=== PATIENT | male | born 1985 | race Caucasian/White ===

== ENCOUNTER 2017-06-28 20:14 | Emergency (ER) | payer MEDICARE, MEDICAID, SELFPAY ==
[2017-06-28 21:35] LABS: UTC Strep Screen (Rapid) Negative (Negative)
[2017-06-28 21:36] VITALS: BP 137/88; PULSE 107; RESP 20; TEMP 36.8; O2SAT 98; BMI 39.9
--- NOTE | 2017-06-28 21:40 | HMH.EDUTC ---
[facility] [place] Disposition Clinical Impression: Viral upper respiratory illness Disposition: Home, Self-Care Condition on Discharge: Good Instructions: DI for Viral Upper Respiratory Infection -- Adult, DI for Viral Pharyngitis Additional Instructions: * No sign of bacterial infection. Likely viral. Virus can take 7-14 days to run their course * Monitor Temp. Tylenol every 4 hours as needed no more then 5 times a day or 4000mg in 24 hours and/or ibuprofen every 6 hours as needed no more then 3200mg in 24 hours (as long as your primary care doctor has told you that it is ok to take both) for fever/aches/pain. ER if fever no less than 101 despite tylenol and ibuprofen * Encourage fluids, water, gatorade, powerade, pedialyte if infant/toddler/child * warm salt water gargles * warm fluids * sore throat lozenges * sleep elevated * humidifier/vaporizer * flonase 2 sprays each nostril daily but may take 2-3 days to notice improvement with it. * Bromfed may cause drowsiness. Know how it effects you (or your child) before driving, caring for small children, or sending your child to school. No other antihistamines/allergy medications while taking bromfed. * * Your throat swab was sent for culture. Those results are typically sent to your primary care. Be sure to follow up in 2-3 days if no improvement so they can review those results and treat if necessary. If you don't have primary care, I recommend you get one but in the mean time, you will have to return to a walk in clinic. Prescriptions: Brompheniramine/Pseudoephed/Dm [Bromfed DM Cough Syrup 5mL] 10 ml PO QID PRN #240 ml PRN Reason: Cough Referrals: Ruperto Buitrago MD [Primary Care Provider] - (IMMEDIATELY for new or worsening symptoms OR no noticeable improvement over the next 48-72 hours. 911 for difficulty breathing or swallowing.) Time of Disposition: 21:47 Medical Decision Making Vital Signs: 06/28/17 21:36 Temperature 98.2 F Temperature Source Temporal Artery Scan Pulse Rate [Radial] 107 H Respiratory Rate 20 Blood Pressure [Right Arm] 137/88 Blood Pressure Mean [Right Arm] 104 Blood Pressure Source [Right Arm] Automatic Cuff Blood Pressure Position [Right Arm] Sitting 02 Sat by Pulse Oximetry 98 Oxygen Delivery Method Room Air - Lab Data Lab results reviewed: Yes: I reviewed the patient's lab results. Lab Results 06/28/17 21:35: Strep Scn Rapid Clinic Negative - Mo Inquiry Pt receiving controlled substance: No [facility] [place] HPI - General Stated complaint: sore throat Time Seen by Provider: 06/28/17 21:20 Mode of Arrival: Ambulatory Source of Information: Patient Description of Symptoms (Recalled from Triage Doc. by RN): PT STATES SORE THROAT AND SINUS DRAINAGE HEENT Symptoms (Recalled from RN notes): No Resp Symptoms (Recalled from RN notes): No Skin Symptoms (Recalled from RN notes): No MS Symptoms (Recalled from RN notes): No Functional Status (Recalled from RN notes): NA - History of Present Illness Provider Complaint: c/o sore throat since day before yesterday. No better w/ chloraseptic throat spray, cough drops, mucinex. Does report a nonprod cough w/ PND and rhinorrhea as well. No known sick contacts. Hasn't taken or tried anything else. The worst in the evenings, night and morning. - Related Data Previous Rx's Medication Instructions Recorded Brompheniramine/Pseudoephed/Dm 10 ml PO QID PRN #240 ml 06/28/17 [Bromfed DM Cough Syrup 5mL] Allergies Allergy/AdvReac Type Severity Reaction Status Date / Time Penicillins [PENICILLINS] Allergy Unknown Verified 06/28/17 20:39 - Worker's Comp Is this a Worker's Comp case?: No [facility] History I have reviewed the patient's past medical history: Yes Medical History: Reports:: Hypertension Denies:: Diabetes Mellitus Type 2 Laterality Cases: Bilateral: Tonsillectomy Comment: unknown lung surgery on right, oral surgeries - *Social History Smoking Status: Never smoker Alcohol Intake:
--- NOTE | 2017-06-28 21:43 | ED_ITS ---
[facility] Disposition Clinical Impression: Viral upper respiratory illness Disposition: Home, Self-Care Condition on Discharge: Good Instructions: DI for Viral Upper Respiratory Infection -- Adult, DI for Viral Pharyngitis Additional Instructions: * No sign of bacterial infection. Likely viral. Virus can take 7-14 days to run their course * Monitor Temp. Tylenol every 4 hours as needed no more then 5 times a day or 4000mg in 24 hours and/or ibuprofen every 6 hours as needed no more then 3200mg in 24 hours (as long as your primary care doctor has told you that it is ok to take both) for fever/aches/pain. ER if fever no less than 101 despite tylenol and ibuprofen * Encourage fluids, water, gatorade, powerade, pedialyte if infant/toddler/ child * warm salt water gargles * warm fluids * sore throat lozenges * sleep elevated * humidifier/vaporizer * flonase 2 sprays each nostril daily but may take 2-3 days to notice improvement with it. * Bromfed may cause drowsiness. Know how it effects you (or your child) before driving, caring for small children, or sending your child to school. No other antihistamines/allergy medications while taking bromfed. * * Your throat swab was sent for culture. Those results are typically sent to your primary care. Be sure to follow up in 2-3 days if no improvement so they can review those results and treat if necessary. If you don't have primary care , I recommend you get one but in the mean time, you will have to return to a walk in clinic. Prescriptions: Brompheniramine/Pseudoephed/Dm [Bromfed DM Cough Syrup 5mL] 10 ml PO QID PRN # 240 ml PRN Reason: Cough Referrals: Ruperto Buitrago MD [Primary Care Provider] - (IMMEDIATELY for new or worsening symptoms OR no noticeable improvement over the next 48-72 hours. 911 for difficulty breathing or swallowing.) Time of Disposition: 21:47 Medical Decision Making Vital Signs: 06/28/17 21:36 Temperature 98.2 F Temperature Source Temporal Artery Scan Pulse Rate [Radial] 107 H Respiratory Rate 20 Blood Pressure [Right Arm] 137/88 Blood Pressure Mean [Right Arm] 104 Blood Pressure Source [Right Arm] Automatic Cuff Blood Pressure Position [Right Arm] Sitting 02 Sat by Pulse Oximetry 98 Oxygen Delivery Method Room Air - Lab Data Lab results reviewed: Yes: I reviewed the patient's lab results. Lab Results 06/28/17 21:35: Strep Scn Rapid Clinic Negative - Mo Inquiry Pt receiving controlled substance: No [facility] [place] HPI - General Stated complaint: sore throat Time Seen by Provider: 06/28/17 21:20 Mode of Arrival: Ambulatory Source of Information: Patient Description of Symptoms (Recalled from Triage Doc. by RN): PT STATES SORE THROAT AND SINUS DRAINAGE HEENT Symptoms (Recalled from RN notes): No Resp Symptoms (Recalled from RN notes): No Skin Symptoms (Recalled from RN notes): No MS Symptoms (Recalled from RN notes): No Functional Status (Recalled from RN notes): NA - History of Present Illness Provider Complaint: c/o sore throat since day before yesterday. No better w/ chloraseptic throat spray, cough drops, mucinex. Does report a nonprod cough w/ PND and rhinorrhea as well. No known sick contacts. Hasn't taken or tried anything else. The worst in the evenings, night and morning. - Related Data Previous Rx's Medication Instructions Recorded Brompheniramine/Pseudoephed/Dm 10 ml PO QID PRN #240 ml 06/28/17 [Bromfed DM Cough Syrup 5mL
== END 2017-06-28 22:18 | disposition home or self-care (01) ==
PROVIDERS: Emergency Provider Nurse Practitioner Family; Family Provider Internal Medicine Adolescent Medicine; PCP Internal Medicine Adolescent Medicine
DX: J06.9 Acute upper respiratory infection, unspecified (principal); I10 Essential (primary) hypertension
CPT/HCPCS: 87880; 99201

== ENCOUNTER 2017-07-17 15:13 | Emergency (ER) | payer MEDICARE, MEDICAID, SELFPAY ==
[2017-07-17 16:04] VITALS: BP 144/98; PULSE 99; RESP 20; TEMP 37; O2SAT 98; BMI 39.9
--- NOTE | 2017-07-17 16:09 | HMH.EDUTC ---
[facility] [place] Disposition Clinical Impression: URI (upper respiratory infection) Qualifiers: URI type: unspecified URI Qualified Code(s): J06.9 - Acute upper respiratory infection, unspecified Disposition: Home, Self-Care Condition on Discharge: Good Instructions: Cough, Sore Throat, DI for Nasal Congestion Additional Instructions: * Monitor Temp. Tylenol and/or Ibuprofen as needed. ER if fever is no less than 101 despite alternating Tylenol and Ibuprofen * Encourage fluids, water, Gatorade, powerade, pedialyte if /toddler/or child * Warm salt water gargles for throat irritation *Warm fluids *Sore throat lozenges *Sleep elevated *humidifier or vaporizer Lots of rest Increase fluids, water, Gatorade, powerade *Your throat swab was sent to lab for culture. Those results area typically sent to your primary care physician. Be sure to follow up in 2-3 days if no improvement so they can review those results and treat if necessary If you dont have primary care I recommend you get one, but in the mean time you will have to return to a walk in clinic Follow up IMMEDIATELY for new or worsening of symptoms OR no noticeable improvement over the next 48-72 hours. 911 immediately for any life threatening symptoms such as chest pain or difficulty breathing Prescriptions: Azithromycin [Z-David 250mg Tab] 250 mg PO UD DOSE PK #6 tab Benzonatate [Tessalon Perle 100mg Cap] 100 mg PO TID #20 cap predniSONE [Prednisone 20mg Tab] 20 mg PO BID #10 tab Referrals: Ruperto Buitrago MD [Primary Care Provider] - Time of Disposition: 16:27 Medical Decision Making - Medical Records Medical records reviewed: Yes: I reviewed the patient's medical records. Vital Signs: 07/17/17 16:04 Temperature 98.6 F Temperature Source Temporal Artery Scan Pulse Rate [Right] 99 H Respiratory Rate 20 Blood Pressure [Right Arm] 144/98 Blood Pressure Mean [Right Arm] 113 Blood Pressure Source [Right Arm] Automatic Cuff Blood Pressure Position [Right Arm] Sitting 02 Sat by Pulse Oximetry 98 Oxygen Delivery Method Room Air - Mo Inquiry Pt receiving controlled substance: No Mo was queried for this patient: No [facility] [place] HPI - General Stated complaint: sore throat Mode of Arrival: Ambulatory Source of Information: Patient Limitations: No Limitations Description of Symptoms (Recalled from Triage Doc. by RN): SORE THROAT X2 MONTHS HEENT Symptoms (Recalled from RN notes): Yes Resp Symptoms (Recalled from RN notes): No Skin Symptoms (Recalled from RN notes): No MS Symptoms (Recalled from RN notes): No Functional Status (Recalled from RN notes): N - History of Present Illness Provider Complaint: Patient state that he has been seen 3 times in the last couple of months for sore throat State that he thinks it may be coming from sinus drainage State that his throat feels raw and irritated and hurts when he swallows - Related Data Previous Rx's Medication Instructions Recorded Brompheniramine/Pseudoephed/Dm 10 ml PO QID PRN #240 ml 06/28/17 [Bromfed DM Cough Syrup 5mL] Azithromycin [Z-David 250mg Tab] 250 mg PO UD DOSE PK #6 tab 07/17/17 Benzonatate [Tessalon Perle 100mg 100 mg PO TID #20 cap 07/17/17 Cap] predniSONE [Prednisone 20mg 20 mg PO BID #10 tab 07/17/17 Tab] Allergies Allergy/AdvReac Type Severity Reaction Status Date / Time Penicillins [PENICILLINS] Allergy Unknown Verified 06/28/17 20:39 - Worker's Comp Is this a Worker's Comp case?: No [facility] History I have reviewed the patient's past medical history: Yes Medical History: Reports:: Hypertension Denies:: Diabetes Mellitus Type 2 Laterality Cases: Bilateral: Tonsillectomy - *Social History Smoking Status: Never smoker Alcohol Intake: never - Psychiatric History Expresses thoughts of harming self/others: None Suicide Plan Description: No Plan ROS Obtained: Yes All systems reviewed & no additional complaints - Constitutional Constitutional: Reports chills,
--- NOTE | 2017-07-17 16:15 | ED_ITS ---
[facility] [place] Impression: URI (upper respiratory infection) Qualifiers: URI type: unspecified URI Qualified Code(s): J06.9 - Acute upper respiratory infection, unspecified Disposition: Home, Self-Care Condition on Discharge: Good Instructions: Cough, Sore Throat, DI for Nasal Congestion Additional Instructions: * Monitor Temp. Tylenol and/or Ibuprofen as needed. ER if fever is no less than 101 despite alternating Tylenol and Ibuprofen * Encourage fluids, water, Gatorade, powerade, pedialyte if infant/toddler/or child * Warm salt water gargles for throat irritation *Warm fluids *Sore throat lozenges *Sleep elevated *humidifier or vaporizer Lots of rest Increase fluids, water, Gatorade, powerade *Your throat swab was sent to lab for culture. Those results area typically sent to your primary care physician. Be sure to follow up in 2-3 days if no improvement so they can review those results and treat if necessary If you don? t have primary care I recommend you get one, but in the mean time you will have to return to a walk in clinic Follow up IMMEDIATELY for new or worsening of symptoms OR no noticeable improvement over the next 48-72 hours. 911 immediately for any life threatening symptoms such as chest pain or difficulty breathing Prescriptions: Azithromycin [Z-David 250mg Tab] 250 mg PO UD DOSE PK #6 tab Benzonatate [Tessalon Perle 100mg Cap] 100 mg PO TID #20 cap predniSONE [Prednisone 20mg Tab] 20 mg PO BID #10 tab Referrals: Ruperto Buitrago MD [Primary Care Provider] - Time of Disposition: 16:27 Medical Decision Making - Medical Records Medical records reviewed: Yes: I reviewed the patient's medical records. Vital Signs: 07/17/17 16:04 Temperature 98.6 F Temperature Source Temporal Artery Scan Pulse Rate [Right] 99 H Respiratory Rate 20 Blood Pressure [Right Arm] 144/98 Blood Pressure Mean [Right Arm] 113 Blood Pressure Source [Right Arm] Automatic Cuff Blood Pressure Position [Right Arm] Sitting 02 Sat by Pulse Oximetry 98 Oxygen Delivery Method Room Air - Mo Inquiry Pt receiving controlled substance: No Mo was queried for this patient: No [facility] [place] - General Stated complaint: sore throat Mode of Arrival: Ambulatory Source of Information: Patient Limitations: No Limitations Description of Symptoms (Recalled from Triage Doc. by RN): SORE THROAT X2 MONTHS HEENT Symptoms (Recalled from RN notes): Yes Resp Symptoms (Recalled from RN notes): No Skin Symptoms (Recalled from RN notes): No MS Symptoms (Recalled from RN notes): No Functional Status (Recalled from RN notes): N - History of Present Illness Provider Complaint: Patient state that he has been seen 3 times in the last couple of months for sore throat State that he thinks it may be coming from sinus drainage State that his throat feels raw and irritated and hurts when he swallows - Related Data Previous Rx's Medication Instructions Recorded Brompheniramine/Pseudoephed/Dm 10 ml PO QID PRN #240 ml 06/28/17 [Bromfed DM Cough Syrup 5mL] Azithromycin [Z-David 250mg Tab] 250 mg PO UD DOSE PK #6 tab 07/17/17 Benzonatate [Tessalon Perle 100mg 100 mg PO TID #20 cap 07/17/17 Cap] predniSONE [Prednisone 20mg 20 mg PO BID #10 tab 07/17/17 Tab] Allergies Allergy/AdvReac Type Severity Reaction Status Date / Time Penicillins [PENICILLINS] Allergy
[2017-07-17 16:28] VITALS: BP 140/90; PULSE 90; RESP 20; TEMP 36.6
[2017-07-17 16:28] LABS: UTC Strep Screen (Rapid) Negative (Negative)
== END 2017-07-17 16:30 | disposition home or self-care (01) ==
PROVIDERS: Emergency Provider Nurse Practitioner; Family Provider Internal Medicine Adolescent Medicine; PCP Internal Medicine Adolescent Medicine
DX: J06.9 Acute upper respiratory infection, unspecified (principal)
CPT/HCPCS: 87880; 99201

== ENCOUNTER 2017-07-24 11:29 | Emergency (ER) | payer MEDICARE, MEDICAID, SELFPAY ==
[2017-07-24 11:57] VITALS: BP 160/104; PULSE 80; RESP 18; TEMP 36.9; O2SAT 96; BMI 39.9
--- NOTE | 2017-07-24 12:04 | XR_ITS ---
EXAM: XR lumbar spine min 4V HISTORY: Post traumatic pain ITS.REASON: fall ORDERING PHYSICIAN: Maximino Dang MD PATIENT AGE: 31 years COMPARISON: None FINDINGS: Normal alignment. No fracture or dislocation. No lytic or blastic change. No significant degenerative change. The disc spaces are preserved. IMPRESSION: Negative lumbar spine
--- NOTE | 2017-07-24 12:04 | CT_ITS ---
CT cervical spine wo con INDICATION: Neck pain following injury ITS.REASON: fall ORDERING PHYSICIAN: Maximino Dang MD PATIENT AGE: 31 years COMPARISON: None TECHNIQUE: Axial images are obtained without contrast. Sagittal and coronal reformatted images are reviewed as well. FINDINGS: There is normal alignment with slight reversal the cervical lordosis which may be due to patient positioning or muscle spasm. No fracture or dislocation evident. The disc spaces are well-preserved. No prevertebral soft tissue swelling. Lung apices show multiple small collapse. IMPRESSION: 1. No acute fracture. 2. Slight reversal cervical lordosis which may be due to patient positioning or muscle spasm. 3. Biapical blebs
--- NOTE | 2017-07-24 12:04 | XR_ITS ---
XR shoulder LT min 2V HISTORY: Shoulder pain following injury ITS.REASON: fall ORDERING PHYSICIAN: Maximino Dang MD PATIENT AGE: 31 years COMPARISON: None FINDINGS: No fracture or dislocation. No lytic or blastic change. There is normal mineralization. The joint spaces are well-preserved. No significant degenerative/arthritic changes. No erosive changes evident. IMPRESSION: Negative, no acute finding
--- NOTE | 2017-07-24 14:32 | HMH.EDFALL ---
ED Disposition Clinical Impression: Shoulder contusion, Lumbar contusion Disposition: Home, Self-Care Condition on Discharge: Good Instructions: DI for Low Back Pain Additional Instructions: 1- rest. 2- ice. 3- icy hot. 4- robaxin and motrin. 5- follow up with pcp on final x ray reports. 6- retrun if needed. Prescriptions: Ibuprofen [Motrin 600mg Tablet] 600 mg PO Q8HP PRN #21 tab PRN Reason: Muscle Pain Methocarbamol [Robaxin 500mg Tab] 500 mg PO Q8 PRN #21 tab PRN Reason: Cramping Referrals: Ruperto Buitrago MD [Primary Care Provider] - - Critical Care Critical Care Time: No Attestation: On 07/24/17, the high probability of a clinically significant, sudden or life threatening deterioration of the following system(s) required my full and direct attention, intervention and personal management. The time I documented below is in addition to time spent performing reported procedures but includes the following listed in this critical care notation. Medical Decision Making - Medical Records Medical records reviewed: Yes: I reviewed the patient's medical records. Vital Signs: 07/24/17 11:57 Temperature 98.5 F Temperature Source Oral Pulse Rate [Right Radial] 80 Respiratory Rate 18 Blood Pressure [Right Arm] 160/104 Blood Pressure Mean [Right Arm] 122 Blood Pressure Source [Right Arm] Automatic Cuff Blood Pressure Position [Right Arm] Sitting 02 Sat by Pulse Oximetry 96 Oxygen Delivery Method Room Air - Radiology Data #1 Image(s): L-Spine, Shoulder Image Reviewed: Yes I have reviewed radiologist's interpretation Preliminary Findings: Normal/NAD - CT Data CT Scan: C-Spine Time Received: 14:35 - Mo Inquiry Pt receiving controlled substance: No Fall HPI - General Chief Complaint: Back Pain/Injury Stated Complaint: AO [id number] left shoulder/back Mode of Arrival: Ambulatory Limitations: No Limitations Description of Symptoms (Recalled from ER Triage Doc. by RN): reports fall down steps last night, c/o L shoulder pain, L sided neck pain and lower back pain. Denies loc - History of Present Illness HPI Narrative: 31 years old white male who claims that he has slipped and landed on his left shoulder and lower back yesterday. Denies head injury he denies having neck pain rib pain chest or abdominal pain. He denies loss of conscious. complaint: fall Onset (ago): day(s) (Yesterday.) Fall from: standing Fall witnessed: yes, by family Place fall occurred: home Loss of consciousness: none Prolonged down time: no Symptoms prior to fall: none Severity: mild Quality: dull Associated symptoms (after fall): denies - Related Data Previous Rx's Medication Instructions Recorded Ibuprofen [Motrin 600mg 600 mg PO Q8HP PRN #21 tab 07/24/17 Tablet] Methocarbamol [Robaxin 500mg Tab] 500 mg PO Q8 PRN #21 tab 07/24/17 Allergies Allergy/AdvReac Type Severity Reaction Status Date / Time Penicillins [PENICILLINS] Allergy Unknown Verified 07/24/17 12:04 [facility] History I have reviewed the patient's past medical history: Yes Medical History: Reports:: Hypertension Denies:: Diabetes Mellitus Type 1, Diabetes Mellitus Type 2 Laterality Cases: Bilateral: Tonsillectomy - *Social History Smoking Status: Former smoker Alcohol Intake: never - Psychiatric History Expresses thoughts of harming self/others: None Suicide Plan Description: No Plan ROS Obtained: Yes All systems reviewed & no additional complaints Physical Exam - General General appearance: alert, in no apparent distress - Head Head exam: atraumatic, normocephalic, normal inspection - Eye Eye exam: Present: normal appearance, PERRL, EOMI - ENT ENT exam: Present: normal exam, normal oropharynx, mucous membranes moist, TM's normal bilaterally, normal external ear exam - Neck Neck exam: Present: normal inspection, full ROM, trachea midline. Absent: tenderness (No midline tenderness
--- NOTE | 2017-07-24 14:35 | ED_ITS ---
ED Disposition Clinical Impression: Shoulder contusion, Lumbar contusion Disposition: Home, Self-Care Condition on Discharge: Good Instructions: DI for Low Back Pain Additional Instructions: 1- rest. 2- ice. 3- icy hot. 4- robaxin and motrin. 5- follow up with pcp on final x ray reports. 6- retrun if needed. Prescriptions: Ibuprofen [Motrin 600mg Tablet] 600 mg PO Q8HP PRN #21 tab PRN Reason: Muscle Pain Methocarbamol [Robaxin 500mg Tab] 500 mg PO Q8 PRN #21 tab PRN Reason: Cramping Referrals: Ruperto Buitrago MD [Primary Care Provider] - - Critical Care Critical Care Time: No Attestation: On 07/24/17, the high probability of a clinically significant, sudden or life threatening deterioration of the following system(s) required my full and direct attention, intervention and personal management. The time I documented below is in addition to time spent performing reported procedures but includes the following listed in this critical care notation. Medical Decision Making - Medical Records Medical records reviewed: Yes: I reviewed the patient's medical records. Vital Signs: 07/24/17 11:57 Temperature 98.5 F Temperature Source Oral Pulse Rate [Right Radial] 80 Respiratory Rate 18 Blood Pressure [Right Arm] 160/104 Blood Pressure Mean [Right Arm] 122 Blood Pressure Source [Right Arm] Automatic Cuff Blood Pressure Position [Right Arm] Sitting 02 Sat by Pulse Oximetry 96 Oxygen Delivery Method Room Air - Radiology Data #1 Image(s): L-Spine, Shoulder Image Reviewed: Yes I have reviewed radiologist's interpretation Preliminary Findings: Normal/NAD - CT Data CT Scan: C-Spine Time Received: 14:35 - Mo Inquiry Pt receiving controlled substance: No Fall HPI - General Chief Complaint: Back Pain/Injury Stated Complaint: AO [id number] left shoulder/back Mode of Arrival: Ambulatory Limitations: No Limitations Description of Symptoms (Recalled from ER Triage Doc. by RN): reports fall down steps last night, c/o L shoulder pain, L sided neck pain and lower back pain. Denies loc - History of Present Illness HPI Narrative: 31 years old white male who claims that he has slipped and landed on his left shoulder and lower back yesterday. Denies head injury he denies having neck pain rib pain chest or abdominal pain. He denies loss of conscious. complaint: fall Onset (ago): day(s) (Yesterday.) Fall from: standing Fall witnessed: yes, by family Place fall occurred: home Loss of consciousness: none Prolonged down time: no Symptoms prior to fall: none Severity: mild Quality: dull Associated symptoms (after fall): denies - Related Data Previous Rx's Medication Instructions Recorded Ibuprofen [Motrin 600mg 600 mg PO Q8HP PRN #21 tab 07/24/17 Tablet] Methocarbamol [Robaxin 500mg Tab] 500 mg PO Q8 PRN #21 tab 07/24/17 Allergies Allergy/AdvReac Type Severity Reaction Status Date / Time Penicillins [PENICILLINS] Allergy Unknown Verified 07/24/17 12:04 [facility] History I have reviewed the patient's past medical history: Yes Medical History: Reports:: Hypertension Denies:: Diabetes Mellitus Type 1, Diabetes Mellitus Type 2 Laterality Cases: Bilateral: Tonsillectomy - *Social History Smoking Status: F
[2017-07-24 14:45] VITALS: BP 146/96; PULSE 86; RESP 20; TEMP 36.8; O2SAT 98
== END 2017-07-24 14:45 | disposition home or self-care (01) ==
PROVIDERS: Emergency Provider Emergency Medicine; Family Provider Internal Medicine Adolescent Medicine; PCP Internal Medicine Adolescent Medicine
DX: S40.012A Contusion of left shoulder, initial encounter (principal); S30.0XXA Contusion of lower back and pelvis, initial encounter; W10.9XXA Fall (on) (from) unspecified stairs and steps, initial encounter; Y92.009 Unspecified place in unspecified non-institutional (private) residence as the place of occurrence of the external cause
CPT/HCPCS: 72110; 72125; 73030; 99282

== ENCOUNTER 2018-10-13 09:49 | Emergency (ER) | payer MEDICARE, MEDICAID, SELFPAY ==
[2018-10-13 10:09] VITALS: BP 149/90; PULSE 68; RESP 22; TEMP 36.8; O2SAT 99; BMI 51.5
[2018-10-13 10:11] LABS: UTC Strep Screen (Rapid) Negative (Negative)
--- NOTE | 2018-10-13 10:42 | HMH.EDUTC ---
[facility] [place] Dis[place] Clinical Impression: Cough, Viral pharyngitis Disposition: Home, Self-Care Condition on Discharge: Good Instructions: Cough, Sore Throat, Viral Pharyngitis Additional Instructions: *Monitor Temp, Over the counter Motrin or Tylenol as directed/as needed Tylenol every 4 hours and Motrin every 6 hours (as long as your family doctor has told you that you can take it) for fever or pain. and straight to ER if unable to lower temp less than 101.0 after medication given *Warm salt water gargles may help to soothe the throat *Throat Lozenges *Warm fluids *Sleep elevated *Humidifier/Vaporizer *Flonase 2 sprays in each nostril daily but be aware that it may take 2-3 days before you notice improvement Your throat swab was sent for culture. Those results are typically sent to your primary care. Be sure to follow up in 2-3 days with your family doctor/primary care physician if no improvement so they can review those result and treat if necessary. If you don?t have a primary care doctor, I recommend you get one but in the mean time, you will have to return to a walk in clinic Follow up IMMEDIATELY for new or worsening symptoms or no Noticeable improvement over the next 48-72 hours. 911 for difficulty breathing or swallowing Prescriptions: Fluticasone Propionate [Flonase 50mcg nasal spray 16gm] 2 spr NS DAILY #1 bottle Benzonatate [Tessalon Perle 100mg Cap] 100 mg PO TID PRN #30 cap PRN Reason: Cough Referrals: Ruperto Buitrago MD [Primary Care Provider] - Medical Decision Making - Mo Inquiry Pt receiving controlled substance: No Mo was queried for this patient: No Vital Signs: 10/13/18 10:09 Temperature 98.2 F Temperature Source Oral Pulse Rate [Right Brachial] 68 Respiratory Rate 22 Blood Pressure [Right Arm] 149/90 H Blood Pressure Mean [Right Arm] 109 Blood Pressure Source [Right Arm] Automatic Cuff Blood Pressure Position [Right Arm] Sitting 02 Sat by Pulse Oximetry 99 Oxygen Delivery Method Room Air - Lab Data Lab results reviewed: Yes: I reviewed the patient's lab results. Lab Results 10/13/18 10:07: Strep Scn Rapid Clinic Negative Orders (Tests/Meds): ORDERS Category Date Time Status Strep Screen Confirmation Stat Micro 10/13/18 10:07 Received [facility] [place] HPI - General Stated complaint: Cough Time Seen by Provider: 10/13/18 10:43 Mode of Arrival: Family Vehicle Source of Information: Patient Limitations: No Limitations Description of Symptoms (Recalled from Triage Doc. by RN): C/O COUGH AND SORE THROAT X 2 WEEKS HEENT Symptoms (Recalled from RN notes): Yes Resp Symptoms (Recalled from RN notes): Yes Skin Symptoms (Recalled from RN notes): No MS Symptoms (Recalled from RN notes): No Functional Status (Recalled from RN notes): N/A - History of Present Illness Provider Complaint: Patient state that he has had cough and sore throat for about 2 weeks State that he has tried several over the counter Medications but nothing has helped States that he was seen about a year ago here in [facility] for same thing and was given some cough medication and it helped - Related Data Previous Rx's Medication Instructions Recorded Benzonatate [Tessalon Perle 100mg 100 mg PO TID PRN #30 cap 10/13/18 Cap] Fluticasone Propionate [Flonase 2 spr NS DAILY #1 bottle 10/13/18 50mcg nasal spray 16gm] Allergies Allergy/AdvReac Type Severity Reaction Status Date / Time Penicillins [PENICILLINS] Allergy Unknown Verified 01/16/18 21:29 - Worker's Comp Is this a Worker's Comp case?: No [facility] History - Hepatitis A Screen Drug use history?: No High risk sexual behaviors?: No History of sexually transmitted infection?: No Currently employed?: No Childcare worker?: No Do you have indoor plumbing?: Yes Do you have electricity?: Yes Attestation statement:: This patient has been screened for Hepatitis A risk factors. I have reviewed the patient's past medical history: Yes Medical
--- NOTE | 2018-10-13 10:46 | ED_ITS ---
[facility] [place] Disposition Clinical Impression: Cough, Viral pharyngitis Disposition: Home, Self-Care Condition on Discharge: Good Instructions: Cough, Sore Throat, Viral Pharyngitis Additional Instructions: *Monitor Temp, Over the counter Motrin or Tylenol as directed/as needed Tylenol every 4 hours and Motrin every 6 hours (as long as your family doctor has told you that you can take it) for fever or pain. and straight to ER if unable to lower temp less than 101.0 after medication given *Warm salt water gargles may help to soothe the throat *Throat Lozenges *Warm fluids *Sleep elevated *Humidifier/Vaporizer *Flonase 2 sprays in each nostril daily but be aware that it may take 2-3 days before you notice improvement Your throat swab was sent for culture. Those results are typically sent to your primary care. Be sure to follow up in 2-3 days with your family doctor/primary care physician if no improvement so they can review those result and treat if necessary. If you don?t have a primary care doctor, I recommend you get one but in the mean time, you will have to return to a walk in clinic Follow up IMMEDIATELY for new or worsening symptoms or no Noticeable improvement over the next 48-72 hours. 911 for difficulty breathing or swallowing Prescriptions: Fluticasone Propionate [Flonase 50mcg nasal spray 16gm] 2 spr NS DAILY #1 bottle Benzonatate [Tessalon Perle 100mg Cap] 100 mg PO TID PRN #30 cap PRN Reason: Cough Referrals: Ruperto Buitrago MD [Primary Care Provider] - Medical Decision Making - Mo Inquiry Pt receiving controlled substance: No Mo was queried for this patient: No Vital Signs: 10/13/18 10:09 Temperature 98.2 F Temperature Source Oral Pulse Rate [Right Brachial] 68 Respiratory Rate 22 Blood Pressure [Right Arm] 149/90 H Blood Pressure Mean [Right Arm] 109 Blood Pressure Source [Right Arm] Automatic Cuff Blood Pressure Position [Right Arm] Sitting 02 Sat by Pulse Oximetry 99 Oxygen Delivery Method Room Air - Lab Data Lab results reviewed: Yes: I reviewed the patient's lab results. Lab Results 10/13/18 10:07: Strep Scn Rapid Clinic Negative Orders (Tests/Meds): ORDERS Category Date Time Status Strep Screen Confirmation Stat Micro 10/13/18 10:07 Received [facility] [place] HPI - General Stated complaint: Cough Time Seen by Provider: 10/13/18 10:43 Mode of Arrival: Family Vehicle Source of Information: Patient Limitations: No Limitations Description of Symptoms (Recalled from Triage Doc. by RN): C/O COUGH AND SORE THROAT X 2 WEEKS HEENT Symptoms (Recalled from RN notes): Yes Resp Symptoms (Recalled from RN notes): Yes Skin Symptoms (Recalled from RN notes): No MS Symptoms (Recalled from RN notes): No Functional Status (Recalled from RN notes): N/A - History of Present Illness Provider Complaint: Patient state that he has had cough and sore throat for about 2 weeks State that he has tried several over the counter Medications but nothing has helped States that he was seen about a year ago here in [facility] for same thing and was given some cough medication and it helped - Related Data Previous Rx's Medication Instructions Recorded Benzonatate [Tessalon Perle 100mg 100 mg PO TID PRN #30 cap 10/13/18 Cap] Fluticasone Pro
[2018-10-13 10:55] VITALS: BP 149/90; PULSE 68; RESP 22; TEMP 36.8; O2SAT 99
== END 2018-10-13 10:56 | disposition home or self-care (01) ==
PROVIDERS: Emergency Provider Nurse Practitioner; PCP Internal Medicine Adolescent Medicine
DX: R05 Cough (principal); J02.9 Acute pharyngitis, unspecified; B34.9 Viral infection, unspecified
CPT/HCPCS: 87880; 99201

== ENCOUNTER 2020-02-03 20:09 | Emergency (ER) | payer MEDICARE, MEDICAID, SELFPAY ==
[2020-02-03 20:23] VITALS: BP 129/94; PULSE 125; RESP 20; TEMP 36.8; O2SAT 95; BMI 44.3
[2020-02-03 20:27] LABS: Apearance,Urine Clear (Clear); Color,Urine Yellow (Yellow)
[2020-02-03 20:28] LABS: Glucose,Urine (UA) Negative (Negative); Ketones,Urine Negative (Negative); PH,Urine 5.5 (5.0-8.5); Protein,Urine 1+ (Negative); Specific Gravity, Urine >= 1.030 (1.005-1.030)
--- NOTE | 2020-02-03 20:28 | HMH.EDUTC ---
[facility] [place] Disposition Clinical Impression: Low back pain Qualifiers: Chronicity: acute Back pain laterality: bilateral Sciatica presence: with sciatica Sciatica laterality: bilateral sciatica Qualified Code(s): M54.42 - Lumbago with sciatica, left side Sciatica Qualifiers: Laterality: bilateral Qualified Code(s): M54.31 - Sciatica, right side Disposition: Home, Self-Care Condition on Discharge: Good Instructions: DI for Back Pain With Sciatica Additional Instructions: Go home and rest. It would be best if you rested tomorrow too. No heavy lifting. No twisting. Take the oral medications as directed. The muscle relaxer (robaxin) will make you drowsy, so don't drive or operate heavy machinery after taking it. Follow up with your regular doctor. GO TO THE ER FOR ANY WORSENING SYMPTOMS OR CONCERN, ESPECIALLY BOWEL OR BLADDER ISSUES, SADDLE AREA NUMBNESS, FEVER, ETC Prescriptions: Ibuprofen [Ibuprofen 600mg Tablet] 600 mg PO Q6HP PRN #30 tab PRN Reason: Mild Pain Transmission Status: Sent to [facility] Methocarbamol [Robaxin 500mg Tab] 500 mg PO BIDP PRN #30 tab PRN Reason: Muscle Spasm Transmission Status: Sent to [facility] Referrals: Ruperto Buitrago MD [Primary Care Provider] - Forms: Work/School Release Time of Disposition: 20:49 Medical Decision Making - Medical Records Medical records reviewed: No: I reviewed the patient's medical records. - Mo Inquiry Pt receiving controlled substance: No Vital Signs: 02/03/20 20:23 02/03/20 20:43 Temperature 98.2 F 98.2 F Temperature Source Oral Pulse Rate 125 H Pulse Rate [Right Brachial] 125 H Respiratory Rate 20 20 Blood Pressure 129/94 H Blood Pressure [Right Arm] 129/94 H Blood Pressure Mean [Right Arm] 105 Blood Pressure Source [Right Arm] Automatic Cuff Blood Pressure Position [Right Arm] Sitting 02 Sat by Pulse Oximetry 95 Oxygen Delivery Method Room Air - Lab Data Lab results reviewed: Yes: I reviewed the patient's lab results. Lab Results 02/03/20 20:26: Urine Color Yellow, Urine Appearance Clear, Urine pH 5.5, Ur Specific [place] >= 1.030, Urine Protein 1+, Urine Glucose (UA) Negative, Urine Ketones Negative, Urine Blood Negative, Urine Nitrate Negative, Urine Bilirubin 1+ A, Urine Urobilinogen 0.2, Ur Leukocyte Esterase Negative Orders (Tests/Meds): ED MEDICATIONS Discontinued Medications Generic Name Dose Route Start Last Admin Trade Name Denise PRN Reason Stop Dose Admin Ketorolac Tromethamine 60 mg 02/03/20 20:32 02/03/20 20:40 Toradol 60mg/2ml Vial IM 02/03/20 20:33 60 mg ONCE ONE Administration Methylprednisolone Sodium Succinate 125 mg 02/03/20 20:32 02/03/20 20:40 Solu-Medrol 125mg/2ml Vial IM 02/03/20 20:33 125 mg ONCE ONE Administration [facility] [place] HPI - General Stated complaint: pain in lowers back sids,back. Time Seen by Provider: 02/03/20 20:28 Mode of Arrival: Ambulatory Source of Information: Patient Limitations: No Limitations Description of Symptoms (Recalled from Triage Doc. 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 This evening he began having low back pain that radiates down both legs. He denies any numbness or tingling of his lower extremities. He denies any recent fall or injury. He denies any bowel or bladder issues. - Related Data Home Medications Medication Instructions Recorded Confirmed Albuterol Sulfate [Albuterol 8.5 gm IH Q6HP PRN 02/03/20 02/03/20 Sulfate Hfa] L
[2020-02-03 20:29] LABS: Bilirubin,Urine 1+ (Negative); Blood, Urine Negative (Negative); Urobilinogen,Urine 0.2 EU/dl (0.2)
[2020-02-03 20:30] LABS: UTC Leukocyte Esterase,Urine Negative (Negative); UTC Nitrate,Urine Negative (Negative)
[2020-02-03 20:43] VITALS: BP 129/94; PULSE 125; RESP 20; TEMP 36.8; O2SAT 95
== END 2020-02-03 20:55 | disposition home or self-care (01) ==
PROVIDERS: Emergency Provider Nurse Practitioner Family; PCP Internal Medicine Adolescent Medicine
DX: M54.42 Lumbago with sciatica, left side (principal); M54.31 Sciatica, right side; Z88.0 Allergy status to penicillin; F17.210 Nicotine dependence, cigarettes, uncomplicated
CPT/HCPCS: 81003; 96372; 99201; 99202

== ENCOUNTER 2020-03-23 23:59 | Emergency (ER) | payer MEDICARE, MEDICAID, SELFPAY ==
[2020-03-24] VITALS: BP 134/97; BP 162/96; PULSE 108; PULSE 114; RESP 17; RESP 18; TEMP 36.7; O2SAT 96; O2SAT 97; BMI 44.3
[2020-03-24 00:30] VITALS: BP 161/94; PULSE 112; RESP 16; O2SAT 98
--- NOTE | 2020-03-24 00:57 | XR_ITS ---
PROCEDURE: XR TIBIA FIBULA LT 2V CLINICAL INDICATION: Leg pain COMPARISON: No exams were available for comparison FINDINGS: No fracture or dislocation. No lytic or blastic change. There is normal mineralization. The joint spaces are well-preserved. No significant degenerative/arthritic changes. No erosive changes evident. Other findings:None. IMPRESSION: No acute findings. Dictated by: yRan Carcamo MD 03/24/2020 05:05 Ryan Carcamo MD in [place] 03/24/2020 05:05
[2020-03-24 01:00] VITALS: BP 164/86; PULSE 100; RESP 17; O2SAT 97
--- NOTE | 2020-03-24 01:32 | HMH.EDGENADL ---
ED Disposition Clinical Impression: Lower leg pain Qualifiers: Laterality: right Qualified Code(s): M79.661 - Pain in right lower leg Disposition: Home, Self-Care Condition on Discharge: Good Instructions: DI for Acute Pain -- Adult Additional Instructions: see pcp for follow up Prescriptions: predniSONE [Prednisone 20mg Tab] 20 mg PO BID #10 tab Transmission Status: Pending to [facility] Referrals: Ruperto Buitrago MD [Primary Care Provider] - - Critical Care Critical Care Time: No Attestation: On 03/23/20, the high probability of a clinically significant, sudden or life threatening deterioration of the following system(s) required my full and direct attention, intervention and personal management. The time I documented below is in addition to time spent performing reported procedures but includes the following listed in this critical care notation. Medical Decision Making - Medical Records Medical records reviewed: Yes: I reviewed the patient's medical records. - Mo Inquiry Pt receiving controlled substance: No Vital Signs: 03/24/20 00:00 03/24/20 00:30 03/24/20 01:00 Temperature 98.1 F Temperature Source Oral Pulse Rate [Right Radial] 114 H 112 H 100 H Respiratory Rate 17 16 17 Blood Pressure [Right Arm] 162/96 H 161/94 H 164/86 H Blood Pressure Mean [Right Arm] 118 116 112 Blood Pressure Source [Right Arm] Automatic Cuff Automatic Cuff Automatic Cuff Blood Pressure Position [Right Arm] Supine Supine Supine 02 Sat by Pulse Oximetry 96 98 97 Oxygen Delivery Method Room Air Room Air Room Air - Lab Data Lab results reviewed: Yes: I reviewed the patient's lab results. Lab Results 03/24/20 01:45: WBC 11.5 H, RBC 6.10, Hgb 16.7, Hct 53.2 H, MCV 87.3, MCH 27.5, MCHC 31.5 L, RDW 14.2, Plt Count 411, MPV 7.5, Neut % (Auto) 75.9, Lymph % (Auto) 15.9, Drew % (Auto) 4.9, Eos % (Auto) 2.5, Baso % (Auto) 0.8, Neut # (Auto) 8.7 H, Lymph # (Auto) 1.8, Drew # (Auto) 0.6, Eos # (Auto) 0.3, Baso # (Auto) 0.1 03/24/20 01:45: Sodium 140, Potassium 4.1, Chloride 106, Carbon Dioxide 25, Anion Gap 13.1, BUN 17, Creatinine 1.20, Estimated Creat Clear 88, Estimated GFR 70, Est GFR ( Amer) 84, Glucose 105 H, Calcium 9.5, Total Bilirubin 0.3, AST 21, ALT 31, Alkaline Phosphatase 68, Total Protein 7.4, Albumin 4.4, Globulin 3.0, Albumin/Globulin Ratio 1.5 03/24/20 02:04: D-Dimer 0.25 Result diagrams: 03/24/20 01:45 03/24/20 01:45 Orders (Tests/Meds): ORDERS Category Date Time Status XR tibia fibula LT 2V Stat Exams 03/24/20 00:57 Taken CBC [Complete Blood Count Auto Diff] Stat Lab 03/24/20 01:45 Results ESR [Erythrocyte Sedimentation Rate] Stat Lab 03/24/20 01:45 Results - Radiology Data #1 Image(s): Tib/Fib Image Reviewed: Yes I reviewed the patient's radiology image Preliminary Findings: No Fracture Seen General Adult HPI - General Chief complaint: PAIN Stated complaint: Left leg pain, no accident Time Seen by Provider: 03/24/20 01:00 Mode of Arrival: Ambulatory Source of Information: Patient, Medical Record Limitations: No Limitations Description of Symptoms (Recalled from ER Triage Doc. by RN): Pt c/o anterior LLE pain from the knee to ankle that started this am and has gotten worse throughout the day. He describes the pain as dull and aching. He rates his pain 8 out of 10. Pt denies any injury or fall. LLE is soft, pedal pulses present, no erythema. - History of Present Illness HPI narrative: atraumatic rt lower leg with pain to ant borrero with pain with palpation - no other jt pain and no fever - rt lower leg ok Onset (ago): hour(s) Location: lower extremity Severity: moderate Associated symptoms: denies other symptoms Treatments prior to arrival: none - Related Data Home Medications Medication Instructions Recorded Confirmed Albuterol Sulfate [Albuterol 8.5 gm IH Q6HP PRN 02/03/20 03/24/20 Sulfate Hfa] Loratadine [Claritin] 10 mg P
[2020-03-24 02:03] LABS: Basophils # 0.1 K/mm3 (0-0.2); Basophils % 0.8 % (0.1-2.0); Eosinophils # 0.3 K/mm3 (0.0-0.4); Eosinophils % 2.5 % (0.1-12.0); Hematocrit 53.2 % (42.0-52.0); Hemoglobin 16.7 g/dL (14.1-18.0); Lymphocytes # 1.8 K/mm3 (0.7-4.5); Lymphocytes % 15.9 % (10-50); Mean Corpuscular HGB Conc 31.5 g/dL (31.8-35.4); Mean Corpuscular Hemoglobin 27.5 pg (27.0-31.2); Mean Corpuscular Volume 87.3 fl (80-94); Mean Platelet Volume 7.5 fl (7.4-10.4); Monocytes # 0.6 K/mm3 (0.1-1.0); Monocytes % 4.9 % (1.7-9.3); Neutrophils # 8.7 K/mm3 (1.8-7.8); Neutrophils % 75.9 % (37.0-80.0); Platelet Count 411 K/mm3 (142-424); Red Cell Distribution Width 14.2 % (11.5-17.5); White Blood Count 11.5 K/mm3 (4.8-10.8)
[2020-03-24 02:07] LABS: Alanine Aminotransferase 31 U/L (12-78); Albumin Level 4.4 g/dl (3.5-5.0); Albumin/Globulin Ratio 1.5 (1.1-1.8); Alkaline Phosphatase 68 U/L (38-126); Anion Gap 13.1 mEq/L (5-15); Aspartate Amino Transferase 21 U/L (17-59); Bilirubin,Total 0.3 mg/dl (0.2-1.3); Blood Urea Nitrogen 17 mg/dl (9-20); Calcium 9.5 mg/dl (8.4-10.2); Carbon Dioxide 25 mmol/L (22.0-30.0); Chloride 106 mmol/L (98-107); Creatinine Clearance Estimated 88 mL/min (50-200); Estimated Glomerular Filt Rate 70 ml/min (>60); GFR (African American) 84 ML/MIN (>60); Glucose 105 mg/dl (74-100); Potassium 4.1 mmoL/L (3.5-5.1); Sodium 140 mmol/L (136-145); Total Protein,Serum 7.4 g/dl (6.3-8.2)
[2020-03-24 02:24] LABS: D-Dimer 0.25 ug/mL (0.15-8.0)
[2020-03-24 02:48] VITALS: BP 112/75; PULSE 73; RESP 15; TEMP 36.8; O2SAT 98
[2020-03-24 03:15] LABS: Erythrocyte Sedimentation Rate 8 mm/hr (0-15)
== END 2020-03-24 02:50 | disposition home or self-care (01) ==
PROVIDERS: Emergency Provider Emergency Medicine; PCP Internal Medicine Adolescent Medicine
DX: M79.661 Pain in right lower leg (principal); I10 Essential (primary) hypertension; Z88.0 Allergy status to penicillin; F17.210 Nicotine dependence, cigarettes, uncomplicated
CPT/HCPCS: 73590; 80053; 85025; 85378; 85651; 99283

== ENCOUNTER 2020-08-23 13:44 | Emergency (ER) | payer MEDICARE, MEDICAID, SELFPAY ==
[2020-08-23 14:05] VITALS: BP 142/80; PULSE 86; RESP 18; TEMP 37.1; O2SAT 98; BMI 44.3
--- NOTE | 2020-08-23 14:34 | HMH.EDUTC ---
[facility] [place]ression: Laceration Disposition: Home, Self-Care Condition on Discharge: Good Instructions: DI for Laceration Repair-Skin Glue, DI for Minor Laceration Additional Instructions: Keep area clean and dry Allow glue to wear off do not pick off Watch for signs of infection such as redness, swelling drainage etc if seen follow up with Family Doctor Return if needed Straight to ER if any life threatening symptoms Referrals: Ruperto Buitrago MD [Primary Care Provider] - As needed Time of Disposition: 14:39 Medical Decision Making - Mo Inquiry Pt receiving controlled substance: No Mo was queried for this patient: No Vital Signs: 08/23/20 14:05 Temperature 98.7 F Temperature Source Oral Pulse Rate [Left Brachial] 86 Respiratory Rate 18 Blood Pressure [Left Arm] 142/80 H Blood Pressure Mean [Left Arm] 100 Blood Pressure Source [Left Arm] Automatic Cuff Blood Pressure Position [Left Arm] Sitting 02 Sat by Pulse Oximetry 98 Oxygen Delivery Method Room Air Medical Decision Narrative: wound soaked and cleaned well and irrigated no glass observed Wound edges approximated well and sealed with dermabond [facility] [place] - General Stated complaint: AO [id number] cut finger Time Seen by Provider: 08/23/20 14:34 Mode of Arrival: Ambulatory Source of Information: Patient Limitations: No Limitations Description of Symptoms (Recalled from Triage Doc. by RN): PATIENT C/O LACERATION TO RIGHT THUMB FROM SHATTERED TEMPERED GLASS ON CELL PHONE CASE TODAY. PATIENT IS UP TO DATE ON TDAP HEENT Symptoms (Recalled from RN notes): No Resp Symptoms (Recalled from RN notes): No Skin Symptoms (Recalled from RN notes): Yes MS Symptoms (Recalled from RN notes): No Functional Status (Recalled from RN notes): WNL - History of Present Illness Provider Complaint: Patient states that his tetanus is up to date States that he was sliding his right thumb over shatter screen protector on the phone and it caused small laceration on the pad of his right thumb area - Related Data Allergies Allergy/AdvReac Type Severity Reaction Status Date / Time Penicillins [PENICILLINS] Allergy Unknown Verified 01/16/18 21:29 pseudoephedrine Allergy Verified 07/19/19 13:04 [From Sudafed] - Worker's Comp Is this a Worker's Comp case?: No [facility] History - Hepatitis A Screen Drug use history?: No High risk sexual behaviors?: No History of sexually transmitted infection?: No Currently employed?: No Childcare worker?: No Do you have indoor plumbing?: Yes Do you have electricity?: Yes Attestation statement:: This patient has been screened for Hepatitis A risk factors. Medical History: Reports:: Hypertension Denies:: Cancer, Diabetes Mellitus Type 1, Diabetes Mellitus Type 2, MRSA Laterality Cases: Bilateral: Tonsillectomy Amputation: No Fractures: No Comment: unknown lung surgery on right, oral surgeries - Social History Smoking Status: Current every day smoker Tobacco Type: cigarettes # Packs/Day (cigarettes): 1 Alcohol Intake: never Alcohol Intake Frequency:: holidays/special occasions only Occupational Status: other Housing: house ROS Obtained: Yes All systems reviewed & no additional complaints, Yes Systems reviewed as appropriate & no additional complaints - Allergic/Immunologic Comments: laceration to pad of thumb Physical Exam - General General appearance: alert, in no apparent distress - Respiratory Respiratory exam: Present: normal lung sounds bilaterally. Absent: respiratory distress - Cardiovascular Cardiovascular exam: Present: regular rate, normal rhythm. Absent: JVD - Expanded Upper Extremity Exam Right Hand exam: Present: other (small superficial laceration to pad of right thumb no active Bleeding) Vascular exam: Normal: capillary refill - Neurological Exam Neurological exam: Present: alert, oriented X3 Procedures - Laceration Laceration 1 Site: thumb S
[2020-08-23 14:40] VITALS: BP 142/80; PULSE 86; RESP 18; TEMP 37.1; O2SAT 98
== END 2020-08-23 14:43 | disposition home or self-care (01) ==
PROVIDERS: Emergency Provider Nurse Practitioner; PCP Internal Medicine Adolescent Medicine
DX: S61.011A Laceration without foreign body of right thumb without damage to nail, initial encounter (principal); W25.XXXA Contact with sharp glass, initial encounter; Y92.9 Unspecified place or not applicable; I10 Essential (primary) hypertension; F17.210 Nicotine dependence, cigarettes, uncomplicated; Z88.0 Allergy status to penicillin
CPT/HCPCS: 12001; 99202; G0463

== ENCOUNTER 2020-09-18 17:15 | Emergency (ER) | payer MEDICARE, MEDICAID, SELFPAY ==
[2020-09-18 17:32] VITALS: RESP 20; TEMP 36.7; O2SAT 96; BMI 45.8
--- NOTE | 2020-09-18 17:51 | HMH.EDUTC ---
[facility] [place] Clinical Impression: Abscess Disposition: Home, Self-Care Condition on Discharge: Good Instructions: DI for Incision and Drainage of a Skin Abscess, Incision and Drainage of a Skin Abscess Prescriptions: Sulfamethoxazole/Trimethoprim [Bactrim DS tablet] 1 each PO BID 5 Days #10 tab Prescription Printed Referrals: Ruperto Buitrago MD [Primary Care Provider] - Time of Disposition: 17:57 Medical Decision Making - Mo Inquiry Pt receiving controlled substance: No Vital Signs: 09/18/20 17:32 Temperature 98.0 F Temperature Source Oral Respiratory Rate 20 02 Sat by Pulse Oximetry 96 Oxygen Delivery Method Room Air Orders (Tests/Meds): ED MEDICATIONS Discontinued Medications Generic Name Dose Route Start Last Admin Trade Name Freq PRN Reason Stop Dose Admin Lidocaine HCl 5 ml 09/18/20 17:47 Lidocaine 1% 5ml Pf Vial IJ 09/18/20 17:48 ONCE ONE [facility] [place] - General Chief complaint: [facility] Stated complaint: pimple/boil under L arm Time Seen by Provider: 09/18/20 17:52 Mode of Arrival: Ambulatory Source of Information: Patient Limitations: No Limitations Description of Symptoms (Recalled from Triage Doc. by RN): Concerned with a pimple that has turned black HEENT Symptoms (Recalled from RN notes): No Resp Symptoms (Recalled from RN notes): No Skin Symptoms (Recalled from RN notes): Yes MS Symptoms (Recalled from RN notes): No Functional Status (Recalled from RN notes): na - History of Present Illness Provider Complaint: 34 yr old male presents for a pimple on the left ax for a few days and he squeezed area and now its purple - Related Data Previous Rx's Medication Instructions Recorded Sulfamethoxazole/Trimethoprim 1 each PO BID 5 Days #10 tab 09/18/20 [Bactrim DS tablet] Allergies Allergy/AdvReac Type Severity Reaction Status Date / Time Penicillins [PENICILLINS] Allergy Unknown Verified 01/16/18 21:29 pseudoephedrine Allergy Verified 07/19/19 13:04 [From Vicki] - Worker's Comp Is this a Worker's Comp case?: No [facility] History - Hepatitis A Screen Drug use history?: No High risk sexual behaviors?: No History of sexually transmitted infection?: No Currently employed?: No Childcare worker?: No Do you have indoor plumbing?: Yes Do you have electricity?: Yes Attestation statement:: This patient has been screened for Hepatitis A risk factors. I have reviewed the patient's past medical history: Yes Medical History: Reports:: Hypertension Denies:: Cancer, Diabetes Mellitus Type 1, Diabetes Mellitus Type 2, MRSA Laterality Cases: Bilateral: Tonsillectomy Amputation: No Fractures: No Comment: unknown lung surgery on right, oral surgeries - Social History Smoking Status: Current every day smoker Tobacco Type: cigarettes # Packs/Day (cigarettes): 1 Alcohol Intake: never Alcohol Intake Frequency:: holidays/special occasions only Occupational Status: other Housing: house ROS Obtained: Yes Systems reviewed as appropriate & no additional complaints - Constitutional Constitutional: Reports system reviewed and no additional complaints, except as docu, Denies fever(s) - Eyes Eyes: Reports system reviewed and no additional complaints, except as docu, Denies blurry vision - ENT Ears, Nose, Mouth, and Throat: Reports system reviewed and no additional complaints, except as docu, Denies bleeding gums, Denies nose pain - Cardiovascular Cardiovascular: Reports system reviewed and no additional complaints, except as docu, Denies chest pain - Respiratory Respiratory: Reports system reviewed and no additional complaints, except as docu, Denies change in phlegm color - Gastrointestinal Gastrointestingal: Reports: system reviewed and no additional complaints, except as docu. Denies: nausea, vomiting - Genitourinary Male Genitourinary: Reports system reviewed and no additional complaints, except as docu - Musculos
[2020-09-18 18:01] VITALS: BP 141/75; PULSE 88; RESP 22; TEMP 36.7
== END 2020-09-18 18:12 | disposition home or self-care (01) ==
PROVIDERS: Emergency Provider Nurse Practitioner Family; PCP Internal Medicine Adolescent Medicine
DX: L02.412 Cutaneous abscess of left axilla (principal)
CPT/HCPCS: 10060; G0463; 87070; 87077; 87186; 87205; 96372; 99202

== ENCOUNTER 2020-11-17 17:19 | Emergency (ER) | payer MEDICARE, MEDICAID, SELFPAY ==
[2020-11-17 17:20] VITALS: BP 147/87; PULSE 93; RESP 18; TEMP 37; O2SAT 99; BMI 44.3
[2020-11-17 17:25] VITALS: BP 147/87; PULSE 93; RESP 18; TEMP 37; O2SAT 99; BMI 44.3
[2020-11-17 17:44] LABS: UTC Strep Screen (Rapid) Positive (Negative)
--- NOTE | 2020-11-17 17:45 | HMH.EDUTC ---
[facility] – [place] Dis[place] Clinical Impression: Strep throat Disposition: Home, Self-Care Condition on Discharge: Good Instructions: Strep Throat, DI for Strep Throat Additional Instructions: Drink plenty of fluids. Take tylenol or ibuprofen for pain or fever. Take the medications as directed. Follow up with your regular doctor. GO TO THE ER FOR ANY WORSENING SYMPTOMS Throw your tooth brush away and get a new one. Prescriptions: predniSONE [Prednisone 20mg Tab] 20 mg PO BID 3 Days #6 tab Transmission Status: Received by [facility] Azithromycin [Z-David 250mg Tab*] 250 mg PO UD DOSE PK #6 tab Transmission Status: Received by [facility] Referrals: Ruperto Buitrago MD [Primary Care Provider] - Forms: Work/School Release Time of Disposition: 17:51 Medical Decision Making - Medical Records Medical records reviewed: No: I reviewed the patient's medical records. - Mo Inquiry Pt receiving controlled substance: No Vital Signs: 11/17/20 17:20 11/17/20 17:25 11/17/20 17:55 Temperature 98.6 F 98.6 F 98.6 F Temperature Source Oral Oral Pulse Rate 93 H Pulse Rate [Left Brachial] 93 H 93 H Respiratory Rate 18 18 18 Blood Pressure 147/87 H Blood Pressure [Left Arm] 147/87 H 147/87 H Blood Pressure Mean [Left Arm] 107 107 Blood Pressure Source [Left Arm] Automatic Cuff Automatic Cuff Blood Pressure Position [Left Arm] Sitting Sitting 02 Sat by Pulse Oximetry 99 99 Oxygen Delivery Method Room Air Room Air - Lab Data Lab Results 11/17/20 17:32: Strep Scn Rapid [facility] Positive A Orders (Tests/Meds): ED MEDICATIONS Discontinued Medications Generic Name Dose Route Start Last Admin Trade Name Freq PRN Reason Stop Dose Admin Azithromycin 500 mg 11/17/20 17:50 11/17/20 17:53 Azithromycin 250mg Tablet PO 11/17/20 17:51 500 mg ONCE ONE Administration Protocol Methylprednisolone Sodium Succinate 125 mg 11/17/20 17:48 11/17/20 17:55 Methylprednisolone Sod Succ 125mg Vial IM 11/17/20 17:49 125 mg ONCE ONE Administration [facility] [place] HPI - General Stated complaint: cough congestion Time Seen by Provider: 11/17/20 17:45 Mode of Arrival: Ambulatory Source of Information: Patient Limitations: No Limitations Description of Symptoms (Recalled from Triage Doc. by RN): PATIENT C/O COUGH, SORE THROAT, CONGESTION, CHILLS, HOT FLASHES X 3 DAYS HEENT Symptoms (Recalled from RN notes): Yes Resp Symptoms (Recalled from RN notes): Yes Skin Symptoms (Recalled from RN notes): No MS Symptoms (Recalled from RN notes): No Functional Status (Recalled from RN notes): WNL - History of Present Illness Provider Complaint: He states that he has had a sore throat and felt bad for the past 2 days. He has had a dry cough also. He has been around his family members that have strep throat. - Related Data Previous Rx's Medication Instructions Recorded Azithromycin [Z-David 250mg Tab*] 250 mg PO UD DOSE PK #6 tab 11/17/20 predniSONE [Prednisone 20mg 20 mg PO BID 3 Days #6 tab 11/17/20 Tab] Allergies Allergy/AdvReac Type Severity Reaction Status Date / Time Penicillins [PENICILLINS] Allergy Unknown Verified 01/16/18 21:29 pseudoephedrine Allergy Verified 07/19/19 13:04 [From [facility]] - Worker's Comp Is this a Worker's Comp case?: No [facility] History - Hepatitis A Screen Drug use history?: No High risk sexual behaviors?: No History of sexually transmitted infection?: No Currently employed?: No Childcare worker?: No Do you have indoor plumbing?: Yes Do you have electricity?: Yes Attestation statement:: This patient has been screened for Hepatitis A risk factors. I have reviewed the patient's past medical history: Yes Medical History: Reports:: Hypertension Denies:: Cancer, Diabetes Mellitus Type 1, Diabetes Mellitus Type 2, MRSA Laterality Cases: Bilateral: Tonsillectomy Amputation: No Fractures: No Comme
[2020-11-17 17:55] VITALS: BP 147/87; PULSE 93; RESP 18; TEMP 37; O2SAT 99
== END 2020-11-17 18:05 | disposition home or self-care (01) ==
PROVIDERS: Emergency Provider Nurse Practitioner Family; PCP Internal Medicine Adolescent Medicine
DX: J02.0 Streptococcal pharyngitis (principal); I10 Essential (primary) hypertension; F17.210 Nicotine dependence, cigarettes, uncomplicated; Z88.0 Allergy status to penicillin
CPT/HCPCS: G0463; 87880; 96372; 99202

== ENCOUNTER 2020-11-20 18:06 | Emergency (ER) | payer MEDICARE, MEDICAID, SELFPAY ==
[2020-11-20 18:07] VITALS: BP 158/96; PULSE 118; RESP 22; TEMP 36.9; O2SAT 98; BMI 44.3
[2020-11-20 18:15] VITALS: BP 158/96; PULSE 111; O2SAT 96
--- NOTE | 2020-11-20 18:23 | XR_ITS ---
PROCEDURE INFORMATION: Exam: XR Chest Exam date and time: 11/20/20 06:23 PM Age: 35 years old Clinical indication: Cough; Other: Bilat rib pain; Patient HX: Current smoker TECHNIQUE: Imaging protocol: XR of the chest. Views: 2 views. COMPARISON: CR XR CHEST 2V 04/18/19 05:28 PM FINDINGS: Lungs: Unremarkable. No consolidation. Pleural spaces: Unremarkable. No pleural effusion. No pneumothorax. Heart/Mediastinum: Unremarkable. No cardiomegaly. Bones/joints: Unremarkable. Soft tissues: Surgical changes right chest with scarring unchanged. IMPRESSION: Surgical changes right chest with scarring unchanged.
--- NOTE | 2020-11-20 18:32 | HMH.EDGENADL ---
ED Disposition Clinical Impression: Acute bronchitis Qualifiers: Bronchitis organism: other organism Qualified Code(s): J20.8 - Acute bronchitis due to other specified organisms Disposition: Home, Self-Care Condition on Discharge: Good Instructions: DI for Acute Bronchitis Prescriptions: Codeine Phosphate/Guaifenesin [Guaifen-Codeine 100-10 mg/5 ml] 5 ml PO TID #120 liquid Transmission Status: Sent to [facility] Referrals: Ruperto Buitrago MD [Primary Care Provider] - - Critical Care Critical Care Time: No Attestation: On 11/20/20, the high probability of a clinically significant, sudden or life threatening deterioration of the following system(s) required my full and direct attention, intervention and personal management. The time I documented below is in addition to time spent performing reported procedures but includes the following listed in this critical care notation. Medical Decision Making - Medical Records Medical records reviewed: Yes: I reviewed the patient's medical records. - Mo Inquiry Pt receiving controlled substance: No Vital Signs: 11/20/20 18:07 11/20/20 18:15 Temperature 98.4 F Temperature Source Oral Pulse Rate 111 H Pulse Rate [Radial] 118 H Respiratory Rate 22 Blood Pressure 158/96 H Blood Pressure [Right Arm] 158/96 H Blood Pressure Mean [Right Arm] 116 Blood Pressure Position [Right Arm] Sitting 02 Sat by Pulse Oximetry 98 96 Oxygen Delivery Method Room Air Orders (Tests/Meds): ED MEDICATIONS Generic Name Dose Route Start Last Admin Trade Name Freq PRN Reason Stop Dose Admin Benzonatate 100 mg 11/20/20 19:00 Benzonatate 100mg Capsule PO 12/20/20 18:59 ONCE YOLANDA Discontinued Medications Generic Name Dose Route Start Last Admin Trade Name Freq PRN Reason Stop Dose Admin Ketorolac Tromethamine 30 mg 11/20/20 18:23 11/20/20 18:30 Ketorolac 30mg/Ml Vial IM 11/20/20 18:24 30 mg ONCE ONE Administration ORDERS Category Date Time Status XR chest 2V Stat Exams 11/20/20 18:23 Taken - Radiology Data #1 Image(s): Chest Image Reviewed: Yes I reviewed the patient's radiology results, Yes I discussed the image results w/the radiologist chronic changes concerning for bronchitis - Reevaluation(s) Time: 19:10 Reevaluation #1: On reevaluation, patient is feeling better. Cough is improved. Pain is also improved. Symptoms are consistent with bronchitis. Patient will finish his course of antibiotic as well as steroid therapy. He will be discharged with a short course antitussives. Patient is to follow-up with PCP in 48 hours. Given strict return precautions. Verbalized understanding. Medical Decision Narrative: This is a 35-year-old male presented to the emergency department with some upper abdominal discomfort. Patient has had a prolonged cough for the last few days. I do believe he is complaining of some pleuritic pain versus upper abdominal muscle pain secondary to his cough. His abdominal exam is benign. No rebound tenderness. Work-up initiated. General Adult HPI - General Chief complaint: PAIN Stated complaint: abd pain, back pain Time Seen by Provider: 11/20/20 18:10 Mode of Arrival: Ambulatory Limitations: No Limitations Description of Symptoms (Recalled from ER Triage Doc. by RN): TO ED PER PVT CAR WITH C/O ANTONIO RIB PAIN STARTING WEDS AFTER COUGHING. PT DX WITH STREP WEDS. PT CURRENTLY TAKING PREDNISONE AND ZPACK LAST DOSE TOMORROW. - History of Present Illness HPI narrative: This is a 35-year-old male presented to the emergency department with some cough and upper abdominal pain. Patient was diagnosed with bronchitis as well as strep throat few days ago. He has been on steroids as well as antibiotics for the last few days. Patient states that his cough is just progressed to where it is hurting his upper abdominal muscles. Every time he coughs he can no longer take the pain. The
[2020-11-20 19:02] VITALS: BP 161/71; PULSE 87; RESP 14; TEMP 36.8; O2SAT 98
== END 2020-11-20 19:24 | disposition home or self-care (01) ==
PROVIDERS: Emergency Provider Emergency Medicine; PCP Internal Medicine Adolescent Medicine
DX: J20.8 Acute bronchitis due to other specified organisms (principal); I10 Essential (primary) hypertension; F17.210 Nicotine dependence, cigarettes, uncomplicated
CPT/HCPCS: 71046; 99282

== ENCOUNTER 2021-01-04 10:02 | Emergency (ER) | payer MEDICARE, MEDICAID, SELFPAY ==
[2021-01-04 10:12] VITALS: BP 152/75; PULSE 86; RESP 20; TEMP 37; O2SAT 96; BMI 44.3
--- NOTE | 2021-01-04 10:26 | XR_ITS ---
PROCEDURE: XR SHOULDER LT MIN 2V CLINICAL INDICATION: pain COMPARISON: CR [id number] [id number] VIEWS from 04/30/2017 CR [id number] XR shoulder LT min 2V from 07/24/2017 FINDINGS: No fracture or dislocation. No lytic or blastic change. There is normal mineralization. The joint spaces are well-preserved. No significant degenerative/arthritic changes. No erosive changes evident. Other findings:None. IMPRESSION: No acute findings. Dictated by: Ryan Carcamo MD 01/04/2021 11:16 Ryan Carcamo MD in [place] 01/04/2021 11:16
--- NOTE | 2021-01-04 10:38 | HMH.EDUTC ---
[facility] [place] Disposition Clinical Impression: Torticollis Shoulder pain Qualifiers: Chronicity: acute Laterality: left Qualified Code(s): M25.512 - Pain in left shoulder Disposition: Home, Self-Care Condition on Discharge: Good Instructions: Shoulder Tendinopathy, DI for Torticollis Additional Instructions: Go home and rest. It would be best if you rested tomorrow too. No heavy lifting. No twisting. Take the oral medications as directed. The muscle relaxer (cyclobenziprine) will make you drowsy, so don't drive or operate heavy machinery after taking it. Don't start the oral steroids (medrol dose pack) until tomorrow, since you had the shots in here today. Follow up with your regular doctor. GO TO THE ER FOR ANY WORSENING SYMPTOMS OR CONCERN, ESPECIALLY BOWEL OR BLADDER ISSUES, SADDLE AREA NUMBNESS, FEVER, ETC Prescriptions: Cyclobenzaprine HCl [Cyclobenzaprine 10mg Tab] 10 mg PO BIDP PRN #20 tab PRN Reason: Muscle Spasm Transmission Status: Pending to [facility] methylPREDNISolone [Medrol] 4 mg PO DIRECTED 6 Days #21 tab.ds.pk Transmission Status: Pending to [facility] Referrals: Ruperto Buitrago MD [Primary Care Provider] - Tom Alexander MD [Staff Physician] - Forms: Work/School Release Time of Disposition: 11:25 Medical Decision Making - Medical Records Medical records reviewed: No: I reviewed the patient's medical records. - Mo Inquiry Pt receiving controlled substance: No Vital Signs: 01/04/21 10:12 Temperature 98.6 F Temperature Source Oral Pulse Rate [Left Radial] 86 Respiratory Rate 20 Blood Pressure [Right Arm] 152/75 H Blood Pressure Mean [Right Arm] 100 Blood Pressure Source [Right Arm] Automatic Cuff Blood Pressure Position [Right Arm] Sitting 02 Sat by Pulse Oximetry 96 Oxygen Delivery Method Room Air Orders (Tests/Meds): ED MEDICATIONS Discontinued Medications Generic Name Dose Route Start Last Admin Trade Name Freq PRN Reason Stop Dose Admin Ketorolac Tromethamine 60 mg 01/04/21 11:07 01/04/21 11:17 Ketorolac 60mg/2ml Vial IM 01/04/21 11:08 60 mg ONCE ONE Administration Methylprednisolone Sodium Succinate 125 mg 01/04/21 11:07 01/04/21 11:16 Methylprednisolone Sod Succ 125mg Vial IM 01/04/21 11:08 125 mg ONCE ONE Administration - Radiology Data #1 Image(s): Shoulder Image Reviewed: Yes I reviewed the patient's radiology image, Yes I have reviewed radiologist's interpretation Preliminary Findings: Normal/NAD PROCEDURE: XR SHOULDER LT MIN 2V CLINICAL INDICATION: pain COMPARISON: CR SHOU3R [id number] VIEWS from 04/30/2017 CR [id number] XR shoulder LT min 2V from 07/24/2017 FINDINGS: No fracture or dislocation. No lytic or blastic change. There is normal mineralization. The joint spaces are well-preserved. No significant degenerative/arthritic changes. No erosive changes evident. Other findings:None. IMPRESSION: No acute findings. Dictated by: Ryan Carcamo MD 01/04/2021 11:16 Ryan Carcamo MD in [place] 01/04/2021 11:16 [facility] [place] HPI - General Stated complaint: tightness lt shoulder/neck, headache Time Seen by Provider: 01/04/21 10:39 Mode of Arrival: Ambulatory Source of Information: Patient Limitations: No Limitations Description of Symptoms (Recalled from Triage Doc. by RN): c/o left shoulder into his neck pain since Sunday. Pt states that he was trimming trees and then after he woke up the next morning he started having this pain HEENT Symptoms (Recalled from RN notes): No Resp Symptoms (Recalled from RN notes): No Skin Symptoms (Recalled from RN notes): No MS Symptoms (Recalled from RN notes): Yes Functional Status (Recalled from RN notes): wnl - History of Present Illness Provider Complaint: He states that he has had left sided neck and shoulder pain and stiffness for the past 2 days. He thinks that he pulled a muscle while lifting somethin
[2021-01-04 11:31] VITALS: BP 152/75; PULSE 86; RESP 20; TEMP 37; O2SAT 96
== END 2021-01-04 11:34 | disposition home or self-care (01) ==
PROVIDERS: Emergency Provider Nurse Practitioner Family; PCP Internal Medicine Adolescent Medicine
DX: M43.6 Torticollis (principal); I10 Essential (primary) hypertension; F17.210 Nicotine dependence, cigarettes, uncomplicated; Z88.0 Allergy status to penicillin
CPT/HCPCS: G0463; 73030; 99202

== ENCOUNTER → 2021-03-24 16:40 | Outpatient (CLI) | payer MEDICARE, MEDICAID, SELFPAY ==
--- NOTE | 2021-03-24 16:50 | XR_ITS ---
PROCEDURE: XR CHEST 2V CLINICAL HISTORY: ASTHMA, COUGH VARIANT COMPARISON: CT CTAC CTA-CHEST from 12/11/2016 CR XR CHEST 2V from 02/18/2019 CR XR CHEST 2V from 04/18/2019 CR XR CHEST 2V from 11/20/2020 FINDINGS: The cardiomediastinal silhouette and pulmonary vascularity are within normal limits. Surgical clips are present in the upper hemithorax posteriorly on the right. Scarring is present in the right lung base. Lungs are otherwise clear. No acute bony abnormalities. IMPRESSION: No change with no acute finding. Dictated by: Ryan Carcamo MD 03/25/2021 07:49 Ryan Carcamo MD in [place] 03/25/2021 07:49
== END ==
PROVIDERS: PCP Internal Medicine Adolescent Medicine; Visit Provider Internal Medicine Adolescent Medicine
DX: J45.991 Cough variant asthma (principal)
CPT/HCPCS: 71046

== ENCOUNTER 2021-05-21 11:59 | Emergency (ER) | payer MEDICARE, MEDICAID, SELFPAY ==
[2021-05-21 12:33] VITALS: BP 130/91; PULSE 84; RESP 19; TEMP 36.8; O2SAT 99; BMI 51.0
--- NOTE | 2021-05-21 12:39 | HMH.EDUTC ---
[facility] [place] Disposition Clinical Impression: Sinusitis Qualifiers: Sinusitis location: maxillary Chronicity: acute Recurrence: non-recurrent Qualified Code(s): J01.00 - Acute maxillary sinusitis, unspecified Disposition: Home, Self-Care Condition on Discharge: Good Instructions: DI for Sinusitis Additional Instructions: Start antibiotic patient to take as ordered for a full length of time even if you feel better. Sinus infections do not get better overnight. It may take 2-3 days to notice much improvement so be sure to use conservative measures as discussed for symptoms. Flonase 1 spray each nostril daily to help with nasal congestion, sinus and ear pressure/information Increase fluids Humidifier/vaporizer as needed Tylenol and ibuprofen as needed for fever or pain. If symptoms do not improve or get worse return or be seen in the ER Follow-up with primary care this week Prescriptions: Fluticasone Propionate [Flonase 50mcg nasal spray 16gm] 1 spr NS DAILY 14 Days #9.9 ml Prescription Printed Azithromycin [Zithromax 250mg tab] 250 mg PO DIRECTED #6 tab Prescription Printed Referrals: Ruperto Buitrago MD [Primary Care Provider] - Time of Disposition: 12:45 Medical Decision Making - Mo Inquiry Pt receiving controlled substance: No Vital Signs: 05/21/21 12:33 Temperature 98.2 F Temperature Source Oral Pulse Rate [Right Radial] 84 Respiratory Rate 19 Blood Pressure [Right Arm] 130/91 H Blood Pressure Mean [Right Arm] 104 Blood Pressure Source [Right Arm] Automatic Cuff Blood Pressure Position [Right Arm] Sitting 02 Sat by Pulse Oximetry 99 Oxygen Delivery Method Room Air [facility] [place] HPI - General Chief complaint: Urgent Treatment Center Stated complaint: covid symptoms Time Seen by Provider: 05/21/21 12:39 Mode of Arrival: Ambulatory Source of Information: Patient Limitations: No Limitations Description of Symptoms (Recalled from Triage Doc. by RN): PT C/O SINUS PRESSURE AND DRAINAGE X3 DAYS HEENT Symptoms (Recalled from RN notes): Yes (SINUS PRESSURE AND DRAINAGE) Resp Symptoms (Recalled from RN notes): No Skin Symptoms (Recalled from RN notes): No MS Symptoms (Recalled from RN notes): No Functional Status (Recalled from RN notes): N/A - History of Present Illness Provider Complaint: 35 yr old male presnts for green nasal congestion, sore throat and sinus pressure for 2 days, does not want covid test - Related Data Previous Rx's Medication Instructions Recorded Azithromycin [Z-David 250mg Tab*] 250 mg PO UD DOSE PK #6 tab 11/17/20 predniSONE [Prednisone 20mg 20 mg PO BID 3 Days #6 tab 11/17/20 Tab] Codeine Phosphate/Guaifenesin 5 ml PO TID #120 liquid 11/20/20 [Guaifen-Codeine 100-10 mg/5 ml] Cyclobenzaprine HCl 10 mg PO BIDP PRN #20 tab 01/04/21 [Cyclobenzaprine 10mg Tab] methylPREDNISolone [Medrol] 4 mg PO DIRECTED 6 Days #21 01/04/21 tab.ds.pk Azithromycin [Zithromax 250mg 250 mg PO DIRECTED #6 tab 05/21/21 tab] Fluticasone Propionate [Flonase 1 spr NS DAILY 14 Days #9.9 ml 05/21/21 50mcg nasal spray 16gm] Allergies Allergy/AdvReac Type Severity Reaction Status Date / Time Penicillins [PENICILLINS] Allergy Unknown Verified 01/16/18 21:29 pseudoephedrine Allergy Verified 07/19/19 13:04 [From Sudafed] - Worker's Comp Is this a Worker's Comp case?: No [facility] History - Hepatitis A Screen Drug use history?: No High risk sexual behaviors?: No History of sexually transmitted infection?: No Currently employed?: No Childcare worker?: No Do you have indoor plumbing?: Yes Do you have electricity?: Yes Attestation statement:: This patient has been screened for Hepatitis A risk factors. I have reviewed the patient's past medical history: Yes Medical History: Reports:: Hypertension Denies:: Cancer, Diabetes Mellitus Type 1, Diabetes Mellitus Type 2, MRSA Laterality Cases: Bilateral: Tonsillectomy Amputation: No Fractures: No Comment: unknown lung
[2021-05-21 12:50] VITALS: BP 130/91; PULSE 84; RESP 19; TEMP 36.8; O2SAT 99
== END 2021-05-21 12:51 | disposition home or self-care (01) ==
PROVIDERS: Emergency Provider Nurse Practitioner Family; PCP Internal Medicine Adolescent Medicine
DX: J01.00 Acute maxillary sinusitis, unspecified (principal); I10 Essential (primary) hypertension; F17.210 Nicotine dependence, cigarettes, uncomplicated
CPT/HCPCS: 99202; G0463

== ENCOUNTER → 2021-07-01 12:45 | Outpatient (CLI) | payer MEDICARE, MEDICAID, SELFPAY | PROVIDERS: Visit Provider Nurse Practitioner | DX: U07.1 COVID-19 (principal) | CPT/HCPCS: C9803; U0003; U0005 ==

== ENCOUNTER 2021-07-23 16:30 | Emergency (ER) | payer MEDICARE, MEDICAID, SELFPAY ==
--- NOTE | 2021-07-23 16:28 | ECG_ITS ---
APPROVED REPORT Exam: Resting ECG HR:88 bpm ECG Measurements Heart Rate 88 AXES NM 144 P 55 QRSd 96 QRS 45 QT 322 T 52 QTc 368 Conclusion SINUS RHYTHM NORMAL ECG UNCONFIRMED REPORT Electronically signed by : Ruperto Buitrago MD 07/27/2021 21:13:25
[2021-07-23 16:31] VITALS: BP 140/91; PULSE 101; RESP 22; TEMP 36.6; O2SAT 96; BMI 48.7
--- NOTE | 2021-07-23 16:41 | XR_ITS ---
PROCEDURE INFORMATION: Exam: XR Chest Exam date and time: 07/23/2021 4:41 PM Age: 35 years old Clinical indication: Chest wall pain; Additional info: Chest pain TECHNIQUE: Imaging protocol: XR of the chest. Views: 1 view. COMPARISON: CR XR CHEST 2V 03/24/2021 4:55 PM FINDINGS: Tubes, catheters and devices: Surgical clips overlie the right hemithorax Lungs: Hyperexpanded lung ortiz consistent with COPD. Mild opacities in both bases may represent atelectasis or pneumonia.. Pleural spaces: Unremarkable. No pleural effusion. No pneumothorax. Heart/Mediastinum: Unremarkable. No cardiomegaly. Bones/joints: Unremarkable. IMPRESSION: Mild opacities in both bases may represent atelectasis or pneumonia..
[2021-07-23 16:51] LABS: Basophils # 0.1 K/mm3 (0-0.2); Basophils % 1.5 % (0.1-2.0); Eosinophils # 0.2 K/mm3 (0.0-0.4); Eosinophils % 2.1 % (0.1-12.0); Hematocrit 51.8 % (42.0-52.0); Hemoglobin 16.5 g/dL (14.1-18.0); Lymphocytes # 1.6 K/mm3 (0.7-4.5); Lymphocytes % 17.7 % (10-50); Mean Corpuscular HGB Conc 31.8 g/dL (31.8-35.4); Mean Corpuscular Hemoglobin 27.4 pg (27.0-31.2); Mean Corpuscular Volume 86.2 fl (80-94); Mean Platelet Volume 8.2 fl (7.4-10.4); Monocytes # 0.3 K/mm3 (0.1-1.0); Monocytes % 3.3 % (1.7-9.3); Neutrophils # 6.9 K/mm3 (1.8-7.8); Neutrophils % 75.4 % (37.0-80.0); Platelet Count 417 K/mm3 (142-424); Red Blood Count 6.01 M/mm3 (4.60-6.20); Red Cell Distribution Width 14.4 % (11.5-17.5); White Blood Count 9.2 K/mm3 (4.8-10.8)
[2021-07-23 16:57] LABS: Chloride 103 mmol/L (98-107); Potassium 3.8 mmoL/L (3.5-5.1); Sodium 134 mmol/L (136-145)
[2021-07-23 17:00] VITALS: BP 130/93; PULSE 101; RESP 13; O2SAT 95
[2021-07-23 17:00] LABS: Blood Urea Nitrogen 10 mg/dl (9-20); Creatinine Clearance Estimated 104 mL/min (50-200); Estimated Glomerular Filt Rate 86 ml/min (>60); GFR (African American) 103 ML/MIN (>60)
--- NOTE | 2021-07-23 17:00 | HMH.EDGENADL ---
ED Disposition Clinical Impression: Pneumonia Qualifiers: Pneumonia type: due to unspecified organism Laterality: unspecified laterality Lung location: lower lobe of lung Qualified Code(s): J18.9 - Pneumonia, unspecified organism Disposition: Home, Self-Care Condition on Discharge: Good Instructions: DI for Pneumonia -- Adult Additional Instructions: Additional instructions for PNEUMONIA: Take antibiotics as prescribed. See your physician as soon as possible for further evaluation. Return immediately if you have an uncontrollable fever greater than 102 degrees, difficulty breathing or shortness of breath, persistent vomiting, or severe chest pain. Take ibuprofen for pain. Prescriptions: Ibuprofen [Ibuprofen 800mg Tablet] 800 mg PO Q8HP PRN #15 tab PRN Reason: Moderate Pain Transmission Status: [facility] [id number] [facility] levoFLOXacin [Levaquin 500mg tab] 500 mg PO DAILY #9 tab Transmission Status: [facility] Referrals: Ruperto Buitrago MD [Primary Care Provider] - - Critical Care Critical Care Time: No Attestation: On 07/23/21, the high probability of a clinically significant, sudden or life threatening deterioration of the following system(s) required my full and direct attention, intervention and personal management. The time I documented below is in addition to time spent performing reported procedures but includes the following listed in this critical care notation. Medical Decision Making - Mo Inquiry Pt receiving controlled substance: No Vital Signs: 07/23/21 16:31 07/23/21 17:00 07/23/21 17:30 Temperature 98 F Temperature Source Oral Pulse Rate 101 H 85 Pulse Rate [Radial] 101 H Respiratory Rate 22 13 16 Blood Pressure 130/93 H 129/72 Blood Pressure [Right Arm] 140/91 H Blood Pressure Mean [Right Arm] 107 Blood Pressure Position [Right Arm] Sitting 02 Sat by Pulse Oximetry 96 95 95 Oxygen Delivery Method Room Air Room Air Room Air - Lab Data Lab Results 07/23/21 16:33: WBC 9.2, RBC 6.01, Hgb 16.5, Hct 51.8, MCV 86.2, MCH 27.4, MCHC 31.8, RDW 14.4, Plt Count 417, MPV 8.2, Neut % (Auto) 75.4, Lymph % (Auto) 17.7, Pepin % (Auto) 3.3, Eos % (Auto) 2.1, Baso % (Auto) 1.5, Neut # (Auto) 6.9, Lymph # (Auto) 1.6, Pepin # (Auto) 0.3, Eos # (Auto) 0.2, Baso # (Auto) 0.1 07/23/21 16:33: Sodium 134 L, Potassium 3.8, Chloride 103, Carbon Dioxide 26, Anion Gap 8.8, BUN 10, Creatinine 1.00, Estimated Creat Clear 104, Estimated GFR 86, Est GFR ( Amer) 103, Glucose 103 H, Calcium 8.1 L, Troponin I < 0.01 07/23/21 16:33: D-Dimer 0.48 Result diagrams: 07/23/21 16:33 07/23/21 16:33 Orders (Tests/Meds): ED MEDICATIONS Generic Name Dose Route Start Last Admin Trade Name Freq PRN Reason Stop Dose Admin Sodium Chloride 10 ml 07/23/21 16:41 Sodium Chloride 0.9% 10ml Flush Syringe IV 08/22/21 16:40 NEEDED PRN Maintain IV Site Discontinued Medications Generic Name Dose Route Start Last Admin Trade Name Freq PRN Reason Stop Dose Admin Ketorolac Tromethamine 30 mg 07/23/21 17:33 07/23/21 17:38 Ketorolac 30mg/Ml Vial IV 07/23/21 17:34 30 mg ONCE ONE Administration Levofloxacin 500 mg 07/23/21 17:58 Levofloxacin 500mg Tab PO 07/23/21 17:59 ONCE ONE ORDERS Category Date Time Status Troponin I Q3H Lab 07/23/21 19:45 Ordered Troponin I Q3H Lab 07/23/21 22:45 Ordered - Radiology Data #1 Image(s): Chest Image Reviewed: Yes I reviewed the patient's radiology image, Yes I have reviewed radiologist's interpretation Preliminary Findings: Abnormal (Surgical clips right chest, scarring right base, no acute process) PROCEDURE INFORMATION: Exam: XR Chest Exam date and time: 07/23/2021 4:41 PM Age: 35 years old Clinical indication: Chest wall pain; Additional info: Chest pain TECHNIQUE: Imaging protocol: XR of the chest. Views: 1 view. COMPARISON: CR XR CHEST 2V 03/24/2021 4
[2021-07-23 17:01] LABS: Anion Gap 8.8 mEq/L (5-15); Calcium 8.1 mg/dl (8.4-10.2); Carbon Dioxide 26 mmol/L (22.0-30.0); Glucose 103 mg/dl (74-100)
[2021-07-23 17:19] LABS: Troponin I < 0.01 ng/ml (0.00-0.034)
[2021-07-23 17:30] VITALS: BP 129/72; PULSE 85; RESP 16; O2SAT 95
[2021-07-23 17:51] LABS: D-Dimer 0.48 ug/mL (0.0-0.5)
[2021-07-23 18:27] VITALS: BP 123/83; PULSE 85; RESP 17; TEMP 36.9; O2SAT 97
== END 2021-07-23 18:29 | disposition home or self-care (01) ==
PROVIDERS: Emergency Provider Emergency Medicine; PCP Internal Medicine Adolescent Medicine
DX: J18.9 Pneumonia, unspecified organism (principal); I10 Essential (primary) hypertension; Z87.891 Personal history of nicotine dependence
CPT/HCPCS: 71045; 80048; 84484; 85025; 85378; 93005; 96374; 99283

== ENCOUNTER 2022-06-29 12:48 | Emergency (ER) | payer MEDICARE, MEDICAID, SELFPAY ==
[2022-06-29 12:57] VITALS: BP 135/96; PULSE 100; RESP 18; TEMP 36.7; O2SAT 98; BMI 44.3
[2022-06-29 13:45] VITALS: BP 142/83; PULSE 87; RESP 20; TEMP 36.6; O2SAT 99; BMI 51.7
--- NOTE | 2022-06-29 13:45 | XR_ITS ---
FINAL REPORT CLINICAL HISTORY: LOW BACK PAIN FINDINGS: AP and lateral views of the lumbar spine were obtained. There is no prior exam for comparison. There is no acute fracture or malalignment. Vertebral body height and disc space height are preserved. The paraspinal soft tissues are normal. IMPRESSION: No acute osseous abnormality of the lumbar spine. Reviewed, Interpreted and Dictated by Emma Cummins MD Transcribed by Ju Hanks Authenticated and [facility]
--- NOTE | 2022-06-29 13:46 | EXP.UTC ---
Discharge Plan Disposition Patient Disposition: Home, Self-Care Condition: Good Prescriptions Prescriptions: New cyclobenzaprine 10 mg Tablet 10 mg PO BID PRN (Reason: Muscle Spasm) Qty: 20 0RF methylprednisolone 4 mg Tablets,Dose Pack 4 mg PO DIRECTED Qty: 21 0RF Referrals Follow up/Referrals: Ruperto Buitrago MD [Primary Care Provider] - See instructions Activity Restrictions/Add. Instructions Additional Instructions/Restrictions: Go home and rest. It would be best if you rested tomorrow too. No heavy lifting. No twisting. Take the oral medications as directed. The muscle relaxer (cyclobenzaprine--Flexeril) will make you drowsy, so don't drive or operate heavy machinery after taking it. Don't start the oral steroids (medrol dose pack) until tomorrow, since you had the shots in here today. Follow up with your regular doctor. GO TO THE ER FOR ANY WORSENING SYMPTOMS OR CONCERN, ESPECIALLY BOWEL OR BLADDER ISSUES, SADDLE AREA NUMBNESS, FEVER, ETC Clinical Impressions Clinical Impression: Low back strain, Low back pain Stand Alone Forms Stand Alone Forms: Work/School Release Instructions Patient Instructions: DI for Back Strain or Sprain Discharge ED Provider: Edvin Quintanilla [facility] General Stated complaint: back pain [id number] Mode of Arrival: Ambulatory Source of Information: Patient Limitations: No Limitations Time Seen by Provider: 06/29/22 13:46 Description of Symptoms (Recalled from Triage Doc. by RN): PT C/O LOW BACK PAIN THAT BEGAN YESTERDAY AFTER MOVING A PINBALL MACHINE History of Present Illness Provider Complaint: He states that he has had low back pain since yesterday. His pain began after he helped to move a very heavy pinball machine. He denies any bowel or bladder complaints. He denies any numbness of his legs or saddle region. Related Data Previous Rx's Medication Instructions Recorded cyclobenzaprine 10 mg tablet 10 mg PO BID PRN Muscle Spasm #20 06/29/22 tabs methylprednisolone 4 mg tablets in 4 mg PO DIRECTED #21 tabs 06/29/22 a dose pack Allergies Allergy/AdvReac Type Severity Reaction Status Date / Time Penicillins [PENICILLINS] Allergy Unknown Verified 06/29/22 13:56 pseudoephedrine Allergy Verified 06/29/22 13:56 [From Sudafed] [facility] Disclaimer: The information contained in this section may have been updated after the patient was seen, as this information can be updated by other users. Social History Smoking Status: Current every day smoker tobacco type: cigarettes packs per day: 1 alcohol intake: never current occupational status: other Travel in the last 8 weeks: None housing: house ROS Obtained: Yes All systems reviewed & no additional complaints except as documented Constitutional Constitutional: Reports chills and Reports fever(s) Eyes Eyes: Denies eye discharge ENT Ears, Nose, Mouth, and Throat: Reports as per HPI Cardiovascular Cardiovascular: Denies chest pain Respiratory Respiratory: Denies chest congestion and Reports cough Gastrointestinal Gastrointestingal: Reports nausea; Denies abdominal pain, constipation, cramping, diarrhea or vomiting Musculoskeletal Musculoskeletal: Denies arthralgias Integumentary/Breasts Skin/Breast: Denies rash Neurologic Neurologic: Denies paresthesias Physical Exam General General appearance: alert and in no apparent distress Eye Eye exam: Present normal appearance, PERRL and EOMI ENT ENT exam: Present mucous membranes moist and normal external ear exam Expanded ENT Exam External ear exam: Present normal external inspection TM/Canal exam: Bilateral TM: erythema and bulging Nose exam: Absent sinus tenderness Nasal speculum exam: Bilateral: normal Mouth exam: Present normal external inspection; Absent drooling Teeth exam: Present normal inspection Throat exam: Present tonsillar erythema and tonsillomegal
[2022-06-29 15:21] VITALS: BP 142/83; PULSE 87; RESP 20; TEMP 36.6; O2SAT 99
== END 2022-06-29 15:21 | disposition home or self-care (01) ==
PROVIDERS: Emergency Provider Nurse Practitioner Family; PCP Internal Medicine Adolescent Medicine
DX: S39.012A Strain of muscle, fascia and tendon of lower back, initial encounter (principal); X50.0XXA Overexertion from strenuous movement or load, initial encounter
CPT/HCPCS: 72100; 96372; 99212; 99213; G0463

== ENCOUNTER 2023-10-15 15:51 | Outpatient (CLI) | payer MEDICARE, MEDICAID, SELFPAY ==
--- NOTE | 2023-10-15 15:57 | XR_ITS ---
FINAL REPORT CLINICAL HISTORY: Nonspecific COUGH COMPARISON: 07/23/2021 FINDINGS: Two views of the chest were obtained. The heart size and pulmonary vascularity are within normal limits. The mediastinum is normal. There is mild bibasilar atelectasis.. There is no pneumothorax. There is postoperative change in the right thorax. IMPRESSION: Mild bibasilar atelectasis. Reviewed, Interpreted and Dictated by Luisito Cornelius III, MD Transcribed by Kristi Trejo Authenticated and [facility]
== END 2023-10-15 23:59 | disposition home or self-care (01) ==
LOC: RAD 15:53
PROVIDERS: PCP Internal Medicine Adolescent Medicine; Visit Provider Nurse Practitioner Family
DX: R05.3 Chronic cough (principal); R06.83 Snoring
CPT/HCPCS: 71046

== ENCOUNTER 2023-12-11 12:29 | Emergency (ER) | payer MEDICARE, MEDICAID, SELFPAY ==
[2023-12-11 12:35] VITALS: BP 131/77; PULSE 105; RESP 20; TEMP 36.4; O2SAT 94; BMI 55.5
--- NOTE | 2023-12-11 13:52 | ED_ITS ---
Discharge Plan Disposition Patient Disposition: Home, Self-Care Condition: Good Prescriptions Prescriptions: New omeprazole 20 mg capsule,delayed release(DR/EC) 20 mg PO DAILY Qty: 30 2RF guaifenesin 400 mg tablet 400 mg PO QID Qty: 120 0RF baclofen 10 mg tablet 10 mg PO TID PRN (Reason: muscle spasm) Qty: 30 0RF Referrals Follow up/Referrals: Ruperto Buitargo MD [Primary Care Provider] - See instructions Activity Restrictions/Add. Instructions Additional Instructions/Restrictions: Take medication as prescribed. Increase fluids and rest. Follow up with primary care provider Clinical Impressions Clinical Impression: Upper respiratory infection with cough and congestion, Acid reflux, Muscle spasm Instructions Patient Instructions: DI for Cough -- Adult, DI for Muscle Spasm, Gastroesophageal Reflux Disease -- Adolescent Discharge ED Provider: Jelena Santana [facility] [place] General Stated complaint: pain in right upper side Mode of Arrival: Ambulatory Source of Information: Patient Limitations: No Limitations Time Seen by Provider: 12/11/23 13:36 Description of Symptoms (Recalled from Triage Doc. by RN): PATIENT C/O CRAMPING TO RIGHT SIDE FROM COUGHING HEENT Symptoms (Recalled from RN notes): No Resp Symptoms (Recalled from RN notes): No Skin Symptoms (Recalled from RN notes): No MS Symptoms (Recalled from RN notes): Yes Functional Status (Recalled from RN notes): WNL History of Present Illness Provider Complaint: Pt reports that he has been coughing for months. He reports that he cough so much that he will have a muscle spasm on his right side that leaves him curled up in a ball. He has a history of COPD and asthma. He reports that the cough has been consistent with no relief. He has had a round of steroids and various cough medications. He further reports that he has reflux where when he lays down he can feel the burn come up his chest and into his throat. Related Data Previous Rx's Medication Instructions Recorded baclofen 10 mg tablet 10 mg PO TID PRN muscle spasm #30 12/11/23 tabs guaifenesin 400 mg tablet 400 mg PO QID #120 tabs 12/11/23 omeprazole 20 mg capsule,delayed 20 mg PO DAILY #30 caps 12/11/23 release Allergies Allergy/AdvReac Type Severity Reaction Status Date / Time Penicillins [PENICILLINS] Allergy Unknown Verified 06/29/22 13:56 pseudoephedrine Allergy Verified 06/29/22 13:56 [From Sudafed] Worker's Comp Is this a Worker's Comp case?: No [facility] Disclaimer: The information contained in this section may have been updated after the patient was seen, as this information can be updated by other users. Medical History (Updated 12/11/23 @ 14:14 by Jelena Santana APRN) Migraine COPD (chronic obstructive pulmonary disease) Asthma Surgical History (Updated 12/11/23 @ 13:08 by Francine Barcenas RN) History of lung surgery History of dental surgery History of tonsillectomy Social History Smoking Status: Current every day smoker tobacco type: cigarettes packs per day: 1 alcohol intake: never current occupational status: other Travel in the last 8 weeks: None housing: house ROS Obtained: Yes All systems reviewed & no additional complaints except as documented Constitutional Constitutional: Reports system reviewed and no additional complaints, except as documented Eyes Eyes: Reports system reviewed and no additional complaints, except as documented ENT Ears, Nose, Mouth, and Throat: Reports system reviewed and no additional complaints, except as documented and Reports nasal discharge Cardiovascular Cardiovascular: Reports system reviewed and no additional complaints, except as documented Respiratory Respiratory: Reports system reviewed and no additional complaints, except as documented, Reports non-productive cough and Reports pain with cough Gastrointestinal Gastrointestingal: Reports system reviewed and no additional complaints, except as documented, heartburn and reflux Genitourinary Male Genitourinary: Reports system reviewed and no additional complaints, except as documented Musculoskeletal Musculoskeletal: Reports system reviewed and no additional complaints, except as documented and Reports muscle cramps Integumentary/Breasts Skin/Breast: Reports system reviewed and no additional complaints, except as d ocumented Neurologic Neurologic: Reports system reviewed and no additional complaints, except as documented Endocrine Endocrine: Reports system reviewed and no additional complaints, except as documented Hematologic/Lymphatic Henatologic/Lymphatic: Reports system reviewed and no additional complaints, except as documented Allergic/Immunologic Allergic/Immunologic: Reports system reviewed and no additional complaints, except as documented Physical Exam General General appearance: alert and in no apparent distress Head Head exam: atraumatic and normocephalic Eye Eye exam: Present normal appearance ENT ENT exam: Present mucous membranes moist Expanded ENT Exam External ear exam: Present normal external inspection Nasal speculum exam: Bilateral: other (clear drainage) Mouth exam: Present normal external inspection Teeth exam: Present normal inspection Throat exam: Present normal inspection Neck Neck exam: Present normal inspection; Absent lymphadenopathy Chest Chest inspection: Present normal inspection and symmetric chest wall rise Respiratory Respiratory exam: Present normal lung sounds bilaterally Cardiovascular Cardiovascular exam: Present regular rate and normal rhythm Abdominal Exam Abdominal exam: Present soft and normal bowel sounds Extremities Exam Extremities exam: Present normal inspection Back Exam Back exam: Present normal inspection and muscle spasm (on right side) Neurological Exam Neurological exam: Present alert and oriented X3 Psychiatric Psychiatric exam: Present normal affect and normal mood Skin Skin exam: Present warm, dry and intact Lymphatic Lymphatic Findings: no adenopathy Medical Decision Making Mo Inquiry Pt receiving controlled substance: No Mo was queried for this patient: No Vital Signs: 12/11/23 12:35 Temperature 97.5 F L Temperature Source Oral Pulse Rate [Left Brachial] 105 H Respiratory Rate 20 Blood Pressure [Left Arm] 131/77 Blood Pressure Mean [Left Arm] 95 Blood Pressure Source [Left Arm] Automatic Cuff Blood Pressure Position [Left Arm] Sitting 02 Sat by Pulse Oximetry 94 L Oxygen Delivery Method Room Air
[2023-12-11 14:15] VITALS: BP 131/77; PULSE 105; RESP 20; TEMP 36.4; O2SAT 94
== END 2023-12-11 14:29 | disposition home or self-care (01) ==
PROVIDERS: Emergency Provider Nurse Practitioner Family; PCP Internal Medicine Adolescent Medicine
DX: R05.9 Cough, unspecified (principal); M62.838 Other muscle spasm; K21.9 Gastro-esophageal reflux disease without esophagitis; J44.9 Chronic obstructive pulmonary disease, unspecified; F17.210 Nicotine dependence, cigarettes, uncomplicated
CPT/HCPCS: 99212; 99214; G0463

== ENCOUNTER 2023-12-26 08:06 | Outpatient (CLI) | payer MEDICARE, MEDICAID, SELFPAY ==
--- NOTE | 2023-12-26 08:09 | CA_ITS ---
APPROVED REPORT EXAM: Comprehensive 2D, Doppler, and color-flow Echocardiogram Spray Gun Sizer: NEY Richardson, RVS Ht: 5 ft 8 in Wt: 379lbs BSA: 2.68 BP: 131/77 mmHg Indications: Smoker, SOA, Strong fsmily H/o cad, edema Echo Enhancing Agent Indication: no IV access Comments: Extremely difficult exam due to imaging depths unaided by lung impedence. 2D Dimensions Left Atrium 3.59 cm M: 3.0 - 4.0 LA Volume 100.00 mL LA Volume Index 37.31 mL/m2 (M/F) 16-34 EF AP4 53.70 % GL Strain -14.4 % M-Mode Dimensions RVDd 3.62 cm (0.9-2.6) LA Diam 3.95 cm (1.9-4.0) LVDd 5.45 cm (3.5-5.7) LVDs 3.26 cm (3.5-5.7) IVSd 1.16 cm (0.6-1.1) PWd 1.16 cm (0.6-1.1) EF (Teich) 70.40% EPSs 0.31 cm FS 40.20% EDV (Teich) 144.40 mL ESV (Teich) 42.80 mL LV Diastology E Decel Time 160 (160-240 msec) E/A Ratio 1.06 MED A' 13.20 cm/s LAT A' 11.50 cm/s Aortic Valve PETER Index 0.94 cm2/m2 AoV Peak Bakari. 144.0 (50-130 cm/s) AO Peak GR. 8.30 mmHg AO Mean GR. 4.20 (<5 mmHg) AO VTI 28.9 (18-25 cm) PETER (VTI) 2.58 (2.5-4.5 cm2) Mitral Valve MV A Velocity 66.0 (40-130 cm/s) E/A Ratio 1.06 MV Mean Gr. 1.50 (<2mmHg) Pulmonary Valve PV Peak Velocity 106.0 (50-150 cm/s) Tricuspid Valve TR P. Velocity 262.00 cm/s RAP Estimate 10.00 mmHg RVSP 37.60 mmHg Left Ventricle The left ventricle is normal size. The left ventricular systolic function is normal. The left ventricular ejection fraction is within the normal range. There is normal left ventricular wall thickness. There is normal LV segmental wall motion. The left ventricular diastolic function is normal. LVEF is 55%. Right Ventricle The right ventricle is normal size. The right ventricular systolic function is normal. Atria The left atrium size is normal. The right atrium size is normal. The interatrial septum is not well-visualized. Aortic Valve The aortic valve opens well. There is no aortic valvular stenosis. No aortic regurgitation is present. Mitral Valve The mitral valve is normal in structure. No evidence of mitral valve stenosis. Trace mitral regurgitation. Tricuspid Valve The tricuspid valve leaflets are thin and pliable. Trace tricuspid regurgitation. There is insufficient TR jet to estimate RVSP. Pulmonic Valve The pulmonary valve is normal in structure. Trace pulmonic regurgitation. Great Vessels The aortic root is normal in size. The ascending aorta is normal in size. The IVC is not well-visualized. Pericardium There is no pericardial effusion. Other Information Study Quality: Technically Difficult Conclusion Technically difficult study due to poor acoustic windows. Normal biventricular systolic function. No significant valvular stenosis or regurgitation. Electronically signed by : Lynette Vasquez MD 12/30/2023 01:50:27
== END 2023-12-26 23:59 | disposition home or self-care (01) ==
LOC: RT 08:07
PROVIDERS: PCP Internal Medicine Adolescent Medicine; Visit Provider Physician Assistant
DX: R60.0 Localized edema (principal); R06.02 Shortness of breath; Z82.49 Family history of ischemic heart disease and other diseases of the circulatory system; F17.210 Nicotine dependence, cigarettes, uncomplicated
CPT/HCPCS: 93306

== ENCOUNTER 2024-02-12 16:35 | Outpatient (CLI) | payer MEDICARE, MEDICAID, SELFPAY ==
[2024-02-12 17:19] LABS: Basophils # 0.1 K/mm3 (0-0.2); Basophils % 0.8 % (0.1-2.0); Eosinophils # 0.3 K/mm3 (0.0-0.4); Eosinophils % 2.9 % (0.1-12.0); Hemoglobin 14.9 g/dL (14.1-18.0); Lymphocytes # 1.5 K/mm3 (0.7-4.5); Lymphocytes % 15.5 % (10-50); Mean Corpuscular HGB Conc 31.2 g/dL (31.8-35.4); Mean Corpuscular Hemoglobin 27.7 pg (27.0-31.2); Mean Corpuscular Volume 88.8 fl (80-94); Mean Platelet Volume 8.3 fl (7.4-10.4); Monocytes # 0.6 K/mm3 (0.1-1.0); Monocytes % 5.8 % (1.7-9.3); Neutrophils # 7.2 K/mm3 (1.8-7.8); Platelet Count 356 K/mm3 (142-424); Red Cell Distribution Width 15.3 % (11.5-17.5); White Blood Count 9.6 K/mm3 (4.8-10.8)
[2024-02-18 14:05] LABS: D001-IgE D pteronyssinus <0.10 kU/L (Class 0); D002-IgE D farinae 0.26 kU/L (Class 0/I); E001-IgE Cat Dander <0.10 kU/L (Class 0); E005-IgE Dog Dander <0.10 kU/L (Class 0); E072-IgE Mouse Urine <0.10 kU/L (Class 0); G002-IgE Bermuda Grass 0.74 kU/L (Class II); G006-IgE Timothy Grass 0.66 kU/L (Class II); I006-IgE Cockroach, German 0.54 kU/L (Class I); Immunoglobulin E, Total 17 IU/mL (6-495); M001-IgE Penicillium chrysogen <0.10 kU/L (Class 0); M002-IgE Cladosporium herbarum <0.10 kU/L (Class 0); M003-IgE Aspergillus fumigatus <0.10 kU/L (Class 0); M006-IgE Alternaria alternata <0.10 kU/L (Class 0); T001-IgE Maple/Box Elder 0.66 kU/L (Class II); T003-IgE Common Silver Birch 0.62 kU/L (Class II); T006-IgE Cedar, Mountain 0.61 kU/L (Class II); T008-IgE Elm, American 0.62 kU/L (Class II); T010-IgE Walnut 0.63 kU/L (Class II); T014-IgE Cottonwood 0.67 kU/L (Class II); T015-IgE Ash, White 0.71 kU/L (Class II); T022-IgE Pecan, Hickory 0.62 kU/L (Class II); T070-IgE White Mulberry 0.53 kU/L (Class I); W001-IgE Ragweed, Short 0.76 kU/L (Class II); W011-IgE Thistle, Russian 0.61 kU/L (Class II); W014-IgE Pigweed, Common 0.69 kU/L (Class II); W018-IgE Sheep Sorrel 0.71 kU/L (Class II)
== END 2024-02-12 23:59 | disposition home or self-care (01) ==
LOC: LAB 16:36
PROVIDERS: PCP Internal Medicine Adolescent Medicine; Visit Provider Internal Medicine Pulmonary Disease
DX: J45.909 Unspecified asthma, uncomplicated (principal); R06.09 Other forms of dyspnea
CPT/HCPCS: 36415; 82785; 85025; 86003

== ENCOUNTER 2024-05-07 09:23 | Outpatient (CLI) | payer MEDICARE, MEDICAID, SELFPAY ==
[2024-05-07 10:40] VITALS: PULSE 68; PULSE 73
[2024-05-07] MEDS: ALBUTEROL 0.083% 2.5 MG/3 ML NEB IH (10:40)
== END 2024-05-07 23:59 | disposition home or self-care (01) ==
LOC: RT 09:24
PROVIDERS: PCP Nurse Practitioner Family; Visit Provider Internal Medicine Pulmonary Disease
DX: R06.09 Other forms of dyspnea (principal)
CPT/HCPCS: 94060; 94618; 94640; 94726; 94729; J7613

== ENCOUNTER 2024-05-09 09:37 | Emergency (ER) | payer MEDICARE, MEDICAID, SELFPAY ==
[2024-05-09] VITALS (9 sets, daily range): BP systolic 115–148; BP diastolic 74–86; PULSE 80–100; RESP 20; TEMP 36.4–36.8; O2SAT 90–98; BMI 56.3
--- NOTE | 2024-05-09 09:59 | CT_ITS ---
FINAL REPORT TECHNIQUE: Thin section axial images were obtained through the abdomen after intravenous contrast. Reconstruction images were obtained from the axial data. Exam was performed using dose reduction techniques. CLINICAL HISTORY: Abd pain, Umbilical hernia pain 75 ml isovue FINDINGS: There is emphysema in the lung bases. The liver is enlarged and fatty infiltrated. The gallbladder is present. The adrenal glands and pancreas are unremarkable. The spleen is enlarged measuring 16.5 cm. There is no hydronephrosis or solid renal mass. Abdominal GI tract is without acute abnormality. There is no abdominal lymphadenopathy or ascites. The pelvic solid organs are unremarkable. There is a fat-containing umbilical hernia. There is abnormal attenuation within the hernia sac, incarceration is not excluded. The pelvic portions of the GI tract, including the appendix, are without acute abnormality. There is no pelvic lymphadenopathy or ascites. No acute osseous abnormalities identified. IMPRESSION: Umbilical hernia with abnormal attenuation within the fat, incarceration is not excluded. Hepatosplenomegaly. Reviewed, Interpreted and Dictated by Emma Cummins MD Transcribed by Leah Williamson Authenticated and [facility]
--- NOTE | 2024-05-09 10:12 | ECG_ITS ---
APPROVED REPORT Exam: Resting ECG HR:80 bpm ECG Measurements Heart Rate 80 AXES OK 138 P 34 QRSd 97 QRS 32 QT 323 T 6 QTc 359 Conclusion SINUS RHYTHM WITH SINUS ARRHYTHMIA LOW QRS VOLTAGE IN PRECORDIAL LEADS [QRS DEFLECTION < 1.0 mV IN CHEST LEADS] BORDERLINE ECG Electronically signed by : BRIANNA THOMAS, 05/10/2024 17:28:27
[2024-05-09 10:54] LABS: Basophils # 0.1 K/mm3 (0-0.2); Basophils % 1.1 % (0.1-2.0); Eosinophils # 0.2 K/mm3 (0.0-0.4); Eosinophils % 2.5 % (0.1-12.0); Hematocrit 49.7 % (42.0-52.0); Lymphocytes # 1.3 K/mm3 (0.7-4.5); Mean Corpuscular HGB Conc 32.2 g/dL (31.8-35.4); Mean Corpuscular Hemoglobin 27.1 pg (27.0-31.2); Mean Corpuscular Volume 84.3 fl (80-94); Mean Platelet Volume 7.8 fl (7.4-10.4); Monocytes # 0.4 K/mm3 (0.1-1.0); Neutrophils # 7.5 K/mm3 (1.8-7.8); Neutrophils % 78.5 % (37.0-80.0); Platelet Count 315 K/mm3 (142-424); Red Cell Distribution Width 15.3 % (11.5-17.5); White Blood Count 9.5 K/mm3 (4.8-10.8)
[2024-05-09 11:02] LABS: Lactic Acid 1.1 mmol/L (0.7-2.1)
[2024-05-09 11:03] LABS: Alanine Aminotransferase 36 U/L (12-78); Albumin Level 4.1 g/dl (3.5-5.0); Albumin/Globulin Ratio 1.6 (1.1-1.8); Alkaline Phosphatase 66 U/L (38-126); Anion Gap 9.3 mEq/L (5-15); Aspartate Amino Transferase 28 U/L (17-59); Bilirubin,Total 0.4 mg/dl (0.2-1.3); Blood Urea Nitrogen 17 mg/dl (9-20); Calcium 9.3 mg/dl (8.4-10.2); Carbon Dioxide 28 mmol/L (22.0-30.0); Chloride 108 mmol/L (98-107); Creatinine Clearance Estimated 86 mL/min (50-200); Estimated Glomerular Filt Rate 75 ml/min (>60); GFR (African American) 91 ML/MIN (>60); Globulin 2.5 g/dL (1.3-3.2); Glucose 102 mg/dl (74-100); Lipase 48 U/L (23-300); Potassium 4.3 mmoL/L (3.5-5.1); Sodium 141 mmol/L (136-145); Total Protein,Serum 6.6 g/dl (6.3-8.2)
--- NOTE | 2024-05-09 11:16 | ED_ITS ---
Discharge Plan Disposition Patient Disposition: Home, Self-Care Condition: Good Chief Complaint: Abdominal Pain Prescriptions Prescriptions: No Action montelukast 10 mg tablet 10 mg PO DAILY cetirizine [Zyrtec] 10 mg tablet 10 mg PO DAILY PRN budesonide-formoterol [Symbicort] 160-4.5 mcg/actuation HFA aerosol inhaler 2 puff inhalation BID 90 Days Qty: 10.2 2RF omeprazole 20 mg capsule,delayed release(DR/EC) 40 mg PO DAILY Qty: 30 2RF fluticasone propionate [Flonase Allergy Relief] 50 mcg/actuation spray,suspension 2 spray intranasal DAILY 90 Days Qty: 16 2RF Rx Instructions: administer into each nostril azelastine 137 mcg (0.1 %) spray,non-aerosol 2 spray intranasal HS 90 Days Qty: 30 2RF Rx Instructions: administer into each nostril guaifenesin 400 mg tablet 400 mg PO QID Qty: 120 0RF baclofen 10 mg tablet 10 mg PO TID PRN (Reason: muscle spasm) Qty: 30 0RF Referrals Follow up/Referrals: Danielle Mora APRN [Primary Care Provider] - See instructions Luisito Chapman MD [Staff Physician] - See instructions Activity Restrictions/Add. Instructions Additional Instructions/Restrictions: As discussed please follow-up with your primary care provider as well as general surgery. Should your symptoms worsen please return to ED. Clinical Impressions Clinical Impression: Hernia, umbilical Instructions Patient Instructions: DI for Acute Abdominal Pain Print Language Print Language: Polish Discharge ED Provider: Jaleel Harley General Adult HPI General Chief complaint: Abdominal Pain Stated complaint: Knot by belly button, pressure/pain Time Seen by Provider: 05/09/24 09:39 Mode of Arrival: Ambulatory Source of Information: Patient Limitations: No Limitations Description of Symptoms (Recalled from ER Triage Doc. by RN): pt states yesterday he felt a knot above his belly button and feels pressure around it, denies any pain n/v/d, having normal urination and bowel mvmts History of Present Illness HPI narrative: 38yoM to ED with concern for noted not in his abdomen. States he first noticed yesterday while taking a shower. Patient indicates area near umbilicus which appears to be umbilical hernia. Patient reports feeling pressure in the area when standing however denies pain. Denies changes in bowel movements, still passing flatus. Denies issues with defecation or urination. Denies injury. Denies nausea, vomiting, diarrhea. Denies significant past medical history. Patient denies other complaints or concerns at this time. Please note that above description of symptoms, in this electronic medical record under categorization of recalled from ER triage doctor by RN are reflective of an initial nursing assessment, however, is not reflective of my full history and physical exam that was personally taken and clarified. Consequentially, this preceding description of symptoms, which may include the patient's categorized chief complaint in the EMR, do not reflect my personal clinical impression, and the ultimate description of history of present illness and patient stated complaints should be deferred to this section of the note. Unless stated otherwise or congruent with this section of the note, additional signs, symptoms, or incongruence should be interpreted as inaccurate with my clinical impression. Related Data Home Medications ?Medication ?Instructions ?Recorded ?Confirmed cetirizine 10 mg tablet (Zyrtec) 10 mg PO DAILY PRN 02/12/24 02/12/24 montelukast 10 mg tablet 10 mg PO DAILY 02/12/24 02/12/24 Previous Rx's ?Medication ?Instructions ?Recorded baclofen 10 mg tablet 10 mg PO TID PRN muscle spasm #30 12/11/23 tabs guaifenesin 400 mg tablet 400 mg PO QID #120 tabs 12/11/23 azelastine 137 mcg (0.1 %) nasal 2 spray intranasal HS 90 days #30 02/12/24 spray mL budesonide-formoterol HFA 160 2 puff inhalation BID 90 days 02/12/24 mcg-4.5 mcg/actuation aerosol #10.2 grams inhaler (Symbicort) fluticasone propionate 50 2 spray intranasal DAILY 90 days 02/12/24 mcg/actuation nasal #16 grams spray,suspension (Flonase Allergy Relief) omeprazole 20 mg capsule,delayed 40 mg (2 x 20 mg) PO DAILY #30 caps 02/12/24 release Allergies Allergy/AdvReac Type Severity Reaction Status Date / Time Penicillins (PENICILLINS) Allergy Unknown Verified 02/12/24 15:52 pseudoephedrine (From Allergy Verified 02/12/24 15:52 Sudafed) [facility] Disclaimer: The information contained in this section may have been updated after the patient was seen, as this information can be updated by other users. Medical History (Updated 05/09/24 @ 12:46 by Jaleel Harley DO) Allergic rhinitis Dyspnea on exertion Migraine COPD (chronic obstructive pulmonary disease) Asthma Surgical History History of lung surgery History of dental surgery History of tonsillectomy Family History Other Asthma Cancer Diabetes Heart attack Hypertension Social History (Updated 02/12/24 @ 15:57 by Emma Stock) Smoking Status: Current every day smoker tobacco type: cigarettes packs per day: 1 alcohol intake: never current occupational status: other housing: house Other Medical History Have you received the Flu Vaccine for this season: No Have you received the Pneumonia Vaccine: No ROS Obtained: Yes Systems reviewed as appropriate & no additional complaints except as documented Physical Exam General General appearance: alert and in no apparent distress Head Head exam: atraumatic and normocephalic Eye Eye exam: Present normal appearance and EOMI ENT ENT exam: Present normal exam Neck Neck exam: Present normal inspection Chest Chest inspection: Present normal inspection and symmetric chest wall rise Respiratory Respiratory exam: Present normal lung sounds bilaterally; Absent respiratory distress Cardiovascular Cardiovascular exam: Present regular rate, normal rhythm and normal heart sounds Abdominal Exam Abdominal exam: Present soft and normal bowel sounds; Absent distention, tenderness, guarding or rebound Comment: Umbilical hernia noted, reducible, no overlying skin changes exam: Present deferred Extremities Exam Extremities exam: Present normal inspection and full ROM; Absent tenderness Back Exam Back exam: Present normal inspection Neurological Exam Neurological exam: Present alert and oriented X3 Psychiatric Psychiatric exam: Present normal affect and normal mood Skin Skin exam: Present warm, dry, intact and normal color; Absent rash Medical Decision Making Medical Records Medical records reviewed: Yes I reviewed the patient's medical records. Screening: Per USPSTF and CDC recommendations, given the prevalence of disease in our region, it is our hospital?s policy to screen for HIV and viral Hepatitis for all patients aged 18 and over and those with ongoing risk factors. Mo Inquiry Pt receiving controlled substance: No Mo was queried for this patient: No Vital Signs: 05/09/24 09:39 05/09/24 09:46 05/09/24 10:00 Temperature 97.5 F L Temperature Source Oral Pulse Rate 95 H 91 H Pulse Rate [Left Radial] 100 H Respiratory Rate 20 Blood Pressure 115/86 132/77 Blood Pressure [Right Arm] 148/75 H Blood Pressure Mean 95 85 Blood Pressure Mean [Right Arm] 99 02 Sat by Pulse Oximetry 98 96 90 L Oxygen Delivery Method Room Air 05/09/24 10:15 05/09/24 10:30 05/09/24 10:46 Temperature Temperature Source Pulse Rate 88 88 90 Pulse Rate [Left Radial] Respiratory Rate Blood Pressure 125/79 123/74 128/84 Blood Pressure [Right Arm] Blood Pressure Mean 87 90 94 Blood Pressure Mean [Right Arm] 02 Sat by Pulse Oximetry 90 L 92 L 96 Oxygen Delivery Method 05/09/24 11:01 05/09/24 11:16 Temperature Temperature Source Pulse Rate 91 H 86 Pulse Rate [Left Radial] Respiratory Rate Blood Pressure 116/76 123/85 Blood Pressure [Right Arm] Blood Pressure Mean 86 94 Blood Pressure Mean [Right Arm] 02 Sat by Pulse Oximetry 95 95 Oxygen Delivery Method Lab Data Lab Results 05/09/24 10:43: WBC 9.5, RBC 5.90, Hgb 16.0, Hct 49.7, MCV 84.3, MCH 27.1, MCHC 32.2, RDW 15.3, Plt Count 315, MPV 7.8, Neut % (Auto) 78.5, Lymph % (Auto) 14.0, Sheridan % (Auto) 4.0, Eos % (Auto) 2.5, Baso % (Auto) 1.1, Neut # (Auto) 7.5, Lymph # (Auto) 1.3, Sheridan # (Auto) 0.4, Eos # (Auto) 0.2, Baso # (Auto) 0.1, Sodium 141, Potassium 4.3, Chloride 108 H, Carbon Dioxide 28, Anion Gap 9.3, BUN 17, Creatinine 1.10, Estimated Creat Clear 86, Estimated GFR 75, Est GFR ( Amer) 91, Glucose 102 H, Lactate 1.1, Calcium 9.3, Total Bilirubin 0.4, AST 28, ALT 36, Alkaline Phosphatase 66, Total Protein 6.6, Albumin 4.1, Globulin 2.5, Albumin/Globulin Ratio 1.6, Lipase 48 05/09/24 10:43 05/09/24 10:43 Orders (Tests/Meds): ED MEDICATIONS Discontinued Medications Generic Name Dose Route Start Last Admin Trade Name Denise PRN Reason Stop Dose Admin Iopamidol 75 ml 05/09/24 11:37 05/09/24 11:40 Iopamidol-370 (76%);100ml Bottle IV 05/09/24 11:38 75 ml ONCE ONE Administration Sodium Chloride 10 ml 05/09/24 11:37 05/09/24 11:40 Sodium Chloride 0.9% 10ml Syr (Rad Only) IV 05/09/24 11:38 10 ml ONCE ONE Administration ORDERS Category Date Time Status CT abdomen pelvis w con Stat Cat Scan 05/09/24 09:59 Completed Complete Blood Count Auto Diff Stat Lab 05/09/24 10:43 Completed Comprehensive Metabolic Panel Stat Lab 05/09/24 10:43 Completed Lactic Acid Stat Lab 05/09/24 10:43 Completed Lipase Stat Lab 05/09/24 10:43 Completed ECG Data Tracing #1: I reviewed this ECG and interpreted as documented below: Normal sinus rhythm, normal axis, normal intervals, no noted ST elevation Medical Decision Narrative: Patient with history and exam per above presenting for evaluation of umbilical hernia, abdominal pressure Diagnoses considered include hernia, hernia strangulation, incarcerated hernia ED workup and treatment included: As above Labs were independently interpreted by me, significant for no noted leukocytosis or anemia, no acute actionable electrolyte abnormalities. Laboratory workup reassuring Imaging was independently visualized and interpreted by me, significant for umbilical hernia, no noted incarceration or strangulation on my review Please refer to radiology report for full details. My clinical impression at this time is most consistent with umbilical hernia. As above this was reducible on physical exam. Patient is currently having bowel movements and passing flatus. Low concern for strangulation versus incarceration. Patient has no overlying skin changes, very reassuring physical exam at this time. On reassessment patient remains hemodynamically stable. Medically clear for discharge at this time with outpatient follow-up. Referring to general surgery. Patient to follow-up with general surgery and primary care provider. Given strict instructions to return to ED if symptoms worsen. Patient agreeable with this plan. Discharged home with hemodynamically stable vitals. I discussed my clinical impression with patient and answered all questions. At this time, the evidence for any other entities in the differential is insufficient to warrant any further testing or ED observation. This was explained to the patient. The patient was advised that persistent or worsening symptoms require further evaluation. Critical Care Critical Care Time Critical Care Time: No
[2024-05-09] MEDS: IOPAMIDOL-370 (76%);100ML BOTTLE 75 ML IV (11:40)
[2024-05-09] MEDS: SODIUM CHLORIDE 0.9% 10ML SYR (RAD ONLY) 10 ML IV (11:40)
== END 2024-05-09 12:52 | disposition home or self-care (01) ==
PROVIDERS: Emergency Provider Student in an Organized Health Care Education/Training Program; PCP Nurse Practitioner Family
DX: K42.9 Umbilical hernia without obstruction or gangrene (principal); R19.05 Periumbilic swelling, mass or lump
CPT/HCPCS: 74177; 80053; 83605; 83690; 85025; 93005; 99285; Q9967

== ENCOUNTER 2024-07-03 12:41 | Outpatient (CLI) | payer MEDICARE, MEDICAID, SELFPAY ==
--- NOTE | 2024-07-03 12:42 | CT_ITS ---
FINAL REPORT TECHNIQUE: The patient was injected with IV contrast. Axial images were obtained through the chest in a PE protocol. 3-D reconstruction images were also performed. Individualized dose reduction techniques using automated exposure control or adjustment of the MA and/or KV according to patient's size were employed. CLINICAL HISTORY: Hypoxia and Decreased Dlco FINDINGS: Mediastinal vasculature is adequately opacified. No pulmonary artery filling defects are identified to suggest PE. There is no aortic dissection. There are surgical clips in the right lower lobe of the lung. There is large bulla at the right base measuring 8.5 x 5.5 cm. There are smaller bulla at both bases. There are changes of centrilobular emphysema. There is no axillary adenopathy. There is no hilar or mediastinal adenopathy. The heart size is normal. There is no pericardial or pleural effusion. Limited images of the upper abdomen Limited images shows fatty infiltration of the liver. No suspicious infiltrate or nodule is identified. IMPRESSION: No pulmonary embolus or dissection. Changes of centrilobular emphysema with the large right basilar bulla. Reviewed, Interpreted and Dictated by Christopher Lake MD Transcribed by Leah Williamson Authenticated and [facility]
[2024-07-03] MEDS: SODIUM CHLORIDE 0.9% 10ML SYR (RAD ONLY) 10 ML IV (13:16)
[2024-07-03] MEDS: 0.9 % SODIUM CHLORIDE 50 ML VIAL 40 ML IV (13:16)
[2024-07-03] MEDS: IOPAMIDOL-370 (76%);100ML BOTTLE 70 ML IV (13:17)
== END 2024-07-03 23:59 | disposition home or self-care (01) ==
LOC: RAD 12:42
PROVIDERS: PCP Internal Medicine Adolescent Medicine; Visit Provider Internal Medicine Pulmonary Disease
DX: R07.9 Chest pain, unspecified (principal); R06.09 Other forms of dyspnea; R94.2 Abnormal results of pulmonary function studies; R91.8 Other nonspecific abnormal finding of lung field
CPT/HCPCS: 71275; Q9967

== ENCOUNTER 2024-07-08 06:34 | Outpatient (CLI) | payer MEDICARE, MEDICAID, SELFPAY ==
--- NOTE | 2024-07-08 | CA_ITS ---
APPROVED REPORT Exam: Pharmacologic Technologist: Lori Ramirez Ht: 5 ft 7 in Wt: 365 lbs BSA: 2.61 m2 HR: 80 bpm BP: 124/70 mmHg Stress Test Details Test: Lexiscan HR Resting HR: 80 bpm Max Heart Rate (APMHR): 183.487464 bpm Max HR Achieved: 119 bpm Target HR (85% APMHR): 155.584018 bpm % of APMHR: 65.03 Recovery HR: 93 bpm BP Resting BP: 124.0/70.0 mmHg Max BP: 131.0/56.0 mmHg Recovery BP: 131.0/56.0 mmHg ECG Stress ECG Conclusion Symptoms: Dyspnea Arrhythmias/Ectopy: - ST-T Changes: Less than [address] depression Conclusion: EKG portion unremarkable due to Lexiscan infusion. Electronically signed by : Lynette Vasquez MD 07/08/2024 12:33:19
--- NOTE | 2024-07-08 06:39 | NM_ITS ---
APPROVED REPORT Exam: Nuclear Stress Test Indication: Chest pain, SOB, Palpitations, Family history Patient Location: Outpatient Stress Tech: Lori Ramirez NM Tech:Olena Malone, ARRT, RT (R)(N) Ht: 5 ft 7 in Wt: 350 lbs HR: 79 bpm BP: 124/70 mmHg BSA: 2.57 m2 TID: 1.16 BMI: 54.8 History: Chest pain, SOB, Palpitations, Family history Procedure: Patient received 0.4 mg of intravenous Lexiscan, resting heart rate 79 bpm, resting blood pressure 124/70 mmHg, with Lexiscan maximum heart rate achieved was 114 bpm which is % of the maximum predicted heart rate and blood pressure was 131/56 mmHg. With Lexiscan, patient denied any complaint of chest pain. Cardiac Stress and Resting SPECT Images: Cardiac Stress and Resting SPECT images were obtained using technetium 99m Myoview 30.3 mCi stress and 10.66 mCi at rest. Raw images demonstrate significant soft tissue and diaphragmatic overlap with the cardiac borders. This may affect the diagnostic interpretation of the study findings. The patient is unable to lie on his abdomen. Therefore, prone stress imaging could not be performed. This may affect the diagnostic interpretation of the study findings. Resting and stress imaging in supine positions demonstrate a medium sized, mild, tapered fixed perfusion defect in the inferior LV wall (in the setting of normal wall motion). Findings are most suggestive of diaphragmatic attenuation. Gated imaging demonstrates normal global and regional LV systolic function. LVEF is calculated at 56%. Conclusion: Diaphragmatic attenuation is present. No definite evidence of fixed or reversible perfusion defects. Gated imaging demonstrates normal global and regional LV systolic function. LVEF is calculated at 56%. Electronically signed by : Lynette Vasquez MD 07/08/2024 10:30:19
[2024-07-08] MEDS: REGADENOSON 0.4MG/5ML SYRINGE 0.4 MG IV (08:38)
[2024-07-08] MEDS: SODIUM CHLORIDE 0.9% 10ML SYR (RAD ONLY) 10 ML IV ×2 (08:38)
[2024-07-08] MEDS: ISOTOPE MYOVIEW (PER STUDY) 1 DOSE IV (08:38)
== END 2024-07-08 23:59 | disposition home or self-care (01) ==
LOC: RAD 06:35
PROVIDERS: PCP Internal Medicine Adolescent Medicine; Visit Provider Nurse Practitioner
DX: R06.09 Other forms of dyspnea (principal); R07.9 Chest pain, unspecified; R60.9 Edema, unspecified
CPT/HCPCS: 78452; 93017; 93018; A9502; J2785

== ENCOUNTER 2024-08-13 13:20 | Outpatient (CLI) | payer MEDICARE, MEDICAID, SELFPAY ==
[2024-08-13 14:18] LABS: Basophils # 0.1 K/mm3 (0-0.2); Basophils % 0.7 % (0.1-2.0); Eosinophils # 0.2 K/mm3 (0.0-0.4); Eosinophils % 2.2 % (0.1-12.0); Hematocrit 49.5 % (42.0-52.0); Hemoglobin 16.2 g/dL (14.1-18.0); Lymphocytes # 1.5 K/mm3 (0.7-4.5); Lymphocytes % 15.1 % (10-50); Mean Corpuscular HGB Conc 32.7 g/dL (31.8-35.4); Mean Corpuscular Hemoglobin 27.3 pg (27.0-31.2); Mean Corpuscular Volume 83.3 fl (80-94); Mean Platelet Volume 10.3 fl (7.4-10.4); Monocytes # 0.7 K/mm3 (0.1-1.0); Monocytes % 6.6 % (1.7-9.3); Neutrophils # 7.3 K/mm3 (1.8-7.8); Neutrophils % 74.9 % (37.0-80.0); Platelet Count 377 K/mm3 (142-424); Red Blood Count 5.94 M/mm3 (4.60-6.20); Red Cell Distribution Width 15.5 % (11.5-17.5); White Blood Count 9.8 K/mm3 (4.8-10.8)
[2024-08-13 14:35] LABS: Chloride 107 mmol/L (98-107); Sodium 137 mmol/L (136-145)
[2024-08-13 14:36] LABS: Potassium 4.3 mmoL/L (3.5-5.1)
[2024-08-13 14:38] LABS: Blood Urea Nitrogen 12 mg/dl (9-20); Estimated Glomerular Filt Rate 95 ml/min (>60); GFR (African American) 115 ML/MIN (>60)
[2024-08-13 14:39] LABS: Anion Gap 9.3 mEq/L (5-15); Calcium 9.4 mg/dl (8.4-10.2); Carbon Dioxide 25 mmol/L (22.0-30.0); Glucose 95 mg/dl (74-100)
== END 2024-08-13 23:59 | disposition home or self-care (01) ==
PROVIDERS: PCP Internal Medicine Adolescent Medicine; Visit Provider Surgery
DX: K42.9 Umbilical hernia without obstruction or gangrene (principal)
CPT/HCPCS: 80048; 85025

== ENCOUNTER 2024-08-18 06:56 | Day surgery (SDC) | payer MEDICARE, MEDICAID, SELFPAY ==
[2024-08-13 14:19] VITALS: BMI 53.1
[2024-08-18] VITALS (11 sets, daily range): BP systolic 127–154; BP diastolic 73–94; PULSE 87–105; RESP 14–18; TEMP 36.4–38; O2SAT 91–95
[2024-08-18] MEDS: LACTATED RINGERS 1000ML 1,000 ML 25 ML IV (07:17)
--- NOTE | 2024-08-18 07:49 | P.PNANES_ITS ---
[facility] Disclaimer: The information contained in this section may have been updated after the patient was seen, as this information can be updated by other users. Medical History Murmur Elevated BP without diagnosis of hypertension Restrictive lung disease Cystic-bullous disease of lung Tobacco use Edema Encounter for pre-operative cardiovascular clearance Tachycardia Abnormality of lung on CXR Decreased diffusion capacity of lung Allergic rhinitis Dyspnea on exertion Migraine COPD (chronic obstructive pulmonary disease) Asthma Surgical History History of lymph node excision History of lung surgery History of dental surgery History of tonsillectomy Family History Other Asthma Cancer Diabetes Heart attack Hypertension Social History Smoking Status: Current every day smoker tobacco type: cigarettes packs per day: 1 alcohol intake: never substance use type: denies use current occupational status: employed and other Travel in the last 8 weeks: Inside the [place] housing: house [facility] Anesthesia Checklist Patient Identification Patient Identification: Arm Band Structural Data Admitted From: Home Planned Operative Procedure/s: Laparoscopic Umbilical Hernia Repair Consent for Planned Operative Procedure(s) Verified: Yes Verified Documents: Surgical Consent, History and Physical and Cardiac Clearance NPO Status Verified Time NPO: 00:00 Additional verifications Anesthesia Reactions: No Hx Blood Transfusions: No Blood Transfusion Reaction: No Airway Assessment Mallampati Score:: Class II C-Spine Mobility Assessed: Yes TMJ Mobility Assessed: Yes Dentition: Edentulous Neurological Assessment Level of Consciousness: Awake, Alert and Appropriate Anesthesia Plan Anesthesia Risk discussed: Yes Anesthesia Plan: Verified ASA Class: III Anesthesia Type: General
--- NOTE | 2024-08-18 08:05 | EXP.GEN.HP ---
HPI HPI HPI: Patient presents for umbilical hernia repair. He is a 38-year-old male with BMI of 58 referred by the emergency department for umbilical hernia and initially seen in the office on 05/15/2024. He is a smoker with history of cystic bullous lung disease and restrictive lung disease. He had a prior history of pneumothorax requiring pleurodesis many years ago. He was seen in the emergency department on 05/09/2024 with concern for a knot on his abdomen noted when he had been taking a shower. He feels pressure. He underwent CT scan which revealed umbilical hernia with abnormal attenuation within the fat, incarceration is not excluded. He states that he has had some discomfort. He occasionally has nausea but he attributes this to excessive coughing secondary to sinus drainage. After I saw the patient on 05/15/2024 feel the patient had a small to moderate umbilical hernia possibly containing chronically incarcerated omentum. I did have him see cardiology. Patient is considered at acceptable operative risk but nonmodifiable risk factors according to the note. He has seen pulmonology recently. He has some discomfort at the site. [facility] Disclaimer: The information contained in this section may have been updated after the patient was seen, as this information can be updated by other users. Medical History Murmur Elevated BP without diagnosis of hypertension Restrictive lung disease Cystic-bullous disease of lung Tobacco use Edema Encounter for pre-operative cardiovascular clearance Tachycardia Abnormality of lung on CXR Decreased diffusion capacity of lung Allergic rhinitis Dyspnea on exertion Migraine COPD (chronic obstructive pulmonary disease) Asthma Surgical History History of lymph node excision History of lung surgery History of dental surgery History of tonsillectomy Family History Other Asthma Cancer Diabetes Heart attack Hypertension Social History (Updated 08/18/24 @ 07:50 by Fabio Collins CRNA) Smoking Status: Current every day smoker tobacco type: cigarettes packs per day: 1 alcohol intake: never substance use type: denies use current occupational status: employed and other Travel in the last 8 weeks: Inside the [place] housing[place] house Have you lived/traveled outside US in past 30 days?: No Contact w/someone who lives/traveled outside US past 30 days?: No Exposure to someone with infectious disease in past 14 days?: No Do you have a fever (greater than 100.4 F or 38 C)?: No Have you tested positive for COVID-19: No Exposed to someone with COVID-19 in past 14 days?: No Do you have a sore throat?: No Do you have a cough?: No Do you have any weakness?: No Do you have any diarrhea?: No Are you experiencing any unusual bleeding?: No Do you have any muscle aches/pain?: No Do you have any abdominal pain?: No Are you experiencing loss of taste or smell?: No Other Medical History Have you received the Flu Vaccine for this season: No Have you received the Pneumonia Vaccine: No Meds Home Medications and Allergies Home Medications ?Medication ?Instructions ?Recorded ?Confirmed ?Type baclofen 10 mg tablet 10 mg PO TID PRN muscle spasm #30 12/11/23 08/13/24 Rx tabs cetirizine 10 mg tablet (Zyrtec) 10 mg PO DAILY PRN allergies 02/12/24 08/13/24 History fluticasone propionate 50 2 spray intranasal DAILY 90 days 02/12/24 08/13/24 Rx mcg/actuation nasal #16 grams spray,suspension (Flonase Allergy Relief) montelukast 10 mg tablet 10 mg PO DAILY 02/12/24 08/13/24 History omeprazole 20 mg capsule,delayed 40 mg (2 x 20 mg) PO DAILY #30 caps 02/12/24 08/13/24 Rx release albuterol sulfate 90 mcg/actuation 90 mcg inhalation DAILY PRN Asthma 05/14/24 08/13/24 History aerosol inhaler budesonide 160 mcg-glycopyr 9 2 inh inhalation BID 90 days #10.7 05/14/24 08/13/24 Rx mcg-formot 4.8 mcg/actuation HFA grams inhaler (Breztri Aerosphere) furosemide 20 mg tablet 20 mg PO DAILY 05/14/24 08/13/24 History ibuprofen 600 mg tablet 600 mg PO DAILY 05/14/24 08/13/24 History levocetirizine 5 mg tablet 5 mg PO DAILY 05/14/24 08/13/24 History ipratropium 0.5 mg-albuterol 3 mg 3 ml inhalation Q6H PRN shortness 07/09/24 08/13/24 Rx (2.5 mg base)/3 mL nebulization of breath or wheezing #90 mL soln New Prescriptions to Start Prescriptions: Allergies Allergy/AdvReac Type Severity Reaction Status Date / Time Penicillins (PENICILLINS) Allergy Unknown Swelling Verified 08/18/24 07:23 of Lip/Tongue/Throat pseudoephedrine (From Allergy Swelling Verified 08/18/24 07:23 Sudafed) of the Eye Exam Data for Last 24 hours Vital signs and Labs for Last 24 Hours: Temp Pulse Resp BP Pulse Ox O2 Del Method 98.0 F 95 H 18 146/90 H 93 L Room Air 08/18/24 07:23 08/18/24 07:23 08/18/24 07:23 08/18/24 07:23 08/18/24 07:23 08/18/24 07:23 Constitutional Constitutional: no acute distress *Routine HEENT Exam Head: Present normocephalic Eye: Present EOMI and PERRL ENT: Present mucous membranes moist *Routine Neck Exam Neck: Present supple; Absent lymphadenopathy *Routine Respiratory Exam Respiratory: Present CTA bilaterally *Routine Cardiovascular Exam Cardiovascular: Present RRR *Routine Abdominal Exam Abdominal: Present soft; Absent tenderness Comments: Hernia *Routine Rectal Exam Rectal:: deferred *Routine Genitalia Exam Genitalia:: deferred *Routine Extremities Exam Extremities: Absent cyanosis, clubbing or edema *Routine Skin Exam Skin: Present warm; Absent rash *Routine Neurological Exam Neurological: Present alert and oriented X3 Assessment and Plan *Assessment and plan (1) Hernia, umbilical: Status: Acute Category: Medical Code(s): K42.9 - Umbilical hernia without obstruction or gangrene Plan Plan to proceed with laparoscopically directed hernia repair
[2024-08-18] MEDS: CLINDAMYCIN PHOSPHATE/D5W 900 MG/50 ML PIGGYBACK 100 MG IV (08:25)
[2024-08-18] MEDS: ROPIVACAINE 0.5% 30ML VIAL 150 MG (09:08)
[2024-08-18] MEDS: LIDOCAINE 1% 20ML MDV 20 ML (09:08)
--- NOTE | 2024-08-18 10:17 | P.OP_ITS ---
Date of procedure: 08/18/24 Pre-op Diagnosis:: Umbilical hernia Post-op Diagnosis:: Chronically incarcerated umbilical hernia containing omentum Procedure performed:: Laparoscopically assisted/directed open repair of chronically incarcerated umbilical hernia containing omentum with placement of medium sized Bard Ventralex mesh (6.4 cm). . Surgeon:: Luisito Chapman MD CAMERA OPERATOR:: Edvin Muniz Anesthesia: GETA Estimated blood loss (mL): 5 Clinical Note:: Patient presents for umbilical hernia repair. He is a 38-year-old male with BMI of 58 referred by the emergency department for umbilical hernia and initially seen in the office on 05/15/2024. He is a smoker with history of cystic bullous lung disease and restrictive lung disease. He had a prior history of pneumothorax requiring pleurodesis many years ago. He was seen in the emergency department on 05/09/2024 with concern for a knot on his abdomen noted when he had been taking a shower. He feels pressure. He underwent CT scan which revealed umbilical hernia with abnormal attenuation within the fat, incar ceration is not excluded. He states that he has had some discomfort. He occasionally has nausea but he attributes this to excessive coughing secondary to sinus drainage. After I saw the patient on 05/15/2024 feel the patient had a small to moderate umbilical hernia possibly containing chronically incarcerated omentum. I did have him see cardiology. Patient is considered at acceptable operative risk but nonmodifiable risk factors according to the note. He has seen pulmonology recently. He has some discomfort at the site. . Operative findings:: He had a rather small defect measuring about 10 or 12 mm with a moderately large amount of chronically incarcerated omental pedicle with moderate-sized hernia sac. . Operative note:: Consent was obtained patient was taken the operating room. He was given preoperative intravenous antibiotics. In the operating room he was placed in a supine position. General anesthesia was induced via endotracheal tube. Abdomen was prepped and draped in the standard surgical fashion. Through left subcostal incision optical trocar was carefully inserted under visualization into the peritoneal cavity. CO2 pneumoperitoneum was achieved to 15 mmHg. Laparoscopic surveillance was carried out. He was noted to have a pedicle of omentum herniating through what appeared to be tiny umbilical defect. Additional 5 mm trocar was inserted in the left lower lateral abdomen. With gentle traction and pressure anteriorly a large portion of the chronically incarcerated omental pedicle was able to be reduced. It was not reduced in its entirety to allow for inspection through the open portion of the procedure as well as laparoscopically. At this time supraumbilical skin incision was made. Dissection was carried down through subcutaneous tissues to hernia sac. He had a rather large prominent hernia sac. This was dissected free from surrounding subcutaneous tissues down to the fascia. It was dissected free from the umbilical subdermis using Metzenbaum dissection. Once the hernia sac was freed down to the fascial neck it was opened such that the gas evacuated. The peritoneum/hernia sac was then excised down to normal fascia using electrocautery. There appeared to be some minor oozing from the fascial edge. Laparoscopy was used and hemostasis was achieved of the fascial edges using laparoscopic KIRIT ultrasonic harmonic yoanna. Attention was then turned to the open portion of the procedure once again. Overall size of the defect measured about 10 to 12 mm at most. A medium sized Bard Ventralex mesh measuring 6.4 cm in diameter was brought onto the field, rolled, inserted into the peritoneal cavity. It was elevated. Laparoscopy was used to confirm good coverage and placement of the mesh. The tails of the mesh were then sutured superiorly and inferiorly to the fascial edges with 2-0 Prolene sutures. Tails of the mesh were cut flush with the fascia. The fascia was closed over the mesh with a single 0 Ethibond suture. Laparoscopy was used once again to confirm good position. Given the patient's body habitus mesh was reinforced and secured using the OPTi fix anchors around its periphery. Repair appeared adequate. There appeared to be good hemostasis. Trocars were then removed as CO2 pneumoperitoneum was evacuated. Local anesthetic was infiltrated in all incisions. The umbilical subdermis was reapproximated to the underlying fascia with several interrupted 2-0 Vicryl sutures. Subdermal tissues were closed with a interrupted 2-0 Vicryl sutures. Skin incisions were closed with 4-0 Monocryl subcuticular fashion. Several 4-0 plain gut were placed in interrupted fashion at the 5 mm trocar sites for closure and hemostasis. Steri-Strips and dressings were applied. . Condition: stable Disposition: PACU Complications:: None immediately apparent
--- NOTE | 2024-08-18 10:38 | EXP.ANES.I ---
[facility] Anesthesia Record Part I Anesthesia Record I Intake, IV Amount: 1,300 Hydration: Adequate Estimated blood loss (mL): 5 Urine output (mL): 0 Blood Products used (#): none Blood Pressure: 154/73 SaO2: 93 Pulse Rate: 104 Airway Patency: Patent Respiratory Rate: 16 Temperature: 97.6 F Patient is:: Drowsy and Stable Stable to PACU at:: 10:34
--- NOTE | 2024-08-19 09:31 | P.PNANES_ITS ---
[facility] Anesthesia Record Part II Anesthesia Record Part II Discharge Time: 11:04 Destination: Surgical Day Care (OP Surgery) PACU nurse assessment reviewed?: Yes Patient Condition:: Good Anesthesia Complications:: None Swallowing reflex intact?: Yes Airway Patency: Patent Cyanosis?: No Blood Pressure: 131/77 SaO2: 91 Respiratory Rate: 16 Pulse Rate: 95 Temperature: 98.8 F Mental Status: Alert & Oriented Pain level:: 0 Nausea and/or vomitting:: None Intake, IV Amount: 0 Hydration: Adequate
[2024-08-19 09:32] VITALS: BP 131/77; PULSE 95; RESP 16; TEMP 37.1; O2SAT 91
== END 2024-08-18 11:52 | disposition home or self-care (01) ==
PROVIDERS: PCP Internal Medicine Adolescent Medicine; Visit Provider Surgery
PROC: 0WQF4ZZ Repair Abdominal Wall, Percutaneous Endoscopic Approach (ICD-10-PCS; CPT 49591; principal; 2024-08-18 08:35)
DX: K42.0 Umbilical hernia with obstruction, without gangrene (principal)
CPT/HCPCS: 49591; 96374; J3490; C1781; J0736; J1100; J2250; J2405; J3010; J7120

== ENCOUNTER 2024-09-03 21:58 | Emergency (ER) | payer MEDICARE, MEDICAID, SELFPAY ==
[2024-09-03 22:01] VITALS: BP 130/82; PULSE 85; RESP 14; TEMP 36.8; O2SAT 96; BMI 52.1
--- NOTE | 2024-09-03 22:12 | CT_ITS ---
PROCEDURE INFORMATION: Exam: CT Neck With Contrast Exam date and time: 09/03/2024 10:50 PM Age: 38 years old Clinical indication: Throat pain; Additional info: Post intubation throat pain TECHNIQUE: Imaging protocol: Computed tomography of the neck with contrast. Radiation optimization: All CT scans at this facility use at least one of these dose optimization techniques: automated exposure control; mA and/or kV adjustment per patient size (includes targeted exams where dose is matched to clinical indication); or iterative reconstruction. Contrast material: ISOVUE; Contrast volume: 75 ml; Contrast route: IV; COMPARISON: CT ANGIO CHEST PE PROTOCOL 07/03/2024 1:10 PM FINDINGS: Salivary glands: Normal. Glands are normal in size. Pharynx: Unremarkable. No significant tonsillar enlargement. Larynx: Unremarkable. Epiglottis is normal. Thyroid: Normal. No enlarged or calcified nodules. Trachea: Visualized trachea is unremarkable. Lungs: There is a calcified granuloma at the right lung apex. Postsurgical changes posterior right lung apex. Numerous air cysts at both lung apices. Lymph nodes: Unremarkable. No lymphadenopathy. Bones/joints: Unremarkable. No acute fracture. Soft tissues: Unremarkable. No significant soft tissue swelling. IMPRESSION: No acute findings. No airway compromise.
--- NOTE | 2024-09-03 22:17 | HMH.EDGENADL ---
Discharge Plan Disposition Patient Disposition: Home, Self-Care Condition: Good Prescriptions Prescriptions: No Action ipratropium-albuterol 0.5 mg-3 mg(2.5 mg base)/3 mL solution for nebulization 3 ml inhalation Q6H PRN (Reason: shortness of breath or wheezing) Qty: 90 3RF montelukast 10 mg tablet 10 mg PO DAILY cetirizine [Zyrtec] 10 mg tablet 10 mg PO DAILY PRN (Reason: allergies) omeprazole 20 mg capsule,delayed release(DR/EC) 40 mg PO DAILY Qty: 30 2RF fluticasone propionate [Flonase Allergy Relief] 50 mcg/actuation spray,suspension 2 spray intranasal DAILY 90 Days Qty: 16 2RF Rx Instructions: administer into each nostril ibuprofen 600 mg tablet 600 mg PO DAILY furosemide 20 mg tablet 20 mg PO DAILY levocetirizine 5 mg tablet 5 mg PO DAILY albuterol sulfate 90 mcg/actuation HFA aerosol inhaler 90 mcg inhalation DAILY PRN (Reason: Asthma) Breztri Aerosphere 160-9-4.8 mcg/actuation HFA aerosol inhaler 2 inh inhalation BID 90 Days Qty: 10.7 3RF baclofen 10 mg tablet 10 mg PO TID PRN (Reason: muscle spasm) Qty: 30 0RF hydrocodone-acetaminophen 5-325 mg Tablet 1 - 2 tab PO Q6H PRN (Reason: Pain) Qty: 21 0RF Referrals Follow up/Referrals: Ruperto Buitrago MD [Primary Care Provider] - See instructions Activity Restrictions/Add. Instructions Additional Instructions/Restrictions: You were evaluated in the ER and are appropriate for discharge at this time. Drink plenty of fluids. Take Tylenol or ibuprofen if needed for pain, do not exceed the recommended dose on the bottle. Drink water and eat a small snack each time you take these medications to avoid side effects. Follow-up with your primary care doctor for reevaluation in a few days. Return to the ER with any new, worsening, or otherwise concerning symptoms. Clinical Impressions Clinical Impression: Sore throat Print Language Print Language: Icelandic Discharge ED Provider: Barrie Flores General Adult HPI <Barrie Flores MD - Last Filed: 09/03/24 23:27> General Chief complaint: PAIN Stated complaint: irritated throat, Time Seen by Provider: 09/03/24 22:10 Mode of Arrival: Ambulatory Source of Information: Patient Description of Symptoms (Recalled from ER Triage Doc. by RN): Patient reports consistent pain in throat after intubation for surgery on 08/18/24. History of Present Illness HPI narrative: Patient is a 38-year-old male who underwent recent hernia surgery on the who presents emergency department for evaluation of throat pain. He has had throat pain in his anterior throat ever since he was intubated. No hematemesis no hemoptysis. He is still able to swallow adequate p.o. intake and urine output however due to persistent discomfort he presents here for continued evaluation. No other acute complaints at this time. Please note that above description of symptoms, in this electronic medical record under categorization of recalled from ER triage doctor by RN are reflective of an initial nursing assessment, however, is not reflective of my full history and physical exam that was personally taken and clarified. Consequentially, this preceding description of symptoms, which may include the patient's categorized chief complaint in the EMR, do not reflect my personal clinical impression, and the ultimate description of history of present illness and patient stated complaints should be deferred to this section of the note. Unless stated otherwise or congruent with this section of the note, additional signs, symptoms, or incongruence should be interpreted as inaccurate with my clinical impression. Related Data Home Medications ?Medication ?Instructions ?Recorded ?Confirmed cetirizine 10 mg tablet (Zyrtec) 10 mg PO DAILY PRN allergies 02/12/24 08/13/24 montelukast 10 mg tablet 10 mg PO DAILY 02/12/24 08/13/24 albuterol sulfate 90 mcg/actuation 90 mcg inhalation DAILY PRN Asthma 05/14/24 08/13/24 aerosol inhaler furosemide 20 mg tablet 20 mg PO DAILY 05/14/24 08/13/24 ibuprofen 600 mg tablet 600 mg PO DAILY 05/14/24 08/13/24 levocetirizine 5 mg tablet 5 mg PO DAILY 05/14/24 08/13/24 Previous Rx's ?Medication ?Instructions ?Recorded baclofen 10 mg tablet 10 mg PO TID PRN muscle spasm #30 12/11/23 tabs fluticasone propionate 50 2 spray intranasal DAILY 90 days 02/12/24 mcg/actuation nasal #16 grams spray,suspension (Flonase Allergy Relief) omeprazole 20 mg capsule,delayed 40 mg (2 x 20 mg) PO DAILY #30 caps 02/12/24 release budesonide 160 mcg-glycopyr 9 2 inh inhalation BID 90 days #10.7 05/14/24 mcg-formot 4.8 mcg/actuation HFA grams inhaler (Breztri Aerosphere) ipratropium 0.5 mg-albuterol 3 mg 3 ml inhalation Q6H PRN shortness 07/09/24 (2.5 mg base)/3 mL nebulization of breath or wheezing #90 mL soln hydrocodone 5 mg-acetaminophen 325 1 - 2 tab PO Q6H PRN Pain #21 tabs 08/18/24 mg tablet Allergies Allergy/AdvReac Type Severity Reaction Status Date / Time Penicillins (PENICILLINS) Allergy Unknown Swelling Verified 08/18/24 07:23 of Lip/Tongue/Throat pseudoephedrine (From Allergy Swelling Verified 08/18/24 07:23 Sudafed) of the Eye FORMERLY [facility], 1928–1983 <Barrie Flores MD - Last Filed: 09/03/24 23:27> FORMERLY [facility], [facility]–1983 Disclaimer: The information contained in this section may have been updated after the patient was seen, as this information can be updated by other users. Medical History (Updated 09/04/24 @ 00:35 by Kj Mays MD) Murmur Elevated BP without diagnosis of hypertension Restrictive lung disease Cystic-bullous disease of lung Tobacco use Edema Encounter for pre-operative cardiovascular clearance Tachycardia Abnormality of lung on CXR Decreased diffusion capacity of lung Allergic rhinitis Dyspnea on exertion Migraine COPD (chronic obstructive pulmonary disease) Asthma Surgical History History of lymph node excision History of lung surgery History of dental surgery History of tonsillectomy Family History Other Asthma Cancer Diabetes Heart attack Hypertension Social History (Updated 08/18/24 @ 07:50 by Fabio Collins CRNA) Smoking Status: Never smoker alcohol intake: never substance use type: denies use current occupational status: employed and other Travel in the last 8 weeks: Inside the [place] housing: house Have you lived/traveled outside US in past 30 days?: No Contact w/someone who lives/traveled outside US past 30 days?: No Exposure to someone with infectious disease in past 14 days?: No Do you have a fever (greater than 100.4 F or 38 C)?: No Have you tested positive for COVID-19: No Exposed to someone with COVID-19 in past 14 days?: No Do you have a sore throat?: Yes Do you have a cough?: No Do you have any weakness?: No Do you have any diarrhea?: No Are you experiencing any unusual bleeding?: No Do you have any muscle aches/pain?: No Do you have any abdominal pain?: No Are you experiencing loss of taste or smell?: No Other Medical History Have you received the Flu Vaccine for this season: No Have you received the Pneumonia Vaccine: No <Barrie Flores MD - Last Filed: 09/03/24 23:27> ROS Obtained: Yes Systems reviewed as appropriate & no additional complaints except as documented Physical Exam <Barrie Flores MD - Last Filed: 09/03/24 23:27> General General appearance: alert and in no apparent distress Head Head exam: atraumatic and normocephalic Eye Eye exam: Present PERRL ENT ENT exam: Present normal oropharynx and mucous membranes moist Neck Neck exam: Present normal inspection and full ROM Chest Chest inspection: Present normal inspection and symmetric chest wall rise Respiratory Respiratory exam: Absent respiratory distress Cardiovascular Cardiovascular exam: Present regular rate and normal rhythm Abdominal Exam Abdominal exam: Present soft Extremities Exam Extremities exam: Present normal inspection Neurological Exam Neurological exam: Present alert Psychiatric Psychiatric exam: Present normal affect Skin Skin exam: Present warm and dry Medical Decision Making <Barrie Flores MD - Last Filed: 09/03/24 23:27> Medical Records Screening: Per USPSTF and CDC recommendations, given the prevalence of disease in our region, it is our hospital?s policy to screen for HIV and viral Hepatitis for all patients aged 18 and over and those with ongoing risk factors. Mo Inquiry Pt receiving controlled substance: No Vital Signs: 09/03/24 22:01 09/03/24 22:30 09/03/24 22:45 Temperature 98.2 F Temperature Source Oral Pulse Rate 90 83 Pulse Rate [Right] 85 Respiratory Rate 14 Blood Pressure 144/89 H Blood Pressure [Right Arm] 130/82 Blood Pressure Mean [Right Arm] 98 Blood Pressure Source Blood Pressure Position 02 Sat by Pulse Oximetry 96 96 95 Oxygen Delivery Method Room Air 09/03/24 23:00 09/03/24 23:31 09/04/24 00:00 Temperature Temperature Source Pulse Rate 87 85 75 Pulse Rate [Right] Respiratory Rate Blood Pressure 151/88 H 161/83 H 143/93 H Blood Pressure [Right Arm] Blood Pressure Mean [Right Arm] Blood Pressure Source Blood Pressure Position 02 Sat by Pulse Oximetry 95 95 96 Oxygen Delivery Method Room Air Room Air 09/04/24 00:39 Temperature 97.9 F Temperature Source Oral Pulse Rate 78 Pulse Rate [Right] Respiratory Rate 16 Blood Pressure 132/80 Blood Pressure [Right Arm] Blood Pressure Mean [Right Arm] Blood Pressure Source Automatic Cuff Blood Pressure Position Supine 02 Sat by Pulse Oximetry Oxygen Delivery Method Room Air Lab Data Lab Results 09/03/24 22:30: WBC 10.3, RBC 5.77, Hgb 15.2, Hct 48.4, MCV 83.9, MCH 26.3 L, MCHC 31.4 L, RDW 15.1, Plt Count 382, MPV 10.1, Neut % (Auto) 72.3, Lymph % (Auto) 18.0, Harris % (Auto) 6.3, Eos % (Auto) 2.3, Baso % (Auto) 0.6, Neut # (Auto) 7.5, Lymph # (Auto) 1.9, Harris # (Auto) 0.7, Eos # (Auto) 0.2, Baso # (Auto) 0.1, Sodium 139, Potassium 4.4, Chloride 107, Carbon Dioxide 25, Anion Gap 11.4, BUN 14, Creatinine 0.90, Estimated Creat Clear 109, Estimated GFR 95, Est GFR ( Amer) 115, Glucose 100, Calcium 9.2 09/03/24 22:30 09/03/24 22:30 Orders (Tests/Meds): ED MEDICATIONS Discontinued Medications Generic Name Dose Route Start Last Admin Trade Name Freq PRN Reason Stop Dose Admin Acetaminophen 1,000 mg 09/03/24 22:12 09/03/24 22:40 Acetaminophen 1,000mg/100ml Vial IV 09/03/24 22:13 1,000 mg ONCE ONE Administration Iopamidol 75 ml 09/03/24 22:52 09/03/24 22:54 Iopamidol-370 (76%);100ml Bottle IV 09/03/24 22:53 75 ml ONCE ONE Administration Ketorolac Tromethamine 30 mg 09/03/24 22:12 09/03/24 22:40 Ketorolac 30mg/Ml Vial IV 09/03/24 22:13 30 mg ONCE ONE Administration Sodium Chloride 10 ml 09/03/24 22:52 09/03/24 22:54 Sodium Chloride 0.9% 10ml Syr (Rad Only) IV 09/03/24 22:53 10 ml ONCE ONE Administration ORDERS Category Date Time Status CT soft tissue neck w con Stat Cat Scan 09/03/24 22:12 Completed BMP [Basic Metabolic Panel] Stat Lab 09/03/24 22:30 Completed CBC w/Auto Diff [Complete Blood Count Auto Diff] Stat Lab 09/03/24 22:30 Completed Medical Decision Narrative: In summary patient is a 38-year-old male past medical history described above presents emerged part for evaluation of throat pain. Patient is hemodynamically stable nontoxic-appearing upon arrival, afebrile. Patient is well-appearing afebrile no tachycardia no chest pain. His pain is over his larynx pointing externally. Differential includes small tear with perforation, subacute irritation, among others. Workup will be conducted with hematologic labs, CT neck with IV contrast. Initial inventions include Toradol, Tylenol. Initial work reviewed by me, hematologic labs are nonactionable no significant leukocytosis or anemia no RYLAND or critical electrolyte abnormality. CT neck conducted and formal read pending at time of transition of care to the oncoming physician, Dr. Mays. <Kj Mays MD - Last Filed: 09/04/24 03:36> Vital Signs: 09/03/24 22:01 09/03/24 22:30 09/03/24 22:45 Temperature 98.2 F Temperature Source Oral Pulse Rate 90 83 Pulse Rate [Right] 85 Respiratory Rate 14 Blood Pressure 144/89 H Blood Pressure [Right Arm] 130/82 Blood Pressure Mean [Right Arm] 98 Blood Pressure Source Blood Pressure Position 02 Sat by Pulse Oximetry 96 96 95 Oxygen Delivery Method Room Air 09/03/24 23:00 09/03/24 23:31 09/04/24 00:00 Temperature Temperature Source Pulse Rate 87 85 75 Pulse Rate [Right] Respiratory Rate Blood Pressure 151/88 H 161/83 H 143/93 H Blood Pressure [Right Arm] Blood Pressure Mean [Right Arm] Blood Pressure Source Blood Pressure Position 02 Sat by Pulse Oximetry 95 95 96 Oxygen Delivery Method Room Air Room Air 09/04/24 00:39 Temperature 97.9 F Temperature Source Oral Pulse Rate 78 Pulse Rate [Right] Respiratory Rate 16 Blood Pressure 132/80 Blood Pressure [Right Arm] Blood Pressure Mean [Right Arm] Blood Pressure Source Automatic Cuff Blood Pressure Position Supine 02 Sat by Pulse Oximetry Oxygen Delivery Method Room Air Lab Data Lab Results 09/03/24 22:30: WBC 10.3, RBC 5.77, Hgb 15.2, Hct 48.4, MCV 83.9, MCH 26.3 L, MCHC 31.4 L, RDW 15.1, Plt Count 382, MPV 10.1, Neut % (Auto) 72.3, Lymph % (Auto) 18.0, Harris % (Auto) 6.3, Eos % (Auto) 2.3, Baso % (Auto) 0.6, Neut # (Auto) 7.5, Lymph # (Auto) 1.9, Harris # (Auto) 0.7, Eos # (Auto) 0.2, Baso # (Auto) 0.1, Sodium 139, Potassium 4.4, Chloride 107, Carbon Dioxide 25, Anion Gap 11.4, BUN 14, Creatinine 0.90, Estimated Creat Clear 109, Estimated GFR 95, Est GFR ( Amer) 115, Glucose 100, Calcium 9.2 Orders (Tests/Meds): ED MEDICATIONS Discontinued Medications Generic Name Dose Route Start Last Admin Trade Name Freq PRN Reason Stop Dose Admin Acetaminophen 1,000 mg 09/03/24 22:12 09/03/24 22:40 Acetaminophen 1,000mg/100ml Vial IV 09/03/24 22:13 1,000 mg ONCE ONE Administration Iopamidol 75 ml 09/03/24 22:52 09/03/24 22:54 Iopamidol-370 (76%);100ml Bottle IV 09/03/24 22:53 75 ml ONCE ONE Administration Ketorolac Tromethamine 30 mg 09/03/24 22:12 09/03/24 22:40 Ketorolac 30mg/Ml Vial IV 09/03/24 22:13 30 mg ONCE ONE Administration Sodium Chloride 10 ml 09/03/24 22:52 09/03/24 22:54 Sodium Chloride 0.9% 10ml Syr (Rad Only) IV 09/03/24 22:53 10 ml ONCE ONE Administration ORDERS Category Date Time Status CT soft tissue neck w con Stat Cat Scan 09/03/24 22:12 Completed BMP [Basic Metabolic Panel] Stat Lab 09/03/24 22:30 Completed CBC w/Auto Diff [Complete Blood Count Auto Diff] Stat Lab 09/03/24 22:30 Completed Medical Decision Narrative: In summary patient is a 38-year-old male past medical history described above presents emerged part for evaluation of throat pain. Patient is hemodynamically stable nontoxic-appearing upon arrival, afebrile. Patient is well-appearing afebrile no tachycardia no chest pain. His pain is over his larynx pointing externally. Differential includes small tear with perforation, subacute irritation, among others. Workup will be conducted with hematologic labs, CT neck with IV contrast. Initial inventions include Toradol, Tylenol. Initial work reviewed by me, hematologic labs are nonactionable no significant leukocytosis or anemia no RYLAND or critical electrolyte abnormality. CT neck conducted and formal read pending at time of transition of care to the oncoming physician, Dr. Mays. Mays: Upon my assumption of care patient is stable and resting comfortably. I agree with the assessment and plan from Dr. Flores. I personally interpreted CT neck and do not appreciate obvious infection, inflammation, or other abnormality. See radiology read for final interpretation which is in agreement. On reassessment patient is tolerating oral intake, resting comfortably, appropriate for discharge. Patient was given instructions on symptomatic monitoring and management, follow up instructions, and return precautions for the emergency department. Patient indicated understanding and was discharged in stable condition. Critical Care <Barrie Flores MD - Last Filed: 09/03/24 23:27> Critical Care Time Critical Care Time: No
[2024-09-03 22:30] VITALS: BP 144/89; PULSE 90; O2SAT 96
[2024-09-03 22:36] LABS: Basophils # 0.1 K/mm3 (0-0.2); Basophils % 0.6 % (0.1-2.0); Eosinophils # 0.2 K/mm3 (0.0-0.4); Eosinophils % 2.3 % (0.1-12.0); Hematocrit 48.4 % (42.0-52.0); Hemoglobin 15.2 g/dL (14.1-18.0); Lymphocytes # 1.9 K/mm3 (0.7-4.5); Mean Corpuscular HGB Conc 31.4 g/dL (31.8-35.4); Mean Corpuscular Hemoglobin 26.3 pg (27.0-31.2); Mean Corpuscular Volume 83.9 fl (80-94); Mean Platelet Volume 10.1 fl (7.4-10.4); Monocytes # 0.7 K/mm3 (0.1-1.0); Monocytes % 6.3 % (1.7-9.3); Neutrophils # 7.5 K/mm3 (1.8-7.8); Neutrophils % 72.3 % (37.0-80.0); Platelet Count 382 K/mm3 (142-424); Red Blood Count 5.77 M/mm3 (4.60-6.20); Red Cell Distribution Width 15.1 % (11.5-17.5); White Blood Count 10.3 K/mm3 (4.8-10.8)
[2024-09-03 22:37] LABS: Chloride 107 mmol/L (98-107)
[2024-09-03 22:38] LABS: Potassium 4.4 mmoL/L (3.5-5.1); Sodium 139 mmol/L (136-145)
[2024-09-03 22:40] LABS: Blood Urea Nitrogen 14 mg/dl (9-20); Creatinine Clearance Estimated 109 mL/min (50-200); Estimated Glomerular Filt Rate 95 ml/min (>60); GFR (African American) 115 ML/MIN (>60)
[2024-09-03] MEDS: ACETAMINOPHEN 1,000MG/100ML VIAL 1000 MG IV (22:40)
[2024-09-03] MEDS: KETOROLAC 30MG/ML VIAL 30 MG IV (22:40)
[2024-09-03 22:41] LABS: Anion Gap 11.4 mEq/L (5-15); Calcium 9.2 mg/dl (8.4-10.2); Carbon Dioxide 25 mmol/L (22.0-30.0); Glucose 100 mg/dl (74-100)
[2024-09-03 22:45] VITALS: PULSE 83; O2SAT 95
[2024-09-03] MEDS: IOPAMIDOL-370 (76%);100ML BOTTLE 75 ML IV (22:54)
[2024-09-03] MEDS: SODIUM CHLORIDE 0.9% 10ML SYR (RAD ONLY) 10 ML IV (22:54)
[2024-09-03 23:00] VITALS: BP 151/88; PULSE 87; O2SAT 95
[2024-09-03 23:31] VITALS: BP 161/83; PULSE 85; O2SAT 95
[2024-09-04] VITALS: BP 143/93; PULSE 75; O2SAT 96
[2024-09-04 00:39] VITALS: BP 132/80; PULSE 78; RESP 16; TEMP 36.6; O2SAT 98
== END 2024-09-04 00:44 | disposition home or self-care (01) ==
PROVIDERS: Emergency Provider Emergency Medicine; PCP Internal Medicine Adolescent Medicine
DX: J02.9 Acute pharyngitis, unspecified (principal); J95.89 Other postprocedural complications and disorders of respiratory system, not elsewhere classified
CPT/HCPCS: 70491; 80048; 85025; 96374; 96375; 99285; J0131; J1885; Q9967

== ENCOUNTER 2024-10-21 14:39 | Outpatient (CLI) | payer MEDICARE, MEDICAID, SELFPAY ==
--- NOTE | 2024-10-21 14:43 | XR_ITS ---
FINAL REPORT TECHNIQUE: Chest PA & Lateral CLINICAL HISTORY: SOB COMPARISON: 10/15/2023 FINDINGS: 2 views of the chest were performed. The heart size is normal. The mediastinum is within normal limits. There is no acute cardiopulmonary process. There is scarring at the left lung base. There are no pleural effusions. There is no pneumothorax. The bony thorax appears intact. There are scattered surgical clips in the upper right hemithorax. IMPRESSION: No acute cardiopulmonary process. Reviewed, Interpreted and Dictated by Christopher Lake MD Transcribed by Barbra Gonzalez Authenticated and . [facility]
[2024-10-21 14:58] LABS: Anti-Centromere B Antibodies ND; Anti-DNA (DS) Ab Qn ND; Anti-Jo-1 ND; Antichromatin Antibodies ND; Antiscleroderma-70 Antibodies ND; RNP Antibodies ND; Sjogren's Anti-SS-A ND; Sjogren's Anti-SS-B ND
[2024-10-22 12:11] LABS: Antinuclear Antibodies (ANA) Negative (Negative)
[2024-10-22 13:11] LABS: Alpha-1-Antitrypsin 182 mg/dL (95-164)
== END 2024-10-21 23:59 | disposition home or self-care (01) ==
LOC: LAB 14:40
PROVIDERS: PCP Internal Medicine Adolescent Medicine; Visit Provider Internal Medicine Pulmonary Disease
DX: R06.02 Shortness of breath (principal); J44.9 Chronic obstructive pulmonary disease, unspecified; J84.9 Interstitial pulmonary disease, unspecified
CPT/HCPCS: 36415; 71046; 82103

== ENCOUNTER 2024-12-27 12:12 | Emergency (ER) | payer MEDICARE, MEDICAID, SELFPAY ==
--- OUTSIDE RECORDS SUMMARY | 2017-01-31 09:00 | XMS_ITS | Encounter Summary ---
[facility] Address [address] [place] [address] Care Team Providers Care Instrumental Music Teacher Name Role Phone Danielle Mora Jannette LORENZO Primary Care Provid er Encounter Details Date Type Department Care Team (Late st Contact Info) Description 01/31/2017 9:00 AM EDT Hospital Encounter [facility] PULMONARY & CRITICAL CARE MEDICINE [address] [place] [address] Social History Tobacco Use Types [...] on filedocumented in this encounter Care Teams Instrumental Music Teacher Relationship Specialty Start Date End Date Danielle Mora APRN [address] [place] [address] [place] [address] PCP - General Family Medicine 12/02/15 documented as of this encounter
[2024-12-27] VITALS (7 sets, daily range): BP systolic 132–165; BP diastolic 75–102; PULSE 73–107; RESP 16; TEMP 36.7–36.9; O2SAT 90–99; BMI 52.9
--- OUTSIDE RECORDS SUMMARY | 2024-12-27 12:22 | XMS_ITS | Clinical Summary ---
Author Organization [facility] Address [address], [address] [place] [address] Care Team Providers Care Bridge Toll Collector Name Role Phone Unavailable Primary Care Provider Unavailabl e Allergies Active Allergy Reactions Criticality Noted Date Comments Penicillins 11/22/2022 Pseudoephedrine 11/22/2022 Medications No known medications Social History Tobacco Use Types Packs/Day Years Used Date Smoking Tobacco: Every Day Cigarettes Smokeless Tobacco: Never Tobacco Cessation:Ready to Q uit: Not Asked; Counseling Given: Not Answered Sex and Gender Information Value Date Recorded Sex Assigned at Not on file Legal Sex Male 5:38 PM EDT Gender Identity Not on file Sexual Orientation Not on file Last Filed Vital Signs Vital Sign Reading Time Taken Comments Blood Pressure 179/97 11/22/2022 6:26 PM EDT Pulse 91 11/22/2022 6:26 PM EDT Temperature 37.2 C (99 F) 11/22/2022 6:26 PM EDT Respiratory Rate 18 11/22/2022 6:26 PM EDT Oxygen Saturation 96% 11/22/2022 6:26 PM EDT Inhaled Oxygen Concentration - - Weight 158.8 kg (350 lb) 11/22/2022 6:26 PM EDT Height 160 cm (5' 3 ) 11/22/2022 6:26 PM EDT Body Mass Index 62 11/22/2022 6:26 PM EDT Plan of Treatment Health Maintenance Due Date Last Done Comments DTaP/Tdap/Td vaccine (1 - Tdap) 2005 COVID-19 Vaccine (2023-2 5 season) 2024 Flu vaccine (#1) 01/09/2025 04/25/2017 Polio vaccine Aged Out No longer jose carlos finch based on patient's age to complete this topic
--- OUTSIDE RECORDS SUMMARY | 2024-12-27 12:22 | XMS_ITS | Encounter Summary ---
Author Organization [facility] Address [address] [place] [address] Care Team Providers Care Connection Worker Name Role Phone Danielle Mora APRN Primary Care Provid er Encounter Details Date Type Department Care Team (Late st Contact Info) Description 10/19/2014 External CPT II CLINIC MD ASSOCIATE - [facility] Social History Tobacco Use Types Packs/Day Years Used Date Smoking Tobacco: Never Assessed Sex and Gender Information Value Date Recorded Sex Assigned at Not on file Legal Sex Male 12:47 PM EDT Gender Identity Not on file Sexual Orientation Not on file documented as of this encounter Plan of Treatment Not on file documented as of this encounter Visit Diagnoses Not on filedocumented in this encounter Care Teams Connection Worker Relationship Specialty Start Date End Date Danielle Mora APRN [address] [facility] [address] [place] [id number] PCP - General Family Medicine 12/02/15 documented as of this encounter
--- OUTSIDE RECORDS SUMMARY | 2024-12-27 12:22 | XMS_ITS | Encounter Summary ---
[facility] Organization [facility] Address [address] [place] [address] Care Team Providers Care Family Support Worker Name Role Phone Danielle Mora APRN Primary Care Provid er Encounter Details Date Type Department Care Team (Late st Contact Info) Description 11/27/2016 External CPT II PAYROLL HUMAN RESOURCES ASSISTANT - [facility] Social History Tobacco Use Types Packs/Day Years Used Date Smoking Tobacco: Every Day Cigarettes 0.3 12 Smokeless Tobacco: Former Alcohol Use Standard Drinks/Week Comments No 0 (1 standard drink = 0.6 oz pur e alcohol) Occasionally Sex and Gender Information Value Date Recorded [...] on filedocumented in this encounter Care Teams Family Support Worker Relationship Specialty Start Date End Date Danielle Mora APRN [address] [place] [id number] PCP - General Family Medicine 12/02/15 documented as of this encounter
--- OUTSIDE RECORDS SUMMARY | 2024-12-27 12:22 | XMS_ITS | Clinical Summary ---
Author Organization [facility] Address [address] [place] [address] Care Team Providers Care Automotive Repair Technician Name Role Phone Danielle Mora Jannette LORENZO Primary Care Provid er Allergies Active Allergy Reactions Criticality Noted Date Comments Penicillins Anaphylaxis High 12/02/2015 Pseudoephedrine Hcl 12/14/2016 Medications ibuprofen (ADVIL,MOTRIN) 800 MG tablet Take 800 mg by mouth every 6 (six) hours as needed for mild pain (1-3). Active albuterol (PROVENTIL HFA;VENTOLIN HFA) 108 (90 BASE) MCG/ACT inhaler Inhale 2 puffs every 4 (four) hours as needed for wheezing. Active levoFLOXacin (LEVAQUIN) 500 MG tablet Take 1 tablet by mouth Daily. 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 Class 3 obesity due to exces s calories without serious comorbidity in adult 04/25/2017 Cough 04/25/2017 Chronic non-seasonal allergic rhinitis 7 Tobacco dependence 04/25/2017 Pneumothorax 12/05/2015 Bronchitis 12/05/2015 Immunizations Immunization Administration Dates Next Due Flu Vaccine Quad PF >36MO 04/25/2017 Family History Medical History Relation Name Comments Diabetes Father Kidney failure Father Diabetes Mother Relation Name Status Comments Father Mother Alive Social History Tobacco Use Types Packs/Day Years [...] file Not on file Not on file Last Filed Vital Signs Vital Sign Reading Time Taken Comments Blood Pressure 130/82 02/14/2018 8:35 AM EDT Pulse 94 02/14/2018 8:35 AM EDT Temperature 36.8 C (98.2 F) 02/14/2018 8:35 AM EDT Respiratory Rate 18 02/14/2018 8:35 AM EDT Oxygen Saturation 97% 02/14/2018 8:35 AM EDT RA AT REST Inhaled Oxygen Concentration - - Weight 133 kg (294 lb 4 oz) 02/14/2018 8:35 AM E DT Height 171.5 cm (5' 7.52 ) 02/14/2018 8:35 AM ED T Body Mass Index 45.38 02/14/2018 8:35 AM EDT Plan of Treatment Health Maintenance Due Date Last Done Comments TDAP/TD VACCINES (1 - Tdap) 2005 ANNUAL PHYSICAL 12/14/2016 HEPATITIS C SCREENING 12/14/2016 COVID-19 Vaccine (2023-2 5 season) 2024 INFLUENZA VACCINE 03/11/2025 04/25/2017 Pneumococcal Vaccine 0-49 Aged Out No longer eligible based on patient's age to complete this topic Insurance MEDICARE A & B MEDICAID [place] Care Teams Automotive Repair Technician Relationship Specialty Start Date End Date Danielle Mora APRN [address] [facility] [address] [place] [id number] PCP - General Family Medicine 12/02/15
--- OUTSIDE RECORDS SUMMARY | 2024-12-27 12:22 | XMS_ITS | Encounter Summary ---
[facility] Address [address] [place] [address] Care Team Providers Care Product Director Name Role Phone Danielle Mora APRN Primary Care Provid er Encounter Details Date Type Department Care Team (Late st Contact Info) Description 01/13/2015 External CPT II CLUTCH ASSEMBLER - [facility] Social History Tobacco Use [...] on filedocumented in this encounter Care Teams Product Director Relationship Specialty Start Date End Date Danielle Mora APRN [address] [facility] [address] [place] [id number] PCP - General Family Medicine 12/02/15 documented as of this encounter
--- OUTSIDE RECORDS SUMMARY | 2024-12-27 12:22 | XMS_ITS | Encounter Summary ---
[facility] Address [address] [place] [address] Care Team Providers Care Helper Animal Laboratory Name Role Phone Danielle Mora APRN Primary Care Provid er Encounter Details Date Type Department Care Team (Late st Contact Info) Description 03/03/2015 External CPT II POLISHER BRASS - [facility] Social History Tobacco Use [...] on filedocumented in this encounter Care Teams Helper Animal Laboratory Relationship Specialty Start Date End Date Danielle Mora APRN [address] [facility] [address] [place] [id number] PCP - General Family Medicine 12/02/15 documented as of this encounter
--- NOTE | 2024-12-27 12:31 | ED_ITS ---
Discharge Plan Disposition Patient Disposition: Home, Self-Care Condition: Good Prescriptions Prescriptions: No Action ipratropium-albuterol 0.5 mg-3 mg(2.5 mg base)/3 mL solution for nebulization 3 ml inhalation Q6H PRN (Reason: shortness of breath or wheezing) Qty: 90 3RF azelastine 137 mcg (0.1 %) spray,non-aerosol 2 spray intranasal HS 90 Days Qty: 30 2RF Rx Instructions: administer into each nostril montelukast 10 mg tablet 10 mg PO DAILY cetirizine [Zyrtec] 10 mg tablet 10 mg PO DAILY PRN (Reason: allergies) omeprazole 20 mg capsule,delayed release(DR/EC) 40 mg PO DAILY Qty: 30 2RF ibuprofen 600 mg tablet 600 mg PO DAILY furosemide 20 mg tablet 20 mg PO DAILY levocetirizine 5 mg tablet 5 mg PO DAILY albuterol sulfate 90 mcg/actuation HFA aerosol inhaler 90 mcg inhalation DAILY PRN (Reason: Asthma) azelastine 137 mcg (0.1 %) spray,non-aerosol 2 spray intranasal HS 90 Days Qty: 30 2RF Rx Instructions: administer into each nostril Breztri Aerosphere 160-9-4.8 mcg/actuation HFA aerosol inhaler 2 inh inhalation BID 90 Days Qty: 10.7 3RF famotidine 40 mg tablet See Rx Instructions .ROUTE .COMPLEX Qty: 30 5RF Dose Instruction: TAKE 1 TABLET BY MOUTH AT BEDTIME with omeprazole Rx Instructions: TAKE 1 TABLET BY MOUTH AT BEDTIME with omeprazole baclofen 10 mg tablet 10 mg PO TID PRN (Reason: muscle spasm) Qty: 30 0RF Referrals Follow up/Referrals: Vineet Faulkner DO [Staff Physician, Orthopedics] - See instructions Ruperto Buitrago MD [Primary Care Provider, Internal Medicine] - See instructions Activity Restrictions/Add. Instructions Additional Instructions/Restrictions: Please return to the emergency department with any worsening signs or symptoms. Please utilize rest, ibuprofen Tylenol or other anti-inflammatory medication as well as ice as needed for symptomatic relief, please follow-up with your PCP and orthopedic doctor in the upcoming days/weeks. 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 Pain Time Seen by Provider: 12/27/24 12:14 Mode of Arrival: Ambulatory Source of Information: Patient Limitations: No Limitations History of Present Illness HPI narrative: 39-year-old male presents emergency department with a left shoulder/arm injury after what sounds are mechanical fall, patient states he was riding a lawnmower , approximately 2 to 4 feet above the ground, when he was leaning over to get a limb , when he fell off the lawnmower, landing on his left shoulder, denies striking head, denies any LOC, patient is not on any anticoagulants, patient denies any presyncopal or syncopal event, mid to some left-sided neck pain and left-sided shoulder pain with some radicular pain going down the arm, as well as the mid humeral region, patient [place] any fever chills chest pain shortness of breath dizziness lightheadedness, denies any abdominal pain nausea vomiting, no urinary symptomatology. Patient is a current everyday smoker, denies any alcohol or drug use, denies any upper or lower extremity weakness, does have some pain limited range of motion in the left shoulder joint, denies any other thoracic spine pain, no lower back pain, no other upper or lower extremity injuries, other past medical history consistent with asthma/restrictive lung disease for which she follows with pulmonology for, BRANDI D. Initial triage vitals notable for tachycardia otherwise unremarkable. Onset (ago): hour(s) Related Data Home Medications ?Medication ?Instructions ?Recorded ?Confirmed cetirizine 10 mg tablet (Zyrtec) 10 mg PO DAILY PRN al lergies 02/12/24 11/11/24 montelukast 10 mg tablet 10 mg PO DAILY 02/12/2409/02 albuterol sulfate 90 mcg/actuation 90 mcg inhalation D AILY PRN Asthma 05/14/24 11/11/24 aerosol inhaler furosemide 20 mg tablet 20 mg PO DAILY 05/14/2409/02 ibuprofen 600 mg tablet 600 mg PO DAILY 05/14/2409/02 levocetirizine 5 mg tablet 5 mg PO DAILY 05/14/2409/02 Previous Rx's ?Medication ?Instructions ?Recorded baclofen 10 mg tablet 10 mg PO TID PRN muscle spas m #30 12/11/23 tabs omeprazole 20 mg capsule,delayed 40 mg (2 x 20 mg) PO DAILY #30 caps 02/12/24 release ipratropium 0.5 mg-albuterol 3 mg 3 ml inhalation Q6H PRN shortness 07/09/24 (2.5 mg base)/3 mL nebulization of breath or wheezing #90 mL soln azelastine 137 mcg (0.1 %) nasal 2 spray intranasal HS 90 days #30 09/29/24 spray mL budesonide 160 mcg-glycopyr 9 2 inh inhalation BID 90 days #10.7 10/20/24 mcg-formot 4.8 mcg/actuation HFA grams inhaler (Breztri Aerosphere) azelastine 137 mcg (0.1 %) nasal 2 spray intranasal HS 90 days #30 10/21/24 spray mL famotidine 40 mg tablet See Rx Instructions .Route 0 12/15/24 .COMPLEX #30 tabs Allergies Allergy/AdvReac Type Severity Reaction Status Date / Time Penicillins (PENICILLINS) Allergy Unknown Swelling Verified 11/11/24 13:23 of Lip/Tongue/Throat pseudoephedrine (From Allergy Swelling Verified 11/11/24 13:23 Sudafed) of the Eye [facility] <SHYAM Cummins - Last Filed: 12/27/24 15:26> [facility] Disclaimer: The information contained in this section may have been updated after the patient was seen, as this information can be updated by other users. Medical History Acute dyspnea Vocal cord edema Difficulty swallowing Hoarseness History of inguinal hernia Murmur Elevated BP without diagnosis of hypertension Restrictive lung disease Cystic-bullous disease of lung Tobacco use Edema Encounter for pre-operative cardiovascular clearance Tachycardia Abnormality of lung on CXR Decreased diffusion capacity of lung Allergic rhinitis Dyspnea on exertion Migraine COPD (chronic obstructive pulmonary disease) Asthma Surgical History History of lymph node excision neck History of lung surgery History of dental surgery History of tonsillectomy Family History Other Asthma Cancer Diabetes Heart attack Hypertension Social History Smoking Status: Current every day smoker tobacco type: cigarettes packs per day: 1 alcohol intake: never substance use type: denies use current occupational status: employed and other Travel in the last 8 weeks?: Inside the [place] housing[place] house Have you lived/traveled outside US in past 30 days?: No Contact w/someone who lives/traveled outside US past 30 days?: No Exposure to someone with infectious disease in past 14 days?: No Do you have a fever (greater than 100.4 F or 38 C)?: No Have you tested positive for COVID-19?: No Exposed to someone with COVID-19 in past 14 days?: No Do you have a sore throat?: No Do you have a cough?: No Do you have any weakness?: No Do you have any diarrhea?: No Are you experiencing any unusual bleeding?: No Do you have any muscle aches/pain?: No Do you have any abdominal pain?: No Are you experiencing loss of taste or smell?: No Other Medical History Have you received the Flu Vaccine for this season: No Have you received the Pneumonia Vaccine: No <SHYAM Cummins - Last Filed: 12/27/24 15:26> ROS Obtained: Yes All systems reviewed & no additional complaints except as documented Physical Exam <SHYAM Cummins - Last Filed: 12/27/24 15:26> General General appearance: alert and in no apparent distress Head Head exam: atraumatic and normocephalic Eye Eye exam: Present PERRL and EOMI ENT ENT exam: Present mucous membranes moist Neck Neck exam: Present normal inspection Chest Chest inspection: Present normal inspection and symmetric chest wall rise Respiratory Respiratory exam: Present normal lung sounds bilaterally; Absent respiratory distress Cardiovascular Cardiovascular exam: Present regular rate and normal rhythm Abdominal Exam Abdominal exam: Present soft; Absent tenderness Extremities Exam Extremities exam: Present normal inspection, tenderness and other (There is mild pain to palpation over the anterior humeral region, as well as anterior shoulder region, with some decreased pain/pain limited range of motion, otherwise neurovascular intact); Absent full ROM Back Exam Back exam: Present paraspinal tenderness Comment: Mild paraspinal tenderness to palpation, no T-spine or L-spine paraspinal spinal tenderness palpation, no cervical spinal tenderness to palpation Neurological Exam Neurological exam: Present alert and oriented X3 Psychiatric Psychiatric exam: Present normal affect Skin Skin exam: Present warm and dry Medical Decision Making <SHYAM Cummins - Last Filed: 12/27/24 15:26> Medical Records Medical records reviewed: Yes I reviewed the patient's medical records. Screening: Per USPSTF and CDC recommendations, given the prevalence of disease in our region, it is our hospital?s policy to screen for HIV and viral Hepatitis for all patients aged 18 and over and those with ongoing risk factors. Mo Inquiry Pt receiving controlled substance: No Mo was queried for this patient: No Vital Signs: 12/27/24 12:22 12/27/24 12:30 12/27/24 13:00 Temperature 98.1 F Temperature Source Oral Pulse Rate 105 H 107 H Pulse Rate [Right Radial] 100 H Respiratory Rate 16 Blood Pressure 165/101 H 147/92 H Blood Pressure [Right Arm] 161/102 H Blood Pressure Mean [Right Arm] 121 Blood Pressure Source Blood Pressure Source [Right Arm] Automatic Cuff Blood Pressure Position Blood Pressure Position [Right Arm] Supine 02 Sat by Pulse Oximetry 97 90 L 95 Oxygen Delivery Method Room Air 12/27/24 14:09 12/27/24 14:30 12/27/24 15:00 Temperature Temperature Source Pulse Rate 100 H 82 73 Pulse Rate [Right Radial] Respiratory Rate Blood Pressure 137/80 138/95 H 132/75 Blood Pressure [Right Arm] Blood Pressure Mean [Right Arm] Blood Pressure Source Blood Pressure Source [Right Arm] Blood Pressure Position Blood Pressure Position [Right Arm] 02 Sat by Pulse Oximetry 95 93 L 96 Oxygen Delivery Method 12/27/24 15:37 Temperature 98.4 F Temperature Source Oral Pulse Rate 83 Pulse Rate [Right Radial] Respiratory Rate 16 Blood Pressure 144/95 H Blood Pressure [Right Arm] Blood Pressure Mean [Right Arm] Blood Pressure Source Automatic Cuff Blood Pressure Source [Right Arm] Blood Pressure Position Supine Blood Pressure Position [Right Arm] 02 Sat by Pulse Oximetry Oxygen Delivery Method Room Air Lab Data Lab results reviewed: Yes I reviewed the patient's lab results. Orders (Tests/Meds): ED MEDICATIONS Discontinued Medications Generic Name Dose Route Start Last Admin Trade Name Freq PRN Reason Stop Dose Admin Acetaminophen 500 mg 12/27/24 12:37 12/27/24 13:00 Acetaminophen 500mg Tab PO 12/27/24 12:38 500 mg ONCE ONE Administration Ibuprofen 400 mg 12/27/24 12:36 12/27/24 13:00 Ibuprofen 400 Mg Tablet PO 12/27/24 12:37 400 mg ONCE ONE Administration ORDERS Category Date Time Status CT cervical spine wo con Stat Cat Scan 12/27/24 12:[address] head/brain wo con Stat Cat Scan 12/27/24 12:38 Completed XR chest portable Stat Exams 12/27/24 12:38 Completed XR humerus LT Stat Exams 12/27/24 12:38 Completed XR shoulder LT min 2V Stat Exams 12/27/24 12:38 Completed Medical Decision Narrative: 39-year-old male presents the emergency department with a mechanical fall, see HPI for detail past medical history, differential diagnosis include but not limited to, postconcussive syndrome, cervicalgia, cervical spine fracture, radiculopathy, left shoulder fracture, acute shoulder impingement syndrome, humeral fracture, arm sprain/strain, among others. I discussed patient case with attending physician Dr. Nielsen Will obtain EKG, x-ray of the chest, x-ray humerus on the left, x-ray of the left shoulder, CT cervical spine without contrast, CT head without contrast for further evaluation/characterization, will give 500 mg p.o. acetaminophen and 400 mg p.o. ibuprofen for pain. I reviewed the patient's chest x-ray along with corresponding radiologic report, moderate cardiomegaly, no focal pneumonia I reviewed the patient's left humerus x-ray along with corresponding radiologic report, no evidence of acute fracture or dislocation I reviewed the patient's left shoulder x-ray along with corresponding radiologic report, no evidence of acute fracture or dislocation I reviewed the patient's CT cervical spine without contrast along the corresponding radiologic report, no acute cervical spine fracture. I reviewed the patient CT head without contrast, the corresponding radiologic report, no acute intracranial hemorrhage. I discussed the results with the patient at the bedside, recommend rest ice, anti-inflammatory medication as needed for symptomatic relief, patient has a shoulder sprain/strain/contusion, patient will follow-up with PCP and orthopedic provider in the upcoming days/weeks, and he will return to the emergency department with any worsening signs or symptoms. Patient voiced understanding. <Brian Nielsen MD - Last Filed: 12/28/24 07:00> Vital Signs: 12/27/24 12:22 12/27/24 12:30 12/27/24 13:00 Temperature 98.1 F Temperature Source Oral Pulse Rate 105 H 107 H Pulse Rate [Right Radial] 100 H Respiratory Rate 16 Blood Pressure 165/101 H 147/92 H Blood Pressure [Right Arm] 161/102 H Blood Pressure Mean [Right Arm] 121 Blood Pressure Source Blood Pressure Source [Right Arm] Automatic Cuff Blood Pressure Position Blood Pressure Position [Right Arm] Supine 02 Sat by Pulse Oximetry 97 90 L 95 Oxygen Delivery Method Room Air 12/27/24 14:09 12/27/24 14:30 12/27/24 15:00 Temperature Temperature Source Pulse Rate 100 H 82 73 Pulse Rate [Right Radial] Respiratory Rate Blood Pressure 137/80 138/95 H 132/75 Blood Pressure [Right Arm] Blood Pressure Mean [Right Arm] Blood Pressure Source Blood Pressure Source [Right Arm] Blood Pressure Position Blood Pressure Position [Right Arm] 02 Sat by Pulse Oximetry 95 93 L 96 Oxygen Delivery Method 12/27/24 15:37 Temperature 98.4 F Temperature Source Oral Pulse Rate 83 Pulse Rate [Right Radial] Respiratory Rate 16 Blood Pressure 144/95 H Blood Pressure [Right Arm] Blood Pressure Mean [Right Arm] Blood Pressure Source Automatic Cuff Blood Pressure Source [Right Arm] Blood Pressure Position Supine Blood Pressure Position [Right Arm] 02 Sat by Pulse Oximetry Oxygen Delivery Method Room Air Orders (Tests/Meds): ED MEDICATIONS Discontinued Medications Generic Name Dose Route Start Last Admin Trade Name Denise PRN Reason Stop Dose Admin Acetaminophen 500 mg 12/27/24 12:37 12/27/24 13:00 Acetaminophen 500mg Tab PO 12/27/24 12:38 500 mg ONCE ONE Administration Ibuprofen 400 mg 12/27/24 12:36 12/27/24 13:00 Ibuprofen 400 Mg Tablet PO 12/27/24 12:37 400 mg ONCE ONE Administration ORDERS Category Date Time Status CT cervical spine wo con Stat Cat Scan 12/27/24 12:[address] head/brain wo con Stat Cat Scan 12/27/24 12:38 Completed XR chest portable Stat Exams 12/27/24 12:38 Completed XR humerus LT Stat Exams 12/27/24 12:38 Completed XR shoulder LT min 2V Stat Exams 12/27/24 12:38 Completed Medical Decision Narrative: 39-year-old male presents the emergency department with a mechanical fall, see HPI for detail past medical history, differential diagnosis include but not limited to, postconcussive syndrome, cervicalgia, cervical spine fracture, radiculopathy, left shoulder fracture, acute shoulder impingement syndrome, humeral fracture, arm sprain/strain, among others. I discussed patient case with attending physician Dr. Nielsen Will obtain EKG, x-ray of the chest, x-ray humerus on the left, x-ray of the left shoulder, CT cervical spine without contrast, CT head without contrast for further evaluation/characterization, will give 500 mg p.o. acetaminophen and 400 mg p.o. ibuprofen for pain. I reviewed the patient's chest x-ray along with corresponding radiologic report, moderate cardiomegaly, no focal pneumonia I reviewed the patient's left humerus x-ray along with corresponding radiologic report, no evidence of acute fracture or dislocation I reviewed the patient's left shoulder x-ray along with corresponding radiologic report, no evidence of acute fracture or dislocation I reviewed the patient's CT cervical spine without contrast along the corresponding radiologic report, no acute cervical spine fracture. I reviewed the patient CT head without contrast, the corresponding radiologic report, no acute intracranial hemorrhage. I discussed the results with the patient at the bedside, recommend rest ice, anti-inflammatory medication as needed for symptomatic relief, patient has a shoulder sprain/strain/contusion, patient will follow-up with PCP and orthopedic provider in the upcoming days/weeks, and he will return to the emergency department with any worsening signs or symptoms. Patient voiced understanding. I was consulted by the YOBANI, and we discussed the complexity of the problems being addressed. I approve the treatment and management plan for this patient's care in the emergency department, thus performing a substantive portion of the medical decision making. Brian Nielsen MD Critical Care <SHYAM Cummins - Last Filed: 12/27/24 15:26> Critical Care Time Critical Care Time: No
--- NOTE | 2024-12-27 12:37 | CT_ITS ---
PROCEDURE INFORMATION: Exam: CT Cervical Spine Without Contrast Exam date and time: 12/27/2024 1:14 PM Age: 39 years old Clinical indication: Injury or trauma; Fall; Blunt trauma TECHNIQUE: Imaging protocol: Computed tomography of the cervical spine without contrast. Radiation optimization: All CT scans at this facility use at least one of these dose optimization techniques: automated exposure control; mA and/or kV adjustment per patient size (includes targeted exams where dose is matched to clinical indication); or iterative reconstruction. COMPARISON: CT SOFT TISSUE NECK W CON 09/03/2024 10:50 PM FINDINGS: Bones: No acute fracture. Normal alignment. No significant disc bulge or herniation. No severe spinal canal stenosis. No significant neural foraminal narrowing. Lungs: Lung apices are normal. Soft tissues: Unremarkable. IMPRESSION: No acute cervical spine fracture.
--- NOTE | 2024-12-27 12:38 | XR_ITS ---
PROCEDURE INFORMATION: Exam: XR Left Shoulder Exam date and time: 12/27/2024 1:15 PM Age: 39 years old Clinical indication: Injury or trauma; Fall; Blunt trauma (contusions or hematomas); Shoulder; Left; Additional info: Fall, shoulder pain TECHNIQUE: Imaging protocol: Radiologic exam of the left shoulder. Views: 2 or more views. Total images: 3 COMPARISON: CR XR SHOULDER LT MIN 2V 01/04/2021 10:37 AM FINDINGS: Bones/joints: No evidence of acute fracture or dislocation. Soft tissues: Soft tissues are within normal limits. IMPRESSION: No evidence of acute fracture or dislocation.
--- NOTE | 2024-12-27 12:38 | XR_ITS ---
PROCEDURE INFORMATION: Exam: XR Left Humerus Exam date and time: 12/27/2024 1:15 PM Age: 39 years old Clinical indication: Injury or trauma; Fall; Blunt trauma (contusions or hematomas); Arm, upper; Left; Additional info: Fall left arm pain TECHNIQUE: Imaging protocol: Radiologic exam of the left humerus. Views: 2 or more views. Total images: 3 COMPARISON: CR XR SHOULDER LT MIN 2V 01/04/2021 10:37 AM FINDINGS: Bones/joints: No evidence of acute fracture or dislocation. Soft tissues: Soft tissues are within normal limits. IMPRESSION: No evidence of acute fracture or dislocation.
--- NOTE | 2024-12-27 12:38 | CT_ITS ---
PROCEDURE INFORMATION: Exam: CT Head Without Contrast Exam date and time: 12/27/2024 1:12 PM Age: 39 years old Clinical indication: Injury or trauma; Fall; Blunt trauma (contusions or hematomas); Additional info: Fall, head trauma TECHNIQUE: Imaging protocol: Computed tomography of the head without contrast. Radiation optimization: All CT scans at this facility use at least one of these dose optimization techniques: automated exposure control; mA and/or kV adjustment per patient size (includes targeted exams where dose is matched to clinical indication); or iterative reconstruction. COMPARISON: CT HEAD/BRAIN WO CON 12/27/2024 1:12 PM FINDINGS: Brain: Normal. No hemorrhage. Unremarkable white matter. No mass effect. Cerebral ventricles: No ventriculomegaly. Paranasal sinuses: Visualized sinuses are unremarkable. No fluid levels. Mastoid air cells: Visualized mastoid air cells are well aerated. Bones: Degenerative changes in the temporomandibular joints No acute fracture. Soft tissues: 8 mm Calcific density in the extra calvarial soft tissues series 1001, image 52 IMPRESSION: No acute intracranial hemorrhage.
--- NOTE | 2024-12-27 12:38 | XR_ITS ---
PROCEDURE INFORMATION: Exam: XR Chest Exam date and time: 12/27/2024 1:15 PM Age: 39 years old Clinical indication: Injury or trauma; Fall; Blunt trauma (contusions or hematomas) TECHNIQUE: Imaging protocol: Radiologic exam of the chest. Views: 1 view. Total images: 3 COMPARISON: CR XR CHEST 2V 10/21/2024 2:44 PM FINDINGS: Tubes, catheters and devices: Surgical clips overlie the mediastinum on the right. Lungs: Granulomatous calcifications noted bilaterally. No focal pneumonia. Pleural spaces: No pleural effusion. No pneumothorax. Heart/Mediastinum: Heart demonstrates moderate diffuse enlargement. Bones/joints: Unremarkable. IMPRESSION: 1. Moderate cardiomegaly. 2. No focal pneumonia.
--- NOTE | 2024-12-27 12:42 | ECG_ITS ---
APPROVED REPORT Exam: Resting ECG HR:103 bpm ECG Measurements Heart Rate 103 AXES NM 148 P 57 QRSd 97 QRS 51 QT 305 T 52 QTc 364 Conclusion SINUS TACHYCARDIA ABNORMAL RHYTHM ECG UNCONFIRMED REPORT Electronically signed by : HARPREET GUARDADO, 12/28/2024 06:32:57
[2024-12-27] MEDS: ACETAMINOPHEN 500MG TAB 500 MG PO (13:00)
[2024-12-27] MEDS: IBUPROFEN 400 MG TABLET PO (13:00)
--- NOTE | 2024-12-27 15:04 | PC.NURSE ---
I called and spoke with radiology about the pts CT scans. She states she is going to contact them and see if they can push through the reads.
== END 2024-12-27 15:37 | disposition home or self-care (01) ==
PROVIDERS: Emergency Provider Student in an Organized Health Care Education/Training Program; PCP Internal Medicine Adolescent Medicine
DX: S49.92XA Unspecified injury of left shoulder and upper arm, initial encounter (principal); W17.89XA Other fall from one level to another, initial encounter
CPT/HCPCS: 70450; 71045; 72125; 73030; 73060; 93005; 99285

== ENCOUNTER 2025-01-02 15:52 | Outpatient (CLI) | payer MEDICARE, MEDICAID, SELFPAY ==
--- OUTSIDE RECORDS SUMMARY | 2017-01-31 09:00 | XMS_ITS | Encounter Summary ---
[facility] [address] [place] [address] Care Team Providers Care Vp Compliance Name Role Phone Danielle Mora Jannette LORENZO Primary Care Provid er Encounter Details Date Type Department Care Team (Late st Contact Info) Description 01/31/2017 9:00 AM EDT Hospital Encounter [facility] PULMONARY & CRITICAL CARE MEDICINE [address] [place] [address] Social History Tobacco Use Types [...] on filedocumented in this encounter Care Teams Vp Compliance Relationship Specialty Start Date End Date Danielle Mora APRN [address] [place] [address] [place] [address] PCP - General Family Medicine 12/02/15 documented as of this encounter
--- OUTSIDE RECORDS SUMMARY | 2025-01-02 15:54 | XMS_ITS | Encounter Summary ---
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
--- OUTSIDE RECORDS SUMMARY | 2025-01-02 15:54 | XMS_ITS | Encounter Summary ---
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
--- OUTSIDE RECORDS SUMMARY | 2025-01-02 15:54 | XMS_ITS | Encounter Summary ---
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
--- OUTSIDE RECORDS SUMMARY | 2025-01-02 15:54 | XMS_ITS | Encounter Summary ---
[facility] Organization [facility] Address [address] [place] [address] Care Team Providers Care Catheter Builder Name Role Phone Danielle Mora APRN Primary Care Provid er Encounter Details Date Type Department Care Team (Late st Contact Info) Description 03/03/2015 External CPT II APRON OPERATOR - [facility] Social History Tobacco Use [...] on filedocumented in this encounter Care Teams Catheter Builder Relationship Specialty Start Date End Date Danielle Mora APRN [address] [facility] [address] [place] [id number] PCP - General Family Medicine 12/02/15 documented as of this encounter
--- OUTSIDE RECORDS SUMMARY | 2025-01-02 15:54 | XMS_ITS | Clinical Summary ---
Author Organization [facility] Address [address] [place] [address] Care Team Providers Care Residential Property Manager Name Role Phone Danielle Mora Jannette LORENZO [...] topic Insurance MEDICARE A & B MEDICAID [place] Care Teams Residential Property Manager Relationship Specialty Start Date End Date Danielle Mora APRN [address] [facility] [address] [place] [id number] PCP - General Family Medicine 12/02/15
--- NOTE | 2025-01-02 16:15 | MR_ITS ---
PROCEDURE INFORMATION: Exam: MR Left Upper Extremity Joint Without Contrast; Shoulder Exam date and time: 01/02/2025 4:39 PM Age: 39 years old Clinical indication: Pain; Shoulder; Left; Additional info: Lt shoulder injury TECHNIQUE: Imaging protocol: Magnetic resonance imaging of the left upper extremity without contrast. Exam focused on the shoulder. COMPARISON: CR XR SHOULDER LT MIN 2V 12/27/2024 1:15 PM FINDINGS: Bones/joints: No fracture. No dislocation. No joint effusion or synovitis. AC joint is well aligned with no undersurface spurring or medial arch stenosis. Madhu acromial slope with no significant lateral arch stenosis. Glenoid labrum: T2/stir hypointense capsular thickening at the anterior inferior glenohumeral joint which may be due to remote injury given the absence of joint effusion or periarticular swelling, with linear hyperintensity in the posteroinferior glenoid labrum on coronal fat-suppressed PD series 5 images 14 and 15, suspicious for age indeterminate nondisplaced labral tear. Supraspinatus tendon: Supraspinatus tendon is intact. Infraspinatus tendon: Infraspinatus tendon is intact but demonstrates slight superficial STIR hyperintensity over the distal tendon and conjoined tendon suspicious for a mild element of strain and peritendinitis without mary tear. Subscapularis tendon: Unremarkable. No evidence of tear. Teres minor tendon: Teres minor is intact. Tendon of biceps brachii: Biceps long head tendon is intact and maintains appropriate course within the bicipital groove. Soft tissues: T2 hyperintensity tracks along the deltopectoral groove and the partially visualized pectoralis major attachment zone on the proximal humerus concerning for strain or partial thickness tear, without mary avulsion or retraction. Question mild STIR hyperintensity along the posterolateral deltoid musculature suggesting an element of muscular strain or contusion without focal tear hematoma. Other findings: Exam sensitivity limited by field inhomogeneity and related artifact secondary to patient body habitus. IMPRESSION: 1. Technically limited exam. 2. Question swelling along the distal deltopectoral groove and pectoralis major attachment zone, suspicious for strain or low-grade partial-thickness injury without evidence of high-grade tear or retraction in the scan range. Correlate clinically. If clinically indicated, follow-up MRI assessment with protocol tailored to assess the pectoralis attachment zone may be helpful. 3. Question posterolateral deltoid muscular swelling, possibly contusion or strain with no focal tear or hematoma. 4. Hypointense capsular thickening at the inferior glenohumeral joint, favor changes of remote prior injury given the lack of joint effusion or periarticular swelling in this region. 5. Suspect nondisplaced age-indeterminate tear in the posteroinferior glenoid labrum.
== END 2025-01-02 23:59 | disposition home or self-care (01) ==
LOC: RAD 15:52
PROVIDERS: PCP Internal Medicine Adolescent Medicine; Visit Provider Physician Assistant
DX: R93.6 Abnormal findings on diagnostic imaging of limbs (principal); S49.92XA Unspecified injury of left shoulder and upper arm, initial encounter
CPT/HCPCS: 73221

== ENCOUNTER 2025-01-12 09:46 | Outpatient (CLI) | payer MEDICARE, MEDICAID, SELFPAY ==
--- OUTSIDE RECORDS SUMMARY | 2017-01-31 09:00 | XMS_ITS | Encounter Summary ---
[facility] Address [address] [place] [address] Care Team Providers Care Procurement Assistant Name Role Phone Danielle Mora Jannette LORENZO Primary Care Provid er Encounter Details Date Type Department Care Team (Late st Contact Info) Description 01/31/2017 9:00 AM EDT Hospital Encounter [facility] PULMONARY & CRITICAL CARE MEDICINE [address] [place] [address] Social History Tobacco Use Types [...] on filedocumented in this encounter Care Teams Procurement Assistant Relationship Specialty Start Date End Date Danielle Mora APRN [address] [place] [address] [place] [address] PCP - General Family Medicine 12/02/15 documented as of this encounter
--- OUTSIDE RECORDS SUMMARY | 2025-01-12 09:55 | XMS_ITS | Encounter Summary ---
[facility] Address [address] [place] [address] Care Team Providers Care Ditto Machine Operator Name Role Phone Danielle Mora APRN Primary Care Provid er Encounter Details Date Type Department Care Team (Late st Contact Info) Description 11/27/2016 External CPT II TRANSITION MANAGER - [facility] Social History Tobacco Use [...] on filedocumented in this encounter Care Teams Ditto Machine Operator Relationship Specialty Start Date End Date Danielle Mora APRN [address] [place] [id number] PCP - General Family Medicine 12/02/15 documented as of this encounter
--- OUTSIDE RECORDS SUMMARY | 2025-01-12 09:55 | XMS_ITS | Encounter Summary ---
[facility] Organization [facility] Address [address] [place] [address] Care Team Providers Care Newsagent Name Role Phone Danielle Mora APRN Primary Care Provid er Encounter Details Date Type Department Care Team (Late st Contact Info) Description 10/19/2014 External CPT II HAIR SPECIALIST - [facility] Social History Tobacco Use [...] on filedocumented in this encounter Care Teams Newsagent Relationship Specialty Start Date End Date Danielle Mora APRN [address] [facility] [address] [place] [id number] PCP - General Family Medicine 12/02/15 documented as of this encounter
--- OUTSIDE RECORDS SUMMARY | 2025-01-12 09:55 | XMS_ITS | Clinical Summary ---
Author Organization [facility] Address [address] [facility], [address] [place] [address] Care Team Providers Care Transfer Operator Name Role Phone Unavailable Primary Care Provider [...]
--- OUTSIDE RECORDS SUMMARY | 2025-01-12 09:55 | XMS_ITS | Clinical Summary ---
Author Organization [facility] Address [address] [place] [address] Care Team Providers Care Surveillance Systems Analyst Name Role Phone Danielle Mora Jannette LORENZO [...] topic Insurance MEDICARE A & B [place]ICAID [place] Care Teams Surveillance Systems Analyst Relationship Specialty Start Date End Date Danielle Mora APRN [address] [facility] [address] [place] [id number] PCP - General Family Medicine 12/02/15
--- OUTSIDE RECORDS SUMMARY | 2025-01-12 09:55 | XMS_ITS | Encounter Summary ---
[facility] Address [address] [place] [address] Care Team Providers Care Director Of Restaurants Name Role Phone Danielle Mora APRN Primary Care Provid er Encounter Details Date Type Department Care Team (Late st Contact Info) Description 01/13/2015 External CPT II PUBLIC POLICY MEDIATOR - [facility] Social History Tobacco Use [...] in this encounter Care Teams Director Of Restaurants Relationship Specialty Start Date End Date Danielle Mora APRN [address] [facility] [address] [place] [id number] PCP - General Family Medicine 12/02/15 documented as of this encounter
--- OUTSIDE RECORDS SUMMARY | 2025-01-12 09:55 | XMS_ITS | Encounter Summary ---
[facility] Address [address] [place] [address] Care Team Providers Care Cancellation Clerk Name Role Phone Danielle Mora APRN Primary Care Provid er Encounter Details Date Type Department Care Team (Late st Contact Info) Description 03/03/2015 External CPT II DIE MACHINE OPERATOR - [facility] Social History Tobacco [...] on filedocumented in this encounter Care Teams Cancellation Clerk Relationship Specialty Start Date End Date Danielle Mora APRN [address] [facility] [address] [place] [id number] PCP - General Family Medicine 12/02/15 documented as of this encounter
[2025-01-12 10:19] LABS: Hematocrit 50.4 % (42.0-52.0); Hemoglobin 16.0 g/dL (14.1-18.0); Immature Granulocytes % 0.7 %; Mean Corpuscular HGB Conc 31.7 g/dL (31.8-35.4); Mean Corpuscular Hemoglobin 26.6 pg (27.0-31.2); Mean Corpuscular Volume 83.9 fl (80-94); Nucleated Red Blood Cells % 0 %; Platelet Count 442 K/mm3 (142-424); Red Blood Count 6.01 M/mm3 (4.60-6.20); Red Cell Distribution Width-SD 48.1 fL; White Blood Count 13.8 K/mm3 (4.8-10.8)
[2025-01-12 10:38] LABS: Albumin Level 3.3 g/dl (3.5-5.0); Chloride 103 mmol/L (98-107); Sodium 137 mmol/L (136-145)
[2025-01-12 10:39] LABS: Potassium 4.7 mmoL/L (3.5-5.1)
[2025-01-12 10:41] LABS: Alanine Aminotransferase 21 U/L (12-78); Anion Gap 7.7 mEq/L (5-15); Aspartate Amino Transferase 18 U/L (17-59); Bilirubin,Unconjugated 0.1 mg/dL (0.0-1.1); Blood Urea Nitrogen 21 mg/dl (9-20); Carbon Dioxide 31 mmol/L (22.0-30.0); Cholesterol 176 mg/dl (140-200); Creatinine,Serum 1.00 mg/dl (0.66-1.25); Estimated Glomerular Filt Rate 84 ml/min (>60); GFR (African American) 101 ML/MIN (>60); Total Protein,Serum 6.5 g/dl (6.3-8.2); Triglycerides 88 mg/dl (30-150)
[2025-01-12 10:42] LABS: Alkaline Phosphatase 75 U/L (38-126); Bilirubin,Direct 0.2 mg/dl (0.0-0.4); Bilirubin,Indirect 0.1 mg/dL (0.0-0.9); Bilirubin,Total 0.3 mg/dl (0.2-1.3); Calcium 9.5 mg/dl (8.4-10.2); Glucose 101 mg/dl (74-100); HDL Cholesterol 39 mg/dl (40-60); Magnesium 2.2 mg/dl (1.6-2.3)
[2025-01-12 11:19] LABS: Free T4 (Free Thyroxine) 1.17 ng/dl (0.78-2.19)
[2025-01-12 14:40] LABS: Thyroid Stimulating Hormone 3.83 uIU/mL (0.465-4.68)
== END 2025-01-12 23:59 | disposition home or self-care (01) ==
LOC: LAB 09:47
PROVIDERS: PCP Nurse Practitioner Family; Visit Provider Nurse Practitioner
DX: I10 Essential (primary) hypertension (principal); R60.9 Edema, unspecified; R06.09 Other forms of dyspnea
CPT/HCPCS: 36415; 80048; 80061; 80076; 83735; 84439; 84443; 85025

== ENCOUNTER 2025-02-04 08:21 | Emergency (ER) | payer MEDICARE, MEDICAID, SELFPAY ==
--- OUTSIDE RECORDS SUMMARY | 2017-01-31 09:00 | XMS_ITS | Encounter Summary ---
[facility] [address] [place] [address] Care Team Providers Care Road Traffic Controller Name Role Phone Danielle Mora Jannette LORENZO Primary Care Provid er Encounter Details Date Type Department Care Team (Late st Contact Info) Description 01/31/2017 9:00 AM EDT Hospital Encounter [facility] PULMONARY & CRITICAL CARE MEDICINE [address] [place] [address] Social History Tobacco Use Types Packs/Day Years Used Date Smoking Tobacco: Former Cigarettes 0.3 13 0 09/14/2003 - 09/13/2016 Smokeless Tobacco: Former Alcohol Use Standard Drinks/Week Comments No 0 (1 standard drink = 0.6 oz pur e alcohol) Occasionally Abuse Screen Answer Date Recorded Unsafe at Home or Work/School Not on file Feels Threatened by Someone? Not on file 02/2023 Does Anyone Keep You from Co ntacting Others or Doint Things Outside the Home? Not on file 03/19/2023 Physical Sign of Abuse Present Not on file 1 Housing Stability Answer Date Recorded Current Living Arrangements Not on file 02/2023 Potentially Unsafe Housing Conditions Not on nita e 03/19/2023 Family and Community Support Answer Heber e Recorded Help with Day-to-Day Activities Not on file 03/19/2023 Lonely or Isolated Not on file 03/19/2023 Employment Answer Date Recorded Do you want help finding or keeping work or a patti b? Not on file 03/19/2023 Disabilities Answer Date Recorded Concentrating, Remembering, or Making Decisions Difficulty Not on file 03/19/2023 Doing Errands Independently Difficulty Not on fi le 03/19/2023 Education Answer Date Recorded Help with school [...] on file documented as of this encounter Plan of [...] on filedocumented in this encounter Care Teams Road Traffic Controller Relationship Specialty Start Date End Date Danielle Mora APRN [address] [place] [address] [place] [address] PCP - General Family Medicine 12/02/15 documented as of this encounter
[2025-02-04] VITALS (8 sets, daily range): BP systolic 110–145; BP diastolic 70–85; PULSE 71–83; RESP 16–18; TEMP 36.6; O2SAT 93–97; BMI 50.2
--- NOTE | 2025-02-04 08:43 | HMH.EDGENADL ---
Discharge Plan Disposition Patient Disposition: Home, Self-Care Prescriptions Prescriptions: No Action ipratropium-albuterol 0.5 mg-3 mg(2.5 mg base)/3 mL solution for nebulization 3 ml inhalation Q6H PRN (Reason: shortness of breath or wheezing) Qty: 90 3RF azelastine 137 mcg (0.1 %) spray,non-aerosol 2 spray intranasal HS 90 Days Qty: 30 2RF Rx Instructions: administer into each nostril furosemide [Lasix] 40 mg tablet 40 mg PO DAILY Qty: 90 3RF lisinopril 5 mg tablet 5 mg PO DAILY Qty: 90 3RF methylprednisolone 4 mg tablets,dose pack See Rx Instructions PO PER PKG DIR Qty: 21 0RF Rx Instructions: PO PER PKG DIR for 6 days montelukast 10 mg tablet 10 mg PO DAILY cetirizine [Zyrtec] 10 mg tablet 10 mg PO DAILY PRN (Reason: allergies) omeprazole 20 mg capsule,delayed release(DR/EC) 40 mg PO DAILY Qty: 30 2RF ibuprofen 600 mg tablet 600 mg PO DAILY levocetirizine 5 mg tablet 5 mg PO DAILY albuterol sulfate 90 mcg/actuation HFA aerosol inhaler 90 mcg inhalation DAILY PRN (Reason: Asthma) Breztri Aerosphere 160-9-4.8 mcg/actuation HFA aerosol inhaler 2 inh inhalation BID 90 Days Qty: 10.7 3RF famotidine 40 mg tablet See Rx Instructions .ROUTE .COMPLEX Qty: 30 5RF Dose Instruction: TAKE 1 TABLET BY MOUTH AT BEDTIME with omeprazole Rx Instructions: TAKE 1 TABLET BY MOUTH AT BEDTIME with omeprazole baclofen 10 mg tablet 10 mg PO TID PRN (Reason: muscle spasm) Qty: 30 0RF Referrals Follow up/Referrals: Danielle Mora APRN [Primary Care Provider, Medical] - See instructions Activity Restrictions/Add. Instructions Additional Instructions/Restrictions: We will call you with the results of your stool testing. If there is any antibiotics or anything that needs medication, we will let you know. Continue to hydrate well by you will likely have drinking plenty of water, sugar-free Gatorade, Pedialyte. You will likely have bloody diarrhea over the next several days, however if it worsens, or if you become concerned for your health for any reason, return to the emergency department for evaluation. Clinical Impressions Clinical Impression: Bloody diarrhea Instructions Patient Instructions: DI for Gastrointestinal Bleeding Print Language Print Language: Maori Discharge ED Provider: Brian Nielsen Adult HPI General Chief complaint: GI Bleed Stated complaint: Blood in Stool Time Seen by Provider: 02/04/25 08:42 Mode of Arrival: Ambulatory Source of Information: Patient Description of Symptoms (Recalled from ER Triage Doc. by RN): Pt reports that he noted blood in his formed stool yesterday. This AM his stool is water and still notes bright red blood. Denies pain. Does c/o some weakness. History of Present Illness HPI narrative: Ronal Meléndez is a 39y male with a history of hypertension, COPD who presents to the emergency department for complaints of bloody diarrhea. Patient states that he had normal stools yesterday and had 2 episodes of bright red blood in his stools. Today he states that he had an episode of watery diarrhea that appeared bloody. His coworker told him yesterday that he thought it was probably hemorrhoids, however when it turned into diarrhea today became more concerned. He states that his abdomen feels weird but denies any pain. He has not had any vomiting and has otherwise been in his normal state of health. Related Data Home Medications ?Medication ?Instructions ?Recorded ?Confirmed cetirizine 10 mg tablet (Zyrtec) 10 mg PO DAILY PRN allergies 02/12/24 02/04/25 montelukast 10 mg tablet 10 mg PO DAILY 02/12/24 02/04/25 albuterol sulfate 90 mcg/actuation 90 mcg inhalation DAILY PRN Asthma 05/14/24 02/04/25 aerosol inhaler ibuprofen 600 mg tablet 600 mg PO DAILY 05/14/24 02/04/25 levocetirizine 5 mg tablet 5 mg PO DAILY 05/14/24 02/04/25 Previous Rx's ?Medication ?Instructions ?Recorded baclofen 10 mg tablet 10 mg PO TID PRN muscle spasm #30 12/11/23 tabs omeprazole 20 mg capsule,delayed 40 mg (2 x 20 mg) PO DAILY #30 caps 02/12/24 release ipratropium 0.5 mg-albuterol 3 mg 3 ml inhalation Q6H PRN shortness 07/09/24 (2.5 mg base)/3 mL nebulization of breath or wheezing #90 mL soln budesonide 160 mcg-glycopyr 9 2 inh inhalation BID 90 days #10.7 10/20/24 mcg-formot 4.8 mcg/actuation HFA grams inhaler (Breztri Aerosphere) azelastine 137 mcg (0.1 %) nasal 2 spray intranasal HS 90 days #30 10/21/24 spray mL famotidine 40 mg tablet See Rx Instructions .Route 12/15/24 .COMPLEX #30 tabs furosemide 40 mg tablet (Lasix) 40 mg PO DAILY #90 tabs 01/12/25 lisinopril 5 mg tablet 5 mg PO DAILY #90 tabs 01/12/25 methylprednisolone 4 mg tablets in See Rx Instructions PO PER PKG DIR 01/21/25 a dose pack #21 tabs Allergies Allergy/AdvReac Type Severity Reaction Status Date / Time Penicillins (PENICILLINS) Allergy Unknown Swelling Verified 02/04/25 08:32 of Lip/Tongue/Throat pseudoephedrine (From Allergy Swelling Verified 02/04/25 08:32 Sudafed) of the Eye [facility] Disclaimer: The information contained in this section may have been updated after the patient was seen, as this information can be updated by other users. Medical History HTN (hypertension) Acute dyspnea Vocal cord edema Difficulty swallowing Hoarseness History of inguinal hernia Murmur Elevated BP without diagnosis of hypertension Restrictive lung disease Cystic-bullous disease of lung Tobacco use Edema Encounter for pre-operative cardiovascular clearance Tachycardia Abnormality of lung on CXR Decreased diffusion capacity of lung Allergic rhinitis Dyspnea on exertion Migraine COPD (chronic obstructive pulmonary disease) Asthma Surgical History History of lymph node excision neck History of lung surgery History of dental surgery History of tonsillectomy Family History Other Asthma Cancer Diabetes Heart attack Hypertension Social History Smoking Status: Current every day smoker tobacco type: cigarettes packs per day: 1 alcohol intake: never substance use type: denies use current occupational status: employed and other Travel in the last 8 weeks?: Inside the [place] housing: house Have you lived/traveled outside [place] in past 30 days?: No Contact w/someone who lives/traveled outside US past 30 days?: No Exposure to someone with infectious disease in past 14 days?: No Do you have a fever (greater than 100.4 F or 38 C)?: No Have you tested positive for COVID-19?: No Exposed to someone with COVID-19 in past 14 days?: No Do you have a sore throat?: No Do you have a cough?: No Do you have any weakness?: No Do you have any diarrhea?: Yes Are you experiencing any unusual bleeding?: Yes Do you have any muscle aches/pain?: No Do you have any abdominal pain?: No Are you experiencing loss of taste or smell?: No Other Medical History Have you received the Flu Vaccine for this season: No Have you received the Pneumonia Vaccine: No ROS Obtained: Yes Systems reviewed as appropriate & no additional complaints except as documented Physical Exam General General appearance: alert, in no apparent distress and obese Head Head exam: atraumatic Eye Eye exam: Present normal appearance ENT ENT exam: Present normal external ear exam Neck Neck exam: Present full ROM Chest Chest inspection: Present symmetric chest wall rise Respiratory Respiratory exam: Present normal lung sounds bilaterally; Absent respiratory distress Cardiovascular Cardiovascular exam: Present regular rate and normal rhythm Abdominal Exam Abdominal exam: Present soft and tenderness (RLQ with guarding); Absent guarding exam: Present deferred Extremities Exam Extremities exam: Present normal inspection Back Exam Back exam: Present normal inspection Neurological Exam Neurological exam: Present alert and oriented X3 Psychiatric Psychiatric exam: Present normal affect Skin Skin exam: Present warm and dry Medical Decision Making Medical Records Screening: Per USPSTF and CDC recommendations, given the prevalence of disease in our region, it is our hospital?s policy to screen for HIV and viral Hepatitis for all patients aged 18 and over and those with ongoing risk factors. Mo Inquiry Pt receiving controlled substance: No Vital Signs: 02/04/25 08:33 02/04/25 09:37 02/04/25 09:45 Temperature 97.8 F Temperature Source Oral Pulse Rate 77 Pulse Rate [Right Brachial] 83 Respiratory Rate 18 18 Blood Pressure 113/80 Blood Pressure [Right Arm] 145/81 H Blood Pressure Mean Blood Pressure Mean [Right Arm] 102 Blood Pressure Source [Right Arm] Automatic Cuff Blood Pressure Position Blood Pressure Position [Right Arm] Sitting 02 Sat by Pulse Oximetry 97 93 L 97 Oxygen Delivery Method Room Air Room Air Room Air 02/04/25 10:00 02/04/25 10:30 02/04/25 11:00 Temperature Temperature Source Pulse Rate 82 72 72 Pulse Rate [Right Brachial] Respiratory Rate 16 Blood Pressure 123/85 110/77 118/83 Blood Pressure [Right Arm] Blood Pressure Mean 92 Blood Pressure Mean [Right Arm] Blood Pressure Source [Right Arm] Blood Pressure Position Blood Pressure Position [Right Arm] 02 Sat by Pulse Oximetry 96 96 93 L Oxygen Delivery Method Room Air 02/04/25 11:30 02/04/25 11:57 Temperature 97.8 F Temperature Source Oral Pulse Rate 71 72 Pulse Rate [Right Brachial] Respiratory Rate 17 Blood Pressure 121/70 121/70 Blood Pressure [Right Arm] Blood Pressure Mean Blood Pressure Mean [Right Arm] Blood Pressure Source [Right Arm] Blood Pressure Position Sitting Blood Pressure Position [Right Arm] 02 Sat by Pulse Oximetry 95 Oxygen Delivery Method Room Air Room Air Lab Data Lab Results 02/04/25 08:35: WBC 10.1, RBC 5.86, Hgb 15.9, Hct 49.4, MCV 84.3, MCH 27.1, MCHC 32.2, RDW 16.9, Plt Count 406, MPV 10.2, Neut % (Auto) 76.8, Lymph % (Auto) 13.1, Patrick % (Auto) 6.8, Eos % (Auto) 2.3, Baso % (Auto) 0.5, Neut # (Auto) 7.8, Lymph # (Auto) 1.3, Patrick # (Auto) 0.7, Eos # (Auto) 0.2, Baso # (Auto) 0.1, Sodium 141, Potassium 4.4, Chloride 108 H, Carbon Dioxide 26, Anion Gap 11.4, BUN 18, Creatinine 1.00, Estimated Creat Clear 100, Estimated GFR 84, Est GFR ( Amer) 101, Glucose 98, Calcium 9.3, Total Bilirubin 0.6, AST 26, ALT 28, Alkaline Phosphatase 64, C-Reactive Protein 21.8 H, Total Protein 7.1, Albumin 4.3, Globulin 2.8, Albumin/Globulin Ratio 1.5, Lipase 43, HCV Ab KYLAH w/Rflx PCR Qn Negative, HIV Ag/Ab Combo Qual Negative 02/04/25 10:45: Urine Color Yellow, Urine Appearance Clear, Urine pH 6.0, Ur Specific [place] <= 1.005, Urine Protein Negative, Urine Glucose (UA) Negative, Urine Ketones Negative, Urine Blood Negative, Urine Nitrate Negative, Urine Bilirubin Negative, Urine Urobilinogen 0.2, Ur Leukocyte Esterase Negative, Urine RBC None, Urine WBC None, Ur Squamous Epith Cells None, Urine Bacteria None 02/04/25 08:35 02/04/25 08:35 Orders (Tests/Meds): ED MEDICATIONS Discontinued Medications Generic Name Dose Route Start Last Admin Trade Name Freq PRN Reason Stop Dose Admin Iopamidol 75 ml 02/04/25 09:15 02/04/25 09:16 Iopamidol-370 (76%);100ml Bottle IV 02/04/25 09:16 75 ml ONCE ONE Administration Sodium Chloride 10 ml 02/04/25 09:15 02/04/25 09:16 Sodium Chloride 0.9% 10ml Syr (Rad Only) IV 02/04/25 09:16 10 ml ONCE ONE Administration ORDERS Category Date Time Status CT abdomen pelvis w con Stat Cat Scan 02/04/25 08:53 Completed CBC w/Auto Diff [Complete Blood Count Auto Diff] Stat Lab 02/04/25 08:35 Completed CMP [Comprehensive Metabolic Panel] Stat Lab 02/04/25 08:35 Completed CRP [C-Reactive Protein] Stat Lab 02/04/25 08:35 Completed Diarrhea 23 Panel, PCR Stat Lab 02/04/25 09:36 Received HIV Combo Routine Lab 02/04/25 08:35 Completed Hepatitis C Ab Qual. W/ RFX Routine Lab 02/04/25 08:35 Completed Lipase Stat Lab 02/04/25 08:35 Completed UA [Urinalysis and Microscopic] Stat Lab 02/04/25 10:45 Completed Medical Decision Narrative: Ronal Meléndez is a 39y male with a history of hypertension, COPD who presents to the emergency department for complaints of bloody diarrhea. Patient states that he had normal stools yesterday and had 2 episodes of bright red blood in his stools. Today he states that he had an episode of watery diarrhea that appeared bloody. His coworker told him yesterday that he thought it was probably hemorrhoids, however when it turned into diarrhea today became more concerned. He states that his abdomen feels weird but denies any pain. He has not had any vomiting and has otherwise been in his normal state of health. On arrival, patient is hemodynamically stable, no acute respiratory distress, breathing comfortably on room air with appropriate oxygen saturation. Physical exam, stated above well-appearing male. GCS 15. Abdomen with localized right lower quadrant tenderness with some guarding in this area otherwise soft and not peritonitic. He appears well-hydrated. Cardiopulmonary exam is unremarkable. No external hemorrhoids are appreciated on chaperoned rectal exam. Differential diagnosis includes, but is not limited to: Infectious colitis, lower GI bleed, hemorrhoids, appendicitis, among others. The most morbid conditions were considered and workup was based on these. Workup in the emergency department included: CT abdomen pelvis with IV contrast, CRP, CBC with differential, CMP, urinalysis, lipase, diarrhea panel. The most morbid conditions were considered and workup was based on these. Workup showed no leukocytosis, no anemia, platelets within normal limits. CMP unremarkable nonactionable with normal liver enzymes. Patient CRP is elevated at 21.8. Lipase normal at 43. Urinalysis without evidence of infection or blood. CT abdomen pelvis interpreted by me personally. No acute findings within the abdomen or pelvis, no appendicitis. See radiology report for details. At this time, patient's diarrhea panel is still pending. It is felt that his symptomatology is likely related to infectious colitis and instructed him that we will follow-up the results and let him know if there is any action that needs to be taken. In the meantime, encourage oral hydration with plenty of water, sugar-free Gatorade and Pedialyte. Return precautions were given. All questions were answered. He demonstrated understanding and was in agreement this plan. He was then discharged from emergency department in stable condition. Critical Care Critical Care Time Critical Care Time: No
--- NOTE | 2025-02-04 08:50 | PC.NURSE ---
Dr. Nielsen @ bedside w/ PA performing rectal exam.
--- NOTE | 2025-02-04 08:53 | CT_ITS ---
FINAL REPORT TECHNIQUE: Thin section axial images are obtained through the abdomen and pelvis after intravenous contrast. Reconstruction images were obtained from the axial data. Exam was performed using dose reduction techniques. CLINICAL HISTORY: RLQ pain, bloody diarrhea COMPARISON: 05/09/2024 FINDINGS: Exam quality is degraded by patient body habitus. LUNG BASES: Multiple cysts are again seen in the lower lungs which are slightly atypical for emphysema. Heart size is normal. LIVER: Fatty infiltrated. No focal lesion. GALLBLADDER/BILIARY SYSTEM: Gallbladder is present. No gallstones. No biliary dilatation. SPLEEN: Unremarkable. PANCREAS: Unremarkable. ADRENALS: Unremarkable. KIDNEYS/URETERS/BLADDER: No hydronephrosis, renal mass, or renal stone. Unremarkable urinary bladder. GI TRACT: No small bowel obstruction or dilatation. Normal appendix. No acute colon abnormality. PELVIC ORGANS: Unremarkable for age. LYMPH NODES/RETROPERITONEUM/MESENTERY: No lymphadenopathy. No abdominal aortic aneurysm. ABDOMINAL WALL: The abdominal wall is intact. FREE FLUID: No ascites. BONES: No acute osseous abnormality. IMPRESSION: Exam limited by patient body habitus. Fatty infiltration of the liver. No acute abnormality within the limitations of exam. Reviewed, Interpreted and Dictated by Emma Cummins MD Transcribed by Shirley Martinez Authenticated and [facility]
[2025-02-04 09:01] LABS: Albumin Level 4.3 g/dl (3.5-5.0); Chloride 108 mmol/L (98-107); Potassium 4.4 mmoL/L (3.5-5.1); Sodium 141 mmol/L (136-145)
--- OUTSIDE RECORDS SUMMARY | 2025-02-04 09:01 | XMS_ITS | Clinical Summary ---
Author Organization [facility] Address [address] [place] [address] Care Team Providers Care Chair Installer Name Role Phone Danielle Mora Jannette LORENZO [...] e 03/19/2023 Family and Community Support Answer Heebr e Recorded Help with Day-to-Day Activities Not [...] topic Insurance MEDICARE A & B MEDICAID [place] Care Teams Chair Installer Relationship Specialty Start Date End Date Danielle Mora APRN [address] [facility] [address] [place] [id number] PCP - General Family Medicine 12/02/15
--- OUTSIDE RECORDS SUMMARY | 2025-02-04 09:01 | XMS_ITS | Encounter Summary ---
[facility] Address [address] [place] [address] Care Team Providers Care Hoisting Engine Operator Name Role Phone Danielle Mora APRN Primary Care Provid er Encounter Details Date Type Department Care Team (Late st Contact Info) Description 11/27/2016 External CPT II GUEST SERVICES AGENT - [facility] Social History Tobacco Use [...] on filedocumented in this encounter Care Teams Hoisting Engine Operator Relationship Specialty Start Date End Date Danielle Mora APRN [address] [place] [id number] PCP - General Family Medicine 12/02/15 documented as of this encounter
--- OUTSIDE RECORDS SUMMARY | 2025-02-04 09:01 | XMS_ITS | Encounter Summary ---
[facility] Address [address] [place] [address] Care Team Providers Care Crusher Wet Ground Mica Name Role Phone Danielle Mora APRN Primary Care Provid er Encounter Details Date Type Department Care Team (Late st Contact Info) Description 10/19/2014 External CPT II CAKE WRAPPER - [facility] Social History Tobacco Use [...] on filedocumented in this encounter Care Teams Crusher Wet Ground Mica Relationship Specialty Start Date End Date Danielle Mora APRN [address] [facility] [address] [place] [id number] PCP - General Family Medicine 12/02/15 documented as of this encounter
--- OUTSIDE RECORDS SUMMARY | 2025-02-04 09:01 | XMS_ITS | Encounter Summary ---
[facility] Address [address] [place] [address] Care Team Providers Care Shoulder Puncher Name Role Phone Danielle Mora APRN Primary Care Provid er Encounter Details Date Type Department Care Team (Late st Contact Info) Description 01/13/2015 External CPT II BODY CARE MANAGER - [facility] Social History Tobacco [...] on filedocumented in this encounter Care Teams Shoulder Puncher Relationship Specialty Start Date End Date Danielle Mora APRN [address] [facility] [address] [place] [id number] PCP - General Family Medicine 12/02/15 documented as of this encounter
--- OUTSIDE RECORDS SUMMARY | 2025-02-04 09:01 | XMS_ITS | Clinical Summary ---
Author Organization [facility] Address [address] [facility], [address] [place] [address] Care Team Providers Care Regulatory Compliance Engineer Name Role Phone Unavailable Primary Care Provider [...]
--- OUTSIDE RECORDS SUMMARY | 2025-02-04 09:01 | XMS_ITS | Encounter Summary ---
[facility] Address [address] [place] [address] Care Team Providers Care Filemaker Developer Name Role Phone Danielle Mora APRN Primary Care Provid er Encounter Details Date Type Department Care Team (Late st Contact Info) Description 03/03/2015 External CPT II ELECTRONIC EQUIPMENT SET UP OPERATOR - [facility] Social History Tobacco [...] on filedocumented in this encounter Care Teams Filemaker Developer Relationship Specialty Start Date End Date Danielle Mora APRN [address] [facility] [address] [place] [id number] PCP - General Family Medicine 12/02/15 documented as of this encounter
[2025-02-04 09:04] LABS: Alanine Aminotransferase 28 U/L (12-78); Albumin/Globulin Ratio 1.5 (1.1-1.8); Alkaline Phosphatase 64 U/L (38-126); Anion Gap 11.4 mEq/L (5-15); Aspartate Amino Transferase 26 U/L (17-59); Bilirubin,Total 0.6 mg/dl (0.2-1.3); Blood Urea Nitrogen 18 mg/dl (9-20); Calcium 9.3 mg/dl (8.4-10.2); Carbon Dioxide 26 mmol/L (22.0-30.0); Creatinine Clearance Estimated 100 mL/min (50-200); Creatinine,Serum 1.00 mg/dl (0.66-1.25); Estimated Glomerular Filt Rate 84 ml/min (>60); GFR (African American) 101 ML/MIN (>60); Globulin 2.8 g/dL (1.3-3.2); Glucose 98 mg/dl (74-100); Lipase 43 U/L (23-300); Total Protein,Serum 7.1 g/dl (6.3-8.2)
[2025-02-04 09:05] LABS: Hematocrit 49.4 % (42.0-52.0); Hemoglobin 15.9 g/dL (14.1-18.0); Immature Granulocytes % 0.5 %; Mean Corpuscular HGB Conc 32.2 g/dL (31.8-35.4); Mean Corpuscular Hemoglobin 27.1 pg (27.0-31.2); Mean Corpuscular Volume 84.3 fl (80-94); Nucleated Red Blood Cells % 0 %; Platelet Count 406 K/mm3 (142-424); Red Blood Count 5.86 M/mm3 (4.60-6.20); Red Cell Distribution Width-SD 50.3 fL; White Blood Count 10.1 K/mm3 (4.8-10.8)
[2025-02-04 09:10] LABS: C-Reactive Protein 21.8 mg/L (0-4)
[2025-02-04] MEDS: IOPAMIDOL-370 (76%);100ML BOTTLE 75 ML IV (09:16)
[2025-02-04] MEDS: SODIUM CHLORIDE 0.9% 10ML SYR (RAD ONLY) 10 ML IV (09:16)
--- NOTE | 2025-02-04 09:27 | PC.NURSE ---
Pt up to bathroom, attempting to collect UA/Diarrhea panel.
[2025-02-04 09:43] LABS: Adenovirus F 40/41, stool Not Detected (NotDetected); Clostridium Difficile A/B, PCR Not Detected (NotDetected); Cyclospora Cayetanesis Not Detected (NotDetected); Plesimonas Shigalloides, PCR Not Detected (NotDetected); Salmonella, PCR Not Detected (NotDetected); Shiga-like toxin E coli Not Detected (NotDetected); Shigella Enterovasive E coli Not Detected (NotDetected); Vibrio, PCR Not Detected (NotDetected); Yersinia Entercolitica, PCR Not Detected (NotDetected)
[2025-02-04 09:59] LABS: Hepatitis C Ab Qual. W/ RFX NEGATIVE (Negative)
--- NOTE | 2025-02-04 10:23 | PC.NURSE ---
Rounded on pt. Pt still unable to urinate to provide UA.
[2025-02-04 11:19] LABS: Microscopic, Urine URINE MICROSCOPIC (MICROSCOPIC)
--- NOTE | 2025-02-04 11:20 | PC.NURSE ---
Contacted lab about UA results, Eliana states that the analyzer had been down and results should be released soon.
[2025-02-04 11:34] LABS: Bilirubin,Urine Negative (Negative); Color,Urine YELLOW (Yellow); Glucose,Urine (UA) Negative (Negative); Ketones,Urine Negative (Negative); Leukocyte Esterase,Urine Negative (Negative); PH,Urine 6.0 (5.0-8.5); Protein,Urine Negative (Negative); Specific Gravity, Urine <= 1.005 (1.005-1.030); Urobilinogen,Urine 0.2 EU/dl (0.2)
--- NOTE | 2025-02-04 21:22 | PC.NURSE ---
0hrs- received call from Emmie in the Lab regarding results of a diarrhea
== END 2025-02-04 12:00 | disposition home or self-care (01) ==
PROVIDERS: Emergency Provider Student in an Organized Health Care Education/Training Program; PCP Nurse Practitioner Family
DX: K92.1 Melena (principal); A04.0 Enteropathogenic Escherichia coli infection; R19.7 Diarrhea, unspecified
CPT/HCPCS: 74177; 80053; 81001; 83690; 85025; 86140; 86803; 87389; 87507; 99284; Q9967

== ENCOUNTER 2025-02-27 13:00 | Inpatient (IN) | payer MEDICARE, MEDICAID, SELFPAY ==
--- OUTSIDE RECORDS SUMMARY | 2017-01-31 09:00 | XMS_ITS | Encounter Summary ---
[facility] [address] [place] [address] Care Team Providers Care Line Tester Name Role Phone Danielle Mora Jannette LORENZO Primary Care Provid er Encounter Details Date Type Department Care Team (Late st Contact Info) Description 01/31/2017 9:00 AM EDT Hospital Encounter [facility] PULMONARY & CRITICAL CARE MEDICINE [address] [place] [address] Social History Tobacco Use Types [...] on filedocumented in this encounter Care Teams Line Tester Relationship Specialty Start Date End Date Danielle Mora APRN [address] [place] [address] [place] [address] PCP - General Family Medicine 12/02/15 documented as of this encounter
--- OUTSIDE RECORDS SUMMARY | 2017-01-31 09:00 | XMS_ITS | Encounter Summary ---
[facility] [address] [place] [address] Care Team Providers Care Zinc Plater Name Role Phone Danilele Mora Jannette LORENZO Primary Care Provid er Encounter Details Date Type Department Care Team (Late st Contact Info) Description 01/31/2017 9:00 AM EDT Hospital Encounter [facility] PULMONARY & CRITICAL CARE MEDICINE [address] [place] [address] Social History Tobacco Use Types [...] on filedocumented in this encounter Care Teams Zinc Plater Relationship Specialty Start Date End Date Danielle Mora APRN [address] [place] [address] [place] [address] PCP - General Family Medicine 12/02/15 documented as of this encounter
[2025-02-27] VITALS (18 sets, daily range): BP systolic 114–169; BP diastolic 69–97; PULSE 75–109; RESP 14–84; TEMP -7.2–36.9; O2SAT 94–100; BMI 54.5; BMI 52.6
--- NOTE | 2025-02-27 13:10 | CT_ITS ---
FINAL REPORT CLINICAL HISTORY: headache COMPARISON: None FINDINGS: CTA HEAD TECHNIQUE: Thin section axial CT with contrast with 3D MIP reconstruction This study was performed with techniques to keep radiation doses as low as reasonably achievable, (ALARA). Individualized dose reduction techniques using automated exposure control or adjustment of mA and/or kV according to the patient's size were employed. FINDINGS: No aneurysm is seen. Major intracranial vessels are patent without significant stenosis. . IMPRESSION: Unremarkable This study was performed using automated techniques to achieve radiation exposure as low as reasonably achievable Reviewed, Interpreted and Dictated by Ethel Peña MD Transcribed by Amarilys Daniel Authenticated and [facility]
--- NOTE | 2025-02-27 13:10 | CT_ITS ---
FINAL REPORT CLINICAL HISTORY: headache COMPARISON: None FINDINGS: CT NECK ANGIO, WITHOUT AND WITH CONTRAST TECHNIQUE: Thin section axial CT with contrast with multiplanar 3D MIP reconstruction. This study was performed with techniques to keep radiation doses as low as reasonably achievable, (ALARA). Individualized dose reduction techniques using automated exposure control or adjustment of mA and/or kV according to the patient's size were employed. NASCET criteria and technique was utilized during interpretation. FINDINGS: Aortic arch: Arch shows no significant narrowing. Great vessel origins are widely patent. Right carotid: No significant stenosis is seen of the cervical common or internal carotid artery. Left carotid: No significant stenosis is seen of the cervical common or internal carotid artery. Vertebrals: Left vertebral artery is dominant. No significant stenosis is present. IMPRESSION: No significant stenosis of the cervical carotid arteries This study was performed using automated techniques to achieve radiation exposure as low as reasonably Reviewed, Interpreted and Dictated by Ethel Peña MD Transcribed by Amarilys Daniel Authenticated and [facility]
--- OUTSIDE RECORDS SUMMARY | 2025-02-27 13:11 | XMS_ITS | Encounter Summary ---
[facility] Organization [facility] Address [address] [place] [address] Care Team Providers Care Pecan Mallow Dipper Name Role Phone Danielle Mora APRN Primary Care Provid er Encounter Details Date Type Department Care Team (Late st Contact Info) Description 10/19/2014 External CPT II TRANSITION ADVISOR - [facility] Social History Tobacco Use [...] on filedocumented in this encounter Care Teams Pecan Mallow Dipper Relationship Specialty Start Date End Date Danielle Mora APRN [address] [facility] [address] [place] [id number] PCP - General Family Medicine 12/02/15 documented as of this encounter
--- OUTSIDE RECORDS SUMMARY | 2025-02-27 13:11 | XMS_ITS | Encounter Summary ---
[facility] Address [address] [place] [address] Care Team Providers Care Distribution Analyst Name Role Phone Danielle Mora APRN Primary Care Provid er Encounter Details Date Type Department Care Team (Late st Contact Info) Description 01/13/2015 External CPT II TRANSIT PLANNING MANAGER - [facility] Social History Tobacco [...] on filedocumented in this encounter Care Teams Distribution Analyst Relationship Specialty Start Date End Date Danielle Mora APRN [address] [facility] [address] [place] [id number] PCP - General Family Medicine 12/02/15 documented as of this encounter
--- OUTSIDE RECORDS SUMMARY | 2025-02-27 13:11 | XMS_ITS | Encounter Summary ---
[facility] Address [address] [place] [address] Care Team Providers Care Fresh Foods Clerk Name Role Phone Danielle Mora APRN Primary Care Provid er Encounter Details Date Type Department Care Team (Late st Contact Info) Description 11/27/2016 External CPT II STENCIL INSPECTOR - [facility] Social History Tobacco Use [...] on filedocumented in this encounter Care Teams Fresh Foods Clerk Relationship Specialty Start Date End Date Danielle Mora APRN [address] [place] [id number] PCP - General Family Medicine 12/02/15 documented as of this encounter
--- OUTSIDE RECORDS SUMMARY | 2025-02-27 13:11 | XMS_ITS | Encounter Summary ---
[facility] Address [address] [place] [address] Care Team Providers Care Pipe Racker Name Role Phone Danielle Mora APRN Primary Care Provid er Encounter Details Date Type Department Care Team (Late st Contact Info) Description 03/03/2015 External CPT II ON SITE WASTEWATER SYSTEMS TECHNICIAN - [facility] Social History Tobacco Use [...] on filedocumented in this encounter Care Teams Pipe Racker Relationship Specialty Start Date End Date Danielle Mora APRN [address] [facility] [address] [place] [id number] PCP - General Family Medicine 12/02/15 documented as of this encounter
--- OUTSIDE RECORDS SUMMARY | 2025-02-27 13:11 | XMS_ITS | Clinical Summary ---
Author Organization [facility] Address [address] [place] [address] Care Team Providers Care Data Management Specialist Name Role Phone Danielle Mora Jannette LORENZO [...] ANNUAL PHYSICAL 12/14/2016 HEPATITIS C SCREENING 12/14/2016 INFLUENZA VACCINE 01/09/2025 04/25/2017 Pneumococcal Vaccine 0-49 Aged Out No longer eligible based on patient's age to complete this topic Insurance [place] [id number] MEDICARE A & B MEDICAID [place] Care Teams Data Management Specialist Relationship Specialty Start Date End Date Danielle Mora APRN [address] [facility] [address] [place] [id number] PCP - General Family Medicine 12/02/15
--- OUTSIDE RECORDS SUMMARY | 2025-02-27 13:11 | XMS_ITS | Clinical Summary ---
Author Organization [facility] Address [address] [facility], [address] [place] [id number] Care Team Providers Care Retread Builder Name Role Phone Unavailable Primary Care Provider [...] Comments DTaP/Tdap/Td vaccine (1 - Tdap) 2005 Flu vaccine (#1) 01/09/2025 04/25/2017 COVID-19 Vaccine (2023-2 5 season) 2025 Polio vaccine Aged Out No longer catg josette based on patient's age to complete this topic
--- NOTE | 2025-02-27 13:16 | CT_ITS ---
FINAL REPORT TECHNIQUE: Noncontrast exam This study was performed with techniques to keep radiation doses as low as reasonably achievable, (ALARA). Individualized dose reduction techniques using automated exposure control or adjustment of mA and/or kV according to the patient's size were employed. CLINICAL HISTORY: headache vision changes COMPARISON: None FINDINGS: No abnormal density is seen. Ventricles are normal. There is no hemorrhage. No mass effect is seen. Bone windows show no evidence of fracture. IMPRESSION: No acute findings Reviewed, Interpreted and Dictated by Ethel Peña MD Transcribed by Amarilys Daniel Authenticated and [facility]
--- NOTE | 2025-02-27 13:20 | CT_ITS ---
FINAL REPORT TECHNIQUE: Thin section axial CT with contrast with multiplanar reconstruction This study was performed with techniques to keep radiation doses as low as reasonably achievable, (ALARA). Individualized dose reduction techniques using automated exposure control or adjustment of mA and/or kV according to the patient's size were employed. CLINICAL HISTORY: short of breath COMPARISON: None FINDINGS: Pulmonary vessels enhance in normal fashion without evidence of embolism. Thoracic aorta shows no dissection or aneurysm. There is a 60% left pneumothorax without a significant tension component. There are multiple areas of underlying bullous changes that could indicate EASTON, or alpha antitrypsin deficiency. There are parenchymal opacities present in the left upper lobe, which could be secondary to partial collapse or underlying infection. There is no significant pleural effusion. There is no significant pericardial effusion. No mediastinal or hilar adenopathy is present. IMPRESSION: 1. 60% left pneumothorax without a significant tension component. 2. No evidence of pulmonary emboli. 3. Underlying bullous changes which could indicate EASTON or alpha antitrypsin deficiency. Reviewed, Interpreted and Dictated by Ethel Peña MD Transcribed by Amarilys Daniel Authenticated and . [facility]
[2025-02-27 13:25] LABS: Hematocrit 50.4 % (42.0-52.0); Hemoglobin 16.5 g/dL (14.1-18.0); Immature Granulocytes % 0.5 %; Mean Corpuscular HGB Conc 32.7 g/dL (31.8-35.4); Mean Corpuscular Hemoglobin 27.7 pg (27.0-31.2); Mean Corpuscular Volume 84.7 fl (80-94); Nucleated Red Blood Cells % 0 %; Platelet Count 446 K/mm3 (142-424); Red Blood Count 5.95 M/mm3 (4.60-6.20); Red Cell Distribution Width-SD 49.7 fL; White Blood Count 15.1 K/mm3 (4.8-10.8)
--- NOTE | 2025-02-27 13:28 | ED_ITS ---
Discharge Plan Disposition Patient Disposition: Admitted Clinical Impressions Clinical Impression: Pneumothorax on left Discharge ED Provider: Garry Meléndez General Adult HPI <Lisa Velasco (ED), [employer] SERV[employer] CONSULTANT - Last Filed: 02/27/25 22:34> General Chief complaint: Headache Stated complaint: sob, Lt side headache, blurred vision Time Seen by Provider: 02/27/25 13:04 Mode of Arrival: Ambulatory Source of Information: Patient Description of Symptoms (Recalled from ER Triage Doc. by RN): Patient presents to ED with c/o left sided headache, blurry vision in the left eye as well as sensitivity to light. patient reports hx of migraines but states this feels different. Patient denies chest pain, reports mild SOA and cough. Patient denies any additional complaints. History of Present Illness HPI narrative: 39-year-old male presents to the ED for complaint of headache on his left side. He does have blurry vision in his left eye and has sensitivity to light. He says it is sharp head pain that is 8 out of 10 with the blurry vision. He says the blurry vision is coming and going at this point. He does have a history of migraines but none of them are like this. He also complains of shortness of breath for the past 2 days with cough. 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 He denies any weakness or numbness. He says he was sitting in his truck when this started this morning. He does have hypertension that he takes lisinopril for. Location: head Severity scale (1-10): 6 Quality: sharp Consistency: intermittent Related Data Home Medications ?Medication ?Instructions ?Recorded ?Confirmed cetirizine 10 mg tablet (Zyrtec) 10 mg PO DAILY PRN al lergies 02/12/24 02/27/25 montelukast 10 mg tablet 10 mg PO DAILY 02/12/2402/09 albuterol sulfate 90 mcg/actuation 90 mcg inhalation D AILY PRN Asthma 05/14/24 02/27/25 aerosol inhaler ibuprofen 600 mg tablet 600 mg PO DAILY PRN Pain 10/0202/27/25 levocetirizine 5 mg tablet 5 mg PO DAILY 05/14/2402/09 meloxicam 7.5 mg tablet 7.5 mg PO DAILY 02/26/25 guaifenesin 400 mg tablet 400 mg PO Q4H PRN Cough 02/0902/27/25 Previous Rx's ?Medication ?Instructions ?Recorded baclofen 10 mg tablet 10 mg PO TID PRN muscle spas m #30 12/11/23 tabs omeprazole 20 mg capsule,delayed 40 mg (2 x 20 mg) PO DAILY #30 caps 02/12/24 release ipratropium 0.5 mg-albuterol 3 mg 3 ml inhalation Q6H PRN shortness 07/09/24 (2.5 mg base)/3 mL nebulization of breath or wheezing #90 mL soln budesonide 160 mcg-glycopyr 9 2 inh inhalation BID 90 days #10.7 10/20/24 mcg-formot 4.8 mcg/actuation HFA grams inhaler (Breztri Aerosphere) azelastine 137 mcg (0.1 %) nasal 2 spray intranasal HS 90 days #30 10/21/24 spray mL famotidine 40 mg tablet See Rx Instructions .Route 0 12/15/24 .COMPLEX #30 tabs furosemide 40 mg tablet (Lasix) 40 mg PO DAILY #90 tab s 01/12/25 lisinopril 5 mg tablet 5 mg PO DAILY #90 tabs 01/12 Allergies Allergy/AdvReac Type Severity Reaction Status Date / Time Penicillins (PENICILLINS) Allergy Unknown Swelling Verified 02/26/25 13:02 of Lip/Tongue/Throat pseudoephedrine (From Allergy Swelling Verified 02/26/25 13:02 Sudafed) of the Eye [facility] <Lisa Velasco (RAYO), SQL SERVER CONSULTANT - Last Filed: 02/27/25 22:34> [facility] Disclaimer: The information contained in this section may have been updated after the patient was seen, as this information can be updated by other users. Medical History HTN (hypertension) Acute dyspnea Vocal cord edema Difficulty swallowing Hoarseness History of inguinal hernia Murmur Elevated BP without diagnosis of hypertension Restrictive lung disease Cystic-bullous disease of lung Tobacco use Edema Encounter for pre-operative cardiovascular clearance Tachycardia Abnormality of lung on CXR Decreased diffusion capacity of lung Allergic rhinitis Dyspnea on exertion Migraine COPD (chronic obstructive pulmonary disease) Asthma Surgical History History of lymph node excision neck History of lung surgery History of dental surgery History of tonsillectomy Family History Other Asthma Cancer Diabetes Heart attack Hypertension Social History Smoking Status: Current every day smoker tobacco type: cigarettes packs per day: 1 alcohol intake: never substance use type: denies use current occupational status: employed and other Travel in the last 8 weeks?: Inside the [place] housing: house Have you lived/traveled outside US in past 30 days?: No Contact w/someone who lives/traveled outside US past 30 days?: No Exposure to someone with infectious disease in past 14 days?: No Do you have a fever (greater than 100.4 F or 38 C)?: No Have you tested positive for COVID-19?: No Exposed to someone with COVID-19 in past 14 days?: No Do you have a sore throat?: No Do you have a cough?: No Do you have any weakness?: No Do you have any diarrhea?: No Are you experiencing any unusual bleeding?: No Do you have any muscle aches/pain?: No Do you have any abdominal pain?: No Are you experiencing loss of taste or smell?: No Other Medical History Have you received the Flu Vaccine for this season: No Have you received the Pneumonia Vaccine: No <Lisa Velasco (ED), SQL SERVER CONSULTANT - Last Filed: 02/27/25 22:34> ROS Obtained: Yes Systems reviewed as appropriate & no additional complaints except as documented Constitutional Constitutional: Reports as per HPI Physical Exam <Lisa Velasco (ED), SQL SERVER CONSULTANT - Last Filed: 02/27/25 22:34> General General appearance: alert Head Head exam: atraumatic and normocephalic Eye Eye exam: Present normal appearance, PERRL and EOMI ENT ENT exam: Present normal oropharynx and mucous membranes moist Neck Neck exam: Present full ROM and trachea midline Respiratory Respiratory exam: Present normal lung sounds bilaterally and other (Rhonchi throughout) Cardiovascular Cardiovascular exam: Present normal rhythm, tachycardia, normal heart sounds, +S1 and +S2 Abdominal Exam Abdominal exam: Present soft and normal bowel sounds Extremities Exam Extremities exam: Present normal inspection, full ROM and normal capillary refill Neurological Exam Neurological exam: Present alert, oriented X3 and normal gait Skin Skin exam: Present warm, dry and intact Medical Decision Making <Lisasapna Ernandezsoha (ED), SQL SERVER CONSULTANT - Last Filed: 02/27/25 22:34> Medical Records Screening: Per USPSTF and CDC recommendations, given the prevalence of disease in our region, it is our hospital?s policy to screen for HIV and viral Hepatitis for all patients aged 18 and over and those with ongoing risk factors. Mo Inquiry Pt receiving controlled substance: No Mo was queried for this patient: No Vital Signs: 02/27/25 13:11 02/27/25 13:16 02/27/25 13:20 Temperature 97.9 F 19 F L Temperature Source Oral Pulse Rate 109 H 109 H Pulse Rate [Left] 105 H Respiratory Rate 19 19 Blood Pressure 129/89 138/88 Blood Pressure [Right Arm] 169/97 H Blood Pressure Mean 102 101 Blood Pressure Mean [Right Arm] 121 Blood Pressure Source [Right Arm] Automatic Cuff Blood Pressure Position [Right Arm] Sitting 02 Sat by Pulse Oximetry 95 94 L 94 L Oxygen Delivery Method Room Air Room Air Room Air 02/27/25 13:40 02/27/25 14:00 02/27/25 14:36 Temperature Temperature Source Pulse Rate 107 H 103 H 96 H Pulse Rate [Left] Respiratory Rate 24 84 H 28 H Blood Pressure 147/93 H 162/87 H 151/95 H Blood Pressure [Right Arm] Blood Pressure Mean 110 114 110 Blood Pressure Mean [Right Arm] Blood Pressure Source [Right Arm] Blood Pressure Position [Right Arm] 02 Sat by Pulse Oximetry 94 L 96 100 Oxygen Delivery Method Room Air Room Air 02/27/25 15:00 02/27/25 15:45 02/27/25 15:45 Temperature Temperature Source Pulse Rate 99 H 86 Pulse Rate [Left] 85 Respiratory Rate 24 21 19 Blood Pressure 153/91 H Blood Pressure [Right Arm] 127/79 Blood Pressure Mean 106 Blood Pressure Mean [Right Arm] 95 Blood Pressure Source [Right Arm] Automatic Cuff Blood Pressure Position [Right Arm] 02 Sat by Pulse Oximetry 100 100 98 Oxygen Delivery Method Non-Rebreather 02/27/25 16:00 02/27/25 16:15 02/27/25 16:30 Temperature Temperature Source Pulse Rate 81 86 83 Pulse Rate [Left] Respiratory Rate 26 H 31 H 25 H Blood Pressure Blood Pressure [Right Arm] Blood Pressure Mean Blood Pressure Mean [Right Arm] Blood Pressure Source [Right Arm] Blood Pressure Position [Right Arm] 02 Sat by Pulse Oximetry 99 99 98 Oxygen Delivery Method Non-Rebreather Non-Rebreather Non-Rebreather 02/27/25 17:28 Temperature 98.1 F Temperature Source Oral Pulse Rate 75 Pulse Rate [Left] Respiratory Rate 20 Blood Pressure 115/81 Blood Pressure [Right Arm] Blood Pressure Mean Blood Pressure Mean [Right Arm] Blood Pressure Source [Right Arm] Blood Pressure Position [Right Arm] 02 Sat by Pulse Oximetry Oxygen Delivery Method Room Air Lab Data Lab Results 02/27/25 13:16: WBC 15.1 H, RBC 5.95, Hgb 16.5, Hct 50.4, MCV 84.7, MCH 27.7, MCHC 32.7, RDW 16.6, Plt Count 446 H, MPV 10.1, Neut % (Auto) 84.0 H, Lymph % (Auto) 8.7 L, Coles % (Auto) 5.3, Eos % (Auto) 1.1, Baso % (Auto) 0.4, Neut # (Auto) 12.7 H, Lymph # (Auto) 1.3, Coles # (Auto) 0.8, Eos # (Auto) 0.2, Baso # (Auto) 0.1, Sodium 140, Potassium 3.8, Chloride 103, Carbon Dioxide 25, Anion Gap 15.8 H, BUN 12, Creatinine 1.10, Estimated Creat Clear 85, Estimated GFR 75, Est GFR ( Amer) 91, Glucose 115 H, Calcium 9.4, Magnesium 1.9, Total Bilirubin 0.8, AST 28, ALT 29, Alkaline Phosphatase 51, Troponin I < 0.01, NT-Pro-B Natriuret Pep 30.3, Total Protein 7.5, Albumin 4.6, Globulin 2.9, Albumin/Globulin Ratio 1.6, Lipase 30 02/27/25 16:30: Troponin I < 0.01 02/27/25 13:16 02/27/25 13:16 Orders (Tests/Meds): ED MEDICATIONS Generic Name Dose Route Start Last Admin Trade Name Denise PRN Reason Stop Dose Admin Acetaminophen 650 mg 02/27/25 14:53 Acetaminophen 325mg Tab PO 03/29/25 14:52 Q4HP PRN Fever or Mild Pain (1-3) Hydrocodone Bitart/Acetaminophen 1 tab 02/27/25 14:53 02/27/25 20:26 Hydrocodone/Apap 5/325 Mg Tablet PO 03/29/25 14:52 1 tab Q4HP PRN Administration Mild to Moderate Pain (1-6) Enoxaparin Sodium 60 mg 02/27/25 21:00 02/27/25 21:16 Enoxaparin 60mg/0.6ml Syringe SUBCUT 03/29/25 20:59 60 mg BID YOLANDA Administration Ceftriaxone Sodium 1 gm/ 50 mls @ 100 mls/hr 02/27/25 19:00 02/27/25 20:33 Sodium Chloride IV 03/09/25 18:59 Infused Q24H YOLANDA Infusion Morphine Sulfate 4 mg 02/27/25 14:53 Morphine 4mg/Ml Syringe IV 03/29/25 14:52 Q4HP PRN Severe Pain (7-10) Nicotine 21 mg 02/27/25 14:53 02/27/25 20:26 Nicotine 21mg/24hr Patch TD 03/29/25 14:52 21 mg DAILYP PRN Administration Nicotine Cravings Discontinued Medications Generic Name Dose Route Start Last Admin Trade Name Denise PRN Reason Stop Dose Admin Hydromorphone HCl 0.5 mg 02/27/25 16:02 02/27/25 16:28 Hydromorphone 2mg/Ml Syringe IV 02/27/25 16:03 0.5 mg ONCE ONE Administration Iopamidol 80 ml 02/27/25 13:54 02/27/25 13:56 Iopamidol-370 (76%);100ml Bottle IV 02/27/25 13:55 80 ml ONCE ONE Administration Iopamidol 80 ml 02/27/25 13:55 02/27/25 13:56 Iopamidol-370 (76%);100ml Bottle IV 02/27/25 13:56 80 ml ONCE ONE Administration Sodium Chloride 50 ml 02/27/25 13:54 02/27/25 13:55 0.9 % Sodium Chloride 50 Ml Vial IV 02/27/25 13:55 50 ml ONCE ONE Administration Sodium Chloride 10 ml 02/27/25 13:54 02/27/25 13:55 Sodium Chloride 0.9% 10ml Syr (Rad Only) IV 02/27/25 13:55 10 ml ONCE ONE Administration Sodium Chloride 50 ml 02/27/25 13:55 02/27/25 13:56 0.9 % Sodium Chloride 50 Ml Vial IV 02/27/25 13:56 50 ml ONCE ONE Administration ORDERS Category Date Time Status CT angio chest PE protocol Stat Cat Scan 02/27/25 13:[address] angio head Stat Cat Scan 02/27/25 13:[address] angio neck Stat Cat Scan 02/27/25 13:[address] head/brain wo con Stat Cat Scan 02/27/25 13:16 Completed Surgery Consult (on-call) [Consult to On-Call Gen'l Cons 02/27/25 14:53 Ordered Surgeon] [CONS] Routine Chest XR -- portable [XR chest portable] Stat Exams 02/27/25 15:27 Completed XR chest portable DAILY Exams 02/28/25 06:00 Ordered XR chest portable DAILY Exams 03/01/25 06:00 Ordered XR chest portable DAILY Exams 03/02/25 06:00 Ordered BNP [NT Pro Brain Natriuretic Pep.] Stat Lab 02/27/25 13:16 Completed CBC [Complete Blood Count Auto Diff] Stat Lab 02/27/25 13:16 Completed Complete Blood Count Auto Diff AMLAB Lab 02/28/25 06:00 Ordered Comprehensive Metabolic Panel AMLAB Lab 02/28/25 06:00 Ordered Comprehensive Metabolic Panel Stat Lab 02/27/25 13:16 Completed Lipase Stat Lab 02/27/25 13:16 Completed Magnesium AMLAB Lab 02/28/25 06:00 Ordered Magnesium Stat Lab 02/27/25 13:16 Completed Trop I [Troponin I] Stat Lab 02/27/25 13:16 Completed Troponin I Q3H Lab 02/27/25 16:30 Completed Troponin I Q3H Lab 02/27/25 19:56 Completed Medical Decision Narrative: patient is a 39-year-old male presenting to the emergency department for evaluation of headache on the left side of his head and blurry vision in his left eye since this morning. Patient is hemodynamically stable and nontoxic- appearing upon arrival, afebrile. Differential diagnosis includes migraine,stroke, aneurysm, copd exac, among others. Workup will be conducted with hematologic labs, specific imaging. Initial inventions include crystalloid bolus, analgesics. Initial workup reviewed by me hematologic labs are remarkable for white count 15.1. Imaging informally read by myself and Dr Meléndez, patient has a pneumothorax on the left that will need a chest tube. Discussed this with the patient. Also, discussed with Dr Canales. Dr Meléndez has talked to [place]. Dr Stallings also in the ER and we talked to him about keeping patient here once CT placed. Dr. Meléndez placed the chest tube. Patient will be admitted to hospital. <Garry Meléndez MD - Last Filed: 02/27/25 16:21> Vital Signs: 02/27/25 13:11 02/27/25 13:16 02/27/25 13:20 Temperature 97.9 F 19 F L Temperature Source Oral Pulse Rate 109 H 109 H Pulse Rate [Left] 105 H Respiratory Rate 19 19 Blood Pressure 129/89 138/88 Blood Pressure [Right Arm] 169/97 H Blood Pressure Mean 102 101 Blood Pressure Mean [Right Arm] 121 Blood Pressure Source [Right Arm] Automatic Cuff Blood Pressure Position [Right Arm] Sitting 02 Sat by Pulse Oximetry 95 94 L 94 L Oxygen Delivery Method Room Air Room Air Room Air 02/27/25 13:40 02/27/25 14:00 02/27/25 14:36 Temperature Temperature Source Pulse Rate 107 H 103 H 96 H Pulse Rate [Left] Respiratory Rate 24 84 H 28 H Blood Pressure 147/93 H 162/87 H 151/95 H Blood Pressure [Right Arm] Blood Pressure Mean 110 114 110 Blood Pressure Mean [Right Arm] Blood Pressure Source [Right Arm] Blood Pressure Position [Right Arm] 02 Sat by Pulse Oximetry 94 L 96 100 Oxygen Delivery Method Room Air Room Air 02/27/25 15:00 02/27/25 15:45 02/27/25 15:45 Temperature Temperature Source Pulse Rate 99 H 86 Pulse Rate [Left] 85 Respiratory Rate 24 21 19 Blood Pressure 153/91 H Blood Pressure [Right Arm] 127/79 Blood Pressure Mean 106 Blood Pressure Mean [Right Arm] 95 Blood Pressure Source [Right Arm] Automatic Cuff Blood Pressure Position [Right Arm] 02 Sat by Pulse Oximetry 100 100 98 Oxygen Delivery Method Non-Rebreather 02/27/25 16:00 02/27/25 16:15 02/27/25 16:30 Temperature Temperature Source Pulse Rate 81 86 83 Pulse Rate [Left] Respiratory Rate 26 H 31 H 25 H Blood Pressure Blood Pressure [Right Arm] Blood Pressure Mean Blood Pressure Mean [Right Arm] Blood Pressure Source [Right Arm] Blood Pressure Position [Right Arm] 02 Sat by Pulse Oximetry 99 99 98 Oxygen Delivery Method Non-Rebreather Non-Rebreather Non-Rebreather 02/27/25 17:28 Temperature 98.1 F Temperature Source Oral Pulse Rate 75 Pulse Rate [Left] Respiratory Rate 20 Blood Pressure 115/81 Blood Pressure [Right Arm] Blood Pressure Mean Blood Pressure Mean [Right Arm] Blood Pressure Source [Right Arm] Blood Pressure Position [Right Arm] 02 Sat by Pulse Oximetry Oxygen Delivery Method Room Air Lab Data Lab results reviewed: Yes I reviewed the patient's lab results. Lab Results 02/27/25 13:16: WBC 15.1 H, RBC 5.95, Hgb 16.5, Hct 50.4, MCV 84.7, MCH 27.7, MCHC 32.7, RDW 16.6, Plt Count 446 H, MPV 10.1, Neut % (Auto) 84.0 H, Lymph % (Auto) 8.7 L, Coles % (Auto) 5.3, Eos % (Auto) 1.1, Baso % (Auto) 0.4, Neut # (Auto) 12.7 H, Lymph # (Auto) 1.3, Coles # (Auto) 0.8, Eos # (Auto) 0.2, Baso # (Auto) 0.1, Sodium 140, Potassium 3.8, Chloride 103, Carbon Dioxide 25, Anion Gap 15.8 H, BUN 12, Creatinine 1.10, Estimated Creat Clear 85, Estimated GFR 75, Est GFR ( Amer) 91, Glucose 115 H, Calcium 9.4, Magnesium 1.9, Total Bilirubin 0.8, AST 28, ALT 29, Alkaline Phosphatase 51, Troponin I < 0.01, NT-Pro-B Natriuret Pep 30.3, Total Protein 7.5, Albumin 4.6, Globulin 2.9, Albumin/Globulin Ratio 1.6, Lipase 30 02/27/25 16:30: Troponin I < 0.01 Orders (Tests/Meds): ED MEDICATIONS Generic Name Dose Route Start Last Admin Trade Name Freq PRN Reason Stop Dose Admin Acetaminophen 650 mg 02/27/25 14:53 Acetaminophen 325mg Tab PO 03/29/25 14:52 Q4HP PRN Fever or Mild Pain (1-3) Hydrocodone Bitart/Acetaminophen 1 tab 02/27/25 14:53 02/27/25 20:26 Hydrocodone/Apap 5/325 Mg Tablet PO 03/29/25 14:52 1 tab Q4HP PRN Administration Mild to Moderate Pain (1-6) Enoxaparin Sodium 60 mg 02/27/25 21:00 02/27/25 21:16 Enoxaparin 60mg/0.6ml Syringe SUBCUT 03/29/25 20:59 60 mg BID YOLANDA Administration Ceftriaxone Sodium 1 gm/ 50 mls @ 100 mls/hr 02/27/25 19:00 02/27/25 20:33 Sodium Chloride IV 03/09/25 18:59 Infused Q24H YOLANDA Infusion Morphine Sulfate 4 mg 02/27/25 14:53 Morphine 4mg/Ml Syringe IV 03/29/25 14:52 Q4HP PRN Severe Pain (7-10) Nicotine 21 mg 02/27/25 14:53 02/27/25 20:26 Nicotine 21mg/24hr Patch TD 03/29/25 14:52 21 mg DAILYP PRN Administration Nicotine Cravings Discontinued Medications Generic Name Dose Route Start Last Admin Trade Name Denise PRN Reason Stop Dose Admin Hydromorphone HCl 0.5 mg 02/27/25 16:02 02/27/25 16:28 Hydromorphone 2mg/Ml Syringe IV 02/27/25 16:03 0.5 mg ONCE ONE Administration Iopamidol 80 ml 02/27/25 13:54 02/27/25 13:56 Iopamidol-370 (76%);100ml Bottle IV 02/27/25 13:55 80 ml ONCE ONE Administration Iopamidol 80 ml 02/27/25 13:55 02/27/25 13:56 Iopamidol-370 (76%);100ml Bottle IV 02/27/25 13:56 80 ml ONCE ONE Administration Sodium Chloride 50 ml 02/27/25 13:54 02/27/25 13:55 0.9 % Sodium Chloride 50 Ml Vial IV 02/27/25 13:55 50 ml ONCE ONE Administration Sodium Chloride 10 ml 02/27/25 13:54 02/27/25 13:55 Sodium Chloride 0.9% 10ml Syr (Rad Only) IV 02/27/25 13:55 10 ml ONCE ONE Administration Sodium Chloride 50 ml 02/27/25 13:55 02/27/25 13:56 0.9 % Sodium Chloride 50 Ml Vial IV 02/27/25 13:56 50 ml ONCE ONE Administration ORDERS Category Date Time Status CT angio chest PE protocol Stat Cat Scan 02/27/25 13:[address] angio head Stat Cat Scan 02/27/25 13:[address] angio neck Stat Cat Scan 02/27/25 13:[address] head/brain wo con Stat Cat Scan 02/27/25 13:16 Completed Surgery Consult (on-call) [Consult to On-Call Gen'l Cons 02/27/25 14:53 Ordered Surgeon] [CONS] Routine Chest XR -- portable [XR chest portable] Stat Exams 02/27/25 15:27 Completed XR chest portable DAILY Exams 02/28/25 06:00 Ordered XR chest portable DAILY Exams 03/01/25 06:00 Ordered XR chest portable DAILY Exams 03/02/25 06:00 Ordered BNP [NT Pro Brain Natriuretic Pep.] Stat Lab 02/27/25 13:16 Completed CBC [Complete Blood Count Auto Diff] Stat Lab 02/27/25 13:16 Completed Complete Blood Count Auto Diff AMLAB Lab 02/28/25 06:00 Ordered Comprehensive Metabolic Panel AMLAB Lab 02/28/25 06:00 Ordered Comprehensive Metabolic Panel Stat Lab 02/27/25 13:16 Completed Lipase Stat Lab 02/27/25 13:16 Completed Magnesium AMLAB Lab 02/28/25 06:00 Ordered Magnesium Stat Lab 02/27/25 13:16 Completed Trop I [Troponin I] Stat Lab 02/27/25 13:16 Completed Troponin I Q3H Lab 02/27/25 16:30 Completed Troponin I Q3H Lab 02/27/25 19:56 Completed Procedures <Garry Meléndez MD - Last Filed: 02/27/25 16:21> Chest Tube Chest Tube 1: Chest tube type: [id number] Chest Tube Location: left Chest Tube Prep: Yes other Local Anesthetic: lidocaine 1% and with epi Amount of anesthesia used (mL): 10 Incision Made With: #11 blade Post Procedure: sutured to skin Tube Drainage: other (air ) Post Procedure CXR?: Yes Patient Tolerated Procedure: Yes Complications: pain (patient feels better, body habitus limited a significant portion of the catheter to be in the chest cavity however pig tail is within the pleural space itself with good air return and symptomatic improvement ) Critical Care <Lisa Velasco (ED), [employer] SERV[employer] CONSULTANT - Last Filed: 02/27/25 22:34> Critical Care Time Critical Care Time: No
[2025-02-27 13:29] LABS: Albumin Level 4.6 g/dl (3.5-5.0); Chloride 103 mmol/L (98-107)
[2025-02-27 13:30] LABS: Potassium 3.8 mmoL/L (3.5-5.1); Sodium 140 mmol/L (136-145)
[2025-02-27 13:32] LABS: Alanine Aminotransferase 29 U/L (12-78); Albumin/Globulin Ratio 1.6 (1.1-1.8); Alkaline Phosphatase 51 U/L (38-126); Anion Gap 15.8 mEq/L (5-15); Aspartate Amino Transferase 28 U/L (17-59); Bilirubin,Total 0.8 mg/dl (0.2-1.3); Blood Urea Nitrogen 12 mg/dl (9-20); Carbon Dioxide 25 mmol/L (22.0-30.0); Creatinine Clearance Estimated 85 mL/min (50-200); Creatinine,Serum 1.10 mg/dl (0.66-1.25); Estimated Glomerular Filt Rate 75 ml/min (>60); GFR (African American) 91 ML/MIN (>60); Globulin 2.9 g/dL (1.3-3.2); Total Protein,Serum 7.5 g/dl (6.3-8.2)
[2025-02-27 13:33] LABS: Calcium 9.4 mg/dl (8.4-10.2); Glucose 115 mg/dl (74-100); Lipase 30 U/L (23-300); Magnesium 1.9 mg/dl (1.6-2.3)
[2025-02-27 13:42] LABS: NT Pro Brain Natriuretic Pep. 30.3 pg/mL (0-125)
--- NOTE | 2025-02-27 13:42 | PC.NURSE ---
Visual Acuity Both Eyes with Corrective Lenses 20/20 Left Eye with Corrective Lenses 20/25 Right Eye with Corrective Lenses 20/40
[2025-02-27 13:45] LABS: Troponin I < 0.01 ng/ml (0.00-0.034)
[2025-02-27] MEDS: SODIUM CHLORIDE 0.9% 10ML SYR (RAD ONLY) 10 ML IV (13:55)
[2025-02-27] MEDS: 0.9 % SODIUM CHLORIDE 50 ML VIAL IV ×2 (13:55→13:56)
[2025-02-27] MEDS: IOPAMIDOL-370 (76%);100ML BOTTLE 80 ML IV ×2 (13:56)
--- NOTE | 2025-02-27 14:12 | PC.NURSE ---
Dr. Meléndez speaking with Dr. Canales.
--- NOTE | 2025-02-27 14:56 | EXP.HP ---
History of Present Illness *Admission Date: 02/27/25 *Reason for visit:: dyspnea, headache *History of present illness: Mr. Meléndez is a morbidly obese gentleman with cystic bullous lung disease and asthma/COPD. Presented to the ER complaining of a sided headache, some blurry vision in his left eye, and shortness of breath. States he has a history of some migraines but feels this is different. Denies mary chest pain. No nausea or vomiting. States he has been having some coughing lately. Shortness of breath has been for a few days. On evaluation, initial concern for migraine. Chest imaging with CT performed and found to have moderate to large left-sided pneumothorax that appears spontaneous. Has a history of blebs in his right lung and previous pneumothoraces necessitating chest tubes. Symptoms began spontaneously today while sitting in his truck. Denies fever, nausea, vomiting. Medicine consulted for admission. Surgery consulted to assist with chest tube management. Safety centesis catheter placed in the ER for evacuation of pneumothorax. Will be admitted to ICU for further monitoring On evaluation, patient is in mild distress. On nonrebreather to help pneumothorax resorb. Alert and oriented x 4. Chest tube placed in left upper chest mid axillary line PFSH [facility] Disclaimer: The information contained in this section may have been updated after the patient was seen, as this information can be updated by other users. Medical History HTN (hypertension) Acute dyspnea Vocal cord edema Difficulty swallowing Hoarseness History of inguinal hernia Murmur Elevated BP without diagnosis of hypertension Restrictive lung disease Cystic-bullous disease of lung Tobacco use Edema Encounter for pre-operative cardiovascular clearance Tachycardia Abnormality of lung on CXR Decreased diffusion capacity of lung Allergic rhinitis Dyspnea on exertion Migraine COPD (chronic obstructive pulmonary disease) Asthma Surgical History History of lymph node excision neck History of lung surgery History of dental surgery History of tonsillectomy Family History Other Asthma Cancer Diabetes Heart attack Hypertension Social History Smoking Status: Current every day smoker tobacco type: cigarettes packs per day: 1 alcohol intake: never substance use type: denies use current occupational status: employed and other Travel in the last 8 weeks?: [place] the [place] housing[place] house Have you lived/traveled outside US in past 30 days?: No Contact w/someone who lives/traveled outside US past 30 days?: No Exposure to someone with infectious disease in past 14 days?: No Do you have a fever (greater than 100.4 F or 38 C)?: No Have you tested positive for COVID-19?: No Exposed to someone with COVID-19 in past 14 days?: No Do you have a sore throat?: No Do you have a cough?: No Do you have any weakness?: No Do you have any diarrhea?: No Are you experiencing any unusual bleeding?: No Do you have any muscle aches/pain?: No Do you have any abdominal pain?: No Are you experiencing loss of taste or smell?: No Other Medical History Have you received the Flu Vaccine for this season: No Have you received the Pneumonia Vaccine: No Review of Systems Review of Systems Review of systems (narrative): 14 point review of systems performed, pertinent positives and negatives as per HPI Meds Home Medications and Allergies Home Medications ?Medication ?Instructions ?Recorded ?Confirmed ?Type baclofen 10 mg tablet 10 mg PO TID PRN muscle spasm #30 12/11/23 02/26/25 Rx tabs cetirizine 10 mg tablet (Zyrtec) 10 mg PO DAILY PRN allergies 02/12/24 02/26/25 History montelukast 10 mg tablet 10 mg PO DAILY 02/12/24 02/26/25 History omeprazole 20 mg capsule,delayed 40 mg (2 x 20 mg) PO DAILY #30 caps 02/12/24 02/26/25 Rx release albuterol sulfate 90 mcg/actuation 90 mcg inhalation DAILY PRN Asthma 05/14/24 02/26/25 History aerosol inhaler ibuprofen 600 mg tablet 600 mg PO DAILY 05/14/24 02/26/25 History levocetirizine 5 mg tablet 5 mg PO DAILY 05/14/24 02/26/25 History ipratropium 0.5 mg-albuterol 3 mg 3 ml inhalation Q6H PRN shortness 07/09/24 02/26/25 Rx (2.5 mg base)/3 mL nebulization of breath or wheezing #90 mL soln budesonide 160 mcg-glycopyr 9 2 inh inhalation BID 90 days #10.7 10/20/24 02/26/25 Rx mcg-formot 4.8 mcg/actuation HFA grams inhaler (Breztri Aerosphere) azelastine 137 mcg (0.1 %) nasal 2 spray intranasal HS 90 days #30 10/21/24 02/26/25 Rx spray mL famotidine 40 mg tablet See Rx Instructions .Route 12/15/24 02/26/25 Rx .COMPLEX #30 tabs furosemide 40 mg tablet (Lasix) 40 mg PO DAILY #90 tabs 01/12/25 02/26/25 Rx lisinopril 5 mg tablet 5 mg PO DAILY #90 tabs 01/12/25 02/26/25 Rx meloxicam 7.5 mg tablet 7.5 mg PO DAILY 02/26/25 02/26/25 History New Prescriptions to Start Prescriptions: Allergies Allergy/AdvReac Type Severity Reaction Status Date / Time Penicillins (PENICILLINS) Allergy Unknown Swelling Verified 02/26/25 13:02 of Lip/Tongue/Throat pseudoephedrine (From Allergy Swelling Verified 02/26/25 13:02 Sudafed) of the Eye Exam Data for Last 24 hours Vital signs and Labs for Last 24 Hours: Temp Pulse Resp BP Pulse Ox O2 Del Method 19 F L 103 H 84 H 162/87 H 96 Room Air 02/27/25 13:20 02/27/25 14:00 02/27/25 14:00 02/27/25 14:00 02/27/25 14:00 02/27/25 14:00 Laboratory Results - last 24 hr 02/27/25 13:16: WBC 15.1 H, RBC 5.95, Hgb 16.5, Hct 50.4, MCV 84.7, MCH 27.7, MCHC 32.7, RDW 16.6, Plt Count 446 H, MPV 10.1, Neut % (Auto) 84.0 H, Lymph % (Auto) 8.7 L, [place] % (Auto) 5.3, Eos % (Auto) 1.1, Baso % (Auto) 0.4, Neut # (Auto) 12.7 H, Lymph # (Auto) 1.3, [place] # (Auto) 0.8, Eos # (Auto) 0.2, Baso # (Auto) 0.1, Sodium 140, Potassium 3.8, Chloride 103, Carbon Dioxide 25, Anion Gap 15.8 H, BUN 12, Creatinine 1.10, Estimated Creat Clear 85, Estimated GFR 75, Est GFR ( Amer) 91, Glucose 115 H, Calcium 9.4, Magnesium 1.9, Total Bilirubin 0.8, AST 28, ALT 29, Alkaline Phosphatase 51, Troponin I < 0.01, NT-Pro-B Natriuret Pep 30.3, Total Protein 7.5, Albumin 4.6, Globulin 2.9, Albumin/Globulin Ratio 1.6, Lipase 30 I & O for Last 24 hours: Intake & Output 02/24/25 02/25/25 02/26/25 02/27/25 23:59 23:59 23:59 23:59 Weight 157.85 kg Constitutional Constitutional: mild distress, morbidly obese, chronically ill appearing and cooperative *Routine HEENT Exam Head: Present normocephalic Eye: Present EOMI and PERRL ENT: Present mucous membranes moist *Routine Neck Exam Neck: Present supple; Absent lymphadenopathy Routine Chest/Breast/Axilla Exam Chest wall: Present tenderness (Left upper chest to palpation) *Routine Respiratory Exam Respiratory: Present diminished air movement (Left lung field); Absent rhonchi, wheezes or crackles *Routine Cardiovascular Exam Cardiovascular: Present RRR *Routine Abdominal Exam Abdominal: Present soft, normoactive bowel sounds and obese; Absent tenderness Comments: Hernia *Routine Rectal Exam Rectal:: deferred *Routine Genitalia Exam Genitalia:: deferred *Routine Extremities Exam Extremities: Absent cyanosis, clubbing or edema *Routine Skin Exam Skin: Present intact and warm; Absent rash *Routine Neurological Exam Neurological: Present alert, oriented X3 and moving all extremities; Absent altered mental status Assessment and Plan *Assessment and plan (1) Pneumothorax on left: Status: Acute Category: Medical Code(s): J93.9 - Pneumothorax, unspecified (2) Cystic-bullous disease of lung: Status: Chronic Category: Medical Code(s): J98.4 - Other disorders of lung (3) Injury of muscle of shoulder: Status: Acute Category: Medical Code(s): S46.909A - Unspecified injury of unspecified muscle, fascia and tendon at shoulder and upper arm level, unspecified arm, initial encounter (4) HTN (hypertension): Status: Chronic Category: Medical Code(s): I10 - Essential (primary) hypertension (5) Asthma: Status: Chronic Category: Medical Code(s): J45.909 - Unspecified asthma, uncomplicated (6) Tobacco use: Status: Chronic Category: Social Hx Code(s): Z72.0 - Tobacco use (7) Morbid obesity with BMI of 50.0-59.9, adult: Status: Chronic Category: Medical Code(s): E66.01 - Morbid (severe) obesity due to excess calories; Z68.43 - Body mass index [BMI] 50.0-59.9, adult Plan 39-year-old male with known cystic bullous disease of lung. Presented with headache and shortness of breath. Found to have spontaneous pneumothorax of left lung. Chest tube placed in the ER, discussed case with ER physician, request admission for further management of pneumothorax and chest tube. I agreed to admit for further care. Surgery consulted to assist with chest tube management. Placed on nonrebreather. In the ICU with low wall suction. Necessitates inpatient management. High risk for decompensation. Problems addressed as follows: Spontaneous pneumothorax of left lung Cystic bullous disease of lung COPD/asthma - Follows with pulmonology as an outpatient for his cystic disease and underlying obstructive disease - Per my review of CT, has moderate to large left-sided pneumothorax. Pigtail catheter placed in the ER, some improvement. Will place to low wall suction and -20 mm water. - Discussed case with surgery, will monitor daily. Repeat chest x-ray ordered for the morning - No overt sign of infection, white count is elevated at 15 however. - Will administer 1 dose of ceftriaxone for potential underlying lung disease. Platelets 446. Hemoglobin 16.5. Repeat CBC, CMP, magnesium ordered for the morning - Continue nonrebreather to displace carbon oxide in chest. Promote resorption. Complaining of left arm pain, states he is got a injury to his shoulder/left upper pec. - Will treat with morphine 4 mg IV every 4 hours as needed, hydrocodone 5/325 as needed every 4 hours, or Tylenol 650 mg as needed every 4 hours for moderate, severe, mild pain respectively. Currently has chest pain associated with pigtail or underlying musculoskeletal injury. Monitor for toxicity History of hypertension: holding blood pressure as time normotensive state. Obesity complicates all aspects of his care Lovenox 60 mg SQ twice daily DVT prophylaxis Regular diet Full code
--- NOTE | 2025-02-27 15:27 | XR_ITS ---
FINAL REPORT CLINICAL HISTORY: Chest Tube placement COMPARISON: 07/23/[address] chest same day FINDINGS: A single frontal view of the chest was obtained. Increased density in the right perihilar region may represent atelectasis, new from recent chest CT. There has been interval placement of a left pigtail pleural catheter. There is moderate residual pneumothorax in the left lung apex. Heart size is normal. IMPRESSION: Moderate left pneumothorax, mildly improved. Recommend continued close chest imaging follow-up. Reviewed, Interpreted and Dictated by Ethel Peña MD Transcribed by Kristi Trejo Authenticated and . [facility]
[2025-02-27] MEDS: HYDROMORPHONE 2MG/ML SYRINGE 0.5 MG IV (16:28)
[2025-02-27 17:10] LABS: Troponin I < 0.01 ng/ml (0.00-0.034)
--- NOTE | 2025-02-27 18:13 | PC.NURSE ---
1730- place pt on NRB to help with reinflation of lung per Dr herrera pleur a vac placed on 20mm of suction per dr herrera
--- NOTE | 2025-02-27 18:55 | PC.NURSE ---
Pt arrived via stretcher at [id number]
[2025-02-27] MEDS: HYDROCODONE/APAP 5/325 MG TABLET 1 TAB PO (20:26)
[2025-02-27] MEDS: NICOTINE 21MG/24HR PATCH 21 MG TD (20:26)
[2025-02-27 20:34] LABS: Troponin I < 0.01 ng/ml (0.00-0.034)
[2025-02-27] MEDS: MORPHINE 4MG/ML SYRINGE 4 MG IV (22:48)
[2025-02-28] VITALS (15 sets, daily range): BP systolic 113–145; BP diastolic 58–78; PULSE 61–99; RESP 15–22; TEMP 36.4–36.8; O2SAT 91–99; BMI 53.8
--- NOTE | 2025-02-28 06:00 | XR_ITS ---
PROCEDURE INFORMATION: Exam: XR Chest Exam date and time: 02/28/2025 5:20 AM Age: 39 years old Clinical indication: Other: Pneumothorax TECHNIQUE: Imaging protocol: Radiologic exam of the chest. Views: 1 view. COMPARISON: CR XR CHEST PORTABLE 02/27/2025 3:28 PM FINDINGS: Lungs: Left lower lobe airspace opacity. No consolidation. Pleural spaces: Unremarkable. No pleural effusion. Decreasing left pneumothorax. Heart/Mediastinum: Unremarkable. No cardiomegaly. Bones/joints: Unremarkable. IMPRESSION: Decreasing left pneumothorax. Stable left lower lobe airspace opacity.
[2025-02-28] MEDS: HYDROCODONE/APAP 5/325 MG TABLET 1 TAB PO ×2 (07:18→18:28)
[2025-02-28 07:20] LABS: Hematocrit 47.0 % (42.0-52.0); Immature Granulocytes % 0.5 %; Mean Corpuscular HGB Conc 31.1 g/dL (31.8-35.4); Mean Corpuscular Hemoglobin 26.7 pg (27.0-31.2); Mean Corpuscular Volume 85.9 fl (80-94); Nucleated Red Blood Cells % 0 %; Platelet Count 320 K/mm3 (142-424); Red Blood Count 5.47 M/mm3 (4.60-6.20); Red Cell Distribution Width-SD 51.1 fL; White Blood Count 9.4 K/mm3 (4.8-10.8)
[2025-02-28 07:47] LABS: Hemoglobin 14.7 g/dL (14.1-18.0)
[2025-02-28 08:07] LABS: Albumin Level 3.9 g/dl (3.5-5.0); Chloride 103 mmol/L (98-107); Potassium 4.2 mmoL/L (3.5-5.1); Sodium 139 mmol/L (136-145)
[2025-02-28 08:10] LABS: Alanine Aminotransferase 24 U/L (12-78); Albumin/Globulin Ratio 1.5 (1.1-1.8); Alkaline Phosphatase 58 U/L (38-126); Anion Gap 12.2 mEq/L (5-15); Aspartate Amino Transferase 28 U/L (17-59); Bilirubin,Total 0.6 mg/dl (0.2-1.3); Blood Urea Nitrogen 14 mg/dl (9-20); Calcium 8.8 mg/dl (8.4-10.2); Carbon Dioxide 28 mmol/L (22.0-30.0); Creatinine Clearance Estimated 97 mL/min (50-200); Creatinine,Serum 1.00 mg/dl (0.66-1.25); Estimated Glomerular Filt Rate 84 ml/min (>60); GFR (African American) 101 ML/MIN (>60); Globulin 2.6 g/dL (1.3-3.2); Glucose 106 mg/dl (74-100); Magnesium 2.3 mg/dl (1.6-2.3); Total Protein,Serum 6.5 g/dl (6.3-8.2)
--- NOTE | 2025-02-28 08:14 | PC.NURSE ---
Dr. Stallings in the jono at 0805 talking with patient. Chandrakant advised patient he could come off of the oxygen at this time chest xray looks better, will have staff get a chair in the room for him to be able to get out of the bed and sit in a chair if he wants. After surgery see's patient, patient may be down graded to med surge. Per Dr. Stallings when patient has next chest xray to make sure before radiology shoots the xray to have all telemetry wires out of the way
--- NOTE | 2025-02-28 08:41 | PC.NURSE ---
Patient up to chair at this time.
--- NOTE | 2025-02-28 08:53 | PC.NURSE ---
Dr. Maldonado with surgery in the room at this time talking with the patient
--- NOTE | 2025-02-28 09:31 | PC.NURSE ---
Patient back in bed at this time
--- NOTE | 2025-02-28 09:43 | EXP.SURG.CON ---
History of Present Illness *Admission Date: 02/27/25 *Reason for visit:: Left pneumothorax *History of present illness: This is a 39-year-old gentleman who presented to the emergency department with multiple complaints including shortness of breath. Evaluation included a chest CT confirming fairly large left pneumothorax. A pigtail catheter was placed by the emergency department. The surgical service was consulted for chest tube management. Currently, the patient feels fine . He states that his breathing is now normal . Forwarded from admission H&P: Mr. Meléndez is a morbidly obese gentleman with cystic bullous lung disease and asthma/COPD. Presented to the ER complaining of a sided headache, some blurry vision in his left eye, and shortness of breath. States he has a history of some migraines but feels this is different. Denies mary chest pain. No nausea or vomiting. States he has been having some coughing lately. Shortness of breath has been for a few days. On evaluation, initial concern for migraine. Chest imaging with CT performed and found to have moderate to large left-sided pneumothorax that appears spontaneous. Has a history of blebs in his right lung and previous pneumothoraces necessitating chest tubes. Symptoms began spontaneously today while sitting in his truck. Denies fever, nausea, vomiting. Medicine consulted for admission. Surgery consulted to assist with chest tube management. Safety centesis catheter placed in the ER for evacuation of pneumothorax. Will be admitted to ICU for further monitoring On evaluation, patient is in mild distress. On nonrebreather to help pneumothorax resorb. Alert and oriented x 4. Chest tube placed in left upper chest mid axillary line PFSH [facility] Disclaimer: The information contained in this section may have been updated after the patient was seen, as this information can be updated by other users. Medical History HTN (hypertension) Acute dyspnea Vocal cord edema Difficulty swallowing Hoarseness History of inguinal hernia Murmur Elevated BP without diagnosis of hypertension Restrictive lung disease Cystic-bullous disease of lung Tobacco use Edema Encounter for pre-operative cardiovascular clearance Tachycardia Abnormality of lung on CXR Decreased diffusion capacity of lung Allergic rhinitis Dyspnea on exertion Migraine COPD (chronic obstructive pulmonary disease) Asthma Surgical History History of lymph node excision neck History of lung surgery History of dental surgery History of tonsillectomy Family History Other Asthma Cancer Diabetes Heart attack Hypertension Social History Smoking Status: Current every day smoker tobacco type: cigarettes packs per day: 1 alcohol intake: never substance use type: denies use current occupational status: employed and other Travel in the last 8 weeks?: [place] the [place] housing[place] house Have you lived/traveled outside US in past 30 days?: No Contact w/someone who lives/traveled outside [place] past 30 days?: No Exposure to someone with infectious disease in past 14 days?: No Do you have a fever (greater than 100.4 F or 38 C)?: No Have you tested positive for COVID-19?: No Exposed to someone with COVID-19 in past 14 days?: No Do you have a sore throat?: No Do you have a cough?: No Do you have any weakness?: No Do you have any diarrhea?: No Are you experiencing any unusual bleeding?: No Do you have any muscle aches/pain?: No Do you have any abdominal pain?: No Are you experiencing loss of taste or smell?: No Meds Home Medications and Allergies Home Medications ?Medication ?Instructions ?Recorded ?Confirmed ?Type baclofen 10 mg tablet 10 mg PO TID PRN muscle spasm #30 12/11/23 02/27/25 Rx tabs cetirizine 10 mg tablet (Zyrtec) 10 mg PO DAILY PRN allergies 02/12/24 02/27/25 History montelukast 10 mg tablet 10 mg PO DAILY 02/12/24 02/27/25 History omeprazole 20 mg capsule,delayed 40 mg (2 x 20 mg) PO DAILY #30 caps 02/12/24 02/27/25 Rx release albuterol sulfate 90 mcg/actuation 90 mcg inhalation DAILY PRN Asthma 05/14/24 02/27/25 History aerosol inhaler ibuprofen 600 mg tablet 600 mg PO DAILY PRN Pain 05/14/24 02/27/25 History levocetirizine 5 mg tablet 5 mg PO DAILY 05/14/24 02/27/25 History ipratropium 0.5 mg-albuterol 3 mg 3 ml inhalation Q6H PRN shortness 07/09/24 02/27/25 Rx (2.5 mg base)/3 mL nebulization of breath or wheezing #90 mL soln budesonide 160 mcg-glycopyr 9 2 inh inhalation BID 90 days #10.7 10/20/24 02/27/25 Rx mcg-formot 4.8 mcg/actuation HFA grams inhaler (Breztri Aerosphere) azelastine 137 mcg (0.1 %) nasal 2 spray intranasal HS 90 days #30 10/21/24 02/27/25 Rx spray mL famotidine 40 mg tablet See Rx Instructions .Route 12/15/24 02/27/25 Rx .COMPLEX #30 tabs furosemide 40 mg tablet (Lasix) 40 mg PO DAILY #90 tabs 01/12/25 02/27/25 Rx lisinopril 5 mg tablet 5 mg PO DAILY #90 tabs 01/12/25 02/27/25 Rx meloxicam 7.5 mg tablet 7.5 mg PO DAILY 02/26/25 02/27/25 History guaifenesin 400 mg tablet 400 mg PO Q4H PRN Cough 02/27/25 02/27/25 History New Prescriptions to Start Prescriptions: Allergies Allergy/AdvReac Type Severity Reaction Status Date / Time Penicillins (PENICILLINS) Allergy Unknown Swelling Verified 02/26/25 13:02 of Lip/Tongue/Throat pseudoephedrine (From Allergy Swelling Verified 02/26/25 13:02 Sudafed) of the Eye Exam (Inpt) Vital signs and Labs for Last 24 Hours: Temp Pulse Resp BP Pulse Ox O2 Del Method O2 Flow Rate 97.5 F L 78 17 113/58 L 97 Room Air 15 02/28/25 08:00 02/28/25 08:00 02/28/25 08:00 02/28/25 08:00 02/28/25 08:00 02/28/25 09:00 02/28/25 08:00 Laboratory Results - last 24 hr 02/27/25 13:16: WBC 15.1 H, RBC 5.95, Hgb 16.5, Hct 50.4, MCV 84.7, MCH 27.7, MCHC 32.7, RDW 16.6, Plt Count 446 H, MPV 10.1, Neut % (Auto) 84.0 H, Lymph % (Auto) 8.7 L, [place] % (Auto) 5.3, Eos % (Auto) 1.1, Baso % (Auto) 0.4, Neut # (Auto) 12.7 H, Lymph # (Auto) 1.3, [place] # (Auto) 0.8, Eos # (Auto) 0.2, Baso # (Auto) 0.1, Sodium 140, Potassium 3.8, Chloride 103, Carbon Dioxide 25, Anion Gap 15.8 H, BUN 12, Creatinine 1.10, Estimated Creat Clear 85, Estimated GFR 75, Est GFR ( Amer) 91, Glucose 115 H, Calcium 9.4, Magnesium 1.9, Total Bilirubin 0.8, AST 28, ALT 29, Alkaline Phosphatase 51, Troponin I < 0.01, NT-Pro-B Natriuret Pep 30.3, Total Protein 7.5, Albumin 4.6, Globulin 2.9, Albumin/Globulin Ratio 1.6, Lipase 30 02/27/25 16:30: Troponin I < 0.01 02/27/25 19:56: Troponin I < 0.01 02/28/25 06:45: WBC 9.4 D, RBC 5.47, Hgb 14.7 D, Hct 47.0, MCV 85.9, MCH 26.7 L, MCHC 31.1 L, RDW 16.4, Plt Count 320 D, MPV 10.1, Neut % (Auto) 77.4, Lymph % (Auto) 13.3, [place] % (Auto) 6.7, Eos % (Auto) 1.7, Baso % (Auto) 0.4, Neut # (Auto) 7.2, Lymph # (Auto) 1.2, [place] # (Auto) 0.6, Eos # (Auto) 0.2, Baso # (Auto) 0.0, Sodium 139, Potassium 4.2, Chloride 103, Carbon Dioxide 28, Anion Gap 12.2, BUN 14, Creatinine 1.00, Estimated Creat Clear 97, Estimated GFR 84, Est GFR ( Amer) 101, Glucose 106 H, Calcium 8.8, Magnesium 2.3 D, Total Bilirubin 0.6, AST 28, ALT 24, Alkaline Phosphatase 58, Total Protein 6.5, Albumin 3.9 D, Globulin 2.6, Albumin/Globulin Ratio 1.5 I & O for Labs for Last 24 Hours: Intake & Output 02/25/25 02/26/25 02/27/25 02/28/25 11:59 11:59 11:59 11:59 Intake Total 1325 / 1325 Output Total 400 / 400 Balance 925 / 925 Weight 355 lb 6.162 oz Constitutional: no acute distress Respiratory: Absent respiratory distress Comment:: No air leak and no swing noted on Pleur-evac Cardiac: Absent Tachycardia Results Labs 02/28/25 06:45 02/28/25 06:45 Labs: Laboratory Results - last 24 hr 02/27/25 13:16: WBC 15.1 H, RBC 5.95, Hgb 16.5, Hct 50.4, MCV 84.7, MCH 27.7, MCHC 32.7, RDW 16.6, Plt Count 446 H, MPV 10.1, Neut % (Auto) 84.0 H, Lymph % (Auto) 8.7 L, [place] % (Auto) 5.3, Eos % (Auto) 1.1, Baso % (Auto) 0.4, Neut # (Auto) 12.7 H, Lymph # (Auto) 1.3, [place] # (Auto) 0.8, Eos # (Auto) 0.2, Baso # (Auto) 0.1, Sodium 140, Potassium 3.8, Chloride 103, Carbon Dioxide 25, Anion Gap 15.8 H, BUN 12, Creatinine 1.10, Estimated Creat Clear 85, Estimated GFR 75, Est GFR ( Amer) 91, Glucose 115 H, Calcium 9.4, Magnesium 1.9, Total Bilirubin 0.8, AST 28, ALT 29, Alkaline Phosphatase 51, Troponin I < 0.01, NT-Pro-B Natriuret Pep 30.3, Total Protein 7.5, Albumin 4.6, Globulin 2.9, Albumin/Globulin Ratio 1.6, Lipase 30 02/27/25 16:30: Troponin I < 0.01 02/27/25 19:56: Troponin I < 0.01 02/28/25 06:45: WBC 9.4 D, RBC 5.47, Hgb 14.7 D, Hct 47.0, MCV 85.9, MCH 26.7 L, MCHC 31.1 L, RDW 16.4, Plt Count 320 D, MPV 10.1, Neut % (Auto) 77.4, Lymph % (Auto) 13.3, [place] % (Auto) 6.7, Eos % (Auto) 1.7, Baso % (Auto) 0.4, Neut # (Auto) 7.2, Lymph # (Auto) 1.2, [place] # (Auto) 0.6, Eos # (Auto) 0.2, Baso # (Auto) 0.0, Sodium 139, Potassium 4.2, Chloride 103, Carbon Dioxide 28, Anion Gap 12.2, BUN 14, Creatinine 1.00, Estimated Creat Clear 97, Estimated GFR 84, Est GFR ( Amer) 101, Glucose 106 H, Calcium 8.8, Magnesium 2.3 D, Total Bilirubin 0.6, AST 28, ALT 24, Alkaline Phosphatase 58, Total Protein 6.5, Albumin 3.9 D, Globulin 2.6, Albumin/Globulin Ratio 1.5 Imaging Chest x-ray: report reviewed and image reviewed CT scan - chest: report reviewed and image reviewed Assessment and Plan *Assessment and plan (1) Pneumothorax on left: Status: Acute Category: Medical Code(s): J93.9 - Pneumothorax, unspecified Plan: Patient clinically improving. Improved (not resolved) pneumothorax noted per a.m. films (resolution somewhat limited secondary to patient's body habitus). No airleak and no swing noted on Pleur-evac. The pigtail catheter may not prove adequate for complete resolution. Further evaluation by plain films limited secondary to body habitus and bleb disease. Discussed the risks and benefits of additional pigtail or formal thoracostomy tube. The patient prefers to hold off for now . Continue current pigtail on suction for now Hold (for now) on additional pigtail or formal thoracostomy tube Continue follow-up films He would likely benefit from repeat chest CT in a.m. for improved evaluation of current pigtail placement, degree of persistent pneumothorax, degree of bleb disease, etc.
--- NOTE | 2025-02-28 10:16 | HMH.PHAINT1 ---
Pharmacy Intervention Comments: MEDICATION RECONCILIATION COMPLETED ON PATIENT USING EXTERNAL FILL HISTORY FROM PHARMACY. -[facility], [place]
--- NOTE | 2025-02-28 12:58 | P.PN_ITS ---
Subjective *Date: 02/28/25 *Time: 12:58 Interval history: Complains of some pain around site of chest tube but otherwise denies substernal chest pain. No nausea or vomiting. Cough getting better. Denies shortness of breath. Afebrile. Medical Exam Vital signs and Labs for Last 24 Hours: Vital Signs Temp Pulse Pulse Resp BP BP Pulse Ox 02/28/25 12:13 90 02/28/25 12:00 98.0 F 79 17 119/78 95 02/28/25 11:00 02/28/25 10:00 77 18 116/66 94 L 02/28/25 09:00 02/28/25 08:00 97.5 F L 61 17 113/58 L 97 02/28/25 08:00 78 02/28/25 07:58 97 02/28/25 07:18 97.5 F L 02/28/25 07:00 02/28/25 06:00 97.9 F 65 22 129/74 98 02/28/25 05:00 02/28/25 04:00 98.2 F 69 21 139/70 97 02/28/25 04:00 72 02/28/25 03:00 02/28/25 02:00 72 15 139/70 96 02/28/25 02:00 98 02/28/25 01:00 02/28/25 00:01 77 20 99 02/28/25 00:01 98.1 F 72 19 124/68 98 02/28/25 00:00 72 02/27/25 23:00 02/27/25 22:00 90 14 129/80 95 02/27/25 21:00 02/27/25 20:00 90 02/27/25 20:00 99 02/27/25 20:00 98.4 F 91 H 19 114/73 98 02/27/25 19:24 02/27/25 18:00 84 23 124/69 98 02/27/25 17:50 02/27/25 17:49 94 H 02/27/25 17:38 98 02/27/25 17:36 98.3 F 85 20 128/77 98 02/27/25 17:28 98.1 F 75 20 115/81 02/27/25 16:30 83 25 H 98 02/27/25 16:15 86 31 H 99 02/27/25 16:00 81 26 H 99 02/27/25 15:45 86 19 98 02/27/25 15:45 85 21 127/79 100 02/27/25 15:00 99 H 24 153/91 H 100 02/27/25 14:36 96 H 28 H 151/95 H 100 02/27/25 14:00 103 H 84 H 162/87 H 96 02/27/25 13:40 107 H 24 147/93 H 94 L 02/27/25 13:20 19 F L 109 H 138/88 94 L 02/27/25 13:16 109 H 19 129/89 94 L 02/27/25 13:11 97.9 F 105 H 19 169/97 H 95 O2 Del Method O2 Flow Rate 02/28/25 12:13 02/28/25 12:00 Room Air 02/28/25 11:00 Room Air 02/28/25 10:00 Room Air 02/28/25 09:00 Room Air 02/28/25 08:00 Non-Rebreather 15 02/28/25 08:00 02/28/25 07:58 Non-Rebreather 15 02/28/25 07:18 02/28/25 07:00 Non-Rebreather 15 02/28/25 06:00 Non-Rebreather 15 02/28/25 05:00 Non-Rebreather 15 02/28/25 04:00 Non-Rebreather 15 02/28/25 04:00 02/28/25 03:00 Non-Rebreather 15 02/28/25 02:00 Non-Rebreather 15 02/28/25 02:00 Non-Rebreather 15 02/28/25 01:00 Non-Rebreather 15 02/28/25 00:01 02/28/25 00:01 Non-Rebreather 02/28/25 00:00 02/27/25 23:00 Non-Rebreather 15 02/27/25 22:00 Non-Rebreather 02/27/25 21:00 Non-Rebreather 15 02/27/25 20:00 02/27/25 20:00 Non-Rebreather 15 02/27/25 20:00 Non-Rebreather 02/27/25 19:24 Non-Rebreather 02/27/25 18:00 Non-Rebreather 02/27/25 17:50 Non-Rebreather 02/27/25 17:49 02/27/25 17:38 Non-Rebreather 13 02/27/25 17:36 Non-Rebreather 02/27/25 17:28 Room Air 02/27/25 16:30 Non-Rebreather 02/27/25 16:15 Non-Rebreather 02/27/25 16:00 Non-Rebreather 02/27/25 15:45 02/27/25 15:45 Non-Rebreather 02/27/25 15:00 02/27/25 14:36 02/27/25 14:00 Room Air 02/27/25 13:40 Room Air 02/27/25 13:20 Room Air 02/27/25 13:16 Room Air 02/27/25 13:11 Room Air Intake and Output 02/27/25 02/28/25 02/28/25 23:59 07:59 15:59 Intake Total 530 / 885 355 / 795 440 / 795 Output Total 400 / 400 400 / 400 Balance 130 / 485 355 / 395 40 / 395 Intake: Intake, Oral Amount 480 / 835 355 / 795 440 / 795 Intake, Total IV Amount 50 / 50 Ceftriaxone Sodium 1 gm In 0.9 50 / 50 % Sodium Chloride 50 ml @ 100 mls/hr IV Q24H [facility] Rx#:[id number] Output: Output, Urine Amount 400 / 400 400 / 400 Other: Weight 156.9 kg 161.2 kg Patient Weight 02/28/25 23:59 Weight 161.2 kg Laboratory Results - last 24 hr 02/27/25 13:16: WBC 15.1 H, RBC 5.95, Hgb 16.5, Hct 50.4, MCV 84.7, MCH 27.7, MCHC 32.7, RDW 16.6, Plt Count 446 H, MPV 10.1, Neut % (Auto) 84.0 H, Lymph % (Auto) 8.7 L, [place] % (Auto) 5.3, Eos % (Auto) 1.1, Baso % (Auto) 0.4, Neut # (Auto) 12.7 H, Lymph # (Auto) 1.3, [place] # (Auto) 0.8, Eos # (Auto) 0.2, Baso # (Auto) 0.1, Sodium 140, Potassium 3.8, Chloride 103, Carbon Dioxide 25, Anion Gap 15.8 H, BUN 12, Creatinine 1.10, Estimated Creat Clear 85, Estimated GFR 75, Est GFR ( Amer) 91, Glucose 115 H, Calcium 9.4, Magnesium 1.9, Total Bilirubin 0.8, AST 28, ALT 29, Alkaline Phosphatase 51, Troponin I < 0.01, NT-Pro-B Natriuret Pep 30.3, Total Protein 7.5, Albumin 4.6, Globulin 2.9, Albumin/Globulin Ratio 1.6, Lipase 30 02/27/25 16:30: Troponin I < 0.01 02/27/25 19:56: Troponin I < 0.01 02/28/25 06:45: WBC 9.4 D, RBC 5.47, Hgb 14.7 D, Hct 47.0, MCV 85.9, MCH 26.7 L, MCHC 31.1 L, RDW 16.4, Plt Count 320 D, MPV 10.1, Neut % (Auto) 77.4, Lymph % (Auto) 13.3, [place] % (Auto) 6.7, Eos % (Auto) 1.7, Baso % (Auto) 0.4, Neut # (Auto) 7.2, Lymph # (Auto) 1.2, [place] # (Auto) 0.6, Eos # (Auto) 0.2, Baso # (Auto) 0.0, Sodium 139, Potassium 4.2, Chloride 103, Carbon Dioxide 28, Anion Gap 12.2, BUN 14, Creatinine 1.00, Estimated Creat Clear 97, Estimated GFR 84, Est GFR ( Amer) 101, Glucose 106 H, Calcium 8.8, Magnesium 2.3 D, Total Bilirubin 0.6, AST 28, ALT 24, Alkaline Phosphatase 58, Total Protein 6.5, Albumin 3.9 D, Globulin 2.6, Albumin/Globulin Ratio 1.5 I & O for Labs for Last 24 Hours: Intake & Output 02/25/25 02/26/25 02/27/25 02/28/25 23:59 23:59 23:59 23:59 Intake Total 530 / 885 795 / 795 Output Total 400 / 400 400 / 400 Balance 130 / 485 395 / 395 Weight 156.9 kg 161.2 kg Constitutional: Present no acute distress, morbidly obese and cooperative Head: Present normocephalic ENT: Present normal exam Respiratory: Present normal respiratory effort; Absent decreased breath sounds, rhonchi, wheezes or crackles Cardiac: Present Reg Rate and Rhythm GI: Present soft and normal bowel sounds; Absent distention or tenderness Extremities: Present normal inspection and full ROM Skin: Present intact; Absent erythema Neuro: Present Grossly Intact, alert, awake, oriented x 3 and moves all extremities Assessment and Plan *Assessment and plan (1) Pneumothorax on left: Status: Acute Category: Medical Code(s): J93.9 - Pneumothorax, unspecified (2) Cystic-bullous disease of lung: Status: Chronic Category: Medical Code(s): J98.4 - Other disorders of lung (3) Injury of muscle of shoulder: Status: Acute Category: Medical Code(s): S46.909A - Unspecified injury of unspecified muscle, fascia and tendon at shoulder and upper arm level, unspecified arm, initial encounter (4) HTN (hypertension): Status: Chronic Category: Medical Code(s): I10 - Essential (primary) hypertension (5) Asthma: Status: Chronic Category: Medical Code(s): J45.909 - Unspecified asthma, uncomplicated (6) Tobacco use: Status: Chronic Category: Social Hx Code(s): Z72.0 - Tobacco use (7) Morbid obesity with BMI of 50.0-59.9, adult: Status: Chronic Category: Medical Code(s): E66.01 - Morbid (severe) obesity due to excess calories; Z68.43 - Body mass index [BMI] 50.0-59.9, adult Plan 39-year-old male with known cystic bullous disease of lung. Presented with headache and shortness of breath. Found to have spontaneous pneumothorax of left lung. Chest tube placed in the ER, discussed case with ER physician, request admission for further management of pneumothorax and chest tube. I agreed to admit for further care. Surgery consulted to assist with chest tube management. Placed on nonrebreather. In the ICU with low wall suction. Necessitates inpatient management. High risk for decompensation. Problems add ressed as follows: Spontaneous pneumothorax of left lung Cystic bullous disease of lung COPD/asthma - Follows with pulmonology as an outpatient for his cystic disease and underlying obstructive disease - No overt sign of infection, white count improved to 9.4. Continue ceftriaxone however 1 g daily for least 48 hours. - Repeat CBC, CMP, magnesium ordered for the morning. - Hemoglobin 14.7. Kidney function normal BUN 14, creatinine 1.0. - Discussed case with surgery, imaging seems to show improvement on chest x-ray per my review and theirs. Continue current pigtail on suction for now. Hold additional pigtails or formal thoracostomy tube. Repeat chest x-ray this evening and in the morning. Low threshold to consider repeat chest CT in the a.m. for improved evaluation of pneumothorax resolution and blebs. Complaining of left arm pain, states he is got a injury to his shoulder/left upper pec. - Will treat with morphine 4 mg IV every 4 hours as needed, hydrocodone 5/325 as needed every 4 hours, or Tylenol 650 mg as needed every 4 hours for moderate, severe, mild pain respectively. Currently has chest pain associated with pigtail or underlying musculoskeletal injury. Monitor for toxicity History of hypertension: Resume lisinopril 5 mg daily, resume Lasix 40 mg daily Obesity complicates all aspects of his care Lovenox 60 mg SQ twice daily DVT prophylaxis Regular diet Full code
--- NOTE | 2025-02-28 13:33 | PC.NURSE ---
report called to Ethel Kelly on med surge at 1336
--- NOTE | 2025-02-28 14:17 | PC.NURSE ---
patient moved to [facility] by wheel chair at 1415
--- NOTE | 2025-02-28 14:27 | PC.NURSE ---
contacted dr hernandes at 1410 due to patient complaining of burning sensation at the lower part of the dressing site. Dressing site is clean, dry and intact no redness noted. dr hernandes advised to place icepack on it to help with the burning sensation at this time
--- NOTE | 2025-02-28 18:02 | PC.NURSE ---
AOX4, UP TO CHAIR SINCE ARRIVAL FROM ICU. CHEST TUBE IN PLACE AND HOOKED TO CONTINUOUS LOW WALL SUCTION. NO DRAINAGE IN PLEUR-VAC. DENIES PAIN.
[2025-02-28] MEDS: CEFTRIAXONE 1 GM 1 GM in 0.9 % SODIUM CHLORIDE 50 ML IV (18:29)
--- OUTSIDE RECORDS SUMMARY | 2025-02-28 19:43 | XMS_ITS | Encounter Summary ---
[facility] Address [address] [place] [address] Care Team Providers Care Modeling Analyst Name Role Phone Danielle Mora APRN Primary Care Provid er Encounter Details Date Type Department Care Team (Late st Contact Info) Description 03/03/2015 External CPT II BEAD FILLER - [facility] Social History Tobacco Use [...] on filedocumented in this encounter Care Teams Modeling Analyst Relationship Specialty Start Date End Date Danielle Mora APRN [address] [facility] [address] [place] [id number] PCP - General Family Medicine 12/02/15 documented as of this encounter
--- OUTSIDE RECORDS SUMMARY | 2025-02-28 19:43 | XMS_ITS | Clinical Summary ---
Author Organization [facility] Address [address] [place] [address] Care Team Providers Care Transportation Modeler Name Role Phone Danielle Mora Jannette LORENZO [...] to complete this topic Insurance KIRSTIN RALPH [id number] MEDICARE A & B MEDICAID [place] Care Teams Transportation Modeler Relationship Specialty Start Date End Date Danielle Mora APRN [address] [facility] [address] [place] [id number] PCP - General Family Medicine 12/02/15
--- OUTSIDE RECORDS SUMMARY | 2025-02-28 19:43 | XMS_ITS | Encounter Summary ---
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
--- OUTSIDE RECORDS SUMMARY | 2025-02-28 19:43 | XMS_ITS | Clinical Summary ---
Author Organization [facility] Address [address] [facility], [address] [place] [address] Care Team Providers Care Process Worker Name Role Phone Unavailable Primary Care Provider [...]
--- OUTSIDE RECORDS SUMMARY | 2025-02-28 19:43 | XMS_ITS | Encounter Summary ---
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
--- OUTSIDE RECORDS SUMMARY | 2025-02-28 19:43 | XMS_ITS | Encounter Summary ---
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
[2025-02-28] MEDS: FAMOTIDINE 20MG TABLET 40 MG PO (20:02)
[2025-02-28] MEDS: PANTOPRAZOLE 40MG TABLET 40 MG PO (20:02)
[2025-02-28] MEDS: BUDESONIDE GLYCOPYR FORMOTEROL 2 EACH IH (20:09)
[2025-03-01] VITALS: BP 154/86; PULSE 90; RESP 17; TEMP 36.7; O2SAT 95
[2025-03-01] MEDS: HYDROCODONE/APAP 5/325 MG TABLET 1 TAB PO ×4 (00:56→17:40)
[2025-03-01 04:00] VITALS: BP 148/84; PULSE 76; RESP 17; TEMP 36.8; O2SAT 93; BMI 52.4
--- NOTE | 2025-03-01 06:00 | XR_ITS ---
PROCEDURE INFORMATION: Exam: XR Chest Exam date and time: 03/01/2025 5:57 AM Age: 39 years old Clinical indication: Condition or disease; Other: Pneumothorax TECHNIQUE: Imaging protocol: Radiologic exam of the chest. Views: 1 view. COMPARISON: CR XR CHEST PORTABLE 02/28/2025 5:20 AM FINDINGS: Lungs: See below. Limited characterization. Pleural spaces: See Heart/Mediastinum finding. Heart/Mediastinum: Cardiomegaly. Opacity projects over the lung bases much of which is likely soft tissues. Consider follow-up two-view chest. A pneumothorax not visualized. Bones/joints: Unremarkable. IMPRESSION: Cardiomegaly. Opacity projects over the lung bases much of which is likely soft tissues. Consider follow-up two-view chest. A pneumothorax not visualized.
--- NOTE | 2025-03-01 07:31 | PC.NURSE ---
Pt. is alert and orientated x 4. Pt. is on room air. Pt. has a left sided upper chest tube. hooked up to continuous low wall suction.-20 mmH2O, no drainage noted in the Pleur-Vac. Pt. c/o pain to left chest at chest tube insertion site, otherwise no chest pain or Shortness of breath. Pt. medicated for pain x 1 per MAR. Pt. got up to bathroom to void and have a BM. Pt. c/o increased pain at insertion site with movement. Pt. slept well this shift. Personal items and call garcia in reach. Bed in low and locked position. safety measures in place.
[2025-03-01 07:32] VITALS: BP 141/83; PULSE 79; RESP 20; TEMP 36.7; O2SAT 94
--- NOTE | 2025-03-01 07:44 | CT_ITS ---
PROCEDURE INFORMATION: Exam: CT Chest Without Contrast; Diagnostic Exam date and time: 03/01/2025 8:04 AM Age: 39 years old Clinical indication: Condition or disease; Other: Pneumothorax TECHNIQUE: Imaging protocol: Diagnostic computed tomography of the chest without contrast. Radiation optimization: All CT scans at this facility use at least one of these dose optimization techniques: automated exposure control; mA and/or kV adjustment per patient size (includes targeted exams where dose is matched to clinical indication); or iterative reconstruction. COMPARISON: CT ANGIO CHEST PE PROTOCOL 02/27/2025 1:56 PM FINDINGS: Tubes, catheters and devices: Pigtail catheter is within the subcutaneous soft tissues adjacent to the left hemithorax and not within the pleural space. Lungs: Paraseptal and centrilobular emphysema including large bulla within the lung bases right greater than left. Mild atelectasis left lung base. Parenchymal band/scar within the right upper lobe posteriorly. Surgical clips adjacent to the above. Lungs are otherwise well aerated. Pleural spaces: Tiny left apical pneumothorax. Heart: Unremarkable. No cardiomegaly. No pericardial effusion. Coronary arteries: Mild coronary calcifications. Mediastinal space: Thoracic inlet is unremarkable. Lymph nodes: mediastinum is unremarkable other than a few small mediastinal lymph nodes. Calcified lymph node right hilum Vasculature: Origin of the great vessels including the innominate artery, the right common carotid artery, the subclavian arteries and the left common carotid artery are normal. Pancreas: mild atrophy of the pancreas. Bones/joints: Careful attention in regards to evaluation of the ribs given the history of trauma. A rib fracture is not visualized. No sternal fracture. No clavicular fracture. Soft tissues: Unremarkable. IMPRESSION: 1. Pigtail catheter is within the subcutaneous soft tissues adjacent to the left hemithorax and not within the pleural space. 2. Tiny left apical pneumothorax. 3. Paraseptal and centrilobular emphysema including large bulla within the lung bases right greater than left. Mild atelectasis left lung base. Parenchymal band/scar within the right upper lobe posteriorly. Surgical clips adjacent to the above. Lungs are otherwise well aerated.
[2025-03-01] MEDS: LISINOPRIL 5MG TABLET 5 MG PO (08:30)
[2025-03-01] MEDS: LORATADINE 10MG TABLET 10 MG PO (08:30)
[2025-03-01] MEDS: FUROSEMIDE 40 MG TABLET PO (08:30)
[2025-03-01] MEDS: PANTOPRAZOLE 40MG TABLET 40 MG PO (08:30)
--- NOTE | 2025-03-01 09:55 | EXP.SURG.PN ---
Subjective Patient reports: no new complaints and feels better Narrative: Chest x-ray and follow-up CT scan completed this morning. Possible tiny apical pneumothorax noted per CT (not visualized on chest x-ray). Pigtail catheter notably in subcutaneous tissue per CT. Pigtail catheter removed this morning by Dr. Stallings. Exam Data for Last 24 hours Vital signs and Labs for Last 24 Hours: Temp Pulse Resp BP Pulse Ox O2 Del Method O2 Flow Rate 98.0 F 79 20 141/83 H 94 L Room Air 03/01/25 07:03/01/25 07:03/01/25 07:03/01/25 07:03/01/25 07:03/01/25 07:02/28/25 08:00 I & O for Last 24 hours: Intake & Output 02/26/25 02/27/25 02/28/25 03/01/25 11:59 11:59 11:59 11:59 Intake Total 1325 / 1325 960 / 960 Output Total 800 / 800 150 / 150 Balance 525 / 525 810 / 810 Weight 355 lb 6.162 oz 346 lb 3.2 oz Constitutional Constitutional: no acute distress *Routine Respiratory Exam Respiratory: Absent respiratory distress Progress Note: A&P Assessment and plan (1) Pneumothorax on left: Status: Acute Assessment and plan: Complete (almost complete) resolution. Pigtail catheter noted to be in subcutaneous position per CT scan. Pigtail catheter subsequently removed by Dr. Stallings this morning. The patient is without symptoms. Follow-up chest x-ray this afternoon Possible discharge home later this afternoon or in a.m. if follow-up films reveal no obvious recurrence (2) Cystic-bullous disease of lung: Status: Chronic
[2025-03-01 11:57] VITALS: BP 132/79; PULSE 92; RESP 18; TEMP 36.9; O2SAT 96
[2025-03-01 16:00] VITALS: BP 115/79; PULSE 77; RESP 18; TEMP 36.7; O2SAT 97
--- NOTE | 2025-03-01 16:00 | XR_ITS ---
PROCEDURE INFORMATION: Exam: XR Chest Exam date and time: 03/01/2025 9:59 AM Age: 39 years old Clinical indication: Other: Chest tube removed, eval pneumo recurrence? TECHNIQUE: Imaging protocol: Radiologic exam of the chest. Views: 1 view. COMPARISON: CT CHEST WO CON 03/01/2025 8:04 AM FINDINGS: Lungs: Limited characterization of the lung bases secondary to overlying soft tissues. Pleural spaces: Possible tiny apical pneumothorax on the left. Tiny apical pneumothorax was noted on CT dated 03-01-25 at 8:06 a.m.. Heart/Mediastinum: Cardiomegaly. Cardiomegaly Bones/joints: Unremarkable. IMPRESSION: 1. Possible tiny apical pneumothorax on the left. Tiny apical pneumothorax was noted on CT dated 03-01-25 at 8:06 a.m.. 2. Limited characterization of the lung bases secondary to overlying soft tissues. Please reference CT dated 03-01-25 in regards to the aeration of the lung parenchyma.
--- NOTE | 2025-03-01 16:11 | XR_ITS ---
PROCEDURE INFORMATION: Exam: XR Chest Exam date and time: 03/01/2025 4:50 PM Age: 39 years old Clinical indication: Other: Chest tube removed a. M. ; Additional info: Chest tube removed this am TECHNIQUE: Imaging protocol: Radiologic exam of the chest. Views: 1 view. COMPARISON: CR XR CHEST PORTABLE 03/01/2025 9:59 AM FINDINGS: Lungs: Unremarkable. No consolidation. Granulomatous changes. Surgical clips in the right perihilar region. Pleural spaces: Mild bilateral pleural effusion. No pneumothorax. Heart/Mediastinum: Unremarkable. No cardiomegaly. Bones/joints: Unremarkable. IMPRESSION: No acute findings.
[2025-03-01] MEDS: CEFTRIAXONE 1 GM 1 GM in 0.9 % SODIUM CHLORIDE 50 ML IV (17:00)
--- NOTE | 2025-03-01 17:03 | EXP.DC.SUM ---
General Admission date:: 02/27/25 Discharge date: 03/01/25 HPI HPI HPI: Mr. Meléndez is a morbidly obese gentleman with cystic bullous lung disease and asthma/COPD. Presented to the ER complaining of a sided headache, some blurry vision in his left eye, and shortness of breath. States he has a history of some migraines but feels this is different. Denies mary chest pain. No nausea or vomiting. States he has been having some coughing lately. Shortness of breath has been for a few days. On evaluation, initial concern for migraine. Chest imaging with CT performed and found to have moderate to large left-sided pneumothorax that appears spontaneous. Has a history of blebs in his right lung and previous pneumothoraces necessitating chest tubes. Symptoms began spontaneously today while sitting in his truck. Denies fever, nausea, vomiting. Medicine consulted for admission. Surgery consulted to assist with chest tube management. Safety centesis catheter placed in the ER for evacuation of pneumothorax. Will be admitted to ICU for further monitoring On evaluation, patient is in mild distress. On nonrebreather to help pneumothorax resorb. Alert and oriented x 4. Chest tube placed in left upper chest mid axillary line Hospital Course Hospital Course Hospital Course: 39-year-old male with known cystic bullous disease of lung. Presented with headache and shortness of breath. Found to have spontaneous pneumothorax of left lung. Chest tube placed in the ER, discussed case with ER physician, request admission for further management of pneumothorax and chest tube. I agreed to admit for further care. Surgery consulted to assist with chest tube management. Placed on nonrebreather. Tube initially placed low wall suction. Patient showed improvement able to wean off oxygen following morning. Serial imaging showed resolution of pneumothorax. Tube removed with stable finding. Stable discharge home with close follow-up with pulmonology or surgery as an outpatient. Problems addressed as follows: Spontaneous pneumothorax of left lung Cystic bullous disease of lung COPD/asthma - Follows with pulmonology as an outpatient for his cystic disease and underlying obstructive disease. Chest tube (pigtail catheter) was placed on time of admission in the ER. Had improvement in his pneumothorax. Was placed on nonrebreather. Surgery consulted and assisted with care during admission. Serial images showed improvement in pneumothorax. CT obtained on morning of day of discharge to evaluate resolution of pneumothorax due to difficulty evaluating complete resolution with x-ray in the setting of patient's body habitus. CT showed complete resolution and chest tube was in soft tissue, not even in the left hemithorax anymore. Tube removed and monitored for 8 hours. Repeat chest x-ray obtained showing no recurrence or increase in pneumothorax. Patient stable with plan to discharge home for close follow-up with pulmonology or surgery as an outpatient in the next week. Labs essentially normal. Initially had elevated white count but normalized within 24 hours. Treated with empiric antibiotics though he had no focal sign of infection or pneumonia. Not continued at discharge. If has recurrence of pneumothorax, in the setting of his cystic blood disease, would need transfer for CT surgery and evaluation for pleurodesis. Complaining of left arm pain, states he is got a injury to his shoulder/left upper pec. - Pain managed with opiate therapy during admission. Did well. Resume home regimen at discharge. History of hypertension: Resume lisinopril 5 mg daily, resume Lasix 40 mg daily Obesity complicates all aspects of his care Total time spent on discharge 32 minutes in counseling, documentation, discussion with consultants, chart review, and direct care with patient. Exam Data for Last 24 hours Vital signs and Labs for Last 24 Hours: Temp Pulse Resp BP Pulse Ox O2 Del Method O2 Flow Rate 98.1 F 77 18 115/79 97 Room Air 15 03/01/25 16:00 03/01/25 16:00 03/01/25 16:00 03/01/25 16:00 03/01/25 16:00 03/01/25 16:00 02/28/25 08:00 I & O for Last 24 hours: Intake & Output 02/26/25 02/27/25 02/28/25 03/01/25 23:59 23:59 23:59 23:59 Intake Total 530 / 885 1565 / 1805 780 / 780 Output Total 400 / 400 400 / 400 150 / 150 Balance 130 / 485 1165 / 1405 630 / 630 Weight 156.9 kg 161.2 kg 157.034 kg Constitutional Constitutional: no acute distress, morbidly obese, chronically ill appearing and cooperative *Routine HEENT Exam Head: Present normocephalic Eye: Present EOMI and PERRL ENT: Present mucous membranes moist *Routine Neck Exam Neck: Present supple; Absent lymphadenopathy Routine Chest/Breast/Axilla Exam Chest wall: Present tenderness (At site of previous tube insertion on left side of chest.) *Routine Respiratory Exam Respiratory: Present CTA bilaterally and normal respiratory effort; Absent rhonchi, wheezes or crackles *Routine Cardiovascular Exam Cardiovascular: Present RRR *Routine Abdominal Exam Abdominal: Present soft, normoactive bowel sounds and obese; Absent tenderness *Routine Rectal Exam Patient deferred: visual exam *Routine Exam Patient deferred: penile exam *Routine Extremities Exam Extremities: Present edema (Trace bilateral lower ankle); Absent cyanosis or clubbing *Routine Skin Exam Skin: Present intact and warm; Absent rash *Routine Neurological Exam Neurological: Present alert, oriented X3 and moving all extremities; Absent altered mental status DS: Diagnosis Discharge Diagnosis (1) Pneumothorax on left: Status: Acute Code(s): J93.9 - Pneumothorax, unspecified (2) Cystic-bullous disease of lung: Status: Chronic Code(s): J98.4 - Other disorders of lung (3) Morbid obesity with BMI of 50.0-59.9, adult: Status: Chronic Code(s): E66.01 - Morbid (severe) obesity due to excess calories; Z68.43 - Body mass index [BMI] 50.0-59.9, adult (4) Injury of muscle of shoulder: Status: Acute Code(s): S46.909A - Unspecified injury of unspecified muscle, fascia and tendon at shoulder and upper arm level, unspecified arm, initial encounter (5) HTN (hypertension): Status: Chronic Code(s): I10 - Essential (primary) hypertension Meds Home Medications and Allergies Home Medications ?Medication ?Instructions ?Recorded ?Confirmed ?Type levocetirizine 5 mg tablet 5 mg PO DAILY 05/14/24 02/27/25 History budesonide 160 mcg-glycopyr 9 2 inh inhalation BID 90 days #10.7 10/20/24 02/27/25 Rx mcg-formot 4.8 mcg/actuation HFA grams inhaler (Breztri Aerosphere) furosemide 40 mg tablet (Lasix) 40 mg PO DAILY #90 tabs 01/12/25 02/27/25 Rx lisinopril 5 mg tablet 5 mg PO DAILY #90 tabs 01/12/25 02/27/25 Rx meloxicam 7.5 mg tablet 7.5 mg PO BIDP PRN Mild Pain 02/26/25 02/28/25 History (Scale Score 1-4) baclofen 10 mg tablet 10 mg PO TID 02/28/25 02/27/25 History famotidine 40 mg tablet 40 mg PO HS 02/28/25 02/28/25 History omeprazole 20 mg capsule,delayed 20 mg PO BID 02/28/25 02/28/25 History release hydrocodone 5 mg-acetaminophen 325 1 tab PO Q8HP PRN severe pain 03/01/25 Rx mg tablet (scale score 7-10) 2 days #6 tabs New Prescriptions to Start Prescriptions: hydrocodone-acetaminophen Edvin Stallings Allergies Allergy/AdvReac Type Severity Reaction Status Date / Time Penicillins (PENICILLINS) Allergy Unknown Swelling Verified 02/26/25 13:02 of Lip/Tongue/Throat pseudoephedrine (From Allergy Swelling Verified 02/26/25 13:02 Sudafed) of the Eye Discharge Plan Disposition Patient Disposition: Home, Self-Care Condition: Fair Discharge Order Discharge Orders: Discharge Order (Routine); Ordered 03/01/25 Ordered By: Edvin Stallings Follow up Plan Follow up with: Natty Canales MD [Physician, Pulmonology] - Enter time for follow up Danielle Mora APRN [Primary Care Provider, Medical] - Enter time for follow up Larry Maldonado MD [Staff Physician, General Surgery] - Enter time for follow up Prescriptions/Medication Reconciliation: New hydrocodone-acetaminophen 5-325 mg Tablet 1 tab PO Q8HP PRN (Reason: severe pain (scale score 7-10)) 2 Days Qty: 6 0RF Continued furosemide [Lasix] 40 mg tablet 40 mg PO DAILY Qty: 90 3RF lisinopril 5 mg tablet 5 mg PO DAILY Qty: 90 3RF meloxicam 7.5 mg tablet 7.5 mg PO BIDP PRN (Reason: Mild Pain (Scale Score 1-4)) Patient Comments: TAKE 1 TABLET BY MOUTH ONCE A DAY NEEDED. MAY increase TO 2 tablets daily NEEDED FOR PAIN levocetirizine 5 mg tablet 5 mg PO DAILY Breztri Aerosphere 160-9-4.8 mcg/actuation HFA aerosol inhaler 2 inh inhalation BID 90 Days Qty: 10.7 3RF famotidine 40 mg tablet 40 mg PO HS baclofen 10 mg tablet 10 mg PO TID omeprazole 20 mg capsule,delayed release(DR/EC) 20 mg PO BID Problem Reconciliation Problems Reviewed?: Yes Patient Discharge Instructions ACTIVITY: Continue current activity DIET: continue same diet Patient Instructions: DI for Pneumothorax, DI for Surgical Site Infection Print Language: Bhutanese Providers Primary Care Provider: Danielle Mora Admit Provider: Edvin Stallings Attending Provider: Edvin Stallings
--- NOTE | 2025-03-02 10:57 | SW/DCPLANNER ---
Spoke with patient on the phone. patient stated that he is doing well. Patient stated that he is aware but has not called and scheduled his appointments. Patient stated that he was able to get his new medicine picked up from the pharmacy. Patient stated that he has no concerns or questions at this time. Silvestre Shrestha
== END 2025-03-01 18:00 | disposition home or self-care (01) | DRG 200 ==
LOC: ER 16:02 → ICU 16:49 → 2ND 02-28 14:56 → ICU 02-28 19:41
PROVIDERS: Nurse Practitioner; Admitting Provider Internal Medicine Adolescent Medicine; Emergency Provider Student in an Organized Health Care Education/Training Program; PCP Nurse Practitioner Family; Visit Provider Internal Medicine Adolescent Medicine
DX: J93.83 Other pneumothorax (principal); Z68.43 Body mass index [BMI] 50.0-59.9, adult; J98.4 Other disorders of lung; I10 Essential (primary) hypertension; E66.01 Morbid (severe) obesity due to excess calories; J44.9 Chronic obstructive pulmonary disease, unspecified; G43.909 Migraine, unspecified, not intractable, without status migrainosus; M79.602 Pain in left arm; S46.902A Unspecified injury of unspecified muscle, fascia and tendon at shoulder and upper arm level, left arm, initial encounter; F17.210 Nicotine dependence, cigarettes, uncomplicated; X58.XXXA Exposure to other specified factors, initial encounter; Z79.52 Long term (current) use of systemic steroids; Z79.899 Other long term (current) drug therapy; Z88.0 Allergy status to penicillin; Z88.8 Allergy status to other drugs, medicaments and biological substances
CPT/HCPCS: 36415; 70450; 70496; 70498; 71045; 71250; 71275; 80053; 83690; 83735; 83880; 84484; 85025; 99284; J0696; J1171; J1650; J2004; J2270; Q9967

== ENCOUNTER 2025-03-04 09:17 | Outpatient (CLI) | payer MEDICARE, MEDICAID, SELFPAY ==
--- OUTSIDE RECORDS SUMMARY | 2017-01-31 09:00 | XMS_ITS | Encounter Summary ---
[facility] [address] [place] [address] Care Team Providers Care Welt Cutter Name Role Phone Danielle Mora Jannette LORENZO Primary Care Provid er Encounter Details Date Type Department Care Team (Late st Contact Info) Description 01/31/2017 9:00 AM EDT Hospital Encounter [facility] PULMONARY & CRITICAL CARE MEDICINE [address] [place] [address] Social History Tobacco Use Types [...] on filedocumented in this encounter Care Teams Welt Cutter Relationship Specialty Start Date End Date Danielle Mora APRN [address] [place] [address] [place] [address] PCP - General Family Medicine 12/02/15 documented as of this encounter
--- NOTE | 2025-03-04 09:19 | XR_ITS ---
FINAL REPORT CLINICAL HISTORY: Pneumothorax follow up from hospital COMPARISON: 03/01/2025 FINDINGS: PA and lateral views of the chest were obtained. The heart is stable in size. Scarring at the right lung base is unchanged.. There is no focal infiltrate. There is no pleural effusion. Left pneumothorax is apical and measures 8 mm. No acute osseous abnormality is identified. IMPRESSION: Small left apical pneumothorax. Otherwise, no acute findings. Reviewed, Interpreted and Dictated by Emma Cummins MD Transcribed by Kristi Trejo Authenticated and [facility]
--- OUTSIDE RECORDS SUMMARY | 2025-03-04 09:26 | XMS_ITS | Encounter Summary ---
[facility] Address [address] [place] [address] Care Team Providers Care Adjunct Instructor Chemistry Name Role Phone Danielle Mora APRN Primary Care Provid er Encounter Details Date Type Department Care Team (Late st Contact Info) Description 11/27/2016 External CPT II ASSOCIATE VETERINARIAN - [facility] Social History Tobacco Use [...] on filedocumented in this encounter Care Teams Adjunct Instructor Chemistry Relationship Specialty Start Date End Date Danielle Mora APRN [address] [place] [id number] PCP - General Family Medicine 12/02/15 documented as of this encounter
--- OUTSIDE RECORDS SUMMARY | 2025-03-04 09:26 | XMS_ITS | Clinical Summary ---
Author Organization [facility] Address [address] [place] [address] Care Team Providers Care Visiting Teacher Name Role Phone Danielle Mora Jannette [...] to complete this topic Insurance KIRSTIN RALPH [id number] MEDICARE A & B MEDICAID [place] Care Teams Visiting Teacher Relationship Specialty Start Date End Date Danielle Mora APRN [address] [facility] [address] [place] [id number] PCP - General Family Medicine 12/02/15
--- OUTSIDE RECORDS SUMMARY | 2025-03-04 09:26 | XMS_ITS | Encounter Summary ---
[facility] Address [address] [place] [address] Care Team Providers Care Surfboard Maker Name Role Phone Danielle Mora APRN Primary Care Provid er Encounter Details Date Type Department Care Team (Late st Contact Info) Description 10/19/2014 External CPT II REAL TIME ANALYST - [facility] Social History Tobacco Use [...] on filedocumented in this encounter Care Teams Surfboard Maker Relationship Specialty Start Date End Date Danielle Mora APRN [address] [facility] [address] [place] [id number] PCP - General Family Medicine 12/02/15 documented as of this encounter
--- OUTSIDE RECORDS SUMMARY | 2025-03-04 09:26 | XMS_ITS | Clinical Summary ---
Author Organization [facility] Address [address] [facility] [address], [address] [place] [address] Care Team Providers Care Computer Designer Name Role Phone Unavailable Primary Care Provider [...]
--- OUTSIDE RECORDS SUMMARY | 2025-03-04 09:26 | XMS_ITS | Encounter Summary ---
[facility] Address [address] [place] [address] Care Team Providers Care Payroll Accounting Clerk Name Role Phone Danielle Mora APRN Primary Care Provid er Encounter Details Date Type Department Care Team (Late st Contact Info) Description 01/13/2015 External CPT II PRECISION FILER HAND - [facility] Social History Tobacco Use [...] on filedocumented in this encounter Care Teams Payroll Accounting Clerk Relationship Specialty Start Date End Date Danielle Mora APRN [address] [facility] [address] [place] [id number] PCP - General Family Medicine 12/02/15 documented as of this encounter
--- OUTSIDE RECORDS SUMMARY | 2025-03-04 09:26 | XMS_ITS | Encounter Summary ---
[facility] Address [address] [place] [address] Care Team Providers Care Grid Maker Name Role Phone Danielle Mora APRN Primary Care Provid er Encounter Details Date Type Department Care Team (Late st Contact Info) Description 03/03/2015 External CPT II CHIEF INSPECTOR - [facility] Social History Tobacco [...] on filedocumented in this encounter Care Teams Grid Maker Relationship Specialty Start Date End Date Danielle Mora APRN [address] [facility] [address] [place] [id number] PCP - General Family Medicine 12/02/15 documented as of this encounter
== END 2025-03-04 23:59 | disposition home or self-care (01) ==
LOC: RAD 09:17
PROVIDERS: PCP Nurse Practitioner Family; Visit Provider Surgery
DX: J93.83 Other pneumothorax (principal)
CPT/HCPCS: 71046

== ENCOUNTER 2025-03-11 14:17 | Outpatient (CLI) | payer MEDICARE, MEDICAID, SELFPAY ==
--- NOTE | 2025-03-11 14:21 | XR_ITS ---
FINAL REPORT TECHNIQUE: Chest PA & Lateral CLINICAL HISTORY: Pneumothorax in hospital last week, released sunday COMPARISON: 03/04/2025 FINDINGS: 2 views of the chest were performed. The heart size is normal. The mediastinum is within normal limits. There is no acute cardiopulmonary process. There are no pleural effusions. There is no pneumothorax identified. There are surgical clips noted in the upper right thorax. IMPRESSION: No pneumothorax identified on today's exam. No acute cardiopulmonary process. Reviewed, Interpreted and Dictated by Christopher Lake MD Transcribed by Barbra Gonzalez Authenticated and [facility]
== END 2025-03-11 23:59 | disposition home or self-care (01) ==
LOC: RAD 14:18
PROVIDERS: PCP Nurse Practitioner Family; Visit Provider Surgery
DX: J93.9 Pneumothorax, unspecified (principal)
CPT/HCPCS: 71046

== ENCOUNTER → 2025-03-22 20:10 | Outpatient (CLI) | payer MEDICARE, MEDICAID, SELFPAY ==
--- OUTSIDE RECORDS SUMMARY | 2017-01-31 09:00 | XMS_ITS | Encounter Summary ---
[facility] Address [address] [place] [address] Care Team Providers Care Director Of Maintenance Name Role Phone Danielle Mora APRN Primary Care Provid er Encounter Details Date Type Department Care Team (Late st Contact Info) Description 01/31/2017 9:00 AM EDT Hospital Encounter [facility] PULMONARY & CRITICAL CARE MEDICINE [address] [place] [id number] Social History Tobacco Use Types Packs/Day Years [...] 3:00 PM EDT Muna Smith RN * [place] Suicide Severity Rating Scale (Screener/Recent Self-Report) Question [...] on filedocumented in this encounter Care Teams Director Of Maintenance Relationship Specialty Start Date End Date Abby Danielle LORENZO Bhatia [address] [place] [facility] [address] [place] [address] PCP - General Family Medicine 12/02/15 documented as of this encounter
--- OUTSIDE RECORDS SUMMARY | 2025-03-06 16:09 | XMS_ITS | Encounter Summary ---
[facility] Address [address] [place] [address] Care Team Providers Care Sanitation Worker Name Role Phone Danielle Mora APRN Primary Care Provid er Reason for Referral * Consultation (Routine) - Closed Specialty Diagnoses / Procedures Referred By Contac t Referred To Contact Sleep Medicine Diagnoses Acute hypoxic respiratory failure Procedures [place] OFFICE/OUTPATIENT NEW MODERATE MDM 45 MINUTES Maximino Cohn MD [address] [place] [address] Phone: tel: fax: [facility] [address] [place] [address] Phone: tel: fax: Referral ID Status Reason Start Date Expiration Date Visits Re quested Visits Authorized [id number] Closed 03/08/2025 06/07/2026 1 1 Reason for Visit * Reason Comments pneumothorax * Auth/Cert Specialty Diagnoses / Procedures Referred By Contac t Referred To Contact Diagnoses Acute hypoxic respiratory failure Referral ID Status Reason Start Date Expiration Date Visits Re quested Visits Authorized [id number] 1 1 Encounter Details Date Type Department Care Team (Late st Contact Info) Description 03/06/2025 4:09 PM EDT - 03/08/2025 12:28 PM EDT Hospital Encounter [address] [place] [id number] Yosi Loja DO [address] [place] [address] Danish Tong MD [address] [facility] [address] [place] [address] Maximino Cohn MD [address] [facility] [address] [place] [address] Acute respiratory failure with hypoxia (Primary Dx); Tachycardia; Leukocytosis, unspecified type; History of pneumothorax; Referred by health child care lead teacher; Acute hypoxic respiratory failure Discharge Disposition: Home or Self Care Social History Tobacco Use Types Packs/Day Years Used Date Smoking Tobacco: Former Cigarettes 0.3 13 0 09/14/2003 - 09/13/2016 Smokeless Tobacco: Former Tobacco Cessation:Counseling Given: Not Answered Alcohol Use Standard Drinks/Week Comments No 0 [...] on file documented as of this encounter Last Filed Vital Signs Vital Sign Reading Time Taken Comments Blood Pressure 121/65 03/08/2025 9:06 AM EDT Pulse 84 03/08/2025 9:50 AM EDT Temperature 36.7 C (98 F) 03/08/2025 9:06 AM EDT Respiratory Rate 18 03/08/2025 9:06 AM EDT Oxygen Saturation 94% 03/08/2025 9:50 AM EDT Inhaled Oxygen Concentration - - Weight 68.5 kg (151 lb) 03/08/2025 5:08 AM EDT Height 170.2 cm (5' 7 ) 03/06/2025 2:58 PM EDT Body Mass Index 23.65 03/06/2025 2:58 PM EDT documented in this encounter Functional Status * Calculated C-SSRS Risk Score (Lifetime/Recent) Answer Date of Assessment Author No Risk Indicated 03/06/2025 3:00 PM EDT Muna Smith RN * [place] Suicide Severity Rating Scale (Screener/Recent Self-Report) Question Answer Date of Assessment Author 1. Wish to be (Past 1 Month) No 025 3:00 PM EDT Muna Bobo RN 2. Non-Specific Active Suici jabier Thoughts (Past 1 Month) No 03/06/2025 3:00 PM EDT Ata Bobo RN 6. Suicidal Behavior (Lifetime) No 3:00 PM EDT Muna Bobo RN documented as of this encounter Discharge Summaries * Maximino Cohn MD - 03/08/2025 9:52 AM EDT Images from the original note were not included. [facility] DISCHARGE SUMMARY Patient Name: Ronal Meléndez : 1985 Date of Admission: 03/06/2025 4:09 PM Date of Discharge: 02/28/2025 Primary Care Physician: Danielle Mora APRN Consults No orders found from 02/05/2025 to 03/07/2025. Hospital Course Presenting Problem: Active Hospital Problems Diagnosis POA Acute hypoxic respiratory failure [J96.01] Yes Resolved Hospital Problems No resolved problems to display. Hospital Course: Ronal Meléndez is a 39 y.o. male PMHx of COPD, advanced emphysema, chronic tobacco use, morbid obesityBMI 54, recent hospitalization at outside hospital for spontaneous pneumothorax status post chest tube presented to the hospital with COPD exacerbation. Treated with IV Rocephin and doxycycline as well as steroids and nebulizer treatment with significant improvement of his symptoms. Initially hypoxic requiring 5 L nasal cannula. On day of discharge, 6-minute walk test was performed and his oxygensaturation stayed around 91 to 92% on room air at the end of the test and he did not qualify for home O2. Counseled repeatedly about the importance to refrain from smoking cigarettes. Additionally, diuresed with IV Lasix and subsequently p.o. torsemide which might have helped his symptoms. He has upcoming appointment on Sunday with his pusher runner. Referral for sleep clinic placed in [facility] prior to discharge Acute hypoxic respiratory insufficiency, resolved Acute bronchitis improved Advanced COPD with significant emphysema Recent spontaneous pneumothorax s/p chest tube 02/27/2025 Possible obstructive sleep apnea Morbid obesity, BMI 55 Acutely hypoxic, currently on 5 L nasal cannula Negative respiratory panel CTA chest with no evidence of PE but showed significant bullous emphysema Status post IV Rocephin and doxycycline for bronchitis. Transition to p.o. cefuroxime and doxycycline x 5 days IV Solu-Medrol. Discharged on 5-day course of p.o. prednisone 40 mg daily Start torsemide 40 mg daily Echo for pulmonary hypertension and left ventricle systolic function evaluation Bebeto, Mucinex I-S and pulmonary toilet Outpatient referral for PFT and sleep study On day of discharge, 6-minute walk test was performed --> oxygen saturation stayed above 91 to 92%. Did not qualify for home O2 Patient has upcoming appointment with his pusher runner next week Possible decompensated diastolic heart failure Volume blood Echo with poor quality. Normal systolic function. He has significant swelling of both lower extremities and he improved dramatically with diuresis Discharged on p.o. torsemide 40 mg daily Tobacco use disorder Counseled about active and passive smoking. Patient reported that he does not smoke x 1 week now. Willing to quit Nicotine patches while inpatient Morbid obesity: BMI 54 Affects all aspects of his care Discharge Follow Up Recommendations for outpatient labs/diagnostics: PCP 1 week Patient has follow-up appointment with his pusher runner on Sunday Day of Discharge HPI: Patient seen and examined this morning. Feeling much better. Cough significantly improved. Walked for 6-minute on room air and his oxygen saturation stayed above 91 to 92%. He is telling me that he has an appointment with his pusher runner on Sunday. Counseled repeatedly about the importance to refrain from smoking Vital Signs: Temp: [97.6 ??F (36.4 ??C)-98.1 ??F (36.7 ??C)] 98 ??F (36.7 ??C) Heart Rate: [54-104] 64 Resp: [16-20] 18 BP: (121-145)/(65-99) 121/65 Flow (L/min) (Oxygen Therapy): [5] 5 Physical Exam: General: Morbidly obese, not in distress, conversant and cooperative Head: Atraumatic and normocephalic Eyes: No Icterus. No pallor Ears: Ears appear intact with no abnormalities noted Throat: No oral lesions, no thrush Neck: Supple, trachea midline Lungs: Diminished air entry both lung ortiz with no wheezing. Heart: Normal S1 and S2, no murmur, no gallop, No JVD, no lower extremity swelling Abdomen: Soft, no tenderness, no organomegaly, normal bowel sounds, no organomegaly Extremities: pulses equal bilaterally Skin: No bleeding, bruising or rash, normal skin turgor and elasticity Neurologic: Cranial nerves appear intact with no evidence of facial asymmetry, normal motor and sensory functions in all 4 extremities Psych: Alert and oriented x 3, normal mood Pertinent and/or Most Recent Results LAB RESULTS: Lab 03/07/25 0407 03/06/25 1513 WBC 12.44* 18.70* HEMOGLOBIN 15.7 16.1 HEMATOCRIT 48.5 50.2 PLATELETS 424 460* NEUTROS ABS 11.54* 15.88* IMMATURE GRANS (ABS) 0.11* 0.12* LYMPHS ABS 0.65* 1.60 MONOS ABS 0.12 1.01* EOS ABS 0.00 0.04 MCV 84.5 84.1 D DIMER QUANT -- <0.27 Lab 03/07/25 0407 03/06/25 2116 03/06/25 1513 SODIUM 141 -- 140 POTASSIUM 4.3 -- 3.8 CHLORIDE 103 -- 104 CO2 24.3 -- 22.6 ANION GAP 13.7 -- 13.4 BUN 18.9 -- 15.3 CREATININE 1.15 -- 0.99 EGFR 83.5 -- 100.0 GLUCOSE 211* -- 109* CALCIUM 9.9 -- 9.8 MAGNESIUM 2.2 -- -- HEMOGLOBIN A1C 5.88* -- -- TSH -- 3.300 -- Lab 03/07/25 0407 03/06/25 1513 TOTAL PROTEIN 7.0 7.1 ALBUMIN 4.0 4.1 GLOBULIN 3.0 3.0 ALT (SGPT) 25 23 AST (SGOT) 14 15 BILIRUBIN 0.2 0.2 ALK PHOS 66 65 Lab 03/06/25 1632 03/06/25 1513 PROBNP -- 86.6 HSTROP T 9 7 Lab 03/06/25 2038 PH, ARTERIAL 7.432 PCO2, ARTERIAL 34.2* PO2 ART 116.0* FIO2 32 HCO3 ART 22.8 BASE EXCESS ART -0.8* CARBOXYHEMOGLOBIN 1.0 Brief Urine Lab Results None Microbiology Results (last 10 days) Procedure Component Value - Date/Time Respiratory Panel PCR w/COVID-19(SARS-CoV-2) RAYMON/BEBO/SHERRIE/PAD/COR/DEMETRIUS In-House, FRUIT SORTER Swab in UTM/VTM, 2 HR TAT - Swab, Nasopharynx [[id number]] (Normal) Collected: 03/07/25 0154 Lab Status: Final result Specimen: Swab from Nasopharynx Updated: 03/07/25 0250 ADENOVIRUS, PCR Not Detected Coronavirus 229E Not Detected Coronavirus HKU1 Not Detected Coronavirus NL63 Not Detected Coronavirus OC43 Not Detected COVID19 Not Detected Human Metapneumovirus Not Detected Human Rhinovirus/Enterovirus Not Detected Influenza A PCR Not Detected Influenza B PCR Not Detected Parainfluenza Virus 1 Not Detected Parainfluenza Virus 2 Not Detected Parainfluenza Virus 3 Not Detected Parainfluenza Virus 4 Not Detected RSV, PCR Not Detected Bordetella pertussis pcr Not Detected Bordetella parapertussis PCR Not Detected Chlamydophila pneumoniae PCR Not Detected Mycoplasma pneumo by PCR Not Detected Narrative: In the setting of a positive respiratory panel with a viral infection PLUS a negative procalcitoninwithout other underlying concern for bacterial infection, consider observing off antibiotics or discontinuation of antibiotics and continue supportive care. If the respiratory panel is positive for atypical bacterial infection (Bordetella pertussis, Chlamydophila pneumoniae, or Mycoplasma pneumoniae), consider antibiotic de-escalation to target atypical bacterial infection. Blood Culture - Blood, Arm, Right [[id number]] (Normal) Collected: 03/07/259 Lab Status: Preliminary result Specimen: Blood from Arm, Right Updated: 03/08/2544 Blood Culture No growth at 24 hours Blood Culture - Blood, Arm, Left [[id number]] (Normal) Collected: 03/07/25 0005 Lab Status: Preliminary result Specimen: Blood from Arm, Left Updated: 03/08/2544 Blood Culture No growth at 24 hours Narrative: Less than seven (7) mL's of blood was collected. Insufficient quantity may yield false negative results. CT Angiogram Chest Pulmonary Embolism Result Date: 03/06/2025 CT ANGIOGRAM CHEST PULMONARY EMBOLISM Date of Exam: 03/06/2025 5:16 PM EDT Indication: Shortness of Breath. Comparison: None available. Technique: Axial CT images were obtained of the chest after the uneventful intravenous administration of iodinated contrast utilizing pulmonary embolism protocol. In addition, a 3-D volume rendered image was created for interpretation. Reconstructed coronal and sagittal images were also obtained. Automated exposure control and iterative construction methods wereused. Findings: Pulmonary Arteries: The pulmonary arterial enhancement is grossly suboptimal Beyondthe central pulmonary arteries evaluation is nondiagnostic. There is no evidence of a large centralpulmonary embolus however. Hilum and Mediastinum: No pathologically enlarged lymph nodes. Normal heart size. No significant coronary artery atherosclerotic disease. Unremarkable thoracic aorta. No pericardial effusion. Lung Parenchyma and Pleura: There is advanced centrilobular emphysema. There ismild atelectasis and scarring lung bases bilaterally. There are large bulla in the bases bilaterally right greater than left. Postoperative suture material right upper lobe posteriorly Upper Abdomen:Unremarkable. Soft tissues: Unremarkable. Osseous structures: No osseous abnormality suggested Grossly limited evaluation for pulmonary embolus. No evidence of large central pulmonary embolus. Electronically Signed: Elvis Osullivan MD 03/06/2025 6:05 PM EDT Workstation ID: [id number] XR Chest 1 View Result Date: 03/06/2025 XR CHEST 1 VW Date of Exam: 03/06/2025 4:05 PM EDT Indication: SOA triage protocol. Comparison: Chest radiograph 01/31/2017 Findings: Mediastinum: Cardiac silhouette appears unchanged and normal in size. Lungs: The lungs appear clear without focal consolidation appreciated. Surgical clips project over the right lung. Pleura: No pleural effusion or pneumothorax. Bones and soft tissues: No acute, displaced fracture seen. Impression: No radiographic evidence of acute cardiopulmonary abnormality. Electronically Signed: Vic Bailon MD 03/06/2025 4:32 PM EDT Workstation ID: [id number] Results for orders placed during the hospital encounter of 03/06/25 Adult Transthoracic Echo Limited W/ Cont if Necessary Per Protocol 03/07/2025 8:15 PM Interpretation Summary Poor visualization of the left ventricle and all valvular structures in parasternal and apical views. The LVEF is suspected to be normal and estimated at 50-55%. The right atrial appears normal and contractility There appears to be trace mitral and tricuspid regurgitation. No additional interpretation is possible. I have personally reviewed the therapy plans: [] PT/OT/ ST Therapy Plans Plan for Follow-up of Pending Labs/Results: Pending Labs Order Current Status High Sensitivity CRP In process Blood Culture - Blood, Arm, Left Preliminary result Blood Culture - Blood, Arm, Right Preliminary result Discharge Details Discharge Medications New Medications Instructions Start Date cefuroxime 500 MG tablet Commonly known as: CEFTIN 500 mg, Oral, 2 Times Daily doxycycline 100 MG capsule Commonly known as: VIBRAMYCIN 100 mg, Oral, 2 Times Daily predniSONE 20 MG tablet Commonly known as: DELTASONE 40 mg, Oral, Daily Torsemide 40 MG tablet 20 mg, Oral, Daily Continue These Medications Instructions Start Date albuterol sulfate HFA 108 (90 Base) MCG/ACT inhaler Commonly known as: PROVENTIL HFA;VENTOLIN HFA;PROAIR HFA 2 puffs, Inhalation, Every 4 Hours PRN Stop These Medications ibuprofen 800 MG tablet Commonly known as: ADVIL,MOTRIN levoFLOXacin 500 MG tablet Commonly known as: LEVAQUIN Allergies Allergen Reactions Penicillins Anaphylaxis Sudafed [Pseudoephedrine Hcl] Discharge Disposition: Home or Self Care Diet: Hospital: Diet Order Procedures Diet: Cardiac; Healthy Heart (2-3 Na+); Fluid Consistency: Thin (IDDSI 0) Standing Status: Standing Number of Occurrences: 1 Diets:: Cardiac Cardiac Diet:: Healthy Heart (2-3 Na+) Fluid Consistency:: Thin (IDDSI 0) Activity: As tolerated Restrictions or Other Recommendations: None CODE STATUS: Code Status and Medical Interventions: CPR (Attempt to Resuscitate); Full Support Ordered at: 03/06/252053 Code Status (Patient has no pulse and is not breathing): CPR (Attempt to Resuscitate) Medical Interventions (Patient has pulse or is breathing): Full Support Level Of Support Discussed With: Patient No future appointments. Additional Instructions for the Follow-ups that You Need to Schedule Ambulatory Referral to Sleep Medicine As directed Follow-up needed: Yes Maximino Cohn MD 03/08/25 Time Spent on Discharge: I spent 32 minutes on this discharge activity which included: [id number] with the patient, reviewing the data in the system, coordination of the care with the nursing staff as well as consultants, documentation, and entering orders. documented in this encounter Discharge Instructions * Attachments The following attachments cannot be sent through Care Everywhere. * Acute Respiratory Failure Adult (Estonian) * Cefuroxime Tablets (Estonian) * Doxycycline Capsules or Tablets (Estonian) * Prednisone Tablets (Estonian) * Torsemide Tablets (Estonian) documented in this encounter Medications at Time of Discharge albuterol (PROVENTIL HFA;VENTOLIN HFA) 108 (90 BASE) MCG/ACT inhaler Inhale 2 puffs every 4 (four) hours as needed for wheezing. torsemide 40 MG tablet Take 20 mg by mouth Daily for 90 days. 90 tablet 03/08/2025 06/06/2025 cefuroxime (CEFTIN) 500 MG tablet Take 1 tablet by mouth 2 (Two) Times a Day for 5 days. 10 tablet 03/08/2025 03/13/2025 doxycycline (VIBRAMYCIN) 100 MG capsule Take 1 capsule by mouth 2 (Two) Times a Day for 5 days. 10 capsule 03/08/2025 03/13/2025 predniSONE (DELTASONE) 20 MG tablet Take 2 tablets by mouth Daily for 5 days. 10 tablet 03/08/2025 03/13/2025 documented as of this encounter Progress Notes * Maximino Cohn MD - 03/07/2025 5:55 AM EDT Images from the original note were not included. [facility] PROGRESS NOTE Patient Name: Ronal Meléndez : 1985 Date of Admission: 03/06/2025 Primary Care Physician: Danielle Mora APRN Subjective Subjective CC: Follow-up for shortness of breath HPI: Patient seen and examined this morning. Feeling slightly better today. Ox requirements is still high at 5 L/min satting 92%. Patient reported that he did not smoke x 2 weeks Objective Objective Vital Signs: Temp: [97.7 ??F (36.5 ??C)-98.8 ??F (37.1 ??C)] 97.8 ??F (36.6 ??C) Heart Rate: [72-128] 72 Resp: [18-28] 18 BP: (119-157)/(72-108) 145/99 Flow (L/min) (Oxygen Therapy): [2-5] 5 Physical Exam: General: Comfortable, not in distress, conversant and cooperative Head: Atraumatic and normocephalic Eyes: No Icterus. No pallor Ears: Ears appear intact with no abnormalities noted Throat: No oral lesions, no thrush Neck: Supple, trachea midline Lungs: Diminished air entry both lung ortiz with no wheezing. Heart: Normal S1 and S2, no murmur, no gallop, No JVD, no lower extremity swelling Abdomen: Soft, no tenderness, no organomegaly, normal bowel sounds, no organomegaly Extremities: pulses equal bilaterally Skin: No bleeding, bruising or rash, normal skin turgor and elasticity Neurologic: Cranial nerves appear intact with no evidence of facial asymmetry, normal motor and sensory functions in all 4 extremities Psych: Alert and oriented x 3, normal mood Results Reviewed: LAB RESULTS: Lab 03/07/25 0407 03/06/25 1632 03/06/25 1513 WBC 12.44* -- 18.70* HEMOGLOBIN 15.7 -- 16.1 HEMATOCRIT 48.5 -- 50.2 PLATELETS 424 -- 460* NEUTROS ABS 11.54* -- 15.88* IMMATURE GRANS (ABS) 0.11* -- 0.12* LYMPHS ABS 0.65* -- 1.60 MONOS ABS 0.12 -- 1.01* EOS ABS 0.00 -- 0.04 MCV 84.5 -- 84.1 D DIMER QUANT -- -- <0.27 HSTROP T -- 9 7 Lab 03/07/25 0407 03/06/25 2116 03/06/25 1513 SODIUM 141 -- 140 POTASSIUM 4.3 -- 3.8 CHLORIDE 103 -- 104 CO2 24.3 -- 22.6 ANION GAP 13.7 -- 13.4 BUN 18.9 -- 15.3 CREATININE 1.15 -- 0.99 EGFR 83.5 -- 100.0 GLUCOSE 211* -- 109* CALCIUM 9.9 -- 9.8 MAGNESIUM 2.2 -- -- HEMOGLOBIN A1C 5.88* -- -- TSH -- 3.300 -- Lab 03/07/25 0407 03/06/25 1513 TOTAL PROTEIN 7.0 7.1 ALBUMIN 4.0 4.1 GLOBULIN 3.0 3.0 ALT (SGPT) 25 23 AST (SGOT) 14 15 BILIRUBIN 0.2 0.2 ALK PHOS 66 65 Lab 03/06/25 1632 03/06/25 1513 PROBNP -- 86.6 HSTROP T 9 7 Lab 03/06/25 2038 PH, ARTERIAL 7.432 PCO2, ARTERIAL 34.2* PO2 ART 116.0* FIO2 32 HCO3 ART 22.8 BASE EXCESS ART -0.8* CARBOXYHEMOGLOBIN 1.0 Brief Urine Lab Results None Microbiology Results Abnormal None CT Angiogram Chest Pulmonary Embolism Result Date: 03/06/2025 CT ANGIOGRAM CHEST PULMONARY EMBOLISM Date of Exam: 03/06/2025 5:16 PM EDT Indication: Shortness of Breath. Comparison: None available. Technique: Axial CT images were obtained of the chest after the uneventful intravenous administration of iodinated contrast utilizing pulmonary embolism protocol. In addition, a 3-D volume rendered image was created for interpretation. Reconstructed coronal and sagittal images were also obtained. Automated exposure control and iterative construction methods wereused. Findings: Pulmonary Arteries: The pulmonary arterial enhancement is grossly suboptimal Beyondthe central pulmonary arteries evaluation is nondiagnostic. There is no evidence of a large centralpulmonary embolus however. Hilum and Mediastinum: No pathologically enlarged lymph nodes. Normal heart size. No significant coronary artery atherosclerotic disease. Unremarkable thoracic aorta. No pericardial effusion. Lung Parenchyma and Pleura: There is advanced centrilobular emphysema. There is mild atelectasis and scarring lung bases bilaterally. There are large bulla in the bases bilaterallyright greater than left. Postoperative suture material right upper lobe posteriorly Upper Abdomen: Unremarkable. Soft tissues: Unremarkable. Osseous structures: No osseous abnormality suggested Impression: Grossly limited evaluation for pulmonary embolus. No evidence of large central pulmonary embolus. Electronically Signed: Elvis Osullivan MD 03/06/2025 6:05 PM EDT Workstation ID: [id number] XR Chest 1 View Result Date: 03/06/2025 XR CHEST 1 VW Date of Exam: 03/06/2025 4:05 PM EDT Indication: SOA triage protocol. Comparison: Chest radiograph 01/31/2017 Findings: Mediastinum: Cardiac silhouette appears unchanged and normal in size. Lungs: The lungs appear clear without focal consolidation appreciated. Surgical clips project over the right lung. Pleura: No pleural effusion or pneumothorax. Bones and soft tissues: No acute, displaced fracture seen. Impression: Impression: No radiographic evidence of acute cardiopulmonary abnormality. Electronically Signed: Vic Bailon MD 03/06/2025 4:32 PM EDT Workstation ID: [id number] I have personally reviewed the therapy plans: [] PT/OT/ ST Therapy Plans Current medications: Scheduled Meds:doxycycline, 100 mg, Oral, Q12H enoxaparin sodium, 60 mg, Subcutaneous, Q12H furosemide, 40 mg, Intravenous, Q12H ipratropium-albuterol, 3 mL, Nebulization, 4x Daily - RT losartan, 25 mg, Oral, Q24H pantoprazole, 40 mg, Intravenous, Q AM predniSONE, 40 mg, Oral, Daily With Breakfast senna-docusate sodium, 2 tablet, Oral, BID sodium chloride, 10 mL, Intravenous, Q12H Continuous Infusions: PRN Meds:. acetaminophen OR acetaminophen OR acetaminophen senna-docusate sodium AND polyethylene glycol AND bisacodyl AND bisacodyl Calcium Replacement - Follow Nurse / BPA Driven Protocol Magnesium Standard Dose Replacement - Follow Nurse / BPA Driven Protocol nitroglycerin ondansetron Phosphorus Replacement - Follow Nurse / BPA Driven Protocol Potassium Replacement - Follow Nurse / BPA Driven Protocol sodium chloride sodium chloride sodium chloride Assessment & Plan Assessment & Plan Active Hospital Problems Diagnosis POA Acute hypoxic respiratory failure [J96.01] Yes Resolved Hospital Problems No resolved problems to display. Brief Hospital Course to date: Ronal Meléndez is a 39 y.o. male PMHx of COPD, advanced emphysema, chronic tobacco use, morbid obesityBMI 54, recent hospitalization at outside hospital for spontaneous pneumothorax status post chest tube presented to the hospital with COPD exacerbation Acute hypoxic respiratory insufficiency Acute bronchitis Advanced COPD with significant emphysema Recent spontaneous pneumothorax s/p chest tube 02/27/2025 Possible obstructive sleep apnea Morbid obesity, BMI 55 Acutely hypoxic, currently on 5 L nasal cannula Negative respiratory panel CTA chest with no evidence of PE but showed significant bullous emphysema IV Rocephin and doxycycline for bronchitis IV Solu-Medrol Start torsemide 40 mg daily Echo for pulmonary hypertension and left ventricle systolic function evaluation DuoNecheryl, Mucinex I-S and pulmonary toilet Outpatient referral for PFT and sleep study He will need 6-minute walk test prior to discharge Tobacco use disorder Counseled about active and passive smoking. Patient reported that he does not smoke x 1 week now. Willing to quit Nicotine patches while inpatient Morbid obesity: BMI 54 Affects all aspects of his care Expected Discharge Location and Transportation: Expected Discharge Expected Discharge Date: 03/09/2025; Expected Discharge Time: VTE Prophylaxis: Pharmacologic VTE prophylaxis orders are present. AM-PAC 6 Clicks Score (PT): 24 (03/07/25904) CODE STATUS: Code Status and Medical Interventions: CPR (Attempt to Resuscitate); Full Support Ordered at: 03/06/252053 Code Status (Patient has no pulse and is not breathing): CPR (Attempt to Resuscitate) Medical Interventions (Patient has pulse or is breathing): Full Support Level Of Support Discussed With: Patient Maximino Cohn MD 03/07/25 documented in this encounter H&P Notes * Danish Tong MD - 03/06/2025 8:54 PM EDT Images from the original note were not included. [facility] HISTORY AND PHYSICAL Patient Name: Ronal Meléndez : 1985 Primary Care Physician: Danielle Mora, LORENZO Date of admission: 03/06/2025 Subjective Subjective Chief Complaint: Shortness of breath HPI: Ronal Meléndez is a 39 y.o. male PMHx significant for morbid obesity, active tobacco use, recent spontaneous pneumothorax requiring chest tube insertion last week at [facility], COPD with bullous emphysema, and bilateral peripheral edema. He presented to the [facility] ER with worsening shortness of breath over the last two days. He reported that last week he was admitted to [facility] for a sudden spontaneous pneumothorax that required a left-sided chest tube. He was admitted on Sunday and discharged on Sunday in stable condition. Since discharge, he had been on room air but noted increasing shortness of breath, dyspnea, and production of thick yellow sputum. Symptoms were associated with chills but no fever. Over the last two days, his symptoms worsened. He visited his primary care physician, where a chest x-ray raised concern for residual pneumothorax. Due to worsening dyspnea, he was advised to come to the ER for further evaluation. In the ER, the patient desaturated to the mid-80s and required 3L nasal cannula oxygen upon arrival. He was tachycardic at 128 bpm with a respiratory rate of 28. After one hour on oxygen, hemodynamics stabilized. He was treated with Solu- Medrol, DuoNebs, and supplemental oxygen. Labs revealed troponin negative ??2, proBNP 86, CMP unremarkable, D-dimer negative, and leukocytosis at 18.7 with left shift. Chest x-ray showed no residual pneumothorax on the left, but there was bilateral obliterationof the lower pleural spaces, pulmonary edema, and chronic emphysematous changes without evidence ofpneumonia. Due to persistent tachycardia, dyspnea, and oxygen requirement, a CTA chest was obtained. Findings included no large central pulmonary embolus, but advanced centrilobular emphysema and bilateral large bullae, right greater than left. Given hypoxia and oxygen requirement, hospitalist services were consulted for admission and furthermanagement of acute hypoxic respiratory failure, likely secondary to COPD exacerbation. Personal History Past Medical History: Diagnosis Date Allergic rhinitis Lung blebs Pneumothorax Pneumothorax Past Surgical History: Procedure Laterality Date MOUTH SURGERY OTHER SURGICAL HISTORY Abcess in the Lymph Node Left Side of Neck THORACOTOMY Right 10/23/2007 With Lobe Blectomy and Pleurectomy TONSILLECTOMY Family History: family history includes Diabetes in his father and mother; Kidney failure in his father. Social History: reports that he quit smoking about 8 years ago. His smoking use included cigarettes. He started smoking about 21 years ago. He has a 3.3 pack- year smoking history. He has quit using smokeless tobacco. He reports current drug use. Drug: Marijuana. He reports that he does not drink alcohol. Social History Social History Narrative Not on file Medications: Available home medication information reviewed. albuterol sulfate HFA, ibuprofen, and levoFLOXacin Allergies Allergen Reactions Penicillins Anaphylaxis Sudafed [Pseudoephedrine Hcl] Objective Objective Vital Signs: Temp: [97.7 ??F (36.5 ??C)] 97.7 ??F (36.5 ??C) Heart Rate: [92-128] 105 Resp: [20-28] 20 BP: (119-152)/(78-108) 147/93 Flow (L/min) (Oxygen Therapy): [2-3] 3 Physical Exam Constitutional: Awake, alert x4, nontoxic, frail-appearing nontoxic, not in acute distress on 3 L nasal cannula Eyes: PERRLA, sclerae anicteric, no conjunctival injection HENT: NCAT, mucous membranes moist Neck: Supple, no thyromegaly, no lymphadenopathy, trachea midline Respiratory: Diminished air entry bilaterally with coarse crepitation, wheezing throughout and crackles at the base, no distress on 3 L nasal cannula, his oxygen saturation dropped when moving around Cardiovascular: Sinus tachycardia, pansystolic murmur at the apex, rubs, or gallops, palpable pedalpulses bilaterally, peripheral edema +2 bilaterally Gastrointestinal: Positive bowel sounds, soft, nontender, nondistended Musculoskeletal: No bilateral ankle edema, no clubbing or cyanosis to extremities Psychiatric: Appropriate affect, cooperative Neurologic: Oriented x 3, strength symmetric in all extremities, Cranial Nerves grossly intact to confrontation, speech clear Skin: No rashes Result Review: I have personally reviewed the results from the time of this admission to 03/06/2025 20:54 EDT and agree with these findings: [x] Laboratory list / accordion [] Microbiology [x] Radiology [x] EKG/Telemetry [] Cardiology/Vascular [] Pathology [] Old records [] Other: Most notable findings include: There is no recent documentation from his recent admission at [facility], will request record LAB RESULTS: Lab 03/06/25 1513 WBC 18.70* HEMOGLOBIN 16.1 HEMATOCRIT 50.2 PLATELETS 460* NEUTROS ABS 15.88* IMMATURE GRANS (ABS) 0.12* LYMPHS ABS 1.60 MONOS ABS 1.01* EOS ABS 0.04 MCV 84.1 D DIMER QUANT <0.27 Lab 03/06/25 1513 SODIUM 140 POTASSIUM 3.8 CHLORIDE 104 CO2 22.6 ANION GAP 13.4 BUN 15.3 CREATININE 0.99 EGFR 100.0 GLUCOSE 109* CALCIUM 9.8 Lab 03/06/25 1513 TOTAL PROTEIN 7.1 ALBUMIN 4.1 GLOBULIN 3.0 ALT (SGPT) 23 AST (SGOT) 15 BILIRUBIN 0.2 ALK PHOS 65 Lab 03/06/25 1632 03/06/25 1513 PROBNP -- 86.6 HSTROP T 9 7 Lab 03/06/25 2038 PH, ARTERIAL 7.432 PCO2, ARTERIAL 34.2* PO2 ART 116.0* FIO2 32 HCO3 ART 22.8 BASE EXCESS ART -0.8* CARBOXYHEMOGLOBIN 1.0 Microbiology Results (last 10 days) No results found for the last [address] Angiogram Chest Pulmonary Embolism Result Date: 03/06/2025 CT ANGIOGRAM CHEST PULMONARY EMBOLISM Date of Exam: 03/06/2025 5:16 PM EDT Indication: Shortness of Breath. Comparison: None available. Technique: Axial CT images were obtained of the chest after the uneventful intravenous administration of iodinated contrast utilizing pulmonary embolism protocol. In addition, a 3-D volume rendered image was created for interpretation. Reconstructed coronal and sagittal images were also obtained. Automated exposure control and iterative construction methods wereused. Findings: Pulmonary Arteries: The pulmonary arterial enhancement is grossly suboptimal Beyondthe central pulmonary arteries evaluation is nondiagnostic. There is no evidence of a large centralpulmonary embolus however. Hilum and Mediastinum: No pathologically enlarged lymph nodes. Normal heart size. No significant coronary artery atherosclerotic disease. Unremarkable thoracic aorta. No pericardial effusion. Lung Parenchyma and Pleura: There is advanced centrilobular emphysema. There is mild atelectasis and scarring lung bases bilaterally. There are large bulla in the bases bilaterallyright greater than left. Postoperative suture material right upper lobe posteriorly Upper Abdomen: Unremarkable. Soft tissues: Unremarkable. Osseous structures: No osseous abnormality suggested Impression: Grossly limited evaluation for pulmonary embolus. No evidence of large central pulmonary embolus. Electronically Signed: Elvis Osullivan MD 03/06/2025 6:05 PM EDT Workstation ID: [id number] XR Chest 1 View Result Date: 03/06/2025 XR CHEST 1 VW Date of Exam: 03/06/2025 4:05 PM EDT Indication: SOA triage protocol. Comparison: Chest radiograph 01/31/2017 Findings: Mediastinum: Cardiac silhouette appears unchanged and normal in size. Lungs: The lungs appear clear without focal consolidation appreciated. Surgical clips project over the right lung. Pleura: No pleural effusion or pneumothorax. Bones and soft tissues: No acute, displaced fracture seen. Impression: Impression: No radiographic evidence of acute cardiopulmonary abnormality. Electronically Signed: Vic Bailon MD 03/06/2025 4:32 PM EDT Workstation ID: [id number] Assessment & Plan Assessment & Plan Acute hypoxic respiratory failure COPD exacerbation Concern for CHF with unknown EF Morbid obesity Tobacco smoking OHS/MARYBEL Recent pneumothorax with chest tube Leukocytosis Tachycardia This is a 39-year-old male with morbid obesity, active smoking, COPD with bullous emphysema, and recent spontaneous pneumothorax requiring chest tube who presented with worsening shortness of breath for two days. Since discharge last week, he developed dyspnea, thick yellow sputum, and chills without fever. In the ER, he was hypoxic requiring 3L NC, tachycardic, and tachypneic; labs showed leukocytosis, chest x-ray revealed no pneumothorax but pulmonary edema and emphysema, and CTA chest was negative for PE but showed advanced emphysema with large bullae. He was admitted for acute hypoxic respiratory failure likely secondary to COPD exacerbation. Acute hypoxic respiratory failure COPD exacerbation OHS/MARYBEL? Leukocytosis -Recent spontaneous pneumothorax s/p chest tube 02/27/2025 - Admit to telemetry with monitor - Continuous pulse oximetry and daily weight - Strict I's and O's -S/p Solu-Medrol 125 in the ER- -prednisone 40 mg once daily for 5 days - Doxycycline 1 mg twice daily tablets for 5 days due to leukocytosis - Respiratory panel and sputum culture ordered - Reviewed images there is no pneumothorax reported, CTA chest which less likely to have PE, - Pulmonary toileting, incentive spirometry - Scheduled DuoNeb and as needed - Continue oxygen therapy on 3 L nasal cannula to keep SpO2 above 90% - Patient most likely will need PFT, referral to pulmonology, and sleep clinic to evaluate for sleep apnea as an outpatient. - Consider consult pulmonology and patient if symptoms worsening or oxygen requirement increase - He is at high risk to place on BiPAP given that he has bilateral large blebs on images with high concern of development spontaneous pneumothorax. - Consider Pulmicort nebs if needed - Avoid BiPAP to prevent pneumothorax - Continue and encourage splinting spirometry every 2 hours Concern for CHF CHF exacerbation? Peripheral edema -Strict I's and O's and daily weight - Lasix 40 BID for now (patient take Lasix 40 once daily at home) - Monitor for electrolyte and replete as appropriate - Optimize GDMT guidelines for CHF depending on echo result - No echo in chart to be reviewed or addresses recent EF - High concern for pulmonary hypertension given his significant/advanced COPD - Echocardiogram in a.m. - Start losartan 25 mg (patient on lisinopril but reported cough in last 3 years), will consider start ARB's instead of KIRIT's - Lab ordered include A1c, TSH, CBC, CMP, magnesium in a.m. Active tobacco smoking: Smoked 1 pack a day Nicotine patches while inpatient Hide encourage patient to quit smoking to prevent complication Morbid obesity: BMI 54 Affects all aspects of patient care He will need sleep study outpatient Total time spent: 75 minutes Time spent includes time reviewing chart, [id number] time, counseling patient/family/caregiver, ordering medications/tests/procedures, communicating with other health inspector health care facilities, documenting clinical information in the electronic health record, and coordination of care. VTE Prophylaxis: Pharmacologic VTE prophylaxis orders are present. CODE STATUS: Code Status and Medical Interventions: CPR (Attempt to Resuscitate); Full Support Ordered at: 03/06/252053 Code Status (Patient has no pulse and is not breathing): CPR (Attempt to Resuscitate) Medical Interventions (Patient has pulse or is breathing): Full Support Level Of Support Discussed With: Patient Expected Discharge Expected discharge date/ time has not been documented. Danish Tong MD 03/06/25 documented in this encounter Nursing Notes * Torie Bell RN - 03/07/2025 5:23 PM EDT Problem: Adult Inpatient Plan of Care Goal: Plan of Care Review Outcome: Progressing Goal: Patient-Specific Goal (Individualized) Outcome: Progressing Goal: Absence of Hospital-Acquired Illness or Injury Outcome: Progressing Intervention: Identify and Manage Fall Risk Description: Perform standard risk assessment on admission using a validated tool or comprehensive approach appropriate to the patient; reassess fall risk frequently, with change in status or transfer to another level of care.Communicate risk to interprofessional healthcare team; ensure fall risk vi sible cue.Determine need for increased observation, equipment and environmental modification, as well as use of supportive, nonskid footwear.Adjust safety measures to individual needs and identified risk factors.Reinforce the importance of active participation with fall risk prevention, safety, and physical activity with the patient and family.Perform regular intentional rounding to assess need for position change, pain assessment and personal needs, including assistance with toileting. Recent Flowsheet Documentation Taken 03/07/2025 1600 by Torie Bell RN Safety Promotion/Fall Prevention: activity supervised assistive device/personal items within reach clutter free environment maintained fall prevention program maintained nonskid shoes/slippers when out of bed safety round/check completed room organization consistent Taken 03/07/2025 1200 by Torie Bell RN Safety Promotion/Fall Prevention: activity supervised assistive device/personal items within reach clutter free environment maintained fall prevention program maintained nonskid shoes/slippers when out of bed room organization consistent safety round/check completed Taken 03/07/2025 0905 by Torie Bell RN Safety Promotion/Fall Prevention: activity supervised assistive device/personal items within reach clutter free environment maintained fall prevention program maintained nonskid shoes/slippers when out of bed room organization consistent safety round/check completed Intervention: Prevent Skin Injury Description: Perform a screening for skin injury risk, such as pressure or moisture-associated skindamage on admission and at regular intervals throughout hospital stay.Keep all areas of skin (especially folds) clean and dry.Maintain adequate skin hydration.Relieve and redistribute pressure and protect bony prominences and skin at risk for injury; implement measures based on patient- specific risk factors.Match turning and repositioning schedule to clinical condition.Encourage weight shift frequently; assist with reposition if unable to complete independently.Float heels off bed; avoid pressure on the Achilles tendon.Keep skin free from extended contact with medical devices.Optimize nutrition and hydration.Encourage functional activity and mobility, as early as tolerated.Use aids (e.g., slide boards, mechanical lift) during transfer. Recent Flowsheet Documentation Taken 03/07/2025 1600 by Torie Bell RN Body Position: position changed independently Skin Protection: incontinence pads utilized protective footwear used silicone border foam - sacrum/coccyx silicone border foam - heel Taken 03/07/2025 1200 by Torie Bell RN Body Position: position changed independently Skin Protection: incontinence pads utilized protective footwear used silicone border foam - heel silicone border foam - sacrum/coccyx Taken 03/07/2025 0905 by Torie Bell RN Body Position: sitting up in bed Skin Protection: incontinence pads utilized protective footwear used silicone border foam - heel silicone border foam - sacrum/coccyx Intervention: Prevent Infection Description: Maintain skin and mucous membrane integrity; promote hand, oral and pulmonary hygiene.Optimize fluid balance, nutrition, sleep and glycemic control to maximize infection resistance.Identify potential sources of infection early to prevent or mitigate progression of infection (e.g., wound, lines, devices).Evaluate ongoing need for invasive devices; remove promptly when no longer indicated.Review vaccination status. Recent Flowsheet Documentation Taken 03/07/2025 1600 by Torie Bell RN Infection Prevention: environmental surveillance performed equipment surfaces disinfected hand hygiene promoted personal protective equipment utilized rest/sleep promoted single patient room provided Taken 03/07/2025 1200 by Torie Bell RN Infection Prevention: environmental surveillance performed equipment surfaces disinfected hand hygiene promoted personal protective equipment utilized rest/sleep promoted single patient room provided Taken 03/07/2025 0905 by Bell, Torie, RN Infection Prevention: environmental surveillance performed equipment surfaces disinfected hand hygiene promoted personal protective equipment utilized rest/sleep promoted single patient room provided Goal: Optimal Comfort and Wellbeing Outcome: Progressing Intervention: Provide Person-Centered Care Description: Use a family-focused approach to care; encourage support system presence and participation.Develop trust and rapport by proactively providing information, encouraging questions, addressing concerns and offering reassurance.Acknowledge emotional response to hospitalization.Recognize and utilize personal coping strategies and strengths; develop goals via shared decision-making.Harvest spiritual and cultural preferences. Recent Flowsheet Documentation Taken 03/07/2025904 by Torie Bell RN Trust Relationship/Rapport: care explained choices provided questions answered questions encouraged reassurance provided thoughts/feelings acknowledged Goal: Readiness for Transition of Care Outcome: Progressing Goal Outcome Evaluation: documented in this encounter ED Notes * Delfino Biggs APRN - 03/06/2025 3:19 PM EDTAssociated Order(s): Critical Care Subjective History of Present Illness Pleasant patient presents to the ER with pain pain to the left side of his chest. History of pneumothorax. Recent hospitalization at [facility] for chest tube that time. He was discharged since then he has had worsening difficulty breathing patient has had x-ray given his worsening pain and history of pneumothorax history to ER for further evaluation. He has a history of bullous emphysema. Has seen Dr. Naidu in the past. He did have lung surgery several years ago by Dr. Baum. History of tobacco use. Review of Systems Past Medical History: Diagnosis Date Allergic rhinitis Lung blebs Pneumothorax Pneumothorax Allergies Allergen Reactions Penicillins Anaphylaxis Sudafed [Pseudoephedrine Hcl] Past Surgical History: Procedure Laterality Date MOUTH SURGERY OTHER SURGICAL HISTORY Abcess in the Lymph Node Left Side of Neck THORACOTOMY Right 10/23/2007 With Lobe Blectomy and Pleurectomy TONSILLECTOMY Family History Problem Relation Age of Onset Diabetes Mother Diabetes Father Kidney failure Father Social History Socioeconomic History Marital status: Unknown Tobacco Use Smoking status: Former Current packs/day: 0.00 Average packs/day: 0.3 packs/day for 13.0 years (3.3 ttl pk-yrs) Types: Cigarettes Start date: 09/14/2003 Quit date: 09/13/2016 Years since quittin.4 Smokeless tobacco: Former Substance and Sexual Activity Alcohol use: No Comment: Occasionally Drug use: Yes Types: Marijuana Comment: Has not used since high school Sexual activity: Defer Objective Physical Exam Constitutional: Appearance: He is well-developed. He is obese. HENT: Head: Normocephalic and atraumatic. Right Ear: External ear normal. Left Ear: External ear normal. Nose: Nose normal. Eyes: Conjunctiva/sclera: Conjunctivae normal. Pupils: Pupils are equal, round, and reactive to light. Cardiovascular: Rate and Rhythm: Normal rate and regular rhythm. Heart sounds: Normal heart sounds. Pulmonary: Effort: Pulmonary effort is normal. Breath sounds: Decreased breath sounds present. Abdominal: General: Bowel sounds are normal. Palpations: Abdomen is soft. Musculoskeletal: General: Normal range of motion. Cervical back: Normal range of motion and neck supple. Skin: General: Skin is warm and dry. Neurological: Mental Status: He is alert and oriented to person, place, and time. Psychiatric: Behavior: Behavior normal. Judgment: Judgment normal. Critical Care Performed by: Delfino Biggs APRN Authorized by: Yosi Loja DO Critical care provider statement: Critical care time (minutes): 35 Critical care was necessary to treat or prevent imminent or life-threatening deterioration of the following conditions: Respiratory failure ED Course ED Course as of 03/06/251951Mar 06, 20251521 The patient showed me an impression of the x-ray he had done on the . Showing a small leftapical pneumothorax measuring 8 mm [JM] 1816 Radiology report reassuring CTA of the chest. Not very optimal for PE evaluation. However he has been tachycardic. With some hypoxia. Of asked the nurse to do a walking O2 sat on the patient. [DAVID] 1948 I have added the D-dimer as his CTA was not conclusive. Tachycardia or hypoxia. He does have underlying emphysema. I have ordered breathing treatments and steroids I will admit to the hospitalist. [JM] ED Course User Index [JM] Delfino Biggs APRN CT Angiogram Chest Pulmonary Embolism Final Result Grossly limited evaluation for pulmonary embolus. No evidence of large central pulmonary embolus. Electronically Signed: Elvis Osullivan MD 03/06/2025 6:05 PM EDT Workstation ID: [id number] XR Chest 1 View Final Result Impression: No radiographic evidence of acute cardiopulmonary abnormality. Electronically Signed: Vic Bailon MD 03/06/2025 4:32 PM EDT Workstation ID: [id number] Medical Decision Making Problems Addressed: Acute respiratory failure with hypoxia: complicated acute illness or injury that poses a threat to life or bodily functions History of pneumothorax: complicated acute illness or injury that poses a threat to life or bodily functions Leukocytosis, unspecified type: complicated acute illness or injury Referred by health child care lead teacher: complicated acute illness or injury Tachycardia: complicated acute illness or injury that poses a threat to life or bodily functions Amount and/or Complexity of Data Reviewed External Data Reviewed: labs, radiology and ECG. Labs: ordered. Decision-making details documented in ED Course. Radiology: ordered. Decision-making details documented in ED Course. ECG/medicine tests: ordered. Decision-making details documented in ED Course. Risk Prescription drug management. Decision regarding hospitalization. Critical Care Total time providing critical care: 35 minutes Final diagnoses: Acute respiratory failure with hypoxia Tachycardia Leukocytosis, unspecified type History of pneumothorax Referred by health child care lead teacher ED Disposition ED Disposition ED Disposition Decision to Admit Condition -- Comment -- No follow-up provider specified. Medication List No changes were made to your prescriptions during this visit. Delfino Biggs APRN 03/06/251951 Cosigned by Yosi Loja DO at 03/06/2025 8:24 PM EDT Associated attestation - Yosi Loaj DO - 03/06/2025 8:24 PM EDT SHARED APC NON FACE TO FACE: I performed a substantive part of the MDM during the patient's E/M visit. I personally made or approved the documented management plan and acknowledge its risk of complications. ED Course as of 03/06/252023Mar 06, 2025 1522 The patient showed me an impression of the x-ray he had done on the . Showing a small leftapical pneumothorax measuring 8 mm [JM] 1817 Radiology report reassuring CTA of the chest. Not very optimal for PE evaluation. However he has been tachycardic. With some hypoxia. Of asked the nurse to do a walking O2 sat on the patient. [JM] 194 I have added the D-dimer as his CTA was not conclusive. Tachycardia or hypoxia. He does have underlying emphysema. I have ordered breathing treatments and steroids I will admit to the hospitalist. [JM] ED Course User Index [JM] Delfino Biggs APRN Andrew Peter Pacitti, DO 03/06/2025 20:21 EDT documented in this encounter Miscellaneous Notes * Case Management/Social Work - Carolina Paul, RN - 03/08/2025 9:54 AM EDT Continued Stay Note Shanique Patient Name: Ronal Meléndez Today's Date: 03/08/2025 Admit Date: 03/06/2025 Plan: home Discharge Plan Row Name 03/08/25 0953 Plan Plan home Patient/Family in Agreement with Plan yes Plan Comments I spoke with this patient regarding his discharge home today. He is in agreement, andhis mother can transport. He denies having any further discharge planning needs. Final Discharge Disposition Code 01 - home or self-care Discharge Codes No documentation. Expected Discharge Date and Time Expected Discharge Date Expected Discharge Time Mar 08, 2025 Carolina Paul RN documented in this encounter Plan of Treatment Scheduled Referrals Name Type Priority Associated Diagnoses Orde r Schedule Ambulatory Referral to Sleep Medicine Outpatient Referral Routine Acute hypoxic respiratory failure Ordered: 03/08/2025 documented as of this encounter Procedures Procedure Name Priority Date/Time Associated Diagnosis Comments RESPIRATORY CULTURE Routine 03/08/2025 1 1:18 AM EDT LIMITED 2D ECHO W/ LIMITED DOPPLER AND COLOR FLOW Routine 03/07/2025 3:51 PM EDT CBC WITH AUTO DIFFERENTIAL Routine 03/07/2025 4:07 AM EDT MAGNESIUM Routine 03/07/2025 4:07 AM EDT HEMOGLOBIN A1C Routine 03/07/2025 4:07 AM EDT COMPREHENSIVE METABOLIC PANEL Routine 03/07/2025 4:07 AM EDT RESPIRATORY PANEL PCR W/ COVID-19 (SARS-COV-2), FRUIT SORTER SWAB IN UTM/VTP, 2 HR TAT Routine 03/07/2025 1:54 AM EDT BLOOD CULTURE STAT 03/07/2025 12:10 AM EDT BLOOD CULTURE STAT 03/07/2025 12:05 AM EDT TSH RFX ON ABNORMAL TO FREE T4 Routine 03/06/2025 9:16 PM EDT HIGH SENSITIVITY CRP Routine 03/06/2025 9:16 PM EDT BLOOD GAS, ARTERIAL W/CO-OXIMETRY STAT 03/06/2025 8:[address] ANGIOGRAM CHEST PULMONARY EMBOLISM STAT 03/06/2025 5:32 PM EDT ECG 12-LEAD STAT 03/06/2025 4:38 PM EDT HIGH SENSITIVITIY TROPONIN T 1HR STAT 03/06/2025 4:32 PM EDT XR CHEST 1 VW STAT 03/06/2025 4:30 PM EDT SCANNED - TELEMETRY 03/06/2025 4 :20 PM EDT [facility] ILL/INJURED PATIENT INIT 30-74 MIN Routine 03/06/2025 3:19 PM EDT CENTENO TOP STAT 03/06/2025 3:13 PM EDT GOLD TOP - SST STAT 03/06/2025 3:13 PM EDT DK GREEN TOP STAT 03/06/2025 3:13 PM EDT CBC WITH AUTO DIFFERENTIAL STAT 03/06/2025 3:13 PM EDT LAVENDER TOP STAT 03/06/2025 3:13 PM EDT LIGHT BLUE TOP STAT 03/06/2025 3:13 PM EDT RAINBOW DRAW STAT 03/06/2025 3:13 PM EDT TROPONIN STAT 03/06/2025 3:13 PM EDT D-DIMER, QUANTITATIVE STAT 03/06/2025 3:13 PM EDT CBC AND DIFFERENTIAL STAT 03/06/2025 3:13 PM EDT B-TYPE NATRIURETIC PEPTIDE STAT 03/06/2025 3:13 PM EDT COMPREHENSIVE METABOLIC PANEL STAT 03/06/2025 3:13 PM EDT ECG 12-LEAD STAT 03/06/2025 3:01 PM EDT documented in this encounter Results * Respiratory Culture - Sputum, Oropharynx (03/08/2025 11:18 AM EDT) Respiratory Culture Heavy growth (4+) Normal respiratory irina. No S. aureus or Pseudomonas aeruginosa detected. Final report. RUSTAM 03/10/2025 10:17 AM EDT [facility] Gram Stain Few (2+) Epithelial cells per low power field 03/10/2025 10:17 AM EDT [facility] Gram Stain No WBCs per low power field 03/10/2025 10:17 AM EDT [facility] Gram Stain Moderate (3+) Mixed bacterial morphotypes seen on Gram Stain 03/10/2025 10:17 AM EDT [facility] Sputum Oropharyngeal structure / Unknown Collection / Unknown 03/08/2025 11:18 AM EDT 03/08/2025 11:31 AM EDT Danish Tong MD MICROBIOLOGY - GENERAL ORDER FISH Final Result [facility]
[address] [place] [address], [place] [phone] [facility]
[address] [place] [address], [place] [phone] * LIMITED 2D ECHO W/ LIMITED DOPPLER AND COLOR FLOW (03/07/2025 3:51 PM EDT) RV Base 3.0 cm RV Mid 3.0 cm RV Length 7.8 cm TAPSE (>1.6) 2.20 cm RV S' 13.8 cm/sec LA dimension (2D) 2.8 cm Ao root diam 2.6 cm BH CV VAS BP LEFT ARM 145/99 mmHg Ascending aorta 3.1 cm Anatomical Region Laterality Modality Ultrasound Narrative 03/07/2025 8:15 PM EDT Poor visualization of the left ventricle and all valvular structures in parasternal and apical views. The LVEF is suspected to be normal and estimated at 50-55%. The right atrial appears normal and contractility There appears to be trace mitral and tricuspid regurgitation. No additional interpretation is possible. Left Ventricle Left ventricle not well visualized. Right Ventricle Normal right ventricular cavity size, wall thickness, systolic function and septal motion noted. Left Atrium Left atrium not well visualized. Right Atrium Normal right atrial cavity size noted. Mitral Valve The mitral valve is grossly normal in structure. Tricuspid Valve No significant tricuspid valve regurgitation or significant stenosis present. The tricuspid valve is grossly normal in structure. Aortic Valve The aortic valve is not well visualized. Pulmonic Valve The pulmonic valve is not well visualized. Pericardium The pericardium is normal. There is no evidence of pericardial effusion. . Greater Vessels No dilation of the aortic root is present. No dilation of the ascending aorta is present. Study Quality The study is technically suboptimal for diagnosis. The quality of the study is limited due to lung disease . Image enhancer was not used for this study. Unable to use Lumason. Patient has a collapsed left lung, is on 5 liters of oxygen and oxygen saturation dropped to 86% during exam. Danish Tong MD CV ECHO ORDERABLES Final Res ult * (ABNORMAL) Hemoglobin A1c (03/07/2025 4:07 AM EDT) Hemoglobin A1C 5.88(H) 4.80 - 5.60 % 03/07/2025 7:20 AM EDT [facility] Blood Venipuncture / Unknown 03/07/2025 4:07 AM EDT 03/07/2025 4:37 AM EDT Narrative [facility] - 03/07/2025 7:20 AM EDT Hemoglobin A1C Ranges: Increased Risk for Diabetes 5.7% to 6.4% Diabetes >= 6.5% Diabetic Goal < 7.0% Danish Tong MD LAB BLOOD ORDERABLES Final R esult [facility]
[address] [place] [address], * Magnesium (03/07/2025 4:07 AM EDT) Pathologist [facility] Magnesium 2.2 1.6 - 2.6 mg/dL 03/07/2025 5:19 AM EDT [facility] Blood Venipuncture / Unknown 03/07/2025 4:07 AM EDT 03/07/2025 4:42 AM EDT Danish Tong MD LAB BLOOD ORDERABLES Final R esult [facility]
[address] [place] [address], * (ABNORMAL) Comprehensive Metabolic Panel (03/07/2025 4:07 AM EDT) Glucose 211(H) 65 - 99 mg/dL 03/07/2025 5:19 AM [facility] BUN 18.9 6.0 - 20.0 mg/dL 03/07/2025 5:19 AM [facility] Creatinine 1.15 0.76 - 1.27 mg/dL 03/07/2025 5:19 AM [facility] Sodium 141 136 - 145 mmol/L 03/07/2025 5:19 AM [facility] Potassium 4.3 3.5 - 5.2 mmol/L 03/07/2025 5:19 AM [facility] Chloride 103 98 - 107 mmol/L 03/07/2025 5:19 AM [facility] CO2 24.3 22.0 - 29.0 mmol/L 03/07/2025 5:19 AM [facility] Calcium 9.9 8.6 - 10.5 mg/dL 03/07/2025 5:19 AM [facility] Total Protein 7.0 6.0 - 8.5 g/dL 03/07/2025 5:19 AM [facility] Albumin 4.0 3.5 - 5.2 g/dL 03/07/2025 5:19 AM [facility] ALT (SGPT) 25 1 - 41 U/L 03/07/2025 5:19 AM [facility] AST (SGOT) 14 1 - 40 U/L 03/07/2025 5:19 AM [facility] Alkaline Phosphatase 66 39 - 117 U/L 03/07/2025 5:19 AM [facility] Total Bilirubin 0.2 0.0 - 1.2 mg/dL 03/07/2025 5:19 AM [facility] Globulin 3.0 gm/dL 03/07/2025 5:19 AM [facility] Comment:Calculated Result A/G Ratio 1.3 g/dL 03/07/2025 5:19 AM [facility] BUN/Creatinine Ratio 16.4 7.0 - 25.0 03/07/2025 5:19 AM EDT [facility] Anion Gap 13.7 5.0 - 15.0 mmol/L 03/07/2025 5:19 AM EDT [facility] eGFR 83.5 >60.0 mL/min/1.7 3 03/07/2025 5:19 AM EDT [facility] Blood Venipuncture / Unknown 03/07/2025 4:07 AM EDT 03/07/2025 4:42 AM EDT [facility] - 03/07/2025 5:19 AM EDT GFR Categories in Chronic Kidney Disease (CKD) GFR Category GFR (mL/min/1.73) Interpretation G1 90 or greater Normal or high (1) G2 60-89 Mild decrease (1) G3a 45-59 Mild to moderate decrease G3b 30-44 Moderate to severe decrease G4 15-29 Severe decrease G5 14 or less Kidney failure (1)In the absence of evidence of kidney disease, neither GFR category G1 or G2 fulfill the criteria for CKD. eGFR calculation 2020 CKD-EPI creatinine equation, which does not include race as a factor us Danish Tong MD LAB BLOOD ORDERABLES Final R esult [facility]
[address] [place] [address], * (ABNORMAL) CBC Auto Differential (03/07/2025 4:07 AM EDT) WBC 12.44(H) 3.40 - 10.80 10*3/mm3 03/07/2025 4:45 AM EDT [facility] RBC 5.74 4.14 - 5.80 10*6/mm3 03/07/2025 4:45 AM EDT [facility] Hemoglobin 15.7 13.0 - 17.7 g/dL 03/07/2025 4:45 AM EDT [facility] Hematocrit 48.5 37.5 - 51.0 % 03/07/2025 4:45 AM EDT [facility] MCV 84.5 79.0 - 97.0 fL 03/07/2025 4:[facility] MCH 27.4 26.6 - 33.0 pg 03/07/2025 4:45 AM [facility] MCHC 32.4 31.5 - 35.7 g/dL 03/07/2025 4:45 AM [facility] RDW 15.9(H) 12.3 - 15.4 % 03/07/2025 4:45 [facility] RDW-SD 48.1 37.0 - 54.0 fl 03/07/2025 4:45 AM [facility] MPV 10.1 6.0 - 12.0 fL 03/07/2025 4:45 AM [facility] Platelets 424 140 - 450 10*3/mm3 03/07/2025 4:45 AM [facility] Neutrophil % 92.7(H) 42.7 - 76.0 % 03/07/2025 4:45 [facility] Lymphocyte % 5.2(L) 19.6 - 45.3 % 03/07/2025 4:45 AM [facility] Monocyte % 1.0(L) 5.0 - 12.0 % 03/07/2025 4:45 AM [facility] Eosinophil % 0.0(L) 0.3 - 6.2 % 03/07/2025 4:45 AM [facility] Basophil % 0.2 0.0 - 1.5 % 03/07/2025 4:45 AM [facility] Immature Grans % 0.9(H) 0.0 - 0.5 % 03/07/2025 4:45 AM [facility] Neutrophils, Absolute 11.54(H) 1.70 - 7.00 10*3/mm3 03/07/2025 4:45 AM [facility] Lymphocytes, Absolute 0.65(L) 0.70 - 3.10 10*3/mm3 03/07/2025 4:45 AM EDT [facility] Monocytes, Absolute 0.12 0.10 - 0.90 10*3/mm3 03/07/2025 4:45 AM EDT [facility] Eosinophils, Absolute 0.00 0.00 - 0.40 10*3/mm3 03/07/2025 4:45 AM EDT [facility] Basophils, Absolute 0.02 0.00 - 0.20 10*3/mm3 03/07/2025 4:45 AM EDT [facility] Immature Grans, Absolute 0.11(H) 0.00 - 0.05 10*3/mm3 03/07/2025 4:45 AM EDT [facility] nRBC 0.0 0.0 - 0.2 /100 WBC 03/07/2025 4:45 AM EDT [facility] Blood Venipuncture / Unknown 03/07/2025 4:07 AM EDT 03/07/2025 4:37 AM EDT us Danish Tong MD LAB BLOOD ORDERABLES Final R esult [facility]
[address] [place] [address], * Respiratory Panel PCR w/COVID-19(SARS-CoV-2) RAYMON/BEBO/SHERRIE/PAD/COR/DEMETRIUS In-House, FRUIT SORTER Swab in UTM/VTM, 2 HR TAT - Swab, Nasopharynx (03/07/2025 1:54 AM EDT) ADENOVIRUS, PCR Not Detected Not Detected BIOFIRE TORCH 03/07/2025 2:50 AM EDT [facility] Coronavirus 229E Not Detected Not Detected BIOFIRE TOR 03/07/2025 2:50 AM EDT [facility] Coronavirus HKU1 Not Detected Not Detected BIOFIRE TORCH 03/07/2025 2:50 AM EDT [facility] Coronavirus NL63 Not Detected Not Detected BIOFIRE TORCH 03/07/2025 2:50 AM EDT [facility] Coronavirus OC43 Not Detected Not Detected BIOFIRE TOR 03/07/2025 2:50 AM EDT [facility] COVID19 Not Detected Not Detected - Ref. Range BIOFIRE TOR 03/07/2025 2:50 AM EDT [facility] Human Metapneumovirus Not Detected Not Detected BIOFIRE TOR 03/07/2025 2:50 AM EDT [facility] Human Rhinovirus/Enterov irus Not Detected Not Detected BIOFIRE TOR 03/07/2025 2:50 AM EDT [facility] Influenza A PCR Not Detected Not Detected BIOFIRE TOR 03/07/2025 2:50 AM EDT [facility] Influenza B PCR Not Detected Not Detected BIOFIRE TOR 03/07/2025 2:50 AM EDT [facility] Parainfluenza Virus 1 Not Detected Not Detected BIOFIRE TOR 03/07/2025 2:50 AM EDT [facility] Parainfluenza Virus 2 Not Detected Not Detected BIOFIRE TOR 03/07/2025 2:50 AM EDT [facility] Parainfluenza Virus 3 Not Detected Not Detected BIOFIRE TOR 03/07/2025 2:50 AM EDT [facility] Parainfluenza Virus 4 Not Detected Not Detected BIOFIRE TOR 03/07/2025 2:50 AM EDT [facility] RSV, PCR Not Detected Not Detected BIOFIRE TOR 03/07/2025 2:50 AM EDT [facility] Bordetella pertussis pcr Not Detected Not Detected BIOFIRE TOR 03/07/2025 2:50 AM EDT [facility] Bordetella parapertussis PCR Not Detected Not Detected BIOFIRE TOR 03/07/2025 2:50 AM EDT [facility] Chlamydophila pneumoniae PCR Not Detected Not Detected BIOFIRE TOR 03/07/2025 2:50 AM EDT [facility] Mycoplasma pneumo by PCR Not Detected Not Detected BIOFIRE TOR 03/07/2025 2:50 AM EDT [facility] Swab Nasopharyngeal structure / Unknown Collection / Unknown 03/07/2025 1:54 AM EDT 03/07/2025 2:02 AM EDT Narrative [facility] - 03/07/2025 2:50 AM EDT In the setting of a positive respiratory panel with a viral infection PLUS a negative procalcitonin without other underlying concern for bacterial infection, consider observing off antibiotics or discontinuation of antibiotics and continue supportive care. If the respiratory panel is positive for atypical bacterial infection (Bordetella pertussis, Chlamydophila pneumoniae, or Mycoplasma pneumoniae), consider antibiotic de-escalation to target atypical bacterial infection. Danish Tong MD MICROBIOLOGY - GENERAL ORDER FISH Final Result Performing Organization Address City/[facility] Co de Phone Number [facility]
[address] [place] [address], * Blood Culture - Blood, Arm, Right (03/07/2025 12:10 AM EDT) Blood Culture No growth at 5 days 03/12/2025 12:45 AM EDT [facility] Blood Structure of right upper limb / Unknown Venipuncture / Unknown 03/07/2025 12:10 AM EDT 03/07/2025 12:37 AM EDT Danish Tong MD MICROBIOLOGY - GENERAL ORDER FISH Final Result [facility]
[address] [place] [address], * Blood Culture - Blood, Arm, Left (03/07/2025 12:05 AM EDT) Blood Culture No growth at 5 days 03/12/2025 12:45 AM EDT [facility] Blood Structure of left upper limb / Unknown Venipuncture / Unknown 03/07/2025 12:05 AM EDT 03/07/2025 12:37 AM EDT Narrative [facility] - 03/12/2025 12:45 AM EDT Less than seven (7) mL's of blood was collected. Insufficient quantity may yield false negative results. Danish Tong MD MICROBIOLOGY - GENERAL ORDER FISH Final Result Performing Organization Address City/[facility] Co de Phone Number [facility]
[address] [place] [address], * (ABNORMAL) High Sensitivity CRP (03/06/2025 9:16 PM EDT) Pathologist [facility] HS C-Reactive Protein 1.273(H) 0.010 - 0.500 mg/dL 03/08/2025 12:15 PM EDT [facility] Blood Venipuncture / Unknown 03/06/2025 9:16 PM EDT 03/07/2025 7:37 PM EDT Narrative [facility] - 03/08/2025 12:15 PM EDT Relative Risk Category Average hs-CRP level Low <0.1 mg/dl Average 0.1 mg/dl - 0.3 mg/dl High >0.3 mg/dl Danish Tong MD LAB BLOOD ORDERABLES Final R esult Performing Organization Address City/[facility]/ZIP Co de Phone Number [facility]
[address] [place] [address], * TSH Rfx On Abnormal To Free T4 (03/06/2025 9:16 PM EDT) Pathologist [facility] TSH 3.300 0.270 - 4.200 uIU/mL 03/06/2025 9:55 PM EDT [facility] Blood Venipuncture / Unknown 03/06/2025 9:16 PM EDT 03/06/2025 9:22 PM EDT us Danish Tong MD LAB BLOOD ORDERABLES Final R esult [facility]
[address] [place] [address], * (ABNORMAL) Blood Gas, Arterial With Co-Ox (03/06/2025 8:38 PM EDT) Site Right Radial 03/06/2025 8:37 PM EDT [facility] Ryan's Test N/A 03/06/2025 8:37 PM EDT [facility] pH, Arterial 7.432 7.350 - 7.450 pH units 03/06/2025 8:37 PM EDT [facility] pCO2, Arterial 34.2(L) 35.0 - 45.0 mm Hg 03/06/2025 8:37 PM EDT [facility] Comment:84 Value below refer ence range pO2, Arterial 116.0(H) 83.0 - 108.0 mm Hg 03/06/2025 8:37 PM EDT [facility] Comment:83 Value above refer ence range HCO3, Arterial 22.8 20.0 - 26.0 mmol/L 03/06/2025 8:37 PM EDT [facility] Base Excess, Arterial -0.8(L) 0.0 - 2.0 mmol/L 03/06/2025 8:37 PM EDT [facility] Hemoglobin, Blood Gas 16.2 13.5 - 17.5 g/dL 03/06/2025 8:37 PM EDT [facility] Hematocrit, Blood Gas 49.5 38.0 - 51.0 % 03/06/2025 8:37 PM EDT [facility] Oxyhemoglobin 98.3 94 - 99 % 03/06/2025 8:37 PM EDT [facility] Methemoglobin -0.10(L) 0.00 - 1.50 % 03/06/2025 8:37 PM EDT [facility] Comment:84 Value below refer ence range Carboxyhemoglobin 1.0 0 - 2 % 025 8:37 PM EDT [facility] CO2 Content 23.8 22 - 33 mmol/L 03/06/2025 8:37 PM EDT [facility] Temperature 37.0 03/06/2025 8:37 PM EDT [facility] Barometric Pressure for Blood Gas 03/06/2025 8:37 PM EDT [facility] Comment:N/A Modality Nasal Cannula 03/06/2025 8:37 PM EDT [facility] FIO2 32 % 03/06/2025 8:37 PM EDT [facility] Ventilator Mode 8:37 PM EDT [facility] Comment:Meter: [id number] Comic Book Designer: [id number] pH, Temp Corrected 7.432 pH Units 2024 8:37 PM EDT [facility] pCO2, Temperature Corrected 34.2(L) 35 - 48 mm Hg 03/06/2025 8:37 PM EDT [facility] THER[facility] pO2, Temperature Corrected 116(H) 83 - 108 mm Hg 03/06/2025 8:37 PM EDT [facility] Arterial Blood 03/06/2025 8: 38 PM EDT 03/06/2025 8:38 PM EDT us Yosi Loja DO LAB BLOOD ORDERABLES Fin al Result [facility]
[address] [place] [address], * CT Angiogram Chest Pulmonary Embolism (03/06/2025 5:32 PM EDT) Anatomical Region Laterality Modality Chest N/A Computed Tomogra phy 03/06/2025 5:58 PM EDT Impressions 03/06/2025 6:05 PM EDT Grossly limited evaluation for pulmonary embolus. No evidence of large central pulmonary embolus. Electronically Signed: Elvis Osullivan MD 03/06/2025 6:05 PM EDT Workstation ID: [id number] Narrative 03/06/2025 6:[address] ANGIOGRAM CHEST PULMONARY EMBOLISM Date of Exam: 03/06/2025 5:16 PM EDT Indication: Shortness of Breath. Comparison: None available. Technique: Axial CT images were obtained of the chest after the uneventful intravenous administration of iodinated contrast utilizing pulmonary embolism protocol. In addition, a 3-D volume rendered image was created for interpretation. Reconstructed coronal and sagittal images were also obtained. Automated exposure control and iterative construction methods were used. Findings: Pulmonary Arteries: The pulmonary arterial enhancement is grossly suboptimal Beyond the central pulmonary arteries evaluation is nondiagnostic. There is no evidence of a large central pulmonary embolus however. Hilum and Mediastinum: No pathologically enlarged lymph nodes. Normal heart size. No significant coronary artery atherosclerotic disease. Unremarkable thoracic aorta. No pericardial effusion. Lung Parenchyma and Pleura: There is advanced centrilobular emphysema. There is mild atelectasis and scarring lung bases bilaterally. There are large bulla in the bases bilaterally right greater than left. Postoperative suture material right upper lobe posteriorly Upper Abdomen: Unremarkable. Soft tissues: Unremarkable. Osseous structures: No osseous abnormality suggested Procedure Note Elvis Osullivan MD - 03/06/2025 CT ANGIOGRAM CHEST PULMONARY EMBOLISM Date of Exam: 03/06/2025 5:16 PM EDT Indication: Shortness of Breath. Comparison: None available. Technique: Axial CT images were obtained of the chest after the uneventfulintravenous administration of iodinated contrast utilizing pulmonaryembolism protocol. In addition, a 3-D volume rendered image was createdfor interpretation. Reconstructed coronal and sagittal images were also obtained. Automated exposure controland iterative construction methods were used. Findings: Pulmonary Arteries: The pulmonary arterial enhancement is grosslysuboptimal Beyond the central pulmonary arteries evaluation is nondiagnostic. Thereis no evidence of a large central pulmonary embolus however. Hilum and Mediastinum: No pathologically enlarged lymph nodes. Normalheart size. No significant coronary artery atherosclerotic disease.Unremarkable thoracic aorta. No pericardial effusion. Lung Parenchyma and Pleura: There is advanced centrilobular emphysema.There is mild atelectasis and scarring lung bases bilaterally. There arelarge bulla in the bases bilaterally right greater than left. Postoperative suture material right upper lobe posteriorly Upper Abdomen: Unremarkable. Soft tissues: Unremarkable. Osseous structures: No osseous abnormality suggested IMPRESSION: Grossly limited evaluation for pulmonary embolus. No evidence of large central pulmonary embolus. Electronically Signed: Elvis Osullivan MD 03/06/2025 6:05 PM EDT Workstation ID: [id number] Delfino Biggs RIG HAND IMG CT ORDERABLES Final Result * ECG 12 Lead Dyspnea (03/06/2025 4:38 PM EDT) QT Interval 310 ms ECG QTC Interval 385 ms ECG 03/06/2025 4:38 PM EDT 03/07/2025 9:44 PM EDT Narrative ECG - 03/07/2025 9:44 PM EDT Test Reason : Dyspnea Blood Pressure : */* mmHG Vent. Rate : 93 BPM Atrial Rate : 93 BPM P-R Int : 140 ms QRS Dur : 86 ms QT Int : 310 ms P-R-T Axes : 51 30 51 degrees QTcB Int : 385 ms Normal sinus rhythm with sinus arrhythmia Normal ECG When compared with ECG of 06-Mar-2025 15:01, No significant change was found Confirmed by YOSI LOJA MD ([id number]) on 03/07/2025 9:44:06 PM Referred By: RAYO GILBERT Confirmed By: YOSI LOJA MD Procedure Note Yosi Loja DO - 03/07/2025 Test Reason : Dyspnea Blood Pressure : */* mmHG Vent. Rate : 93 BPM Atrial Rate : 93 BPM P-R Int : 140 ms QRS Dur : 86 ms QT Int : 310 ms P-R-T Axes : 51 30 51 degrees QTcB Int : 385 ms Normal sinus rhythm with sinus arrhythmia Normal ECG When compared with ECG of 06-Mar-2025 15:01, No significant change was found Confirmed by YOSI LOJA MD ([id number]) on 03/07/2025 9:44:06 PM Referred By: RAYO GILBERT Confirmed By: YOSI LOJA MD Yosi Loja DO ECG ORDERABLES Final Re sult Performing Organization Address City/[facility]/ZIP Co de Phone Number ECG * High Sensitivity Troponin T 1Hr (03/06/2025 4:32 PM EDT) HS Troponin T 9 <22 ng/L 03/06/2025 5:05 PM EDT [facility] Troponin T Numeric Delta 2 Abnormal if >/=3 ng/L 03/06/2025 5:05 PM EDT [facility] Blood Venipuncture / Unknown 03/06/2025 4:32 PM EDT 03/06/2025 4:37 PM EDT Narrative [facility] - 03/06/2025 5:05 PM EDT High Sensitive Troponin T Reference Range: <14.0 ng/L- Negative Female for AMI <22.0 ng/L- Negative Male for AMI >=14 - Abnormal Female indicating possible myocardial injury. >=22 - Abnormal Male indicating possible myocardial injury. Clinicians would have to utilize clinical acumen, EKG, Troponin, and serial changes to determine if it is an Acute Myocardial Infarction or myocardial injury due to an underlying chronic condition. Yosi Loja DO LAB BLOOD ORDERABLES Fin al Result Performing Organization Address [facility] Co de Phone Number [facility]
[address] [place] [address], * XR Chest 1 View (03/06/2025 4:30 PM EDT) Anatomical Region Laterality Modality Body N/A Radiographic Lucy ging 03/06/2025 4:32 PM EDT Impressions 03/06/2025 4:32 PM EDT Impression: No radiographic evidence of acute cardiopulmonary abnormality. Electronically Signed: Vic Bailon MD 03/06/2025 4:32 PM EDT Workstation ID: [id number] Narrative 03/06/2025 4:32 PM EDT XR CHEST 1 VW Date of Exam: 03/06/2025 4:05 PM EDT Indication: SOA triage protocol. Comparison: Chest radiograph 01/31/2017 Findings: Mediastinum: Cardiac silhouette appears unchanged and normal in size. Lungs: The lungs appear clear without focal consolidation appreciated. Surgical clips project over the right lung. Pleura: No pleural effusion or pneumothorax. Bones and soft tissues: No acute, displaced fracture seen. Procedure Note Vic Bailon MD - 03/06/2025 XR CHEST 1 VW Date of Exam: 03/06/2025 4:05 PM EDT Indication: SOA triage protocol. Comparison: Chest radiograph 01/31/2017 Findings: Mediastinum: Cardiac silhouette appears unchanged and normal in size. Lungs: The lungs appear clear without focal consolidation appreciated.Surgical clips project over the right lung. Pleura: No pleural effusion or pneumothorax. Bones and soft tissues: No acute, displaced fracture seen. IMPRESSION: Impression: No radiographic evidence of acute cardiopulmonary abnormality. Electronically Signed: Vic Bailon MD 03/06/2025 4:32 PM EDT Workstation ID: [id number] Yosi Loja DO IMG DIAGNOSTIC IMAGING O RDERABLES Final Result * Telemetry Scan (03/06/2025 4:20 PM EDT) [facility] ECG ORDERABLES Final Result * [facility] C[facility] ILL/INJURED PATIENT INIT 30-74 MIN (03/06/2025 3:19 PM EDT) Narrative Yosi Loja DO - 03/06/2025 3:19 PM EDT Yosi Loja DO 03/06/2025 8:24 PM Critical Care Performed by: Delfino Biggs APRN Authorized by: Yosi Loja DO Critical care provider statement: Critical care time (minutes): 35 Critical care was necessary to treat or prevent imminent or life-threatening deterioration of the following conditions: Respiratory failure Yosi Loja DO PROCEDURE/MINOR SURGICAL ORDERABLES Final Result * D-dimer, Quantitative (03/06/2025 3:13 PM EDT) [facility] D-Dimer, Quantitative <0.27 0.00 - 0.50 MCGFEU/mL 03/06/2025 8:42 PM EDT [facility] Blood Line / Unknown 03/06/2025 3: 13 PM EDT 03/06/2025 8:07 PM EDT [facility] - 03/06/2025 8:42 PM EDT According to the assay farmworker machine's published package insert, a normal (<0.50 MCGFEU/mL) D-dimer result in conjunction with a non-high clinical probability assessment, excludes deep vein thrombosis (DVT) and pulmonary embolism (PE) with high sensitivity. D-dimer values increase with age and this can make VTE exclusion of an older population difficult. To address this, the [employer], based on best available evidence and recent guidelines, recommends that clinicians use age-adjusted D-dimer thresholds in patients greater than 50 years of age with: a) a low probability of PE who do not meet all Pulmonary Embolism Rule Out Criteria, or b) in those with intermediate probability of PE. The formula for an age-adjusted D-dimer cut-off is age/100 . For example, a 60 year old patient would have an age-adjusted cut-off of 0.60 MCGFEU/mL and an 80 year old 0.80 MCGFEU/mL. Delfino Biggs APRN LAB BLOOD ORDERABLES Final Resu lt [facility]
[address] [place] [address], * (ABNORMAL) CBC Auto Differential (03/06/2025 3:13 PM EDT) [facility] WBC 18.70(H) 3.40 - 10.80 10*3/mm3 03/06/2025 3:30 PM EDT [facility] RBC 5.97(H) 4.14 - 5.80 10*6/mm3 03/06/2025 3:30 PM EDT [facility] Hemoglobin 16.1 13.0 - 17.7 g/dL 03/06/2025 3:30 PM EDT [facility] Hematocrit 50.2 37.5 - 51.0 % 03/06/2025 3:30 PM EDT [facility] MCV 84.1 79.0 - 97.0 fL 03/06/2025 3:30 PM EDT [facility] MCH 27.0 26.6 - 33.0 pg 03/06/2025 3:30 PM EDT [facility] MCHC 32.1 31.5 - 35.7 g/dL 03/06/2025 3:30 PM EDT [facility] RDW 15.8(H) 12.3 - 15.4 % 03/06/2025 3:30 PM EDT [facility] RDW-SD 47.8 37.0 - 54.0 fl 03/06/2025 3:30 PM EDT [facility] MPV 9.7 6.0 - 12.0 fL 03/06/2025 3:30 PM EDT [facility] Platelets 460(H) 140 - 450 10*3/mm3 03/06/2025 3:30 PM EDT [facility] Neutrophil % 84.9(H) 42.7 - 76.0 % 03/06/2025 3:30 PM EDT [facility] Lymphocyte % 8.6(L) 19.6 - 45.3 % 03/06/2025 3:30 PM EDT [facility] Monocyte % 5.4 5.0 - 12.0 % 03/06/2025 3:30 PM EDT [facility] Eosinophil % 0.2(L) 0.3 - 6.2 % 03/06/2025 3:30 PM EDT [facility] Basophil % 0.3 0.0 - 1.5 % 03/06/2025 3:30 PM EDT [facility] Immature Grans % 0.6(H) 0.0 - 0.5 % 03/06/2025 3:30 PM EDT [facility] Neutrophils, Absolute 15.88(H) 1.70 - 7.00 10*3/mm3 03/06/2025 3:30 PM EDT [facility] Lymphocytes, Absolute 1.60 0.70 - 3.10 10*3/mm3 03/06/2025 3:30 PM EDT [facility] Monocytes, Absolute 1.01(H) 0.10 - 0.90 10*3/mm3 03/06/2025 3:30 PM EDT [facility] Eosinophils, Absolute 0.04 0.00 - 0.40 10*3/mm3 03/06/2025 3:30 PM EDT [facility] Basophils, Absolute 0.05 0.00 - 0.20 10*3/mm3 03/06/2025 3:30 PM EDT [facility] Immature Grans, Absolute 0.12(H) 0.00 - 0.05 10*3/mm3 03/06/2025 3:30 PM EDT [facility] nRBC 0.0 0.0 - 0.2 /100 WBC 03/06/2025 3:30 PM EDT [facility] Blood Venipuncture / Unknown 03/06/2025 3:13 PM EDT 03/06/2025 3:22 PM EDT Yosi Loja DO LAB BLOOD ORDERABLES Fin al Result [facility]
[address] [place] [address], * Light Blue Top (03/06/2025 3:13 PM EDT) Extra Tube Hold for add-ons. 03/06/2025 3:31 PM EDT [facility] Comment:Auto resulted Blood Venipuncture / Unknown 03/06/2025 3:13 PM EDT 03/06/2025 3:22 PM EDT us Yosi Loja LAB BLOOD ORDER ONLY Fin al Result Performing Organization Address [facility] Co de Phone Number [facility]
[address] [place] [address], * Centeno Top (03/06/2025 3:13 PM EDT) Extra Tube Hold for add-ons. 03/06/2025 3:31 PM EDT [facility] Comment:Auto resulted. Blood Venipuncture / Unknown 03/06/2025 3:13 PM EDT 03/06/2025 3:22 PM EDT us Yosi Loja LAB BLOOD ORDER ONLY Fin al Result Performing Organization Address [facility] de Phone Number [facility]
[address] [place] [address], * Gold Top - SST (03/06/2025 3:13 PM EDT) Extra Tube Hold for add-ons. 03/06/2025 3:31 PM EDT [facility] Comment:Auto resulted. Blood Venipuncture / Unknown 03/06/2025 3:13 PM EDT 03/06/2025 3:22 PM EDT Yosi Loja LAB BLOOD ORDER ONLY Fin al Result Performing Organization Address [facility] Co de Phone Number [facility]
[address] [place] [address], * Lavender Top (03/06/2025 3:13 PM EDT) Extra Tube hold for add-on 03/06/2025 3:31 PM EDT [facility] Comment:Auto resulted Blood Venipuncture / Unknown 03/06/2025 3:13 PM EDT 03/06/2025 3:22 PM EDT Yosi Cabreraezekielcintia DO LAB BLOOD ORDER ONLY Fin al Result Performing Organization Address [facility] de Phone Number [facility]
[address] [place] [address], * Green Top (Gel) (03/06/2025 3:13 PM EDT) Pathologist [facility] Extra Tube Hold for add-ons. 03/06/2025 3:31 PM EDT [facility] Comment:Auto resulted. Blood Venipuncture / Unknown 03/06/2025 3:13 PM EDT 03/06/2025 3:22 PM EDT Yosi Presley Stepan DO LAB BLOOD ORDER ONLY Fin al Result Performing Organization Address [facility] de Phone Number [facility]
[address] [place] [address], * High Sensitivity Troponin T (03/06/2025 3:13 PM EDT) Pathologist [facility] HS Troponin T 7 <22 ng/L 03/06/2025 3:50 PM EDT [facility] Blood Venipuncture / Unknown 03/06/2025 3:13 PM EDT 03/06/2025 3:22 PM EDT Narrative [facility] - 03/06/2025 3:50 PM EDT High Sensitive Troponin T Reference Range: <14.0 ng/L- Negative Female for AMI <22.0 ng/L- Negative Male for AMI >=14 - Abnormal Female indicating possible myocardial injury. >=22 - Abnormal Male indicating possible myocardial injury. Clinicians would have to utilize clinical acumen, EKG, Troponin, and serial changes to determine if it is an Acute Myocardial Infarction or myocardial injury due to an underlying chronic condition. Yosi Presley Stepan LAB BLOOD ORDERABLES Fin al Result [facility]
[address] [place] [address], * BNP (03/06/2025 3:13 PM EDT) proBNP 86.6 0.0 - 450.0 pg/mL 03/06/2025 3:50 PM EDT [facility] Blood Venipuncture / Unknown 03/06/2025 3:13 PM EDT 03/06/2025 3:22 PM EDT Narrative [facility] - 03/06/2025 3:50 PM EDT This assay is used as an aid in the diagnosis of individuals suspected of having heart failure. It can be used as an aid in the diagnosis of acute decompensated heart failure (ADHF) in patients presenting with signs and symptoms of ADHF to the emergency department (ED). In addition, NT-proBNP of <300 pg/mL indicates ADHF is not likely. Age Range Result Interpretation NT-proBNP Concentration (pg/mL: <50 Positive >450 Centeno 300-450 Negative <300 50-75 Positive >900 Centeno 300-900 Negative <300 >75 Positive >1800 Centeno 300-1800 Negative <300 Yosi Loja DO LAB BLOOD ORDERABLES Fin al Result [facility]
[address] [place] [address], * (ABNORMAL) Comprehensive Metabolic Panel (03/06/2025 3:13 PM EDT) Glucose 109(H) 65 - 99 mg/dL 03/06/2025 3:50 PM EDT [facility] BUN 15.3 6.0 - 20.0 mg/dL 03/06/2025 3:50 PM EDT [facility] Creatinine 0.99 0.76 - 1.27 mg/dL 03/06/2025 3:50 PM EDT [facility] Sodium 140 136 - 145 mmol/L 03/06/2025 3:50 PM EDT [facility] Potassium 3.8 3.5 - 5.2 mmol/L 03/06/2025 3:50 PM T [facility] Comment:Specimen hemolyzed. Result may be falsely elevated. Chloride 104 98 - 107 mmol/L 03/06/2025 3:50 PM EDT [facility] CO2 22.6 22.0 - 29.0 mmol/L 03/06/2025 3:50 PM EDT [facility] Calcium 9.8 8.6 - 10.5 mg/dL 03/06/2025 3:50 PM T [facility] Total Protein 7.1 6.0 - 8.5 g/dL 03/06/2025 3:50 PM [facility] Albumin 4.1 3.5 - 5.2 g/dL 03/06/2025 3:50 PM [facility] ALT (SGPT) 23 1 - 41 U/L 03/06/2025 3:50 PM [facility] AST (SGOT) 15 1 - 40 U/L 03/06/2025 3:50 PM [facility] Alkaline Phosphatase 65 39 - 117 U/L 03/06/2025 3:50 PM [facility] Total Bilirubin 0.2 0.0 - 1.2 mg/dL 03/06/2025 3:50 PM [facility] Globulin 3.0 gm/dL 03/06/2025 3:50 PM [facility] Comment:Calculated Result A/G Ratio 1.4 g/dL 03/06/2025 3:50 PM T [facility] BUN/Creatinine Ratio 15.5 7.0 - 25.0 03/06/2025 3:50 PM [facility] Anion Gap 13.4 5.0 - 15.0 mmol/L 03/06/2025 3:50 PM [facility] eGFR 100.0 >60.0 mL/min/1.7 3 03/06/2025 3:50 PM [facility] Blood Venipuncture / Unknown 03/06/2025 3:13 PM EDT 03/06/2025 3:22 PM EDT Narrative [facility] - 03/06/2025 3:50 PM EDT GFR Categories in Chronic Kidney Disease (CKD) GFR Category GFR (mL/min/1.73) Interpretation G1 90 or greater Normal or high (1) G2 60-89 Mild decrease (1) G3a 45-59 Mild to moderate decrease G3b 30-44 Moderate to severe decrease G4 15-29 Severe decrease G5 14 or less Kidney failure (1)In the absence of evidence of kidney disease, neither GFR category G1 or G2 fulfill the criteria for CKD. eGFR calculation 2020 CKD-EPI creatinine equation, which does not include race as a factor us Yosi Loja DO LAB BLOOD ORDERABLES Fin al Result [facility]
[address] [place] [address], * ECG 12 Lead Dyspnea (03/06/2025 3:01 PM EDT) QT Interval 306 ms ECG QTC Interval 428 ms ECG 03/06/2025 3:01 PM EDT 03/06/2025 3:20 PM EDT Narrative ECG - 03/06/2025 3:20 PM EDT Test Reason : Dyspnea Blood Pressure : */* mmHG Vent. Rate : 118 BPM Atrial Rate : 118 BPM P-R Int : 140 ms QRS Dur : 86 ms QT Int : 306 ms P-R-T Axes : 57 41 53 degrees QTcB Int : 428 ms Sinus tachycardia Otherwise normal ECG No previous ECGs available Confirmed by YOSI LOJA MD ([id number]) on 03/06/2025 3:20:36 PM Referred By: Confirmed By: YOSI LOJA MD Procedure Note Yosi Loja DO - 03/06/2025 Test Reason : Dyspnea Blood Pressure : */* mmHG Vent. Rate : 118 BPM Atrial Rate : 118 BPM P-R Int : 140 ms QRS Dur : 86 ms QT Int : 306 ms P-R-T Axes : 57 41 53 degrees QTcB Int : 428 ms Sinus tachycardia Otherwise normal ECG No previous ECGs available Confirmed by YOSI LOJA MD ([id number]) on 03/06/2025 3:20:36 PM Referred By: Confirmed By: YOSI LOJA MD Yosi Loja DO ECG ORDERABLES Final Re sult ECG documented in this encounter Visit Diagnoses Diagnosis Acute hypoxic respiratory failure- Primary Acute respiratory failure with hypoxia Tachycardia Unspecified tachycardia Leukocytosis, unspecified type History of pneumothorax Personal history of other diseases of respiratory system Referred by health child care lead teacher Acute hypoxic respiratory failure documented in this encounter Admitting Diagnoses Diagnosis Acute hypoxic respiratory failure documented in this encounter Administered Medications Inactive Administered Medications - up to 3 most recent administrations Medication Order MAR Action Action Date Dose Rate Site acetaminophen (TYLENOL) 160 MG/5ML oral solution 650 mg 650 mg, Oral, Every 4 Hours PRN, Mild Pain, Starting on Sun03/06/25 at 2048, If given for fever, use fever parameter: fever greater than 100.4 F Based on patient request - if ordered for moderate or severe pain, provider allows for administration of a medication prescribed for a lower pain scale. Do not exceed 4 grams of acetaminophen in a 24 hr period. Max dose of 2gm for AST/ALT greater than 120 units/L. If given for pain, use the following pain scale: Mild Pain = Pain Score of 1-3, CPOT 1-2 Moderate Pain = Pain Score of 4-6, CPOT 3-4 Severe Pain = Pain Score of 7-10, CPOT 5-8 acetaminophen (TYLENOL) suppository 650 mg 650 mg, Rectal, Every 4 Hours PRN, Mild Pain, Starting on Sun03/06/25 at 2048, If given for fever, use fever parameter: fever greater than 100.4 F Based on patient request - if ordered for moderate or severe pain, provider allows for administration of a medication prescribed for a lower pain scale. Do not exceed 4 grams of acetaminophen in a 24 hr period. Max dose of 2gm for AST/ALT greater than 120 units/L. If given for pain, use the following pain scale: Mild Pain = Pain Score of 1-3, CPOT 1-2 Moderate Pain = Pain Score of 4-6, CPOT 3-4 Severe Pain = Pain Score of 7-10, CPOT 5-8 acetaminophen (TYLENOL) tablet 650 mg 650 mg, Oral, Every 4 Hours PRN, Mild Pain, Starting on Sun03/06/25 at 2048, If given for fever, use fever parameter: fever greater than 100.4 F Based on patient request - if ordered for moderate or severe pain, provider allows for administration of a medication prescribed for a lower pain scale. Do not exceed 4 grams of acetaminophen in a 24 hr period. Max dose of 2gm for AST/ALT greater than 120 units/L. If given for pain, use the following pain scale: Mild Pain = Pain Score of 1-3, CPOT 1-2 Moderate Pain = Pain Score of 4-6, CPOT 3-4 Severe Pain = Pain Score of 7-10, CPOT 5-8 bisacodyl (DULCOLAX) EC tablet 5 mg 5 mg, Oral, Daily PRN, Constipation, Use if polyethylene glycol is ineffective, Starting on Sun03/06/25 at 2048, Use if no bowel movement after 12 hours. Swallow whole. Do not crush, split, or chew tablet. bisacodyl (DULCOLAX) suppository 10 mg 10 mg, Rectal, Daily PRN, Constipation, Use if bisacodyl oral is ineffective, Starting on Sun03/06/25 at 2048, Use if no bowel movement after 12 hours. Hold for diarrhea Calcium Replacement - Follow Nurse / BPA Driven Protocol Open Order & Select [facility] Electrolyte Replacement Protocol Algorithm to View Details cefTRIAXone (ROCEPHIN) 2,000 mg in sodium chloride 0.9 % 100 mL MBP 2,000 mg, Intravenous, at 200 mL/hr, Administer over 30 Minutes, Every 24 Hours, First dose on 03/07/25 at 1300, For 7 days, LR should be paused and flushing of the line with NS is recommended prior to and after completion of ceftriaxone infusion due to incompatibility. Do not co-adminster with calcium-containing solutions. Caution: Look alike/sound alike drug alert, Indications: EmpiricIndications:Empiric New Bag 03/07/2025 1:15 PM EDT 2,000 mg 200 mL/hr doxycycline (MONODOX) capsule 100 mg 100 mg, Oral, Every 12 Hours Scheduled, First dose on Sun03/06/25 at 2109, For 5 days, Take with food if GI upset occurs. Administer 2 hours before or 4 hours after administration of oral polyvalent cations (calcium, zinc, magnesium, iron), Indications: COPD exacerbationIndications:COPD exacerbation Given 03/08/2025 9:07 AM EDT 100 mg Given 03/07/2025 8:21 PM EDT 100 mg Given 03/07/2025 9:09 AM EDT 100 mg enoxaparin sodium (LOVENOX) syringe 60 mg 60 mg, Subcutaneous, Every 12 Hours, First dose on Sun03/06/25 at 2101, Give subcutaneous in abdomen only. Do not massage site after injection., Indications: VTE ProphylaxisIndications:VTE Prophylaxis Given 03/08/2025 9:07 AM EDT 60 mg Right Upper Abdomen Given 03/07/2025 8:21 PM EDT 60 mg Ri ght Lower Abdomen Given 03/07/2025 9:09 AM EDT 60 mg Le ft Arm furosemide (LASIX) injection 40 mg 40 mg, Intravenous, Every 12 Hours, First dose on Sun03/06/25 at 2109, Doses over 100 mg will dispense an IVPB bolus. Given 03/07/2025 9:09 AM EDT 40 mg Given 03/06/2025 11:34 PM EDT 40 mg iopamidol (ISOVUE-370) 76 % injection 75 mL 75 mL, Intravenous, Once in Imaging, On Sun03/06/25 at 1747, For 1 dose Given 03/06/2025 5:31 PM EDT 75 mL ipratropium-albuterol (DUO-NEB) nebulizer solution 3 mL 3 mL, Nebulization, Once, On Sun03/06/25 at 2000, For 1 dose, Include Respiratory Treatment Education Given 03/06/2025 8:22 PM EDT 3 mL ipratropium-albuterol (DUO-NEB) nebulizer solution 3 mL 3 mL, Nebulization, 4 Times Daily - RT, First dose on Sun03/07/25 at 0830, Include Respiratory Treatment Education Given 03/08/2025 6:56 AM EDT 3 mL Given 03/07/2025 7:41 PM EDT 3 mL Given 03/07/2025 4:02 PM EDT 3 mL losartan (COZAAR) tablet 25 mg 25 mg, Oral, Every 24 Hours Scheduled, First dose on 03/07/25 at 0900, Hold for SBP less than 100, DBP less than 60. Given 03/08/2025 9:07 AM EDT 25 mg Given 03/07/2025 9:09 AM EDT 25 mg Magnesium Standard Dose Replacement - Follow Nurse / BPA Driven Protocol Open Order & Select [facility] Electrolyte Replacement Protocol Algorithm to View Details methylPREDNISolone sodium succinate (SOLU-Medrol) injection 125 mg 125 mg, Intravenous, Once, On Sun03/06/25 at 2006, For 1 dose, Caution: Look alike/sound alike drug alert Given 03/06/2025 8:13 PM EDT 125 mg methylPREDNISolone sodium succinate (SOLU-Medrol) injection 40 mg 40 mg, Intravenous, Daily, First dose on Sun03/08/25 at 0900, Caution: Look alike/sound alike drug alert Given 03/08/2025 9:07 AM EDT 40 mg nitroglycerin (NITROSTAT) SL tablet 0.4 mg 0.4 mg, Sublingual, Every 5 Minutes PRN, Chest Pain, Starting on Sun03/06/25 at 2046, If Pain Unrelieved After 3 Doses Notify MD May administer up to 3 doses per episode. Hold if SBP less than 100. ondansetron (ZOFRAN) injection 4 mg 4 mg, Intravenous, Every 6 Hours PRN, Nausea, Vomiting, Starting on Sun03/06/25 at 2048, If BOTH ondansetron (ZOFRAN) and promethazine (PHENERGAN) are ordered use ondansetron first and THEN promethazine IF ondansetron is ineffective. pantoprazole (PROTONIX) injection 40 mg 40 mg, Intravenous, Every [employer], First dose on 03/07/25 at 0600, Dilute with 10 mL of 0.9% NaCl and give IV push over 2 minutes., Indications: Gastroesophageal Reflux DiseaseIndications:Gastroesophageal Reflux Disease Given 03/08/2025 5:07 AM EDT 40 mg Given 03/07/2025 5:04 AM EDT 40 mg Phosphorus Replacement - Follow Nurse / BPA Driven Protocol Open Order & Select [facility] Electrolyte Replacement Protocol Algorithm to View Details polyethylene glycol (MIRALAX) packet 17 g 17 g, Oral, Daily PRN, Constipation, Use if senna-docusate is ineffective, Starting on Sun03/06/25 at 2048, Use if no bowel movement after 12 hours. Mix in 6-8 ounces of water. Use 4-8 ounces of water, tea, or juice for each 17 gram dose. Potassium Replacement - Follow Nurse / BPA Driven Protocol Open Order & Select [facility] Electrolyte Replacement Protocol Algorithm to View Details predniSONE (DELTASONE) tablet 40 mg 40 mg, Oral, Daily With Breakfast, First dose on Sun03/07/25 at 0800, For 5 days, Take with food. Given 03/07/2025 9:09 AM EDT 40 mg sennosides-docusate (PERICOLACE) 8.6-50 MG per tablet 2 tablet 2 tablet, Oral, 2 Times Daily, First dose on Sun03/06/25 at 2108, HOLD MEDICATION IF PATIENT HAS HAD BOWEL MOVEMENT. Start bowel management regimen if patient has not had a bowel movement after 12 hours. Given 03/07/2025 9:09 AM EDT 2 tablets Given 03/06/2025 11:35 PM EDT 2 tablets sodium chloride 0.9 % flush 10 mL 10 mL, Intravenous, As Needed, Line Care, Starting on Sun03/06/25 at 1500 sodium chloride 0.9 % flush 10 mL 10 mL, Intravenous, Every 12 Hours Scheduled, First dose on Sun03/06/25 at 210 Given 03/08/2025 9:07 AM EDT 10 mL Given 03/07/2025 8:20 PM EDT 10 mL Given 03/07/2025 9:10 AM EDT 10 mL sodium chloride 0.9 % flush 10 mL 10 mL, Intravenous, As Needed, Line Care, Starting on Sun03/06/25 at 2046 sodium chloride 0.9 % infusion 40 mL 40 mL, Intravenous, at 100 mL/hr, As Needed, Line Care, Starting on Sun03/06/25 at 2046, Following administration of an IV intermittent medication, flush line with 40mL NS at 100mL/hr. torsemide (DEMADEX) tablet 40 mg 40 mg, Oral, Once, On 03/07/25 at 1400, For 1 dose Given 03/07/2025 1:15 PM EDT 40 mg documented in this encounter Active and Recently Administered Medications Times are shown in EDT. Scheduled Medication Order 03/06/2025 03/07/2025 03/08/2025 cefTRIAXone (ROCEPHIN) 2,000 mg in sodium chloride 0.9 % 100 mL MBP 2,000 mg, Intravenous, at 200 mL/hr, Administer over 30 Minutes, Every 24 Hours, First dose on Sun03/07/25 at 1300, For 7 days, LR should be paused and flushing of the line with NS is recommended prior to and after completion of ceftriaxone infusion due to incompatibility. Do not co-adminster with calcium-containing solutions. Caution: Look alike/sound alike drug alert, Indications: Empiric 1315 (New Bag - Provider: Torie Bell RN) doxycycline (MONODOX) capsule 100 mg 100 mg, Oral, Every 12 Hours Scheduled, First dose on Sun03/06/25 at 2109, For 5 days, Take with food if GI upset occurs. Administer 2 hours before or 4 hours after administration of oral polyvalent cations (calcium, zinc, magnesium, iron), Indications: COPD exacerbation 2334 (Given - Provider: Salo Rose RN) 908 (Given - Provider: Torie Bell RN)2020 (Given - Provider: Gaby Arias RN) 0907 (Given - Provider: Cali Potter, TOMAS) enoxaparin sodium (LOVENOX) syringe 60 mg 60 mg, Subcutaneous, Every 12 Hours, First dose on Sun03/06/25 at 2101, Give subcutaneous in abdomen only. Do not massage site after injection., Indications: VTE Prophylaxis 2334 (Given - Provider: Salo Rose RN) 09 (Given - Provider: Torie Bell RN)2020 (Given - Provider: Gaby Arias RN) 0907 (Given - Provider: Cali Potter, TOMAS) furosemide (LASIX) injection 40 mg (CANCELED) 40 mg, Intravenous, Every 12 Hours, First dose on Sun03/06/25 at 2109, Doses over 100 mg will dispense an IVPB bolus. 233 (Given - Provider: Salo Rose RN) 09 (Given - Provider: Torie Bell RN) iopamidol (ISOVUE-370) 76 % injection 75 mL (COMPLETED) 75 mL, Intravenous, Once in Imaging, On Sun03/06/25 at 1747, For 1 dose 1731 (Given - Provider: Matthew Martinez) ipratropium-albuterol (DUO-NEB) nebulizer solution 3 mL (COMPLETED) 3 mL, Nebulization, Once, On Sun03/06/25 at 2000, For 1 dose, Include Respiratory Treatment Education 2021 (Given - Provider: Carli Mcdonnell, RETAIL SALES ADVISOR) ipratropium-albuterol (DUO-NEB) nebulizer solution 3 mL 3 mL, Nebulization, 4 Times Daily - RT, First dose on Sun03/07/25 at 0830, Include Respiratory Treatment Education 0825 (Not Given - Provider: Denita Roque RETAIL SALES ADVISOR - Reason: Patient not available)1304 (Given - Provider: Denita Roque, RETAIL SALES ADVISOR)1602 (Given - Provider: Sukhdev Webster, TICKET SALES AGENT)1941 (Given - Provider: Rogelio Barry RRT) 0656 (Given - Provider: Sukhdev Webster RRT)0830 (Canceled Entry - Provider: Sukhdev Webtser RRT)1139 (Not Given - Provider: Sukhdev Webster RRT - Reason: Patient/family refused - Comment: being discharged home) losartan (COZAAR) tablet 25 mg 25 mg, Oral, Every 24 Hours Scheduled, First dose on Sun03/07/25 at 0900, Hold for SBP less than 100, DBP less than 60. 0909 (Given - Provider: Torie Bell RN) 0907 (Given - Provider: Cali Potter RN) methylPREDNISolone sodium succinate (SOLU-Medrol) injection 125 mg (COMPLETED) 125 mg, Intravenous, Once, On Sun03/06/25 at 2006, For 1 dose, Caution: Look alike/sound alike drug alert 2012 (Given - Provider: Erna Rodríguez RN) methylPREDNISolone sodium succinate (SOLU-Medrol) injection 40 mg 40 mg, Intravenous, Daily, First dose on Sun03/08/25 at 0900, Caution: Look alike/sound alike drug alert 0907 (Given - Provider: Cali Potter RN) pantoprazole (PROTONIX) injection 40 mg 40 mg, Intravenous, Every Levee Superintendent, First dose on Sun03/07/25 at 0600, Dilute with 10 mL of 0.9% NaCl and give IV push over 2 minutes., Indications: Gastroesophageal Reflux Disease 0504 (Given - Provider: Gaby Arias RN) 0507 (Given - Provider: Gaby Arias RN) predniSONE (DELTASONE) tablet 40 mg (CANCELED) 40 mg, Oral, Daily With Breakfast, First dose on Sun03/07/25 at 0800, For 5 days, Take with food. 0909 (Given - Provider: Torie Bell RN) sennosides-docusate (PERICOLACE) 8.6-50 MG per tablet 2 tablet(Linked Group 1) 2 tablet, Oral, 2 Times Daily, First dose on Sun03/06/25 at 2109, HOLD MEDICATION IF PATIENT HAS HAD BOWEL MOVEMENT. Start bowel management regimen if patient has not had a bowel movement after 12 hours. 2335 (Given - Provider: Salo Rose RN) 0909 (Given - Provider: Torie Bell RN)2019 (Not Given - Provider: Gaby Arias RN - Reason: Patient/family refused) 0907 (Not Given - Provider: Cali Potter RN - Reason: Patient/family refused) sodium chloride 0.9 % flush 10 mL 10 mL, Intravenous, Every 12 Hours Scheduled, First dose on Sun03/06/25 at 2109 2335 (Given - Provider: Salo Rose RN) 0910 (Given - Provider: Torie Bell RN)2019 (Given - Provider: Gaby Arias RN) 0907 (Given - Provider: Cali Potter, TOMAS) torsemide (DEMADEX) tablet 40 mg (COMPLETED) 40 mg, Oral, Once, On Sun03/07/25 at 1400, For 1 dose 1315 (Given - Provider: Torie Bell RN) PRN Medication Order 03/06/2025 03/07/2025 03/08/2025 acetaminophen (TYLENOL) 160 MG/5ML oral solution 650 mg(Linked Group 2) 650 mg, Oral, Every 4 Hours PRN, Mild Pain, Starting on Sun03/06/25 at 204, If given for fever, use fever parameter: fever greater than 100.4 F Based on patient request - if ordered for moderate or severe pain, provider allows for administration of a medication prescribed for a lower pain scale. Do not exceed 4 grams of acetaminophen in a 24 hr period. Max dose of 2gm for AST/ALT greater than 120 units/L. If given for pain, use the following pain scale: Mild Pain = Pain Score of 1-3, CPOT 1-2 Moderate Pain = Pain Score of 4-6, CPOT 3-4 Severe Pain = Pain Score of 7-10, CPOT 5-8 acetaminophen (TYLENOL) suppository 650 mg(Linked Group 2) 650 mg, Rectal, Every 4 Hours PRN, Mild Pain, Starting on Sun03/06/25 at 2048, If given for fever, use fever parameter: fever greater than 100.4 F Based on patient request - if ordered for moderate or severe pain, provider allows for administration of a medication prescribed for a lower pain scale. Do not exceed 4 grams of acetaminophen in a 24 hr period. Max dose of 2gm for AST/ALT greater than 120 units/L. If given for pain, use the following pain scale: Mild Pain = Pain Score of 1-3, CPOT 1-2 Moderate Pain = Pain Score of 4-6, CPOT 3-4 Severe Pain = Pain Score of 7-10, CPOT 5-8 acetaminophen (TYLENOL) tablet 650 mg(Linked Group 2) 650 mg, Oral, Every 4 Hours PRN, Mild Pain, Starting on Sun03/06/25 at 2048, If given for fever, use fever parameter: fever greater than 100.4 F Based on patient request - if ordered for moderate or severe pain, provider allows for administration of a medication prescribed for a lower pain scale. Do not exceed 4 grams of acetaminophen in a 24 hr period. Max dose of 2gm for AST/ALT greater than 120 units/L. If given for pain, use the following pain scale: Mild Pain = Pain Score of 1-3, CPOT 1-2 Moderate Pain = Pain Score of 4-6, CPOT 3-4 Severe Pain = Pain Score of 7-10, CPOT 5-8 bisacodyl (DULCOLAX) EC tablet 5 mg(Linked Group 1) 5 mg, Oral, Daily PRN, Constipation, Use if polyethylene glycol is ineffective, Starting on Sun03/06/25 at 2049, Use if no bowel movement after 12 hours. Swallow whole. Do not crush, split, or chew tablet. bisacodyl (DULCOLAX) suppository 10 mg(Linked Group 1) 10 mg, Rectal, Daily PRN, Constipation, Use if bisacodyl oral is ineffective, Starting on Sun03/06/25 at 2048, Use if no bowel movement after 12 hours. Hold for diarrhea Calcium Replacement - Follow Nurse / BPA Driven Protocol Open Order & Select [facility] Electrolyte Replacement Protocol Algorithm to View Details Magnesium Standard Dose Replacement - Follow Nurse / BPA Driven Protocol Open Order & Select [facility] Electrolyte Replacement Protocol Algorithm to View Details nitroglycerin (NITROSTAT) SL tablet 0.4 mg 0.4 mg, Sublingual, Every 5 Minutes PRN, Chest Pain, Starting on Sun03/06/25 at 2046, If Pain Unrelieved After 3 Doses Notify MD May administer up to 3 doses per episode. Hold if SBP less than 100. ondansetron (ZOFRAN) injection 4 mg 4 mg, Intravenous, Every 6 Hours PRN, Nausea, Vomiting, Starting on Sun03/06/25 at 2048, If BOTH ondansetron (ZOFRAN) and promethazine (PHENERGAN) are ordered use ondansetron first and THEN promethazine IF ondansetron is ineffective. Phosphorus Replacement - Follow Nurse / BPA Driven Protocol Open Order & Select [facility] Electrolyte Replacement Protocol Algorithm to View Details polyethylene glycol (MIRALAX) packet 17 g(Linked Group 1) 17 g, Oral, Daily PRN, Constipation, Use if senna-docusate is ineffective, Starting on Sun03/06/25 at 2048, Use if no bowel movement after 12 hours. Mix in 6-8 ounces of water. Use 4-8 ounces of water, tea, or juice for each 17 gram dose. Potassium Replacement - Follow Nurse / BPA Driven Protocol Open Order & Select [facility] Electrolyte Replacement Protocol Algorithm to View Details sodium chloride 0.9 % flush 10 mL 10 mL, Intravenous, As Needed, Line Care, Starting on Sun03/06/25 at 1500 sodium chloride 0.9 % flush 10 mL 10 mL, Intravenous, As Needed, Line Care, Starting on Sun03/06/25 at 2046 sodium chloride 0.9 % infusion 40 mL 40 mL, Intravenous, at 100 mL/hr, As Needed, Line Care, Starting on Sun03/06/25 at 2046, Following administration of an IV intermittent medication, flush line with 40mL NS at 100mL/hr. Linked Groups Order Group 1: sennosides-docusate (PERICOLACE) 8.6-50 MG per tablet 2 tabletJump to med 2 tablet, Oral, 2 Times Daily, First dose on Sun03/06/25 at 2108, HOLD MEDICATION IF PATIENT HAS HAD BOWEL MOVEMENT. Start bowel management regimen if patient has not had a bowel movement after 12 hours. And polyethylene glycol (MIRALAX) packet 17 gJump to med 17 g, Oral, Daily PRN, Constipation, Use if senna-docusate is ineffective, Starting on Sun03/06/25 at 2048, Use if no bowel movement after 12 hours. Mix in 6-8 ounces of water. Use 4-8 ounces of water, tea, or juice for each 17 gram dose. And bisacodyl (DULCOLAX) EC tablet 5 mgJump to med 5 mg, Oral, Daily PRN, Constipation, Use if polyethylene glycol is ineffective, Starting on Sun03/06/25 at 2048, Use if no bowel movement after 12 hours. Swallow whole. Do not crush, split, or chew tablet. And bisacodyl (DULCOLAX) suppository 10 mgJump to med 10 mg, Rectal, Daily PRN, Constipation, Use if bisacodyl oral is ineffective, Starting on Sun03/06/25 at 2048, Use if no bowel movement after 12 hours. Hold for diarrhea Group 2: acetaminophen (TYLENOL) tablet 650 mgJump to med 650 mg, Oral, Every 4 Hours PRN, Mild Pain, Starting on Sun03/06/25 at 2048, If given for fever, use fever parameter: fever greater than 100.4 F Based on patient request - if ordered for moderate or severe pain, provider allows for administration of a medication prescribed for a lower pain scale. Do not exceed 4 grams of acetaminophen in a 24 hr period. Max dose of 2gm for AST/ALT greater than 120 units/L. If given for pain, use the following pain scale: Mild Pain = Pain Score of 1-3, CPOT 1-2 Moderate Pain = Pain Score of 4-6, CPOT 3-4 Severe Pain = Pain Score of 7-10, CPOT 5-8 Or acetaminophen (TYLENOL) 160 MG/5ML oral solution 650 mgJump to med 650 mg, Oral, Every 4 Hours PRN, Mild Pain, Starting on Sun03/06/25 at 2048, If given for fever, use fever parameter: fever greater than 100.4 F Based on patient request - if ordered for moderate or severe pain, provider allows for administration of a medication prescribed for a lower pain scale. Do not exceed 4 grams of acetaminophen in a 24 hr period. Max dose of 2gm for AST/ALT greater than 120 units/L. If given for pain, use the following pain scale: Mild Pain = Pain Score of 1-3, CPOT 1-2 Moderate Pain = Pain Score of 4-6, CPOT 3-4 Severe Pain = Pain Score of 7-10, CPOT 5-8 Or acetaminophen (TYLENOL) suppository 650 mgJump to med 650 mg, Rectal, Every 4 Hours PRN, Mild Pain, Starting on Sun03/06/25 at 2048, If given for fever, use fever parameter: fever greater than 100.4 F Based on patient request - if ordered for moderate or severe pain, provider allows for administration of a medication prescribed for a lower pain scale. Do not exceed 4 grams of acetaminophen in a 24 hr period. Max dose of 2gm for AST/ALT greater than 120 units/L. If given for pain, use the following pain scale: Mild Pain = Pain Score of 1-3, CPOT 1-2 Moderate Pain = Pain Score of 4-6, CPOT 3-4 Severe Pain = Pain Score of 7-10, CPOT 5-8 documented in this encounter Care Teams Sanitation Worker Relationship Specialty Start Date End Date Danielle Mora APRN [address] [facility] [address] [place] [address] PCP - General Family Medicine 12/02/15 documented as of this encounter
--- OUTSIDE RECORDS SUMMARY | 2025-03-22 20:14 | XMS_ITS | Encounter Summary ---
[facility] Address [address] [place] [address] Care Team Providers Care Outside Maintenance Worker Name Role Phone Danielle Mora APRN Primary Care Provid er Encounter Details Date Type Department Care Team (Latest Contact Info) Description 03/06/2025 Travel Social History Tobacco Use Types Packs/Day Years [...] 3:00 PM EDT Muna Smith RN * [place] Suicide Severity Rating Scale (Screener/Recent Self-Report) Question [...] on filedocumented in this encounter Care Teams Outside Maintenance Worker Relationship Specialty Start Date End Date Danielle Mora APRN [address] [facility] [address] [place] [address] PCP - General Family Medicine 12/02/15 documented as of this encounter
--- OUTSIDE RECORDS SUMMARY | 2025-03-22 20:14 | XMS_ITS | Encounter Summary ---
Author Organization 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
--- OUTSIDE RECORDS SUMMARY | 2025-03-22 20:14 | XMS_ITS | Clinical Summary ---
Author Organization [facility] Address [address] [place] [address] Care Team Providers Care Painter Touch Up Name Role Phone Danielle Mora APRN Primary Care Provid er Allergies Active Allergy Reactions Criticality Noted Date Comments Penicillins Anaphylaxis High 12/02/2015 Pseudoephedrine Hcl 12/14/2016 Medications albuterol (PROVENTIL HFA;VENTOLIN HFA) 108 (90 BASE) MCG/ACT inhaler Inhale 2 puffs every 4 (four) hours as needed for wheezing. Active torsemide 40 MG tablet Take 20 mg by mouth Daily for 90 days. 90 tablet 5 06/06/20 25 Active ibuprofen (ADVIL,MOTRIN) 800 MG tablet Take 1 tablet by mouth Every 6 (Six) Hours As Needed for Mild Pain. 03/08/20 25 Discontinue d(Stop Taking at Discharge) levoFLOXacin (LEVAQUIN) 500 MG tablet Take 1 tablet by mouth Daily. 7 tablet 8 03/08/20 25 Discontinue d(Stop Taking at Discharge) cefuroxime (CEFTIN) 500 MG tablet Take 1 tablet by mouth 2 (Two) Times a Day for 5 days. 10 tablet 5 03/13/20 25 doxycycline (VIBRAMYCIN) 100 MG capsule Take 1 capsule by mouth 2 (Two) Times a Day for 5 days. 10 capsule 5 03/13/20 25 predniSONE (DELTASONE) 20 MG tablet Take 2 tablets by mouth Daily for 5 days. 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 Class 3 obesity due to exces s calories without serious comorbidity in adult 04/25/2017 Cough 04/25/2017 Chronic non-seasonal allergic rhinitis 7 Tobacco dependence 04/25/2017 Pneumothorax 12/05/2015 Bronchitis 12/05/2015 Encounters Date Type Department Care Team Description 03/06/2025 4:09 PM EDT - 03/08/2025 12:28 PM EDT Hospital Encounter [address] [place] [address] Yosi Ying DO Anwer, Mohammed A, MD Younis, Maximino Knapp MD Acute respiratory failure with hypoxia (Primary Dx); Tachycardia; Leukocytosis, unspecified type; History of pneumothorax; Referred by health career based intervention coordinator; Acute hypoxic respiratory failure Discharge Disposition: Home or Self Care 03/06/2025 Travel from Last 3 Months Immunizations Immunization Administration Dates Next Due Flu [...] Mass Index 23.65 03/06/2025 2:58 PM EDT Plan of Treatment Health Maintenance Due Date Last Done Comments Pneumococcal Vaccine 0-49 (1 of 2 - PCV) 2005 ANNUAL PHYSICAL 12/14/2016 HEPATITIS C SCREENING 12/14/2016 INFLUENZA VACCINE 01/09/2025 04/25/2017 TDAP/TD VACCINES (2 - Td or Tdap) 12/27/2026 017 Procedures Procedure Name Priority Date/Time Associated Diagnosis Comments RESPIRATORY CULTURE Routine 03/08/2025 1 1:18 AM EDT LIMITED 2D ECHO W/ LIMITED DOPPLER AND COLOR FLOW Routine 03/07/2025 3:51 PM EDT HEMOGLOBIN A1C Routine 03/07/2025 4:07 AM EDT MAGNESIUM Routine 03/07/2025 4:07 AM EDT COMPREHENSIVE METABOLIC PANEL Routine 03/07/2025 4:07 AM EDT CBC WITH AUTO DIFFERENTIAL Routine 03/07/2025 4:07 AM EDT RESPIRATORY PANEL PCR W/ COVID-19 (SARS-COV-2), NATIONAL ACCOUNT REPRESENTATIVE SWAB IN UTM/VTP, 2 HR TAT Routine 03/07/2025 1:54 AM EDT BLOOD CULTURE STAT 03/07/2025 12:10 AM EDT BLOOD CULTURE STAT 03/07/2025 12:05 AM EDT HIGH SENSITIVITY CRP Routine 03/06/2025 9:16 PM EDT TSH RFX ON ABNORMAL TO FREE T4 Routine 03/06/2025 9:16 PM EDT BLOOD GAS, ARTERIAL W/CO-OXIMETRY STAT 03/06/2025 8:[address] ANGIOGRAM CHEST PULMONARY EMBOLISM STAT 03/06/2025 5:32 PM EDT ECG 12-LEAD STAT 03/06/2025 4:38 PM EDT HIGH SENSITIVITIY TROPONIN T 1HR STAT 03/06/2025 4:32 PM EDT XR CHEST 1 VW STAT 03/06/2025 4:30 PM EDT SCANNED - TELEMETRY 03/06/2025 4 :20 PM EDT CO CRITICAL CARE ILL/INJURED PATIENT INIT 30-74 MIN Routine 03/06/2025 3:19 PM EDT LIGHT BLUE TOP STAT 03/06/2025 3:13 PM EDT CENTENO TOP STAT 03/06/2025 3:13 PM EDT GOLD TOP - SST STAT 03/06/2025 3:13 PM EDT LAVENDER TOP STAT 03/06/2025 3:13 PM EDT DK GREEN TOP STAT 03/06/2025 3:13 PM EDT CBC AND DIFFERENTIAL STAT 03/06/2025 3:13 PM EDT D-DIMER, QUANTITATIVE STAT 03/06/2025 3:13 PM EDT CBC WITH AUTO DIFFERENTIAL STAT 03/06/2025 3:13 PM EDT TROPONIN STAT 03/06/2025 3:13 PM EDT B-TYPE NATRIURETIC PEPTIDE STAT 03/06/2025 3:13 PM EDT COMPREHENSIVE METABOLIC PANEL STAT 03/06/2025 3:13 PM EDT RAINBOW DRAW STAT 03/06/2025 3:13 PM EDT ECG 12-LEAD STAT 03/06/2025 3:01 PM EDT from Last 3 Months Results * Respiratory Culture - Sputum, Oropharynx (03/08/2025 11:18 AM EDT) Respiratory Culture Heavy growth (4+) Normal respiratory irina. No S. aureus or Pseudomonas aeruginosa detected. Final report. RUSTAM 03/10/2025 10:17 AM EDT [facility] Gram Stain Few (2+) Epithelial cells per low power field 03/10/2025 10:17 AM [facility] Gram Stain No WBCs per low power field 03/10/2025 10:17 AM EDT [facility] Gram Stain Moderate (3+) Mixed bacterial morphotypes seen on Gram Stain 03/10/2025 10:17 AM EDT [facility] Sputum Oropharyngeal structure / Unknown Collection / Unknown 03/08/2025 11:18 AM EDT 03/08/2025 11:31 AM EDT Danish Tong MD MICROBIOLOGY - GENERAL ORDER FISH Final Result [facility]
[address] [place] [address], [place] [phone] [facility]
[address] [place] [address], [place] [phone] * LIMITED 2D ECHO W/ LIMITED DOPPLER [...] ECHO ORDERABLES Final Res ult * (ABNORMAL) CBC Auto Differential (03/07/2025 4:07 AM EDT) Only the most recent of2 resultswithin the time period is included. WBC 12.44(H) 3.40 - 10.80 10*3/mm3 03/07/2025 4:45 AM EDT [facility] RBC 5.74 4.14 - 5.80 10*6/mm3 03/07/2025 4:45 AM EDT [facility] Hemoglobin 15.7 13.0 - 17.7 g/dL 03/07/2025 4:45 AM EDT [facility] Hematocrit 48.5 37.5 - 51.0 % 03/07/2025 4:45 AM EDT [facility] MCV 84.5 79.0 - 97.0 fL 03/07/2025 4:45 AM EDT [facility] MCH 27.4 26.6 - 33.0 pg 03/07/2025 4:45 AM EDT [facility] MCHC 32.4 31.5 - 35.7 g/dL 03/07/2025 4:45 AM EDT [facility] RDW 15.9(H) 12.3 - 15.4 % 03/07/2025 4:45 AM EDT [facility] RDW-SD 48.1 37.0 - 54.0 fl 03/07/2025 4:45 AM EDT [facility] MPV 10.1 6.0 - 12.0 fL 03/07/2025 4:45 AM [facility] Platelets 424 140 - 450 10*3/mm3 03/07/2025 4:45 AM [facility] Neutrophil % 92.7(H) 42.7 - 76.0 % 03/07/2025 4:45 AM [facility] Lymphocyte % 5.2(L) 19.6 - 45.3 % 03/07/2025 4:45 AM [facility] Monocyte % 1.0(L) 5.0 - 12.0 % 03/07/2025 4:45 AM [facility] Eosinophil % 0.0(L) 0.3 - 6.2 % 03/07/2025 4:45 AM [facility] Basophil % 0.2 0.0 - 1.5 % 03/07/2025 4:45 AM [facility] Immature Grans % 0.9(H) 0.0 - 0.5 % 03/07/2025 4:45 AM [facility] Neutrophils, Absolute 11.54(H) 1.70 - 7.00 10*3/mm3 03/07/2025 4:45 AM [facility] Lymphocytes, Absolute 0.65(L) 0.70 - 3.10 10*3/mm3 03/07/2025 4:45 AM [facility] Monocytes, Absolute 0.12 0.10 - 0.90 10*3/mm3 03/07/2025 4:45 AM [facility] Eosinophils, Absolute 0.00 0.00 - 0.40 10*3/mm3 03/07/2025 4:45 AM [facility] Basophils, Absolute 0.02 0.00 - 0.20 10*3/mm3 03/07/2025 4:45 AM [facility] Immature Grans, Absolute 0.11(H) 0.00 - 0.05 10*3/mm3 03/07/2025 4:45 AM [facility] nRBC 0.0 0.0 - 0.2 /100 WBC 03/07/2025 4:45 AM EDT [facility] Blood Venipuncture / Unknown 03/07/2025 4:07 AM EDT 03/07/2025 4:37 AM EDT Danish Tong MD LAB BLOOD ORDERABLES Final R esult [facility]
[address] [place] [address], * Magnesium (03/07/2025 4:07 AM EDT) Magnesium 2.2 1.6 - 2.6 mg/dL 03/07/2025 5:19 AM EDT [facility] Blood Venipuncture / Unknown 03/07/2025 4:07 AM EDT 03/07/2025 4:42 AM EDT Danish Tong MD LAB BLOOD ORDERABLES Final R esult Performing Organization Address City/[facility]/ZIP Co de Phone Number [facility]
[address] [place] [address], * (ABNORMAL) Hemoglobin A1c (03/07/2025 4:07 AM EDT) Hemoglobin A1C 5.88(H) 4.80 - 5.60 % 03/07/2025 7:20 AM EDT [facility] Blood Venipuncture / Unknown 03/07/2025 4:07 AM EDT 03/07/2025 4:37 AM EDT Narrative [facility] - 03/07/2025 7:20 AM EDT Hemoglobin A1C Ranges: Increased Risk for Diabetes 5.7% to 6.4% Diabetes >= 6.5% Diabetic Goal < 7.0% Danish Tong MD LAB BLOOD ORDERABLES Final R esult [facility]
[address] [place] [address], * (ABNORMAL) Comprehensive Metabolic Panel (03/07/2025 4:07 AM EDT) Only the most recent of2 resultswithin the time period is included. Glucose 211(H) 65 - 99 mg/dL 03/07/2025 5:19 AM EDT [facility] BUN 18.9 6.0 - 20.0 mg/dL 03/07/2025 5:19 AM EDT [facility] Creatinine 1.15 0.76 - 1.27 mg/dL 03/07/2025 5:19 AM EDT [facility] Sodium 141 136 - 145 mmol/L 03/07/2025 5:19 AM EDT [facility] Potassium 4.3 3.5 - 5.2 mmol/L 03/07/2025 5:19 AM EDT [facility] Chloride 103 98 - 107 mmol/L 03/07/2025 5:19 AM EDT [facility] CO2 24.3 22.0 - 29.0 mmol/L 03/07/2025 5:19 AM EDT [facility] Calcium 9.9 8.6 - 10.5 mg/dL 03/07/2025 5:19 AM EDT [facility] Total Protein 7.0 6.0 - 8.5 g/dL 03/07/2025 5:19 AM EDT [facility] Albumin 4.0 3.5 - 5.2 g/dL 03/07/2025 5:19 AM EDT [facility] ALT (SGPT) 25 1 - 41 U/L 03/07/2025 5:19 AM EDT [facility] AST (SGOT) 14 1 - 40 U/L 03/07/2025 5:19 AM EDT [facility] Alkaline Phosphatase 66 39 - 117 U/L 03/07/2025 5:19 AM EDT [facility] Total Bilirubin 0.2 0.0 - 1.2 mg/dL 03/07/2025 5:19 AM EDT [facility] Globulin 3.0 gm/dL 03/07/2025 5:19 AM EDT [facility] Comment:Calculated Result A/G Ratio 1.3 g/dL 03/07/2025 5:19 AM EDT [facility] BUN/Creatinine Ratio 16.4 7.0 - 25.0 03/07/2025 5:19 AM EDT [facility] Anion Gap 13.7 5.0 - 15.0 mmol/L 03/07/2025 5:19 AM EDT [facility] eGFR 83.5 >60.0 mL/min/1.7 3 03/07/2025 5:19 AM EDT [facility] Blood Venipuncture / Unknown 03/07/2025 4:07 AM EDT 03/07/2025 4:42 AM EDT [facility] - 03/07/2025 5:19 AM EDT GFR [...] MD LAB BLOOD ORDERABLES Final R esult [facility]
[address] [place] [address], * Respiratory Panel PCR w/COVID-19(SARS-CoV-2) RAYMON/BEBO/SHERRIE/PAD/COR/DEMETRIUS In-House, NATIONAL ACCOUNT REPRESENTATIVE Swab in UTM/VTM, 2 HR TAT - Swab, Nasopharynx (03/07/2025 1:54 AM EDT) [facility] ADENOVIRUS, PCR Not Detected Not Detected BIOFIRE TOR 03/07/2025 2:50 AM EDT [facility] Coronavirus 229E Not Detected Not Detected BIOFIRE TOR 03/07/2025 2:50 AM EDT [facility] Coronavirus HKU1 Not Detected Not Detected BIOFIRE TOR 03/07/2025 2:50 AM EDT [facility] Coronavirus NL63 Not Detected Not Detected BIOFIRE TOR 03/07/2025 2:50 AM EDT [facility] Coronavirus OC43 Not Detected Not Detected BIOFIRE TOR 03/07/2025 2:50 AM EDT [facility] COVID19 Not Detected Not Detected - Ref. Range BIOFIRE TOR 03/07/2025 2:50 AM EDT [facility] Human Metapneumovirus Not Detected Not Detected BIOFIRE [facility] 03/07/2025 2:50 AM EDT [facility] Human Rhinovirus/Enterov irus Not Detected Not Detected BIOFIRE TOR 03/07/2025 2:50 AM EDT [facility] Influenza A PCR Not Detected Not Detected BIOFIRE [facility] 03/07/2025 2:50 AM EDT [facility] Influenza B PCR Not Detected Not Detected BIOFIRE [facility] 03/07/2025 2:50 AM EDT [facility] Parainfluenza Virus 1 Not Detected Not Detected BIOFIRE TOR 03/07/2025 2:50 AM EDT [facility] Parainfluenza Virus 2 Not Detected Not Detected BIOFIRE TOR 03/07/2025 2:50 AM EDT [facility] Parainfluenza Virus 3 Not Detected Not Detected BIOFIRE TOR 03/07/2025 2:50 AM EDT [facility] Parainfluenza Virus 4 Not Detected Not Detected BIOFIRE TOR 03/07/2025 2:50 AM EDT [facility] RSV, PCR Not Detected Not Detected BIOFIRE TOR 03/07/2025 2:50 AM EDT [facility] Bordetella pertussis pcr Not Detected Not Detected BIOFIRE TOR 03/07/2025 2:50 AM EDT [facility] Bordetella parapertussis PCR Not Detected Not Detected BIOFIRE [facility] 03/07/2025 2:50 AM EDT [facility] Chlamydophila pneumoniae PCR Not Detected Not Detected BIOFIRE [facility] 03/07/2025 2:50 AM EDT [facility] Mycoplasma pneumo by PCR Not Detected Not Detected BIOFIRE [facility] 03/07/2025 2:50 AM EDT [facility] Swab Nasopharyngeal structure / Unknown Collection / Unknown 03/07/2025 1:54 AM EDT 03/07/2025 2:02 AM EDT Narrative [facility] - 03/07/2025 2:50 AM EDT In [...] MICROBIOLOGY - GENERAL ORDER FISH Final Result [facility]
[address] [place] [address], * Blood Culture - Blood, Arm, Right (03/07/2025 12:10 AM EDT) Only the most recent of2 resultswithin the time period is included. Blood Culture No growth at 5 days 03/12/2025 12:45 AM EDT [facility] Blood Structure of right upper limb / Unknown Venipuncture / Unknown 03/07/2025 12:10 AM EDT 03/07/2025 12:37 AM EDT us Danish Tong MD MICROBIOLOGY - GENERAL ORDER FISH Final Result [facility]
[address] [place] [address], * TSH Rfx On Abnormal To Free T4 (03/06/2025 9:16 PM EDT) TSH 3.300 0.270 - 4.200 uIU/mL 03/06/2025 9:55 PM EDT [facility] Blood Venipuncture / Unknown 03/06/2025 9:16 PM EDT 03/06/2025 9:22 PM EDT Danish Tong MD LAB BLOOD ORDERABLES Final R esult Performing Organization Address City/[facility]/ZIP Co de Phone Number [facility]
[address] [place] [address], * (ABNORMAL) High Sensitivity CRP (03/06/2025 9:16 PM EDT) HS C-Reactive Protein 1.273(H) 0.010 - 0.500 mg/dL 03/08/2025 12:15 PM EDT [facility] Blood Venipuncture / Unknown 03/06/2025 9:16 PM EDT 03/07/2025 7:37 PM EDT Narrative [facility] - 03/08/2025 12:15 PM EDT Relative Risk Category Average hs-CRP level Low <0.1 mg/dl Average 0.1 mg/dl - 0.3 mg/dl High >0.3 mg/dl Danish Tong MD LAB BLOOD ORDERABLES Final R esult [facility]
[address] [place] [address], * (ABNORMAL) Blood Gas, Arterial With Co-Ox (03/06/2025 8:38 PM EDT) Site Right Radial 03/06/2025 8:37 PM EDT [facility] THERAPY Ryan's Test N/A 03/06/2025 8:37 PM EDT [facility] THERAPY pH, Arterial 7.432 7.350 - 7.450 pH units 03/06/2025 8:37 PM EDT [facility] THERAPY pCO2, Arterial 34.2(L) 35.0 - 45.0 mm Hg 03/06/2025 8:37 PM EDT [facility] THERAP[facility] Comment:84 Value below refer ence range pO2, Arterial 116.0(H) 83.0 - 108.0 mm Hg 03/06/2025 8:37 PM EDT [facility] THERAPY Comment:83 Value above refer ence range HCO3, Arterial 22.8 20.0 - 26.0 mmol/L 03/06/2025 8:37 PM EDT [facility] THERAPY Base Excess, Arterial -0.8(L) 0.0 - 2.0 mmol/L 03/06/2025 8:37 PM EDT [facility] THERAPY Hemoglobin, Blood Gas 16.2 13.5 - 17.5 g/dL 03/06/2025 8:37 PM EDT [facility] THERAPY Hematocrit, Blood Gas 49.5 38.0 - 51.0 % 03/06/2025 8:37 PM EDT [facility] THERAPY Oxyhemoglobin 98.3 94 - 99 % 03/06/2025 8:37 PM EDT [facility] THERAPY Methemoglobin -0.10(L) 0.00 - 1.50 % 03/06/2025 8:37 PM EDT [facility] THERAPY Comment:84 Value below refer ence range Carboxyhemoglobin 1.0 0 - 2 % 8:37 PM EDT [facility] THERAPY CO2 Content 23.8 22 - 33 mmol/L 03/06/2025 8:37 PM EDT [facility] THERAPY Temperature 37.0 03/06/2025 8:37 PM EDT [facility] THERAPY Barometric Pressure for Blood Gas 03/06/2025 8:37 PM EDT [facility] THERAPY Comment:N/A Modality Nasal Cannula 03/06/2025 8:37 PM EDT [facility] THERAPY FIO2 32 % 03/06/2025 8:37 PM EDT [facility] THERAPY Ventilator Mode 8:37 PM EDT [facility] THERAPY Comment:Meter: [id number] [employer] Mechanical: [id number] pH, Temp Corrected 7.432 pH Units 2024 8:37 PM EDT [facility] THERAPY pCO2, Temperature Corrected 34.2(L) 35 - 48 mm Hg 03/06/2025 8:37 PM EDT [facility] THERAPY pO2, Temperature Corrected 116(H) 83 - 108 mm Hg 03/06/2025 8:37 PM EDT [facility] THERAPY Arterial Blood 03/06/2025 8: 38 PM EDT 03/06/2025 8:38 PM EDT us Yosi Ying DO LAB BLOOD ORDERABLES Fin al Result [facility] THERAPY
[address] [place] [address], * CT Angiogram Chest Pulmonary Embolism (03/06/2025 5:32 PM EDT) Anatomical Region Laterality Modality Chest N/A Computed Tomogra phy 03/06/2025 5:58 PM EDT Impressions 03/06/2025 6:05 PM EDT Grossly limited evaluation for pulmonary embolus. No evidence of large central pulmonary embolus. Electronically Signed: Elvis Osullivan MD 03/06/2025 6:05 PM EDT Workstation ID: [id number] Narrative 03/06/2025 6:[address] ANGIOGRAM [...] MD 03/06/2025 6:05 PM EDT Workstation ID: [id number] us Delfino Biggs NEWSPAPER MANAGER IMG CT ORDERABLES Final Result * ECG 12 Lead Dyspnea (03/06/2025 4:38 PM EDT) Only the most recent of2 resultswithin the time period is included. QT Interval 310 ms ECG QTC Interval [...] significant change was found Confirmed by YOSI YING MD ([id number]) on 03/07/2025 9:44:06 PM Referred By: ED Confirmed By: YOSI YING MD Procedure Note Yosi Ying DO - 03/07/2025 Test Reason : Dyspnea [...] significant change was found Confirmed by YOSI YING MD ([id number]) on 03/07/2025 9:44:06 PM Referred By: RAYO GILBERT Confirmed By: YOSI YING MD us Yosi Ying DO ECG ORDERABLES Final Re sult ECG * High Sensitivity Troponin T 1Hr (03/06/2025 4:32 PM EDT) HS Troponin T 9 <22 ng/L 03/06/2025 5:05 PM EDT [facility] Troponin T Numeric Delta 2 Abnormal if >/=3 ng/L 03/06/2025 5:05 PM EDT [facility] Blood Venipuncture / Unknown 03/06/2025 4:32 PM EDT 03/06/2025 4:37 PM EDT Narrative [facility] - 03/06/2025 5:05 PM EDT High [...] due to an underlying chronic condition. Yosi Ying DO LAB BLOOD ORDERABLES [facility] al Result [facility]
[address] [place] [address], * XR Chest 1 View (03/06/2025 4:30 PM EDT) Anatomical Region Laterality Modality Body N/A Radiographic Lucy ging 03/06/2025 4:32 PM EDT Impressions 03/06/2025 4:32 PM EDT Impression: No radiographic evidence of acute cardiopulmonary abnormality. Electronically Signed: Vic Bailon MD 03/06/2025 4:32 PM EDT Workstation ID: [id number] Narrative 03/06/2025 4:32 PM EDT XR CHEST [...] MD 03/06/2025 4:32 PM EDT Workstation ID: [id number] us Yosi Ying DO IMG DIAGNOSTIC IMAGING O RDERABLES Final Result * Telemetry Scan (03/06/2025 4:20 PM EDT) us [facility] ECG ORDERABLES Final Result * CO CRITICAL CARE ILL/INJURED PATIENT INIT 30-74 MIN (03/06/2025 3:19 PM EDT) Narrative Yosi Ying DO - 03/06/2025 3:19 PM EDT Yosi Ying DO 03/06/2025 8:24 PM Critical Care Performed by: Delfino Biggs APRN Authorized by: Yosi Ying DO Critical care provider statement: Critical care time (minutes): 35 Critical care was necessary to treat or prevent imminent or life-threatening deterioration of the following conditions: Respiratory failure us Yosi Ying DO PROCEDURE/MINOR SURGICAL ORDERABLES Final Result * Cent[place] Top (03/06/2025 3:13 PM EDT) Pathologist [facility] Extra Tube Hold for add-ons. 03/06/2025 3:31 PM EDT [facility] Comment:Auto resulted. Blood Venipuncture / Unknown 03/06/2025 3:13 PM EDT 03/06/2025 3:22 PM EDT Yosi Ying LAB BLOOD ORDER ONLY Fin al Result Performing Organization Address City/[facility]/ZIP Co de Phone Number [facility]
[address] [place] [address], [place] [phone] * Gold Top - SST (03/06/2025 3:13 PM EDT) Extra Tube Hold for add-ons. 03/06/2025 3:31 PM EDT [facility] Comment:Auto resulted. Blood Venipuncture / Unknown 03/06/2025 3:13 PM EDT 03/06/2025 3:22 PM EDT Yosi Ying LAB BLOOD ORDER ONLY Fin al Result Performing Organization Address [facility] Co de Phone Number [facility]
[address] [place] [address], [place] [phone] * Green Top (Gel) (03/06/2025 3:13 PM EDT) Extra Tube Hold for add-ons. 03/06/2025 3:31 PM EDT [facility] Comment:Auto resulted. Blood Venipuncture / Unknown 03/06/2025 3:13 PM EDT 03/06/2025 3:22 PM EDT [facility] Fin al Result Performing Organization Address City/[facility]/ZIP Co de Phone Number [facility]
[address] [place] [address], [place] [phone] * Lavender Top (03/06/2025 3:13 PM EDT) Extra Tube hold for add-on 03/06/2025 3:31 PM EDT [facility] Comment:Auto resulted Blood Venipuncture / Unknown 03/06/2025 3:13 PM EDT 03/06/2025 3:22 PM EDT [facility] ONLY Fin al Result Performing Organization Address City/[facility]/ZIP Co de Phone Number [facility]
[address] [place] [address], * Light Blue Top (03/06/2025 3:13 PM EDT) Extra Tube Hold for add-ons. 03/06/2025 3:31 PM EDT [facility] Comment:Auto resulted Blood Venipuncture / Unknown 03/06/2025 3:13 PM EDT 03/06/2025 3:22 PM EDT Yosi Presley [facility] LAB BLOOD ORDER ONLY Fin al Result Performing Organization Address City/[facility]/ZIP Co de Phone Number [facility] LABORATORY
[address] [place] [address], * High Sensitivity Troponin T (03/06/2025 3:13 PM EDT) HS Troponin T 7 <22 ng/L 03/06/2025 3:50 PM EDT [facility] Blood Venipuncture / Unknown 03/06/2025 3:13 PM EDT 03/06/2025 3:22 PM EDT Narrative [facility] - 03/06/2025 3:50 PM EDT High [...] due to an underlying chronic condition. Yosi Ying DO LAB BLOOD ORDERABLES Fin al Result Performing Organization Address City/[facility]/ZIP Co de Phone Number [facility]
[address] [place] [address], * D-dimer, Quantitative (03/06/2025 3:13 PM EDT) [facility] D-Dimer, Quantitative <0.27 0.00 - 0.50 MCGFEU/mL 03/06/2025 8:42 PM EDT [facility] Blood Line / Unknown 03/06/2025 3: 13 PM EDT 03/06/2025 8:07 PM EDT Narrative [facility] - 03/06/2025 8:42 PM EDT According to the assay indirect sales representative's published package insert, a normal (<0.50 MCGFEU/mL) D-dimer result in conjunction with a non-high clinical probability assessment, excludes deep vein thrombosis (DVT) and pulmonary embolism (PE) with high sensitivity. D-dimer values increase with age and this can make VTE exclusion of an older population difficult. To address this, the [employer], based on best available [...] APRN LAB BLOOD ORDERABLES Final Resu lt Performing Organization Address [facility]/ZIP Co de Phone Number [facility]
[address] [place] [address], * BNP (03/06/2025 3:13 PM EDT) proBNP 86.6 0.0 - 450.0 pg/mL 03/06/2025 3:50 PM EDT [facility] Blood Venipuncture / Unknown 03/06/2025 3:13 PM EDT 03/06/2025 3:22 PM EDT Narrative [facility] - 03/06/2025 3:50 PM EDT This [...] Positive >1800 [place] 300-1800 Negative <300 Yosi Ying DO LAB BLOOD ORDERABLES Fin al Result [facility]
[address] [place] [address], from Last 3 Months Insurance [place] Member Subscriber Plan / Payer (Ef fective 2015-Present) Name:Ronal Meléndez Relation to Subscriber:Self Name:Ronal Meléndez Payer ID:[id number] Group ID:Not on file Type:Not on file Address: [address] MEDICARE ADVANTAGE [facility] HMO NON PAR Advance Directives * CPR (Attempt to Resuscitate) (Latest Code Status on File) Date Activated Date Inactivated Comments 03/06/2025 8:54 PM 03/08/2025 2:33 PM Question Answer Comments Code Status (Patient has no pulse and is not breathing): CPR (Attempt to Resuscitate) Medical Interventions (Patie nt has pulse or is breathing): Full Support Level Of Support Discussed With: Patient Care Teams Painter Touch Up Relationship Specialty Start Date End Date Danielle Mora APRN [facility]0 [facility] [address] [facility] [place] [address] PCP - General Family Medicine 12/02/15
--- OUTSIDE RECORDS SUMMARY | 2025-03-22 20:14 | XMS_ITS | Encounter Summary ---
Author Organization [facility] Address [address] [place] [address] Care Team Providers Care Sleep Medicine Physician Name Role Phone Danielle Mora APRN Primary Care Provid er Encounter Details Date Type Department Care Team (Late st Contact Info) Description 11/27/2016 External CPT II TRANSIT SPECIALIST - [facility] Social History Tobacco [...] on filedocumented in this encounter Care Teams Sleep Medicine Physician Relationship Specialty Start Date End Date Danielle Mora APRN [address] [place] [address] PCP - General Family Medicine 12/02/15 documented as of this encounter
--- OUTSIDE RECORDS SUMMARY | 2025-03-22 20:14 | XMS_ITS | Encounter Summary ---
Author Organization [facility] Address [address] [place] [phone] Care Team Providers Care Manufacturing Test Engineer Name Role Phone Danielle Mora APRN Primary Care Provid er Encounter Details Date Type Department Care Team (Late st Contact Info) Description 10/19/2014 External CPT II PHONE REPRESENTATIVE - [facility] Social History Tobacco Use [...] on filedocumented in this encounter Care Teams Manufacturing Test Engineer Relationship Specialty Start Date End Date Danielle Mora APRN [address] [facility] [address] [place] [address] PCP - General Family Medicine 12/02/15 documented as of this encounter
--- OUTSIDE RECORDS SUMMARY | 2025-03-22 20:14 | XMS_ITS | Encounter Summary ---
Author Organization [facility] Address [address] [place] [phone] Care Team Providers Care Aged Or Disabled Carer Name Role Phone Danielle Mora APRN Primary Care Provid er Encounter Details Date Type Department Care Team (Late st Contact Info) Description 03/03/2015 External CPT II MUNICIPAL ENGINEER - [facility] Social History Tobacco [...] on filedocumented in this encounter Care Teams Aged Or Disabled Carer Relationship Specialty Start Date End Date Danielle Mora APRN [address] [facility] [address] [place] [address] PCP - General Family Medicine 12/02/15 documented as of this encounter
== END ==
LOC: SL 20:11
PROVIDERS: PCP Nurse Practitioner Family; Visit Provider Internal Medicine Pulmonary Disease
DX: J43.9 Emphysema, unspecified (principal); R91.8 Other nonspecific abnormal finding of lung field; Z87.09 Personal history of other diseases of the respiratory system
CPT/HCPCS: 95810

== ENCOUNTER 2025-03-25 14:33 | Outpatient (CLI) | payer MEDICARE, MEDICAID, SELFPAY ==
[2025-03-25 15:48] LABS: Anion Gap 14.1 mEq/L (5-15); Blood Urea Nitrogen 12 mg/dl (9-20); Calcium 9.3 mg/dl (8.4-10.2); Carbon Dioxide 26 mmol/L (22.0-30.0); Chloride 103 mmol/L (98-107); Creatinine,Serum 1.00 mg/dl (0.66-1.25); Estimated Glomerular Filt Rate 84 ml/min (>60); GFR (African American) 101 ML/MIN (>60); Glucose 152 mg/dl (74-100); Potassium 4.1 mmoL/L (3.5-5.1); Sodium 139 mmol/L (136-145)
== END 2025-03-25 23:59 | disposition home or self-care (01) ==
LOC: LAB 14:33
PROVIDERS: PCP Nurse Practitioner Family; Visit Provider Nurse Practitioner
DX: I10 Essential (primary) hypertension (principal)
CPT/HCPCS: 36415; 80048

== ENCOUNTER → 2025-04-27 15:33 | Outpatient (CLI) | payer MEDICARE, MEDICAID, SELFPAY | LOC: SL 15:33 | PROVIDERS: PCP Nurse Practitioner Family; Visit Provider Specialist | DX: G47.34 Idiopathic sleep related nonobstructive alveolar hypoventilation (principal) | CPT/HCPCS: 94762 ==

== ENCOUNTER 2025-05-17 22:24 | Emergency (ER) | payer MEDICARE, MEDICAID, SELFPAY ==
--- OUTSIDE RECORDS SUMMARY | 2017-01-31 08:00 | XMS_ITS | Encounter Summary ---
[facility] Address [address] [place] [address] Care Team Providers Care Sr Technical Sales Consultant Name Role Phone Danielle Mora APRN Primary Care Provid er Encounter Details Date Type Department Care Team (Late st Contact Info) Description 01/31/2017 9:00 AM EDT Hospital Encounter [facility] PULMONARY & CRITICAL CARE MEDICINE [address] [place] [id number] Social History Tobacco Use Types Packs/Day Years Used Date Smoking Tobacco: Former Cigarettes 0.3 13 0 09/14/2003 - 09/13/2016 Smokeless Tobacco: Former Alcohol Use Standard Drinks/Week Comments No 0 (1 standard drink = 0.6 oz pur e alcohol) Occasionally AUDIT-C Answer Date Recorded Q1: How often do you have a drink containing alcohol? Never 03/06/2025 Q2: How many drinks containi ng alcohol do you have on a typical day when you are drinking? Patient does not drink Q3: How often do you have si x or more drinks on one occasion? Never 03/06/2025 Abuse Screen Answer Date Recorded Feels Unsafe at Home or Work/School no 03/06/2025 Feels Threatened by Someone no 02/10 Does Anyone Try to Keep You From Having Contact with Others or Doing Things Outside Your Home? no 03/06/2025 Physical Signs of Abuse Present no 03/06/2025 Housing Stability Answer Date Recorded Current Living Arrangements home 02/10 Potentially Unsafe Housing Conditions Not on nita e 03/06/2025 Family and Community Support Answer Heber e Recorded Help with Day-to-Day Activities Not on file 03/19/2023 Lonely or Isolated Not on file 03/19/2023 Employment Answer Date Recorded Do you want help finding or keeping work or a patti b? Not on file 03/19/2023 Disabilities Answer Date Recorded Difficulty Concentrating, Remembering or Making Decisions no 03/06/2025 Difficulty Managing Errands Independently no 03/06/2025 Education Answer Date Recorded Help with school or training? Not on file Preferred Language Not on file 03/19/2023 Sex and Gender Information Value Date Recorded Sex Assigned at Not on file Legal Sex Male 12:47 PM EDT Gender Identity Not on file Sexual Orientation Not on file Occupation Industry Job Start Date Job End Date Not on file Not on file Not on file Not on file documented as of this encounter Functional Status * Calculated C-SSRS Risk Score (Lifetime/Recent) Answer Date of Assessment Author No Risk Indicated 03/06/2025 3:00 PM EDT Muna Smith RN * [place] Suicide Severity Rating Scale (Screener/Recent Self-Report) Question Answer Date of Assessment Author 1. Wish to be (Past 1 Month) No 025 3:00 PM EDT Muna Bobo RN 2. Non-Specific Active Suici jabier Thoughts (Past 1 Month) No 03/06/2025 3:00 PM EDT Ata Bobo RN 6. Suicidal Behavior (Lifetime) No 5 3:00 PM EDT Muna Bobo RN documented as of this encounter Plan of Treatment Not on file documented as of this encounter Procedures Procedure Name Priority Date/Time Associated Diagnosis Comments XR CHEST PA AND LATERAL Routine 01/31/2017 9:14 AM EDT SOB (shortness of breath) documented in this encounter Results * XR Chest PA & Lateral (01/31/2017 9:14 AM EDT) Anatomical Region Laterality Modality Body, Chest N/A Radiographic Lucy ging Narrative 02/01/2017 10:14 AM EDT There are no focal infiltrates appreciated. Large bullae seen in the right lung. There are surgical clips from previous surgery on the right. us Brandi V. Case DO IMG DIAGNOSTIC IMAGING ORDERA BLES Final Result documented in this encounter Visit Diagnoses Not on filedocumented in this encounter Care Teams Sr Technical Sales Consultant Relationship Specialty Start Date End Date Abby Danielle LORENZO Bhatia [address] [place] [facility] [address] [place] [address] PCP - General Family Medicine 12/02/15 documented as of this encounter
--- OUTSIDE RECORDS SUMMARY | 2025-04-02 14:30 | XMS_ITS | Encounter Summary ---
Author Organization [facility] Address [facility] [place] [address] Care Team Providers Care Sports Physician Name Role Phone Unavailable Primary Care Provider Unavailabl e Reason for Referral * Consultation (Routine) - Closed Specialty Diagnoses / Procedures Referred By Lesly t Referred To Contact Cardiothoracic Surgery Diagnoses Cystic-bullous disease of lung Recurrent pneumothorax Jered Meek MD [address] [place] [address] Phone: tel: fax: Cardiothoracic Surgery [address] [place] [address] Phone: tel: Referral ID Status Reason Start Date Expiration Date V isits Requested Visits Authorized [id number] Closed Specialty Services Required 04/02/2025 10/02/2026 1 1 Reason for Visit * Reason Comments New Patient Encounter Details Date Type Department Care Team (Late st Contact Info) Description 04/02/2025 3:30 PM EDT Office Visit Pav CC Head, Neck & Respiratory [address] [facility], [address]nd [place] [address] Jered Meek MD [address] [place] [address] Cystic-bullous disease of lung (Primary Dx); Recurrent pneumothorax Social History Tobacco Use Types Packs/Day Years Used Date Smoking Tobacco: Former Cigarettes 0.5 25.7 2 000 - 02/27/2025 Smokeless Tobacco: Former Snuff Quit: 2006 Tobacco Cessation:Counseling Given: Not Answered Alcohol Use Standard Drinks/Week Comments Never 0 (1 standard drink = 0.6 oz pur e alcohol) AUDIT-C Answer Date Recorded Q1: How often do you have a drink containing alcohol? Never 04/02/2025 Q2: How many drinks containi ng alcohol do you have on a typical day when you are drinking? Patient does not drink Q3: How often do you have si x or more drinks on one occasion? Never 04/02/2025 Sex and Gender Information Value Date Recorded Sex Assigned at Not on file Legal Sex Male 8:23 PM EDT Gender Identity Not on file Sexual Orientation Not on file documented as of this encounter Last Filed Vital Signs Vital Sign Reading Time Taken Comments Blood Pressure 147/73 04/02/2025 3:04 PM EDT Pulse 110 04/02/2025 2:58 PM EDT Temperature - - Respiratory Rate 14 04/02/2025 2:58 PM EDT Oxygen Saturation 95% 04/02/2025 2:58 PM EDT Inhaled Oxygen Concentration - - Weight 163 kg (359 lb 5.6 oz) 04/02/2025 2:58 PM EDT Height 167.6 cm (5' 6 ) 04/02/2025 2:58 PM EDT Body Mass Index 58 04/02/2025 2:58 PM EDT documented in this encounter Functional Status * AUDIT-C Score Answer Date of Assessment Author 0 04/02/2025 2:49 PM EDT Josy Huitron * Question Answer Date of Assessment Author Q1: How often do you have a drink containing alcohol? Never 04/02/2025 2:49 PM EDT Josy Huitron Q2: How many drinks containing alcohol do you have on a typical day when you are drinking? Patient does not drink 04/02/2025 2:49 PM EDT Josy Huitron Q3: How often do you have six or more drinks on one occasion? Never 04/02/2025 2:49 PM EDT Josy Huitron * Calculated C-SSRS Risk Score (Lifetime/Recent) Answer Date of Assessment Author No Risk Indicated 04/02/2025 2:51 PM EDT Josy Zamudio * Question Answer Date of Assessment Author 1. Wish to be (Past 1 Month) No 025 2:51 PM EDT Josy Huitron 2. Non-Specific Active Suici jabier Thoughts (Past 1 Month) No 04/02/2025 2:51 PM EDT Maxine Huitron 6. Suicidal Behavior (Lifetime) No 2:51 PM EDT Josy Huitron documented as of this encounter Miscellaneous Notes * Patient Instructions - Georgia Davis RN - 04/02/2025 3:30 PM EDT We have placed a referral for thoracic surgery consult. Someone from that department will reach outto you regarding scheduling. Thank you! Georgia Davis RN [facility] Interventional Pulmonology Head, Neck & Respiratory Clinic [facility] P: [phone] F: [phone] * Progress Notes - Edvin Lai MD - 04/02/2025 3:30 PM EDT Images from the original note were not included. Interventional Pulmonology Clinic Note Requesting Provider: Natty Canales MD Chief Complaint: Evaluation for pleurodesis to treat recurrent pneumothorax History Of Present Illness Ronal Meléndez is a 39 year old male with a PMH of recent PE (02/2025), H/O of reccuent left and right pneumothorax, Bullous Lung Disease, CHF, HTN, HLD. Ronal reports a Reports: Past Medical History Past Medical History[1] Past Surgical History Surgical History[2] Family History Family History[3] Social History reports that he quit smoking about 4 weeks ago. His smoking use included cigarettes. He started smoking about 25 years ago. He has a 12.9 pack-year smoking history. He quit smokeless tobacco use about 19 years ago. His smokeless tobacco use included snuff. He reports that he does not drink alcohol and does not use drugs. Allergies Penicillins and Pseudoephedrine Medications Prior to Admission medications Medication Sig Start Date End Date Taking? Authorizing Provider baclofen (Lioresal) 10 MG tablet Take 1 tablet by mouth 3 times a day. 02/16/25 Yes Provider, Historical cetirizine (ZyrTEC) 10 MG tablet Take 1 tablet by mouth daily. Yes Provider, Historical famotidine (Pepcid) 40 MG tablet TAKE 1 TABLET BY MOUTH AT BEDTIME with omeprazole 02/16/25 Yes Provider, Historical furosemide (Lasix) 40 MG tablet Take 1 tablet by mouth daily. 03/26/25 Yes Provider, Historical guaiFENesin (Humibid 3) 400 MG tablet Take 1 tablet by mouth every 4 hours. Yes Provider, Historical ibuprofen 600 MG tablet Take 1 tablet by mouth every 6 hours as needed. 02/16/25 Yes Provider, Historical levocetirizine (Xyzal) 5 MG tablet Take 1 tablet by mouth every evening. 02/16/25 Yes Provider, Historical lisinopril 5 MG tablet Take 1 tablet by mouth daily. 02/16/25 Yes Provider, Historical montelukast (Singulair) 10 MG tablet Take 1 tablet by mouth daily. 12/02/24 Yes Provider, Historical omeprazole (PriLOSEC) [address] capsule Take 1 capsule by mouth 2 times a day. 02/16/25 Yes Provider, Historical spironolactone (Aldactone) 25 MG tablet Take 1 tablet by mouth daily. 03/25/25 Yes Provider, Historical Current Medications[4] Review of Systems: Complete 14 point review of systems is negative except for positives documented in HPI Last Recorded Vitals Visit Vitals BP (!) 147/73 (BP Location: Right arm) Pulse 110 Resp 14 Ht 1.676 m (5' 6 ) Wt 163 kg (359 lb 5.6 oz) SpO2 95% BMI 58.00 kg/m?? Smoking Status Former BSA 2.75 m?? Physical Exam GENERAL: No acute distress. EYES: anicteric sclerae, PERRLA HENT: Oropharynx clear with moist mucous membranes and no mucosal ulcerations NECK/Lymph: Trachea midline; No thyromegaly or lymphadenopathy . RESP: Good air movement, Diminished breath sounds. CARD: RRR, without murmur, rubs, or gallop Extremities: No edema, cyanosis or clubbing. No deformity. GI: No organomegaly or masses. Abdomen is soft, nontender and nondistended. BS present x 4 quadrants SKIN: No rash, ulcers or subcutaneous nodules NEURO: Alert and oriented, moves all extremeties, reflexes present and symmetrical, no focal deficit Imaging: CT 03/06/25 Impression: 1. Cystic-bullous disease of lung 2. Recurrent pneumothorax Given no current pneumothorax, and extensive bullous disease, would require surgical correction (bullectomy/lobectomy). Current medical co-morbidities may complicate surgical candidacy including BMI and CHF. Given high risk for development of pneumothorax, pleurodesis should occur during these episodes and discussed with Recommendations: - Referral to CT surgery for evaluation for bullectomy or lobectomy - Would defer pleurodesis until PTX occurs. Discussed with Ronal to transfer to [facility] for management if admitted to OSH. Patient was seen and examined with the Attending Physician Dr. Meek. - Edvin Lai MD, PGY-2 [1] No past medical history on file. [2] No past surgical history on file. [3] No family history on file. [4] Current Outpatient Medications Medication Sig Dispense Refill baclofen (Lioresal) 10 MG tablet Take 1 tablet by mouth 3 times a day. cetirizine (ZyrTEC) 10 MG tablet Take 1 tablet by mouth daily. famotidine (Pepcid) 40 MG tablet TAKE 1 TABLET BY MOUTH AT BEDTIME with omeprazole furosemide (Lasix) 40 MG tablet Take 1 tablet by mouth daily. guaiFENesin (Humibid 3) 400 MG tablet Take 1 tablet by mouth every 4 hours. ibuprofen 600 MG tablet Take 1 tablet by mouth every 6 hours as needed. levocetirizine (Xyzal) 5 MG tablet Take 1 tablet by mouth every evening. lisinopril 5 MG tablet Take 1 tablet by mouth daily. montelukast (Singulair) 10 MG tablet Take 1 tablet by mouth daily. omeprazole (PriLOSEC) [address] capsule Take 1 capsule by mouth 2 times a day. spironolactone (Aldactone) 25 MG tablet Take 1 tablet by mouth daily. No current facility-administered medications for this visit. Cosigned by Jered Meek MD at 04/14/2025 9:48 AM EST Associated attestation - Jered Meek MD - 04/14/2025 9:48 AM EST I saw and evaluated the patient with the resident/fellow. I discussed the case with the resident/fellow and agree with the findings and plan as documented. documented in this encounter Plan of Treatment Upcoming Encounters Date Type Department Care Team (Late st Contact Info) Description 05/20/2025 1:00 PM EST Appointment P[facility] H Pulmonary Function Testing [address] [place] [address] 05/20/2025 2:30 PM EST Office Visit Pav CC Head, Neck & Respiratory [address] [facility], [address] [place] [address] Betsy Mc MD [address] [facility] [address] [place] [address] Scheduled Referrals Name Type Priority Associated Diagnoses Orde r Schedule Ambulatory referral to Thoracic Surgery Outpatient Referral Routine Cystic-bullous disease of lung Recurrent pneumothorax Expected: 04/02/2025 (Approximate), Expires: 10/04/2026 documented as of this encounter Visit Diagnoses Diagnosis Cystic-bullous disease of lung- Primary Recurrent pneumothorax documented in this encounter Additional Health Concerns Assessment Noted Time A fall risk assessment has been complete d for the patient 04/02/2025 2:53 PM EDT documented as of this encounter
--- OUTSIDE RECORDS SUMMARY | 2025-04-17 10:15 | XMS_ITS | Encounter Summary ---
Author Organization [facility] Address [address] [place] [address] Care Team Providers Care Plastic Die Maker Apprentice Name Role Phone System, Provider Not In MD Primary Care Provider Unavailable Reason for Visit * Reason Comments New Patient * Consultation (Routine) - Closed Specialty Diagnoses / Procedures Referred By Lesly hudson Referred To Contact Cardiothoracic Surgery Diagnoses Cystic-bullous disease of lung Recurrent pneumothorax Jered Meek MD [address] [place] [address] Phone: tel: fax: Cardiothoracic Surgery [address] [place] [address] Phone: tel: Referral ID Status Reason Start Date Expiration Date V isits Requested Visits Authorized [id number] Closed Specialty Services Required 04/02/2025 10/02/2026 1 1 Encounter Details Date Type Department Care Team (Late st Contact Info) Description 04/17/2025 10:15 AM EST Office Visit Pav CC Head, Neck & Respiratory [address] [facility], 2nd [place] [address] Betsy Mc MD [address] [facility] [address] [place] [address] Cystic-bullous disease of lung (Primary Dx) Social History Tobacco Use Types Packs/Day Years Used Date Smoking Tobacco: Former Cigarettes 0.5 25.7 2 000 - 02/27/2025 Smokeless Tobacco: Former Snuff Quit: 2006 Tobacco Cessation:Counseling Given: No Alcohol Use Standard Drinks/Week Comments Never 0 [...] Sign Reading Time Taken Comments Blood Pressure 134/85 04/17/2025 9:45 AM EST Pulse 60 04/17/2025 9:45 AM EST Temperature 36.4 C (97.6 F) 04/17/2025 9:45 AM EST Respiratory Rate 14 04/17/2025 9:45 AM EST Oxygen Saturation 95% 04/17/2025 9:45 AM EST Inhaled Oxygen Concentration - - Weight 166 kg (365 lb 11.9 oz) 04/17/2025 9:45 A M EST Height - - Body Mass Index 59.03 04/02/2025 2:58 PM EDT documented in this encounter Miscellaneous Notes * Progress Notes - Nadine Lopez PA - 04/17/2025 10:15 AM EST Images from the original note were not included. [facility] Department of Surgery Division of Thoracic Surgery History & Physical Note Consulting MD: Dr. Jered Meek Reason for Consultation/Chief complaint: recurrent pneumothorax History of Present Illness: Ronal Meléndez is a 39 y.o. male w/ PMH morbid obesity, H/O recurrent left and right pneumothorax, bullous lung disease, CHF, HTN, HLD, tobacco abuse who presents to the outpatient clinic for evaluation for surgical intervention for recurrent pneumothorax. Patient has a longstanding history of pneumothorax and has undergone right thoracotomy and multiple apical blebectomies of right lung in 2007 and mechanical pleurodesis with Dr. Live Barber. He did fairly well until he presented to [facility] 02/27/25 with spontaneous ptx on the left that required a chest tube. He was discharged home and then presented to [facility] the following week with recurrent left- sided chest pain and CXR showed no residual pneumothorax on the left, but bilateral large bullae. During that admission he had an echocardiogram and he was diuresed. He continues to have Sob w/ exertion, but this is chronic in nature. He quit smoking 3 months ago. He says he had PFTs a couple of years ago and they were not great . His PCP is planning to start him on GLP1 for weight loss. Past Medical History: Past Medical History: Diagnosis Date Lung cyst both left and right Pneumothorax right lung 3-4 Pneumothorax left Past Surgical History: Past Surgical History: Procedure Laterality Date HERNIA REPAIR LUNG SURGERY Right TOOTH EXTRACTION Social History: Tobacco - former smoker, quit 01/2025 Alcohol - none Drugs - none Family Medical History: family history includes Diabetes in his father and mother; Heart attack in his paternal grandfather; Pancreatic cancer in his paternal grandfather. Allergies: Allergies Allergen Reactions Penicillins Anaphylaxis Pseudoephedrine Other - please document in the comment field Home Medications: Current Outpatient Medications: baclofen (Lioresal) 10 MG tablet, Take 1 tablet by mouth 3 times a day., Disp: , Rfl: famotidine (Pepcid) 40 MG tablet, TAKE 1 TABLET BY MOUTH AT BEDTIME with omeprazole, Disp: , Rfl: furosemide (Lasix) 40 MG tablet, Take 1 tablet by mouth daily., Disp: , Rfl: ibuprofen 600 MG tablet, Take 1 tablet by mouth every 6 hours as needed., Disp: , Rfl: levocetirizine (Xyzal) 5 MG tablet, Take 1 tablet by mouth every evening., Disp: , Rfl: lisinopril 5 MG tablet, Take 1 tablet by mouth daily., Disp: , Rfl: montelukast (Singulair) 10 MG tablet, Take 1 tablet by mouth daily., Disp: , Rfl: omeprazole (PriLOSEC) [address] capsule, Take 1 capsule by mouth 2 times a day., Disp: , Rfl: spironolactone (Aldactone) 25 MG tablet, Take 1 tablet by mouth daily., Disp: , Rfl: cetirizine (ZyrTEC) 10 MG tablet, Take 1 tablet by mouth daily. (Patient not taking: Reported on 04/17/2025), Disp: , Rfl: guaiFENesin (Humibid 3) 400 MG tablet, Take 1 tablet by mouth every 4 hours. (Patient not taking: Reported on 04/17/2025), Disp: , Rfl: ROS: General: no fevers or chills, no heat or cold intolerance, no subjective weight loss HEENT: no changes in vision, no sore throat, no changes in hearing, no tinnitus, no nasal drainage CV: no chest pain, no palpitations, no lightheadedness, no PND, no orthopnea, no LE swelling, no claudication Pulm: See HPI GI: no nausea, no vomiting, no abdominal pain, no constipation, no diarrhea, no melena, no hematochezia, no dysphagia, no heartburn Skin: no rash Neuro: no numbness, no tingling, no headache, no difficulties with speech, no gait disturbance Heme: no easy bruising, no bleeding from the gums Endo: No polyuria or polydypsia Psych: no depression or anxiety Physical exam: Visit Vitals BP 134/85 Pulse 60 Temp 36.4 ??C (97.6 ??F) Wt 166 kg (365 lb 11.9 oz) SpO2 95% BMI 59.03 kg/m?? General: alert and oriented, appropriate Lungs: CTA B, no wheezes or rhonchi Heart: RRR, no murmurs Abdomen: soft NT/ND, normal bowel sounds Lymph nodes: no palpable supraclavicular or cervical adenopathy Extremities: no peripheral edema Skin: no rash, no cyanosis and warm to touch Psychiatric: oriented to person/place/time and normal mood/affect Imaging: I independently visualized the imaging which includes: CTA Chest 03/05/25: Impression Grossly limited evaluation for pulmonary embolus. No evidence of large central pulmonary embolus. CT CHEST 03/01/25: small apical PTX; bilateral bullae Additional testing: none Assessment and Plan: Ronal Meléndez is a 39 y.o. male w/ PMH morbid obesity, H/O recurrent left and right pneumothorax, bullous lung disease, CHF, HTN, HLD, tobacco abuse who presents to the outpatient clinic for evaluation for surgical intervention for recurrent pneumothorax and cystic lung disease. He has a history ofrecurrent right ptx s/p apical blebectomy via right thoracotomy and mechanical pleurodesis in 2007.Most recently readmitted in Feb 2025 for left sided PTX that resolved with pigtail catheter. CT Chest at that time demonstrated bilateral bullae. We discussed surgical options in depth with the patient. We do not feel blebectomy would be the best option as he has multiple bullae and would likely not have termite helper success. We discussed the option of mechanical pleurodesis on the left given his most recent pneumothorax. Prior to considering surgery, we would like to obtain recent echocardiogramand repeat PFTs. We also discussed that his morbid obesity would place him at risk for intraoperative and postoperative risk. He is discussing starting a GLP1 with his PCP and would like to attempt so me weight loss prior to surgery. We will have him return to clinic when PFTs are complete to finalize surgical plans. Should he have recurrent pneumothorax in the meantime, we discussed transfer to [facility] for management. SHYAM Dill 04/17/25 10:11 AM Cosigned by Betsy Mc MD at 04/20/2025 12:04 PM EST Associated attestation - Betsy Mc MD - 04/20/2025 12:04 PM EST Attending Addendum: I reviewed with the PA, during the patient's visit about the patient's history, exam, diagnosis, and the plan of treatment. I reviewed all of the patient's prior records and testing. I interviewed and examined the patient personally. I agree with the plan of care as follows: diffuse cystic disease as well as history of recurrent right pneumothorax status post right thoracotomy with bullectomy andmechanical pleurodesis. He has now had a left sided pneumothorax treated with chest tube insertion.I discussed that I do not think that resection of his bullae will be helpful. He has diffuse cysticdisease in both lung and therefore resection of all the cysts is not possible and would not preventthe risk of further cyst formation. Resecting the largest cyst I do not think will be beneficial either as his risk of pneumothorax will remain given the other cysts. I do think there is an indication for mechanical pleurodesis on the left however, as this will reduce his risk of recurrent pneumothorax. He is morbidly obese however and I have concern for heart failure given the amount of diuresis he required during his hospitalization. He states his prior PFTs were reportedly poor as well. I have recommended obtaining the results of his most recent echo as well as new PFTs. If these are both good, then I can consider left robotic mechanical pleurodesis. If either of these are poor, I do notthink the risk of surgery is warranted at this time and I would favor medical optimization as well as weight loss in the short term with surgery in the future when his surgical risk is lower. He is agreeable. Return to clinic after echo results and PFTs. Betsy Ramsey MD control valve mechanic Thoracic Surgery documented in this encounter Plan of Treatment Upcoming Encounters Date Type Department Care Team (Late st Contact Info) Description 05/20/2025 1:00 PM EST Appointment P[facility] H Pulmonary Function Testing [address] [place] [address] 05/20/2025 2:30 PM EST Office Visit Pav CC Head, Neck & Respiratory [address] [facility], [address]nd [place] [address] Betsy Mc MD [address] [facility] [address] [place] [address] Scheduled Orders Name Type Priority Associated Diagnoses Orde r Schedule Pulmonary function testing PFT Routine Cystic-bullous disease of lung Expected: 04/17/2025 (Approximate), Expires: 04/17/2026 documented as of this encounter Visit Diagnoses Diagnosis Cystic-bullous disease of lung- Primary documented in this encounter Additional Health Concerns Assessment Noted Time A fall risk assessment has been complete d for the patient 04/17/2025 9:53 AM EST A Body Mass Index follow-up plan has been documented for the patient 04/20/2025 12:04 PM EST documented as of this encounter Care Teams Plastic Die Maker Apprentice Relationship Specialty Start Date End Date System, Provider Not In, [address] [place] [address] PCP - General Family Medicine 04/17/25 documented as of this encounter
[2025-05-17 22:37] VITALS: BP 144/97; PULSE 109; RESP 18; TEMP 36.3; O2SAT 96; BMI 52.2
--- NOTE | 2025-05-17 22:40 | XR_ITS ---
PROCEDURE INFORMATION: Exam: XR Right Wrist Exam date and time: 05/17/2025 10:47 PM Age: 39 years old Clinical indication: Pain; Wrist; Right; Additional info: Wrist pain, fall, felt a pop in the lateral aspect of R wrist TECHNIQUE: Imaging protocol: Radiologic exam of the right wrist. Views: 3 or more views. COMPARISON: No relevant prior studies available. FINDINGS: Bones/joints: No acute fracture or malalignment. Soft tissues: Unremarkable. IMPRESSION: No acute osseous findings.
--- OUTSIDE RECORDS SUMMARY | 2025-05-17 22:47 | XMS_ITS | Encounter Summary ---
Author Organization [facility] Address [address] [place] [phone] Care Team Providers Care Director Of Cardiopulmonary Services Name Role Phone Danielle Mora APRN Primary Care Provid er Encounter Details Date Type Department Care Team (Late st Contact Info) Description 10/19/2014 External CPT II SUPERVISOR HIDE HOUSE - [facility] Social History Tobacco Use [...] in this encounter Care Teams Director Of Cardiopulmonary Services Relationship Specialty Start Date End Date Danielle Mora APRN [address] [facility] [address] [place] [address] PCP - General Family Medicine 12/02/15 documented as of this encounter
--- OUTSIDE RECORDS SUMMARY | 2025-05-17 22:47 | XMS_ITS | Encounter Summary ---
Author Organization [facility] Address [address] [place] [address] Care Team Providers Care Supervisor Decorating Name Role Phone System, Provider Not In MD Primary Care Provider Unavailable Encounter Details Date Type Department Care Team (Latest Contact Info) Description 04/17/2025 Travel Social History Tobacco Use Types Packs/Day Years Used Date Smoking Tobacco: Former Cigarettes 0.5 25.7 2 000 - 02/27/2025 Smokeless Tobacco: Former Snuff Quit: 2006 Alcohol Use Standard Drinks/Week Comments Never 0 [...] as of this encounter Plan of Treatment Upcoming Encounters Date Type Department Care Team (Late st Contact Info) Description 05/20/2025 1:00 PM EST Appointment [facility] H Pulmonary Function Testing [address] [place] [phone] 05/20/2025 2:30 PM EST Office Visit Pav CC Head, Neck & Respiratory [address] [facility], [address]nd [place] [phone] Betsy Mc MD [address] [place] [address] documented as of this encounter Visit Diagnoses Not on filedocumented in this encounter Additional Health Concerns Assessment Noted Time A fall risk assessment has been complete d for the patient 04/17/2025 9:53 AM EST A Body Mass Index follow-up plan has been documented for the patient 04/20/2025 12:04 PM EST documented as of this encounter Care Teams Supervisor Decorating Relationship Specialty Start Date End Date System, Provider Not In, [facility] [place] [place] [address] PCP - General Family Medicine 04/17/25 documented as of this encounter
--- OUTSIDE RECORDS SUMMARY | 2025-05-17 22:47 | XMS_ITS | Encounter Summary ---
Author Organization [facility] Address [address] [place] [phone] Care Team Providers Care Mainspring Winder And Oiler Name Role Phone Danielle Mora APRN Primary Care Provid er Encounter Details Date Type Department Care Team (Late st Contact Info) Description 03/03/2015 External CPT II NUCLEAR MEDICINE MEDICAL DIRECTOR - [facility] Social History Tobacco Use [...] on filedocumented in this encounter Care Teams Mainspring Winder And Oiler Relationship Specialty Start Date End Date Danielle Mora APRN [address] [facility] [address] [place] [address] PCP - General Family Medicine 12/02/15 documented as of this encounter
--- OUTSIDE RECORDS SUMMARY | 2025-05-17 22:47 | XMS_ITS | Encounter Summary ---
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
--- OUTSIDE RECORDS SUMMARY | 2025-05-17 22:47 | XMS_ITS | Encounter Summary ---
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
--- OUTSIDE RECORDS SUMMARY | 2025-05-17 22:47 | XMS_ITS | Clinical Summary ---
Author Organization [facility] Address [address] [place] [address] Care Team Providers Care Sales Contracts Analyst Name Role Phone System, Provider Not In MD Primary Care Provider Unavailable Allergies Active Allergy Reactions Criticality Noted Date Comments Penicillins Anaphylaxis High 03/30/2011 Pseudoephedrine Other - please docum ent in the comment field Low 12/14/2016 Medications montelukast (Singulair) 10 MG tablet Take 1 tablet by mouth daily. 5 Active baclofen (Lioresal) 10 MG tablet Take 1 tablet by mouth 3 times a day. 5 Active ibuprofen 600 MG tablet Take 1 tablet by mouth every 6 hours as needed. 5 Active omeprazole (PriLOSEC) [address] capsule Take 1 capsule by mouth 2 times a day. 5 Active famotidine (Pepcid) 40 MG tablet TAKE 1 TABLET BY MOUTH AT BEDTIME with omeprazole 5 Active furosemide (Lasix) 40 MG tablet Take 1 tablet by mouth daily. 5 Active levocetirizine (Xyzal) 5 MG tablet Take 1 tablet by mouth every evening. 5 Active lisinopril 5 MG tablet Take 1 tablet by mouth daily. 5 Active spironolactone (Aldactone) 25 MG tablet Take 1 tablet by mouth daily. 5 Active guaiFENesin (Humibid 3) 400 MG tablet Take 1 tablet by mouth every 4 hours. 04/20/20 Discontinu ed(Per Patient Report) cetirizine (ZyrTEC) 10 MG tablet Take 1 tablet by mouth daily. 04/20/20 Discontinu ed(Per Patient Report) Active Problems Problem Noted Date Diagnosed Date Second hand smoke exposure 04/17/2025 Encounters Date Type Department Care Team Description 04/17/2025 10:15 AM EST Office Visit Pav [facility] Head, Neck & Respiratory [address] [phone] Betsy Mc MD Cystic-bullous disease of lung (Primary Dx) 04/17/2025 Travel 04/02/2025 3:30 PM EDT Office Visit Pav CC Head, Neck & Respiratory [address] [phone] Jered Meek MD Cystic-bullous disease of lung (Primary Dx); Recurrent pneumothorax 04/02/2025 Travel 03/30/2025 Telephone Pav CC Head, Neck & Respiratory [address] [phone] Jered Meek MD 03/11/2025 Orders Only External Location [address] [place] [phone] Provider, External 03/06/2025 Orders Only External Location [address] [place] [phone] Delfino Biggs MD 03/01/2025 Orders Only External Location [address] [place] [phone] Provider, External from Last 3 Months Family History Medical History Relation Name Comments Diabetes Father Diabetes Mother Heart attack Paternal Grandfather Pancreatic cancer Paternal Grandfather Relation Name Status Comments Father Mother Paternal Grandfather Social History Tobacco Use Types Packs/Day Years [...] oz) 04/17/2025 9:45 A M EST Height 167.6 cm (5' 6 ) 04/02/2025 2:58 PM EDT Body Mass Index 59.03 04/02/2025 2:58 PM EDT Plan of Treatment Upcoming Encounters Date Type Department Care Team (Late st Contact Info) Description 05/20/2025 1:00 PM EST Appointment [facility] Pulmonary Function Testing [address] [place] [address] 05/20/2025 2:30 PM EST Office Visit Pav CC Head, Neck & Respiratory [address] [facility], 2nd [place] [address] Betsy Mc MD [address] [place] [address] Health Maintenance Due Date Last Done Comments [facility]-Depression Screening 1986 [facility]-HIV Screening 1986 [facility]-Hepatitis C Screening 1986 [facility]-Medicare Annual Wellness (AWV) 1986 [facility]-/Child/Adol SDOH Screenings 1986 [facility]-Varicella Vaccines (1 of 2 - 13+ 2-dose series) 11/20/1999 [facility]- SDOH Screenings 2004 [facility]-Adult SDOH Screenings 2004 [facility]-Hepatitis B Vaccines (1 of 3 - 19+ 3-dose series) 2005 [facility]-Pneumococcal Vaccine: Pediatrics (0 to 5 Years) and At-Risk Patients (6 to 49 Years) (1 of 2 - PCV) 2005 HPV Vaccines (1 - 3-dose SCD M series) 2013 [facility]-[id number]-29 Vaccine (1 - 20 25-26 season) 2025 [facility]-Influenza Vaccine (#1) 2025 04/25/2017 [facility]-Diabetes: Hemoglobin A1C 03/07/2026 03/07/2025 [facility]-DTaP,Tdap,and Td Vaccine s (2 - Td or Tdap) 12/27/2026 12/27/2016 [facility]-Zoster Vaccines (1 of 2) 2036 [facility]-Obesity Intervention Completed 04/17/2025 [facility]-HIB Vaccines Aged Out No longer e ligible based on patient's age to complete this topic [facility]-Hepatitis A Vaccines Aged Out No longer eligible based on patient's age to complete this topic [facility]-IPV Vaccines Aged Out No longer e ligible based on patient's age to complete this topic [facility]-Rotavirus Vaccines Aged Out No lo nger eligible based on patient's age to complete this topic Procedures Procedure Name Priority Date/Time Associated Diagnosis Comments XR OUTSIDE IMAGES 03/11/2025 2:[address] OUTSIDE IMAGES 03/06/2025 5:[address] THORACIC OUTSIDE IMAGES 03/01/2025 8:04 AM EDT from Last 3 Months Results * XR OUTSIDE IMAGES (03/11/2025 2:31 PM EDT) Anatomical Region Laterality Modality Radiographic Lucy ging 03/11/2025 2:31 PM EDT us External Provider IMG XR PROCEDURES Edited Resul t - Final * CT OUTSIDE IMAGES (03/06/2025 5:26 PM EDT) Anatomical Region Laterality Modality Computed Tomogra phy 03/06/2025 5:26 PM EDT Delfino Biggs MD IMG CT PROCEDURES Edited Result - Final * CT THORACIC OUTSIDE IMAGES (03/01/2025 8:04 AM EDT) Anatomical Region Laterality Modality Computed Tomogra phy 03/01/2025 8:04 AM EDT us External Provider IMG CT PROCEDURES Edited Resul t - Final from Last 3 Months Insurance [place] MEDICARE Care Teams Sales Contracts Analyst Relationship Specialty Start Date End Date System, Provider Not In, [place] [address] PCP - General Family Medicine 04/17/25
--- OUTSIDE RECORDS SUMMARY | 2025-05-17 22:47 | XMS_ITS | Clinical Summary ---
[facility] Organization [facility] Address [address] [place] [address] Care Team Providers Care Pyrotechnics Press Tender Name Role Phone Gabino Moraah Jannette VENTURA Primary Care Provid er Allergies Active Allergy Reactions Criticality Noted Date Comments Penicillins Anaphylaxis High 12/02/2015 Pseudoephedrine Hcl 12/14/2016 Medications albuterol (PROVENTIL HFA;VENTOLIN HFA) 108 (90 BASE) MCG/ACT inhaler Inhale 2 puffs every 4 (four) hours as needed for wheezing. Active torsemide 40 MG tablet Take 20 mg by mouth Daily for 90 days. 90 tablet 03/08/2025 Active Active Problems Problem Noted Date Diagnosed [...] - 03/08/2025 12:28 PM EDT Hospital Encounter [address] [place] [id number] Yosi Loja DO Anwer, Mohammed A, MD Younis, Mohamed Ahmed, MD Acute respiratory failure with hypoxia (Primary Dx); Tachycardia; Leukocytosis, unspecified type; History of pneumothorax; Referred by health care aid; Acute hypoxic respiratory failure Discharge Disposition: Home [...] (1 of 2 - PCV) 2005 ANNUAL WELLNESS VISIT 12/14/2016 HEPATITIS C SCREENING 12/14/2016 INFLUENZA VACCINE [...] EDT RESPIRATORY PANEL PCR W/ COVID-19 (SARS-COV-2), CLAIM SERVICE REPRESENTATIVE SWAB IN UTM/VTP, 2 HR TAT [...] - TELEMETRY 03/06/2025 4 :20 PM EDT [facility] CRITICAL CARE ILL/INJURED PATIENT INIT 30-74 MIN [...] Final report. RUSTAM 03/10/2025 10:17 AM EDT [facility] Gram Stain Few (2+) Epithelial cells per low power field 03/10/2025 10:17 AM EDT [facility] Gram Stain No WBCs per low power field 03/10/2025 10:17 AM EDT [facility] Gram Stain Moderate (3+) Mixed bacterial morphotypes seen on Gram Stain 03/10/2025 10:17 AM EDT [facility] Sputum Oropharyngeal structure / Unknown Collection / Unknown 03/08/2025 11:18 AM EDT 03/08/2025 11:31 AM EDT us Danish Tong MD MICROBIOLOGY - GENERAL ORDER FISH Final Result [facility]
[address] [place] [address], [facility]
[address] [place] [address], * LIMITED 2D ECHO W/ LIMITED DOPPLER [...] 3.40 - 10.80 10*3/mm3 03/07/2025 4:45 [facility] RBC 5.74 4.14 - 5.80 10*6/mm3 03/07/2025 4:45 AM [facility] Hemoglobin 15.7 13.0 - 17.7 g/dL 03/07/2025 4:45 AM [facility] Hematocrit 48.5 37.5 - 51.0 % 03/07/2025 4:45 AM [facility] MCV 84.5 79.0 - 97.0 fL 03/07/2025 4:45 AM [facility] MCH 27.4 26.6 - 33.0 pg 03/07/2025 4:45 AM [facility] MCHC 32.4 31.5 - 35.7 g/dL 03/07/2025 4:45 AM [facility] RDW 15.9(H) 12.3 - 15.4 % 03/07/2025 4:45 AM [facility] RDW-SD 48.1 37.0 - 54.0 fl 03/07/2025 4:45 AM [facility] MPV 10.1 6.0 - 12.0 fL 03/07/2025 4:45 AM [facility] Platelets 424 140 - 450 10*3/mm3 03/07/2025 4:45 AM [facility] Neutrophil % 92.7(H) 42.7 - 76.0 % 03/07/2025 4:45 AM [facility] Lymphocyte % 5.2(L) 19.6 - 45.3 % 03/07/2025 4:45 AM [facility] Monocyte % 1.0(L) 5.0 - 12.0 % 03/07/2025 4:45 AM [facility] Eosinophil % 0.0(L) 0.3 - 6.2 % 03/07/2025 4:45 AM [facility] Basophil % 0.2 0.0 - 1.5 % 03/07/2025 4:45 AM EDT [facility] Immature Grans % 0.9(H) 0.0 - 0.5 % 03/07/2025 4:45 AM EDT [facility] Neutrophils, Absolute 11.54(H) 1.70 - 7.00 10*3/mm3 03/07/2025 4:45 AM EDT [facility] Lymphocytes, Absolute 0.65(L) 0.70 - 3.10 10*3/mm3 03/07/2025 4:45 AM EDT [facility] Monocytes, Absolute 0.12 0.10 - 0.90 10*3/mm3 03/07/2025 4:45 AM EDT [facility] Eosinophils, Absolute 0.00 0.00 - 0.40 10*3/mm3 03/07/2025 4:45 AM EDT [facility] Basophils, Absolute 0.02 0.00 - 0.20 10*3/mm3 03/07/2025 4:45 AM EDT [facility] Immature Grans, Absolute 0.11(H) 0.00 - 0.05 10*3/mm3 03/07/2025 4:45 AM EDT [facility] nRBC 0.0 0.0 - 0.2 /100 WBC 03/07/2025 4:45 AM EDT [facility] Blood Venipuncture / Unknown 03/07/2025 4:07 AM EDT 03/07/2025 4:37 AM EDT us Danish Tong MD LAB BLOOD ORDERABLES Final R esult [facility]
[address] [place] [address], * Magnesium (03/07/2025 4:07 AM EDT) Magnesium 2.2 1.6 - 2.6 mg/dL 03/07/2025 5:19 AM EDT [facility] Blood Venipuncture / Unknown 03/07/2025 4:07 AM EDT 03/07/2025 4:42 AM EDT Danish Tong MD LAB BLOOD ORDERABLES Final R esult Performing Organization Address [facility] de Phone Number [facility]
[address] [place] [address], * (ABNORMAL) Hemoglobin A1c (03/07/2025 4:07 AM EDT) Hemoglobin A1C 5.88(H) 4.80 - 5.60 % 03/07/2025 7:20 AM EDT [facility] Blood Venipuncture / Unknown 03/07/2025 4:07 AM EDT 03/07/2025 4:37 AM EDT Narrative [facility] - 03/07/2025 7:20 AM EDT Hemoglobin A1C Ranges: Increased Risk for Diabetes 5.7% to 6.4% Diabetes >= 6.5% Diabetic Goal < 7.0% Danish Tong MD LAB BLOOD ORDERABLES Final R esult Performing Organization Address City/[facility] Co de Phone Number [facility]
[address] [place] [address], * (ABNORMAL) Comprehensive Metabolic Panel (03/07/2025 4:07 AM EDT) Only the most recent of2 resultswithin the time period is included. Glucose 211(H) 65 - 99 mg/dL 03/07/2025 5:19 AM EDT [facility] BUN 18.9 6.0 - 20.0 mg/dL 03/07/2025 5:19 AM EDT [facility] Creatinine 1.15 0.76 - 1.27 mg/dL 03/07/2025 5:19 AM EDT [facility] Sodium 141 136 - 145 mmol/L 03/07/2025 5:19 AM [facility] Potassium 4.3 3.5 - 5.2 mmol/L 03/07/2025 5:19 AM [facility] Chloride 103 98 - 107 mmol/L 03/07/2025 5:19 AM [facility] CO2 24.3 22.0 - 29.0 mmol/L 03/07/2025 5:19 AM [facility] Calcium 9.9 8.6 - 10.5 mg/dL 03/07/2025 5:19 AM [facility] Total Protein 7.0 6.0 - 8.5 g/dL 03/07/2025 5:19 AM [facility] Albumin 4.0 3.5 - 5.2 g/dL 03/07/2025 5:19 AM [facility] ALT (SGPT) 25 1 - 41 U/L 03/07/2025 5:19 AM [facility] AST (SGOT) 14 1 - 40 U/L 03/07/2025 5:19 AM [facility] Alkaline Phosphatase 66 39 - 117 U/L 03/07/2025 5:19 AM [facility] Total Bilirubin 0.2 0.0 - 1.2 mg/dL 03/07/2025 5:19 AM [facility] Globulin 3.0 gm/dL 03/07/2025 5:19 AM [facility] Comment:Calculated Result A/G Ratio 1.3 g/dL 03/07/2025 5:19 AM [facility] BUN/Creatinine Ratio 16.4 7.0 - 25.0 03/07/2025 5:19 AM [facility] Anion Gap 13.7 5.0 - 15.0 mmol/L 03/07/2025 5:19 AM [facility] eGFR 83.5 >60.0 mL/min/1.7 3 03/07/2025 5:19 AM [facility] Blood Venipuncture / Unknown 03/07/2025 4:07 AM EDT 03/07/2025 4:42 AM EDT [facility] - 03/07/2025 5:19 AM EDT [...] does not include race as a factor Danish Tong MD LAB BLOOD ORDERABLES Final R esult [facility]
[address] [place] [address], * Respiratory Panel PCR w/COVID-19(SARS-CoV-2) RAYMON/BEBO/SHERRIE/PAD/COR/DEMETRIUS In-House, CLAIM SERVICE REPRESENTATIVE Swab in UTM/VTM, 2 HR TAT - Swab, Nasopharynx (03/07/2025 1:54 AM EDT) ADENOVIRUS, PCR Not Detected Not Detected BIOFIRE TORCH 03/07/2025 2:50 AM EDT [facility] Coronavirus 229E Not Detected Not Detected BIOFIRE TORCH 03/07/2025 2:50 AM EDT [facility] Coronavirus HKU1 Not Detected Not Detected BIOFIRE TORCH 03/07/2025 2:50 AM EDT [facility] Coronavirus NL63 Not Detected Not Detected BIOFIRE TORCH 03/07/2025 2:50 AM EDT [facility] Coronavirus OC43 Not Detected Not Detected BIOFIRE TORCH 03/07/2025 2:50 AM EDT [facility] COVID19 Not Detected Not Detected - Ref. Range BIOFIRE TORCH 03/07/2025 2:50 AM EDT [facility] Human Metapneumovirus Not Detected Not Detected BIOFIRE TOR 03/07/2025 2:50 AM EDT [facility] Human Rhinovirus/Enterov irus Not Detected Not Detected BIOFIRE TOR 03/07/2025 2:50 AM EDT [facility] Influenza A PCR Not Detected Not Detected BIOFIRE TOR 03/07/2025 2:50 AM EDT [facility] Influenza B PCR Not Detected Not Detected BIOFIRE TOR 03/07/2025 2:50 AM EDT [facility] Parainfluenza Virus 1 Not Detected Not Detected BIOFIRE TOR 03/07/2025 2:50 AM EDT [facility] Parainfluenza Virus 2 Not Detected Not Detected BIOFIRE TOR 03/07/2025 2:50 AM EDT [facility] Parainfluenza Virus 3 Not Detected Not Detected BIOFIRE TOR 03/07/2025 2:50 AM EDT [facility] Parainfluenza Virus 4 Not Detected Not Detected BIOFIRE TOR 03/07/2025 2:50 AM EDT [facility] RSV, PCR Not Detected Not Detected BIOFIRE TOR 03/07/2025 2:50 AM EDT [facility] Bordetella pertussis pcr Not Detected Not Detected BIOFIRE TOR 03/07/2025 2:50 AM EDT [facility] Bordetella parapertussis PCR Not Detected Not Detected BIOFIRE TOR 03/07/2025 2:50 AM EDT [facility] Chlamydophila pneumoniae PCR Not Detected Not Detected BIOFIRE TOR 03/07/2025 2:50 AM T [facility] Mycoplasma pneumo by PCR Not Detected Not Detected BIOFIRE TOR 03/07/2025 2:50 AM T [facility] Swab Nasopharyngeal structure / Unknown Collection / Unknown 03/07/2025 1:54 AM EDT 03/07/2025 2:02 AM EDT Narrative [facility] - 03/07/2025 2:50 AM EDT [...] ORDER FISH Final Result Performing Organization Address City/[facility]/ZIP Co de Phone Number [facility]
[address] [place] [address], * Blood Culture - Blood, Arm, Right (03/07/2025 12:10 AM EDT) Only the most recent of2 resultswithin the time period is included. Blood Culture No growth at 5 days 03/12/2025 12:45 AM EDT [facility] Blood Structure of right upper limb / Unknown Venipuncture / Unknown 03/07/2025 12:10 AM EDT 03/07/2025 12:37 AM EDT Danish Tong MD MICROBIOLOGY - GENERAL ORDER FISH Final Result Performing Organization Address [facility] Co de Phone Number [facility]
[address] [place] [address], * TSH Rfx On Abnormal To Free T4 (03/06/2025 9:16 PM EDT) TSH 3.300 0.270 - 4.200 uIU/mL 03/06/2025 9:55 PM EDT [facility] Blood Venipuncture / Unknown 03/06/2025 9:16 PM EDT 03/06/2025 9:22 PM EDT Danish Tong MD LAB BLOOD ORDERABLES Final R esult [facility]
[address] [place] [address], * (ABNORMAL) High Sensitivity CRP (03/06/2025 9:16 PM EDT) [facility] HS C-Reactive Protein 1.273(H) 0.010 - 0.500 mg/dL 03/08/2025 12:15 PM EDT [facility] Blood Venipuncture / Unknown 03/06/2025 9:16 PM EDT 03/07/2025 7:37 PM EDT Narrative [facility] - 03/08/2025 12:15 PM EDT Relative Risk Category Average hs-CRP level Low <0.1 mg/dl Average 0.1 mg/dl - 0.3 mg/dl High >0.3 mg/dl Danish Tong MD LAB BLOOD ORDERABLES Final R esult [facility]
[address] [place] [address], * (ABNORMAL) Blood Gas, Arterial With Co-Ox (03/06/2025 8:38 PM EDT) Pathologist [facility] Right Radial 03/06/2025 8:37 PM EDT [facility] THERAPY Ryan's Test N/A 03/06/2025 8:37 PM EDT [facility] THERAPY pH, Arterial 7.432 7.350 - 7.450 pH units 03/06/2025 8:37 PM EDT [facility] THERAPY pCO2, Arterial 34.2(L) 35.0 - 45.0 mm Hg 03/06/2025 8:37 PM EDT [facility] THERAPY Comment:84 Value below refer ence range pO2, Arterial 116.0(H) 83.0 - 108.0 mm Hg 03/06/2025 8:37 PM EDT [facility] THERAPY Comment:83 Value above refer ence range HCO3, Arterial 22.8 20.0 - 26.0 mmol/L 03/06/2025 8:37 PM EDT [facility] THERAPY Base Excess, Arterial -0.8(L) 0.0 - 2.0 mmol/L 03/06/2025 8:37 PM EDT [facility] THERAPY Hemoglobin, Blood Gas 16.2 13.5 - 17.5 g/dL 03/06/2025 8:37 PM EDT [facility] THERAPY Hematocrit, Blood Gas 49.5 38.0 - 51.0 % 03/06/2025 8:37 PM EDT [facility] THERAPY Oxyhemoglobin 98.3 94 - 99 % 03/06/2025 8:37 PM EDT [facility] THERAPY Methemoglobin -0.10(L) 0.00 - 1.50 % 03/06/2025 8:37 PM EDT [facility] THERAPY Comment:84 Value below refer ence range Carboxyhemoglobin 1.0 0 - 2 % 025 8:37 PM EDT [facility] THERAPY CO2 Content 23.8 22 - 33 mmol/L 03/06/2025 8:37 PM EDT [facility] THERAPY Temperature 37.0 03/06/2025 8:37 PM EDT [facility] THERAPY Barometric Pressure for Blood Gas 03/06/2025 8:37 PM T [facility] THERAPY Comment:N/A Modality Nasal Cannula 03/06/2025 8:37 PM EDT [facility] THERAPY FIO2 32 % 03/06/2025 8:37 PM EDT [facility] THERAPY Ventilator Mode 8:37 PM T [facility] THERAPY Comment:Meter: [id number] Mix[address] Supervisor: [id number] pH, Temp Corrected 7.432 pH Units 2024 8:37 PM EDT [facility] THERAPY pCO2, Temperature Corrected 34.2(L) 35 - 48 mm Hg 03/06/2025 8:37 PM EDT [facility] THERAPY pO2, Temperature Corrected 116(H) 83 - 108 mm Hg 03/06/2025 8:37 PM EDT [facility] THERAPY Arterial Blood 03/06/2025 8: 38 PM EDT 03/06/2025 8:38 PM EDT us Yosi Loja DO LAB BLOOD ORDERABLES Fin al Result [facility] THERAPY
[address] [place] [address], [place] * CT Angiogram Chest Pulmonary Embolism (03/06/2025 5:32 PM EDT) Anatomical Region Laterality Modality Chest N/A Computed Tomogra phy 03/06/2025 5:58 PM EDT Impressions 03/06/2025 6:05 PM EDT Grossly limited evaluation for pulmonary embolus. No evidence of large central pulmonary embolus. Electronically Signed: Elvis Osullivan MD 03/06/2025 6:05 PM EDT Workstation ID: [id number] Narrative 03/06/2025 6:[address] ANGIOGRAM [...] MD 03/06/2025 6:05 PM EDT Workstation ID: [id number] [facility] ORDERABLES Final Result * ECG 12 [...] ECG When compared with ECG of 06-Mar-2025 15:, No significant change was found Confirmed by YOSI LOJA MD ([id number]) on 03/07/2025 9:44:06 PM Referred By: ED Confirmed By: YOSI LOJA MD Procedure Note [...] RAYO GILBERT Confirmed By: YOSI LOJA MD us Yosi Loja DO ECG ORDERABLES Final Re sult ECG * High Sensitivity Troponin T 1Hr (03/06/2025 4:32 PM EDT) HS Troponin T 9 <22 ng/L 03/06/2025 5:05 PM EDT [facility] Troponin T Numeric Delta 2 Abnormal if >/=3 ng/L 03/06/2025 5:05 PM EDT [facility] Blood Venipuncture / Unknown 03/06/2025 4:32 PM EDT 03/06/2025 4:37 PM EDT [facility] - 03/06/2025 5:05 PM EDT High [...] injury due to an underlying chronic condition. us Yosi Loja DO LAB BLOOD ORDERABLES Fin al Result [facility]
[address] [place] [address], * XR Chest 1 View (03/06/2025 4:30 PM EDT) Anatomical Region Laterality Modality Body N/A Radiographic Lucy ging 03/06/2025 4:32 PM EDT Impressions 03/06/2025 4:32 PM EDT Impression: No radiographic evidence of acute cardiopulmonary abnormality. Electronically Signed: Vic Bailon MD 03/06/2025 4:32 PM EDT Workstation ID: [id number] Narrative 03/06/2025 4:32 PM EDT XR CHEST [...] MD 03/06/2025 4:32 PM EDT Workstation ID: [id number] Yosi Loja DO IMG DIAGNOSTIC IMAGING O RDERABLES Final Result * Telemetry Scan (03/06/2025 4:20 PM EDT) [facility] Onbase ECG ORDERABLES Final Result * AR CRITICAL CARE ILL/INJURED PATIENT INIT 30-74 MIN (03/06/2025 3:19 PM EDT) Narrative Yosi Loja, - 03/06/2025 3:19 PM EDT Yosi Loja [...] Hold for add-ons. 03/06/2025 3:31 PM EDT [facility] Comment:Auto resulted. Blood Venipuncture / Unknown 03/06/2025 3:13 PM EDT 03/06/2025 3:22 PM EDT Yosi Loja DO LAB BLOOD ORDER ONLY Fin al Result [facility]
[address] [place] [address], * [facility] (03/06/2025 3:13 PM EDT) Extra Tube Hold for add-ons. 03/06/2025 3:31 PM EDT [facility] Comment:Auto resulted. Blood Venipuncture / Unknown 03/06/2025 3:13 PM EDT 03/06/2025 3:22 PM EDT us Yosi Loja DO LAB BLOOD ORDER ONLY Fin al Result Performing Organization Address City/[facility]/ZIP Co de Phone Number [facility]
[address] [place] [address], * Green Top (Gel) (03/06/2025 3:13 PM EDT) Extra Tube Hold for add-ons. 03/06/2025 3:31 PM EDT [facility] Comment:Auto resulted. Blood Venipuncture / Unknown 03/06/2025 3:13 PM EDT 03/06/2025 3:22 PM EDT us Yosi Loja DO LAB BLOOD ORDER ONLY Fin al Result Performing Organization Address [facility] de Phone Number [facility]
[address] [place] [address], * Lavender Top (03/06/2025 3:13 PM EDT) Extra Tube hold for add-on 03/06/2025 3:31 PM EDT [facility] Comment:Auto resulted Blood Venipuncture / Unknown 03/06/2025 3:13 PM EDT 03/06/2025 3:22 PM EDT us Yosi Loja DO LAB BLOOD ORDER ONLY Fin al Result Performing Organization Address [facility] de Phone Number [facility]
[address] [place] [address], * Light Blue Top (03/06/2025 3:13 PM EDT) Extra Tube Hold for add-ons. 03/06/2025 3:31 PM EDT [facility] Comment:Auto resulted Blood Venipuncture / Unknown 03/06/2025 3:13 PM EDT 03/06/2025 3:22 PM EDT Yosi Loja LAB BLOOD ORDER ONLY Fin al Result Performing Organization Address [facility]/ZIP Co de Phone Number [facility]
[address] [place] [address], * High Sensitivity Troponin T (03/06/2025 3:13 PM EDT) Pathologist [facility] HS Troponin T 7 <22 ng/L 03/06/2025 3:50 PM EDT [facility] Blood Venipuncture / Unknown 03/06/2025 3:13 PM EDT 03/06/2025 3:22 PM EDT [facility] LABORATORY - 03/06/2025 3:50 PM EDT High [...] Stepan LAB BLOOD ORDERABLES Fin al Result Performing Organization Address [facility]/ZIP Co de Phone Number [facility]
[address] [place] [address], * D-dimer, Quantitative (03/06/2025 3:13 PM EDT) Pathologist [facility] D-Dimer, Quantitative <0.27 0.00 - 0.50 MCGFEU/mL 03/06/2025 8:42 PM EDT [facility] Blood Line / Unknown 03/06/2025 3: 13 PM EDT 03/06/2025 8:07 PM EDT [facility] - 03/06/2025 8:42 PM EDT According to the assay dry house attendant's published package insert, a normal (<0.50 MCGFEU/mL) D-dimer result in conjunction with a non-high clinical probability assessment, excludes deep vein thrombosis (DVT) and pulmonary embolism (PE) with high sensitivity. D-dimer values increase with age and this can make VTE exclusion of an older population difficult. To address this, the [employer], based on best available [...] 81 year old 0.80 MCGFEU/mL. Delfino Biggs TILE LAYER LAB BLOOD ORDERABLES Final Resu lt [facility]
[address] [place] [address], * BNP (03/06/2025 3:13 PM EDT) [facility] proBNP 86.6 0.0 - 450.0 pg/mL 03/06/2025 3:50 PM EDT [facility] Blood Venipuncture / Unknown 03/06/2025 3:13 PM EDT 03/06/2025 3:22 PM EDT Narrative [facility] - 03/06/2025 3:50 PM EDT [...] >75 Positive >1800 [place] 300-1800 Negative <300 us Yosi Loja DO LAB BLOOD ORDERABLES Fin al Result [facility]
[address] [place] [address], [place] [phone] from Last 3 Months Insurance MEDICAID [facility] MEDICARE ADVANTAGE [facility] HMO NON PAR Advance Directives * CPR (Attempt to Resuscitate) (Latest Code Status on File) Date Activated Date Inactivated Comments 03/06/2025 8:54 PM 03/08/2025 2:33 PM Question Answer Comments Code Status (Patient has no pulse and is not breathing): CPR (Attempt to Resuscitate) Medical Interventions (Patie nt has pulse or is breathing): Full Support Level Of Support Discussed With: Patient Care Teams Pyrotechnics Press Tender Relationship Specialty Start Date End Date Danielle Mora APRN [address] [place] [address] [place] [id number] PCP - General Family Medicine 12/02/15
--- OUTSIDE RECORDS SUMMARY | 2025-05-17 22:47 | XMS_ITS | Clinical Summary ---
Author Organization [facility] Address [address], [address] [place] [address] Care Team Providers Care Advertising Assistant Name Role Phone Unavailable Primary Care Provider [...]
--- OUTSIDE RECORDS SUMMARY | 2025-05-17 22:47 | XMS_ITS | Encounter Summary ---
Author Organization [facility] Address [address] [place] [address] Care Team Providers Care Dynamometer Tester Engine Name Role Phone Unavailable Primary Care Provider Unavailabl e Encounter Details Date Type Department Care Team (Latest Contact Info) Description 04/02/2025 Travel Social History Tobacco Use Types Packs/Day [...] as of this encounter Functional Status * AUDIT-C Score [...] Josy Huitron documented as of this encounter Plan of Treatment Upcoming Encounters Date Type Department Care Team (Late st Contact Info) Description 05/20/2025 1:00 PM EST Appointment [facility] Function [facility] [address] [place] [address] 05/20/2025 2:30 PM EST Office Visit [facility] [address] [place] [address] Betsy Mc MD [address] [facility] [address] [place] [address] documented as of this encounter Visit Diagnoses Not on filedocumented in this encounter Additional Health Concerns Assessment Noted Time A fall risk assessment has been complete d for the patient 04/02/2025 2:53 PM EDT documented as of this encounter
--- OUTSIDE RECORDS SUMMARY | 2025-05-17 22:48 | XMS_ITS | Encounter Summary ---
Author Organization Healthcare Address [address] [place] [address] Care Team Providers Care Grain Cleaner Name Role Phone System, Provider Not In MD Primary Care Provider Unavailable Encounter Details Date Type Department Care Team (Late Contact Info) Description 03/06/2025 Orders Only External Location [address] [place] [phone] Delfino Biggs MD [address] [place] [address] Social History Tobacco Use Types Packs/Day Years Used Date Smoking Tobacco: Never Assessed Sex and Gender Information Value Date Recorded Sex Assigned at Not on file Legal Sex Male 8:23 PM EDT Gender Identity Not on file Sexual Orientation Not on file documented as of this encounter Plan of Treatment Upcoming Encounters Date Type Department Care Team (Late Contact Info) Description 05/20/2025 1:00 PM EST Appointment P[facility] H Pulmonary Function Testing [address] [place] [phone] 05/20/2025 2:30 PM EST Office Visit [facility] Head[facility] Neck & Respiratory [address] [facility], [address]nd [place] [address] Betsy Mc MD [address] [place] [phone] documented as of this encounter Procedures Procedure Name Priority Date/Time Associated Diagnosis Comments CT OUTSIDE IMAGES 03/06/2025 5:26 PM EDT documented in this encounter Results * CT OUTSIDE IMAGES (03/06/2025 5:26 PM EDT) Anatomical Region Laterality Modality Computed Tomogra phy 03/06/2025 5:26 PM EDT Delfino Biggs MD IMG CT PROCEDURES Edited Result - Final documented in this encounter Visit Diagnoses Not on filedocumented in this encounter Care Teams Grain Cleaner Relationship Specialty Start Date End Date System, Provider Not In, [place] [address] PCP - General Family Medicine 04/17/25 documented as of this encounter
--- OUTSIDE RECORDS SUMMARY | 2025-05-17 22:48 | XMS_ITS | Encounter Summary ---
Author Organization [facility] Address [address] [place] [address] Care Team Providers Care Tire Mold Engraver Name Role Phone System, Provider Not In MD Primary Care Provider Unavailable Encounter Details Date Type Department Care Team (Late Contact Info) Description 03/11/2025 Orders Only External Location [address] [place] [phone] Provider, External Social History Tobacco Use Types Packs/Day Years [...] Appointment P[facility] H Pulmonary Function Testing [address] [place] [phone] 05/20/2025 2:30 PM EST Office Visit Pav [facility] Head, Neck & Respiratory [address] [facility], [address] [place] [address] Betsy Mc MD [address] [facility] [address] [place] [phone] documented as of this encounter Procedures Procedure Name Priority Date/Time Associated Diagnosis Comments XR OUTSIDE IMAGES 03/11/2025 2:31 PM EDT documented in this encounter Results * XR OUTSIDE IMAGES (03/11/2025 2:31 PM EDT) Anatomical Region Laterality Modality Radiographic Lucy ging 03/11/2025 2:31 PM EDT us External Provider IMG XR PROCEDURES Edited Resul t - Final documented in this encounter Visit Diagnoses Not on filedocumented in this encounter Care Teams Tire Mold Engraver Relationship Specialty Start Date End Date System, Provider Not In, [place] [address] PCP - General Family Medicine 04/17/25 documented as of this encounter
--- OUTSIDE RECORDS SUMMARY | 2025-05-17 22:48 | XMS_ITS | Encounter Summary ---
Author Organization [facility] Address [address] [place] [address] Care Team Providers Care Fuel Cell Systems Engineer Name Role Phone System, Provider Not In MD Primary Care Provider Unavailable Encounter Details Date Type Department Care Team (Late Contact Info) Description 03/01/2025 Orders Only External Location [address] [place] [phone] Provider, External Social History Tobacco Use Types [...] Appointment PAV H Pulmonary Function Testing [address] [place] [address] 05/20/2025 2:30 PM EST Office Visit [facility] Head, Neck & Respiratory [address] [facility], [address]nd [place] [address] Betsy Mc MD [address] [facility] [address] [place] [address] documented as of this encounter Procedures Procedure Name Priority Date/Time Associated Diagnosis Comments CT THORACIC OUTSIDE IMAGES 03/01/2025 8:04 AM EDT documented in this encounter Results * CT THORACIC OUTSIDE IMAGES (03/01/2025 8:04 AM EDT) Anatomical Region Laterality Modality Computed Tomogra phy 03/01/2025 8:04 AM EDT us External Provider IMG CT PROCEDURES Edited Resul t - Final documented in this encounter Visit Diagnoses Not on filedocumented in this encounter Care Teams Fuel Cell Systems Engineer Relationship Specialty Start Date End Date System, Provider Not In, [place] [address] PCP - General Family Medicine 04/17/25 documented as of this encounter
--- OUTSIDE RECORDS SUMMARY | 2025-05-17 22:48 | XMS_ITS | Encounter Summary ---
Author Organization Healthcare Address [address] [place] [address] Care Team Providers Care Transportation Engineer Name Role Phone Unavailable Primary Care Provider Unavailabl e Encounter Details Date Type Department Care Team ([facility] Contact Info) Description 03/30/2025 Telephone Pav [facility] Head, Neck & Respiratory [address] [facility], [address] [place] [address] Jered Meek MD [address] [place] [address] Social History Tobacco Use Types Packs/Day Years [...] Appointment P[facility] H Pulmonary Function Testing [address] [place] [phone] 05/20/2025 2:30 PM EST Office Visit [facility] Head, Neck & Respiratory [address] [facility], [address] [place] [address] Betsy Mc MD [address] [place] [place] [address] documented as of this encounter Visit Diagnoses Not on filedocumented in this encounter
--- NOTE | 2025-05-17 23:24 | CT_ITS ---
PROCEDURE INFORMATION: Exam: CT Right Upper Extremity Without Contrast, Wrist Exam date and time: 05/18/2025 12:07 AM Age: 39 years old Clinical indication: Pain; Wrist; Right; Additional info: [place], significant wrist pain but XR unremarkable TECHNIQUE: Imaging protocol: Computed tomography of the right upper extremity without contrast. Exam focused on the wrist. Radiation optimization: All CT scans at this facility use at least one of these dose optimization techniques: automated exposure control; mA and/or kV adjustment per patient size (includes targeted exams where dose is matched to clinical indication); or iterative reconstruction. COMPARISON: CR XR WRIST RT MIN 3V 05/17/2025 10:47 PM FINDINGS: Bones/joints: No identifiable acute fracture or malalignment. Soft tissues: Unremarkable. IMPRESSION: No identifiable acute osseous findings. If there is persistent concern for occult injury, consider MRI further evaluation.
--- NOTE | 2025-05-17 23:40 | ED_ITS ---
Discharge Plan Disposition Patient Disposition: Home, Self-Care Condition: Good Prescriptions Prescriptions: No Action lisinopril 5 mg tablet 5 mg PO DAILY Qty: 90 3RF meloxicam 7.5 mg tablet 7.5 mg PO BIDP PRN (Reason: Mild Pain (Scale Score 1-4)) Patient Comments: TAKE 1 TABLET BY MOUTH ONCE A DAY NEEDED. MAY increase TO 2 tablets daily NEEDED FOR PAIN albuterol sulfate [Ventolin HFA] 90 mcg/actuation HFA aerosol inhaler 2 puff inhalation Q6H PRN ipratropium-albuterol 0.5 mg-3 mg(2.5 mg base)/3 mL solution for nebulization 3 ml inhalation Q6H PRN (Reason: shortness of breath or wheezing) Qty: 90 3RF Breztri Aerosphere 160-9-4.8 mcg/actuation HFA aerosol inhaler 2 inh inhalation BID 90 Days Qty: 10.7 3RF dapagliflozin propanediol [Farxiga] 10 mg tablet 10 mg PO DAILY Qty: 30 2RF Kerendia 10 mg tablet 10 mg PO DAILY Qty: 30 2RF furosemide [Lasix] 40 mg tablet 40 mg PO BID 90 Days Qty: 180 3RF Zepbound 2.5 mg/0.5 mL pen injector 2.5 mg SQ WEEKLY Qty: 2 0RF Rx Instructions: for 4 weeks levocetirizine 5 mg tablet 5 mg PO DAILY montelukast 10 mg tablet 10 mg PO DAILY Patient Comments: TAKE ONE TABLET BY MOUTH ONCE A DAY famotidine 40 mg tablet 40 mg PO HS baclofen 10 mg tablet 10 mg PO TID omeprazole 20 mg capsule,delayed release(DR/EC) 20 mg PO BID Referrals Follow up/Referrals: Danielle Mora APRN [Primary Care Provider, Medical] - See instructions Activity Restrictions/Add. Instructions Additional Instructions/Restrictions: You were evaluated in the ER and are believed to be appropriate for discharge at this time. Take Tylenol if needed for pain, do not exceed the recommended dose on the bottle. Drink water and eat a small snack each time you take this medication to avoid side effects. Wear the splint for comfort. It can be removed for bathing, washing her hands, etc. Please make an appointment with your primary care doctor for reevaluation in 5 to 7 days. If you are still having pain they may want to repeat x-rays or get an MRI. Return to the ER with any new, worsening, or otherwise concerning symptoms. Clinical Impressions Clinical Impression: Acute pain of right wrist, Wrist pain Print Language Print Language: Citizen Of [place] Discharge ED Provider: Kj Mays General Adult HPI General Chief complaint: PAIN Stated complaint: AO 05/17 Fell off Bobcat/right wrist injury Time Seen by Provider: 05/17/25 23:00 Mode of Arrival: Ambulatory Source of Information: Patient Description of Symptoms (Recalled from ER Triage Doc. by RN): Pt fell off the bucket of a bobcat about an hour ago and is complaining of right wrist/arm pain History of Present Illness HPI narrative: 39-year-old male presents to the ER with right wrist pain. Patient reports he was trying to get into a bobcat at work when he slipped catching himself on an outstretched right hand. He felt a pop in the right wrist. He was able to continue working but came to the ER after he finished his shift for evaluation because he has significant pain with range of motion in any direction of the right wrist. He has no numbness in the hand or fingers, pain radiates slightly proximally from the wrist but not even to the midshaft forearm. He has tenderness isolated in the right wrist. He states if he tries to move in any direction he hears popping . He has not taken any medications for pain prior to arrival. He denies hitting his head or losing consciousness, no blood thinners. Denies recent illness or injury elsewhere. No other complaints or concerns. Related Data Home Medications ?Medication ?Instructions ?Recorded ?Confirmed levocetirizine 5 mg tablet 5 mg PO DAILY 05/14/2404/11 meloxicam 7.5 mg tablet 7.5 mg PO BIDP PRN Mild Pain 02/26/25 04/27/25 (Scale Score 1-4) baclofen 10 mg tablet 10 mg PO TID 02/28/25 famotidine 40 mg tablet 40 mg PO HS 02/28/25 5 omeprazole 20 mg capsule,delayed 20 mg PO BID 02/28/25 04/27/25 release albuterol sulfate 90 mcg/actuation 2 puff inhalation Q 6H PRN 03/10/25 04/27/25 aerosol inhaler (Ventolin HFA) montelukast 10 mg tablet 10 mg PO DAILY 04/22/2504/11 Previous Rx's ?Medication ?Instructions ?Recorded lisinopril 5 mg tablet 5 mg PO DAILY #90 tabs 01/12 budesonide 160 mcg-glycopyr 9 2 inh inhalation BID 90 days #10.7 03/10/25 mcg-formot 4.8 mcg/actuation HFA grams inhaler (Breztri Aerosphere) ipratropium 0.5 mg-albuterol 3 mg 3 ml inhalation Q6H PRN shortness 03/10/25 (2.5 mg base)/3 mL nebulization of breath or wheezing #90 mL soln dapagliflozin propanediol 10 mg 10 mg PO DAILY #30 tab s 04/27/25 tablet (Farxiga) finerenone 10 mg tablet (Kerendia) 10 mg PO DAILY #30 tabs 04/27/25 furosemide 40 mg tablet (Lasix) 40 mg PO BID 90 days # 180 tabs 04/27/25 tirzepatide (weight loss) 2.5 2.5 mg (0.5 mL) SQ WEEKL Y #2 mL 04/27/25 mg/0.5 mL subcutaneous pen injector (Zepbound) Allergies Allergy/AdvReac Type Severity Reaction Status Date / Time Penicillins (PENICILLINS) Allergy Unknown Swelling Verified 04/27/25 15:05 of Lip/Tongue/Throat pseudoephedrine (From Allergy Swelling Verified 04/27/25 15:05 Sudafed) of the Eye [facility] Disclaimer: The information contained in this section may have been updated after the patient was seen, as this information can be updated by other users. Medical History Nocturnal hypoxemia MARYBEL (obstructive sleep apnea) HTN (hypertension) Acute dyspnea Vocal cord edema Difficulty swallowing Hoarseness History of inguinal hernia Murmur Elevated BP without diagnosis of hypertension Restrictive lung disease Cystic-bullous disease of lung Tobacco use Edema Encounter for pre-operative cardiovascular clearance Tachycardia Abnormality of lung on CXR Decreased diffusion capacity of lung Allergic rhinitis Dyspnea on exertion Migraine COPD (chronic obstructive pulmonary disease) Asthma Surgical History History of hernia repair History of lymph node excision neck History of lung surgery History of dental surgery History of tonsillectomy Family History Other Asthma Cancer Diabetes Heart attack Hypertension Social History Smoking Status: Never smoker years smoked: 25 smoking status stop date: 3 months ago 01/2025 alcohol intake: never substance use type: denies use current occupational status: employed and other Travel in the last 8 weeks?: None household members: family housing: house marital status: single Have you lived/traveled outside [place] in past 30 days?: No Contact w/someone who lives/traveled outside US past 30 days?: No Exposure to someone with infectious disease in past 14 days?: No Do you have a fever (greater than 100.4 F or 38 C)?: No Have you tested positive for COVID-19?: No Exposed to someone with COVID-19 in past 14 days?: No Do you have a sore throat?: No Do you have a cough?: No Do you have any weakness?: No Do you have any diarrhea?: No Are you experiencing any unusual bleeding?: No Do you have any muscle aches/pain?: No Do you have any abdominal pain?: No Are you experiencing loss of taste or smell?: No Other Medical History Have you received the Flu Vaccine for this season: No Have you received the Pneumonia Vaccine: No ROS Obtained: Yes Systems reviewed as appropriate & no additional complaints except as documented Per HPI Physical Exam General General appearance: alert, in no apparent distress and obese Head Head exam: atraumatic and normocephalic Eye Eye exam: Present PERRL and EOMI ENT ENT exam: Present mucous membranes moist Neck Neck exam: Present normal inspection and full ROM Chest Chest inspection: Present symmetric chest wall rise; Absent tenderness Respiratory Respiratory exam: Present normal lung sounds bilaterally; Absent respiratory distress, wheezes or stridor Cardiovascular Cardiovascular exam: Present regular rate and normal rhythm Abdominal Exam Abdominal exam: Present soft; Absent distention or tenderness Extremities Exam Extremities exam: Present tenderness (Tenderness diffusely through the right wrist with no specific focal point of tenderness, no scaphoid tenderness) and other (Palpable radial and ulnar pulse in the right wrist, neurovascularly intact throughout); Absent full ROM (Range of motion right wrist limited secondary to pain) or joint swelling Neurological Exam Neurological exam: Present alert and oriented X3; Absent motor sensory deficit Psychiatric Psychiatric exam: Present normal affect and normal mood Skin Skin exam: Present warm and dry Medical Decision Making Medical Records Medical records reviewed: Yes I reviewed the patient's medical records. Screening: Per USPSTF and CDC recommendations, given the prevalence of disease in our region, it is our hospital?s policy to screen for HIV and viral Hepatitis for all patients aged 18 and over and those with ongoing risk factors. Mo Inquiry Pt receiving controlled substance: No Vital Signs: 05/17/25 22:37 05/18/25 00:52 Temperature 97.3 F L 97.9 F Temperature Source Temporal Artery Scan Pulse Rate 91 H Pulse Rate [Left] 109 H Respiratory Rate 18 18 Blood Pressure 144/84 H Blood Pressure [Left Arm] 144/97 H Blood Pressure Mean [Left Arm] 112 Blood Pressure Source [Left Arm] Automatic Cuff Blood Pressure Position [Left Arm] Sitting 02 Sat by Pulse Oximetry 96 Oxygen Delivery Method Room Air Room Air Orders (Tests/Meds): ED MEDICATIONS Discontinued Medications Generic Name Dose Route Start Last Admin Trade Name Freq PRN Reason Stop Dose Admin Acetaminophen 1,000 mg 05/17/25 23:31 05/17/25 23:43 Acetaminophen 500mg Tab PO 05/17/25 23:32 1,000 mg ONCE ONE Administration Ketorolac Tromethamine 30 mg 05/17/25 23:31 05/17/25 23:43 Ketorolac 30mg/Ml Vial IM 05/17/25 23:32 30 mg ONCE ONE Administration ORDERS Category Date Time Status CT wrist RT wo con Stat Cat Scan 05/17/25 23:24 Completed XR wrist RT min 3V Stat Exams 05/17/25 22:40 Completed Medical Decision Narrative: In summary, this 39-year-old male with comorbidities including obesity, hypertension, MARYBEL presents to the emergency department today with right wrist pain after fall on outstretched hand. On initial evaluation patient is hemodynamically stable, afebrile, GCS 15, no neurologic deficits, the only evidence of traumatic injury is tenderness in the right wrist with no specific focal area of tenderness, no deformity, no crepitus, neurovascularly intact. Range of motion of the right arm otherwise full, no other findings of trauma or complaints of pain. Differential diagnosis includes but is not limited to fracture, dislocation, sprain, I considered neurovascular injury but do not a ppreciate evidence of this. Based on these concerns, I ordered x-ray initially. Patient received Tylenol and Toradol. I personally interpreted x-ray and do not appreciate obvious fracture, it appears that the ulna may be slightly posteriorly displaced however radiology read does not comment on this. I reexamined the patient and he is still significantly tender with limited range of motion, his pain is out of proportion compared to the x-ray which could simply be a bad sprain, however since he is obese and fell onto the outstretched hand I discussed a CT without contrast with the patient for further evaluation of the bony structures and he is agreeable to this. CT pending CT personally interpreted does not demonstrate obvious acute osseous injury in the right wrist, see radiology read for final interpretation. Because of the discomfort in the right wrist despite there not being an obvious osseous injury, removable right wrist splint was applied. Patient tolerated this well. He is appropriate for discharge at this time and comfortable with this plan. Patient was given instructions on symptomatic monitoring and management, f splint use, ollow up instructions, and return precautions for the emergency department. Patient indicated understanding and was discharged in stable condition. Critical Care Critical Care Time Critical Care Time: No
[2025-05-17] MEDS: KETOROLAC 30MG/ML VIAL 30 MG IM (23:43)
[2025-05-17] MEDS: ACETAMINOPHEN 500MG TAB 1000 MG PO (23:43)
--- NOTE | 2025-05-18 00:45 | PC.NURSE ---
Wrist spint provided to PT
[2025-05-18 00:52] VITALS: BP 144/84; PULSE 91; RESP 18; TEMP 36.6; O2SAT 100
== END 2025-05-18 00:56 | disposition home or self-care (01) ==
PROVIDERS: Emergency Provider Emergency Medicine; PCP Nurse Practitioner Family
DX: M25.531 Pain in right wrist (principal); W17.89XA Other fall from one level to another, initial encounter
CPT/HCPCS: 73110; 73200; 96372; 99284; J1885